=== PATIENT | female | born 1945 | race Caucasian/White ===

== ENCOUNTER 2017-08-21 12:57 | Inpatient (IN) | payer MEDICARE, MEDICAID, SELFPAY ==
[2017-08-21] VITALS (104 sets, daily range): BP systolic 73–134; BP diastolic 46–99; PULSE 51–207; RESP 11–38; TEMP 37–37.3; O2SAT 91–98
--- NOTE | 2017-08-21 13:10 | ED.GENADUL ---
Disposition Clinical Impression: New onset a-fib, Atrial fibrillation with RVR Disposition: [facility] INPATIENT Condition: Stable Medical Decision Making - Lab Data Results reviewed for labs ordered during visit: Yes - EKG Data -: EKG Interpreted by Me EKG shows normal: axis, intervals 08/21/17 13:13 svt vs rapid afib 08/21/17 14:18 2nd ekg shows no significant changes, afib with rvr, no interval changes - Radiology Data Radiology results: report reviewed, image reviewed - Medical Decision Making Pt here with ekg that is likely showing svt. Has absolutely no symptoms with this so unclear when this started. Vagal maneuvers attempted and failed, will try diltizem to decrease and come out of this rhythm. Has no chest pain/pressure or sob so doubt acs at this time labs unremarkble other than mild low magnesium which I will replete IV. She remains HD stable, did require 2nd IVP 15mg diltiazem as HR was still 160 in afib and is now on a drip. Will admit to the ICU, spoke with Dr. Sykes who accepted and requests lovenox. Her [id number] is 2 based on age and being female so should be anticoagulated - Differential Diagnosis electrolyte abnormality, svt, afib History of Present Illness - General Chief complaint: Palpitatns Stated complaint: UNKNOWN Time Seen by Provider: 08/21/17 13:04 Source: patient Mode of arrival: ambulatory Limitations: no limitations - History of Present Illness Initial comments: 72 yo female with hx of depression who was at her pcp's office today for screening prior to going to [facility], who comes in with from the office after she was found to have a HR of 180. She denies any palpitations, chest pain/pressure, shortness of breath, abdominal pain, n/v. She walked into the exam room unassisted with a normal gait. no prior hx of cardiac disease per pt and family MD Complaint: HR of 180 -: unknown Location: chest Radiation: non-radiation Severity scale (1-10): 1 (no pain) Consistency: other (no pain) Improves with: none Worsens with: none Associated Symptoms: denies other symptoms Treatments Prior to Arrival: none - Related Data Cyanocobalamin (Vitamin B-12) [Vitamin B-12] 500 mcg PO DAILY 07/11/12 True Aloe 1 cap PO QID PRN 07/11/12 Nystatin Powder 60 GM [Mycostatin Powder] 1 stacie TP BID prn #60 gram 07/01/13 Ocuvite Adult 50+ Softgel 1 each PO DAILY 10/03/13 Blood-Glucose Meter [Blood Glucose Meter] 1 each as directed #1 each 06/15/14 Flu Vaccine [id number](6Mos Up) [Flulaval Quad [id number]] 60 mcg IM ONCE #1 dose 01/18/16 Hydrochlorothiazide 12.5 mg PO DAILY #90 tab-cap 07/12/16 Levothyroxine [Levothroid] 150 mcg PO DAILY #90 tab 07/12/16 Insulin Glargine [Lantus Solostar] 60 unit SQ HS #3 box 11/11/16 Metformin HCl [Metformin HCl ER] 2,000 mg PO DAILY #60 tab-cap 11/11/16 Lancets 1 ea QID #200 each 11/26/16 Blood Sugar Diagnostic [Blood Glucose Test Strip] 1 strip QID #200 strip 03/18/17 Alprazolam [Xanax] 0.5 mg PO DAILY #30 tab 07/21/17 Risperidone 0.5 tab PO BID 07/31/17 Pen Needle, Diabetic [Pen [place]] 1 ndl SQ DAILY #100 ndl 08/05/17 Acetaminophen 2 tab PO TID PRN 08/07/17 Losartan [Cozaar] 100 mg PO DAILY #90 tab 08/20/17 Allergies Allergy/AdvReac Type Severity Reaction Status Date / Time Iodinated Contrast- Oral and Allergy Unknown Unverified 08/21/17 13:16 IV Dye Oral contrast Allergy rash, Uncoded 08/21/17 13:16 lower leg swelling Review of Systems Constitutional: denies: fever Respiratory: denies: cough, shortness of breath Cardiovascular: denies: chest pain, palpitations, dyspnea on exertion Gastrointestinal: denies: abdominal pain, nausea, vomiting Genitourinary: denies: urgency Musculoskeletal: denies: back pain Neurological: denies: headache Comment: All other systems reviewed and negative Past Medical History - Past Medical History Medical history: arthritis, diabetes, GERD, hyperlipidemia, hypertension Surgical history: non-contributory - Social History Alcohol use: none Drug use: none General Exam - General Limitations: no limitations General appearance: alert, in no apparent distress - Head Head exam: Present: atraumatic - Eye Eye exam: Present: normal apperance - ENT ENT exam: Present: mucous membranes moist - Neck Neck exam: Present: normal inspection - Respiratory Respiratory exam: Present: normal lung sounds bilaterally. Absent: respiratory distress - Cardiovascular Cardiovascular Exam: Present: regular rate, normal rhythm, normal heart sounds - GI/Abdominal GI/Abdominal exam: Present: soft. Absent: tenderness - Extremities Exam Extremities exam: Present: normal inspection. Absent: pedal edema, calf tenderness - Neurological Exam Neurological exam: Present: alert, oriented X3. Absent: motor sensory deficit - Psychiatric Psychiatric exam: Present: normal affect - Skin Skin exam: Present: warm Course Vital Signs - 24 hr 08/21/17 13:02 Temperature 99.1 F Pulse 180 H Respiratory 22 Rate Blood Pressure 115/99 Pulse Oximetry 95 Critical Care Time Critical Care Time: Yes Total Critical Care Time: 60 (minutes) Critical Care Time: time spent initiaing IV diltiazem in patient with afib with rapid ventricular response, monitoring hemodynamics, ekg interpretation and lab review
--- NOTE | 2017-08-21 13:13 | ED.GENADUL_ITS ---
Disposition Clinical Impression: New onset a-fib, Atrial fibrillation with RVR Disposition: [facility] INPATIENT Condition: Stable Medical Decision Making - Lab Data Results reviewed for labs ordered during visit: Yes - EKG Data -: EKG Interpreted by Me EKG shows normal: axis, intervals 08/21/17 13:13 svt vs rapid afib 08/21/17 14:18 2nd ekg shows no significant changes, afib with rvr, no interval changes - Radiology Data Radiology results: report reviewed, image reviewed - Medical Decision Making Pt here with ekg that is likely showing svt. Has absolutely no symptoms with this so unclear when this started. Vagal maneuvers attempted and failed, will try diltizem to decrease and come out of this rhythm. Has no chest pain/ pressure or sob so doubt acs at this time labs unremarkble other than mild low magnesium which I will replete IV. She remains HD stable, did require 2nd IVP 15mg diltiazem as HR was still 160 in afib and is now on a drip. Will admit to the ICU, spoke with Dr. Sykes who accepted and requests lovenox. Her [id number] is 2 based on age and being female so should be anticoagulated - Differential Diagnosis electrolyte abnormality, svt, afib History of Present Illness - General Chief complaint: Palpitatns Stated complaint: UNKNOWN Time Seen by Provider: 08/21/17 13:04 Source: patient Mode of arrival: ambulatory Limitations: no limitations - History of Present Illness Initial comments: 72 yo female with hx of depression who was at her pcp's office today for screening prior to going to [facility], who comes in with from the office after she was found to have a HR of 180. She denies any palpitations, chest pain/pressure, shortness of breath, abdominal pain, n/v. She walked into the exam room unassisted with a normal gait. no prior hx of cardiac disease per pt and family MD Complaint: HR of 180 -: unknown Location: chest Radiation: non-radiation Severity scale (1-10): 1 (no pain) Consistency: other (no pain) Improves with: none Worsens with: none Associated Symptoms: denies other symptoms Treatments Prior to Arrival: none - Related Data Cyanocobalamin (Vitamin B-12) [Vitamin B-12] 500 mcg PO DAILY 07/11/12 True [place]oe 1 cap PO QID PRN 07/11/12 Nystatin Powder 60 GM [Mycostatin Powder] 1 stacie TP BID prn #60 gram 07/01/13 Ocuvite Adult 50+ Softgel 1 each PO DAILY 10/03/13 Blood-Glucose Meter [Blood Glucose Meter] 1 each as directed #1 each Flu Vaccine [id number](6Mos Up) [Flulaval Quad [id number]] 60 mcg IM ONCE #1 dose 01/18/16 Hydrochlorothiazide 12.5 mg PO DAILY #90 tab-cap 07/12/16 Levothyroxine [Levothroid] 150 mcg PO DAILY #90 tab 07/12/16 Insulin Glargine [Lantus Solostar] 60 unit SQ HS #3 box 11/11/16 Metformin HCl [Metformin HCl ER] 2,000 mg PO DAILY #60 tab-cap 11/11/16 Lancets 1 ea QID #200 each 11/26/16 Blood Sugar Diagnostic [Blood Glucose Test Strip] 1 strip QID #200 strip Alprazolam [Xanax] 0.5 mg PO DAILY #30 tab 07/21/17 Risperidone 0.5 tab PO BID 07/31/17 Pen Needle, Diabetic [Pen [place]] 1 ndl SQ DAILY #100 ndl 08/05/17 Acetaminophen 2 tab PO TID PRN 08/07/17 Losartan [Cozaar] 100 mg PO DAILY #90 tab 08/20/17 Allergies Allergy/AdvReac Type Severity Reaction Status Date / Time Iodinated Contrast- Oral and Allergy Unknown Unverified 08/21/17 13:16 IV Dye Oral contrast Allergy rash, Uncoded 08/21/17 13:16 lower leg swelling Review of Systems Constitutional: denies: fever Respiratory: denies: cough, shortness of breath Cardiovascular: denies: chest pain, palpitations, dyspnea on exertion Gastrointestinal: denies: abdominal pain, nausea, vomiting Genitourinary: denies: urgency Musculoskeletal: denies: back pain Neurological: denies: headache Comment: All other systems reviewed and negative Past Medical History - Past Medical History Medical history: arthritis, diabetes, GERD, hyperlipidemia, hypertension Surgical history: non-contributory - Social History Alcohol use: none Drug use: none General Exam - General Limitations: no limitations General appearance: alert, in no apparent distress - Head Head exam: Present: atraumatic - Eye Eye exam: Present: normal apperance - ENT ENT exam: Present: mucous membranes moist - Neck Neck exam: Present: normal inspection - Respiratory Respiratory exam: Present: normal lung sounds bilaterally. Absent: respiratory distress - Cardiovascular Cardiovascular Exam: Present: regular rate, normal rhythm, normal heart sounds - GI/Abdominal GI/Abdominal exam: Present: soft. Absent: tenderness - Extremities Exam Extremities exam: Present: normal inspection. Absent: pedal edema, calf tenderness - Neurological Exam Neurological exam: Present: alert, oriented X3. Absent: motor sensory deficit - Psychiatric Psychiatric exam: Present: normal affect - Skin Skin exam: Present: warm Course Vital Signs - 24 hr 08/21/17 13:02 Temperature 99.1 F Pulse 180 H Respiratory 22 Rate Blood Pressure 115/99 Pulse Oximetry 95 Critical Care Time Critical Care Time: Yes Total Critical Care Time: 60 (minutes) Critical Care Time: time spent initiaing IV diltiazem in patient with afib with rapid ventricular response, monitoring hemodynamics, ekg interpretation and lab review
[2017-08-21 13:21] LABS: Abs Immature Grans 0.05 k/cumm (0.0-0.09); Absolute Eosinophil Count 0.07 k/cumm (0.0-0.7); Absolute Lymphocyte Count 2.56 k/cumm (1.2-3.4); Absolute Monocyte Count 0.94 k/cumm (0.11-0.7); Basophils % 0.2; Eosinophils % 0.6; HCT 44.2 % (36.0-46.0); Immature Grans % 0.4; Lymphocytes % 21.1; Mean Corp. HGB Concentration 33.9 g/dL (32.0-36.0); Mean Corpuscular Hemoglobin 29.9 pg (27.0-33.0); Mean Corpuscular Volume 88.2 fL (80-95); Mean Platelet Volume 10.3 fL (8.0-11.0); Monocytes % 7.7; Platelet Count 297 x1000/uL (130-400); RBC 5.01 m/cumm (4.00-5.20); RBC Distribution Width 14.8 % (11.7-14.6); White Blood Cell Count 12.15 k/cumm (4.4-10.8)
--- NOTE | 2017-08-21 13:22 | DI.REPORT_ITS ---
SYMPTOMS/DIAGNOSIS: SHORTNESS OF BREATH PORTABLE AP CHEST 13:40 HOURS: The heart is at the upper limits of normal in size. The lungs are clear and well expanded. CONCLUSION: No evidence of acute disease.
[2017-08-21 13:25] LABS: Absolute Basophil Count 0.02 k/cumm (0.0-0.2); Absolute Neutrophil Count 8.51 k/cumm (1.2-6.7)
[2017-08-21 13:35] LABS: PTT Activated 23.2 sec (21.0-31.4); Prothrombin Time 9.5 sec (9.3-10.8)
[2017-08-21 13:39] LABS: Anion Gap 14.2 mmol/L (3-11); BUN 30 mg/dL (7-18); CO2 20.8 mmol/L (21.0-32.0); Chloride 107 mmol/L (98-107); Glucose 130 mg/dL (70-100); Magnesium 1.6 mg/dL (1.8-2.4); Potassium 4.3 mmol/L (3.5-5.1); Sodium 142 mmol/L (136-145); Troponin I 0.02 ng/mL (0.00-0.06)
[2017-08-21 13:46] LABS: TSH (W/Ref FT4) 2.29 uIU/mL (0.358-3.74)
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
[2017-08-21 18:07] LABS: Troponin I < 0.02 ng/mL (0.00-0.06)
[2017-08-21] MEDS: Metoprolol 25 MG TAB PO (18:09)
[2017-08-21] MEDS: Insulin Aspart 300 UNITS/3 ML PEN SC (18:12)
[2017-08-21] MEDS: Metoprolol 5 MG/5 ML VIAL IVP (19:40)
[2017-08-21] MEDS: risperiDONE 0.5 MG TAB 0.25 MG PO (19:40)
[2017-08-21] MEDS: Normal Saline 250 ML IV (20:30)
[2017-08-21] MEDS: Insulin Glargine 300 UNITS/3 ML PEN 60 UNITS SC (21:53)
[2017-08-21 22:00] LABS: Troponin I < 0.02 ng/mL (0.00-0.06)
[2017-08-21] MEDS: Normal Saline 1,000 ML 100 ML IV (23:35)
[2017-08-22] VITALS (41 sets, daily range): BP systolic 79–122; BP diastolic 56–76; PULSE 52–86; RESP 15–34; TEMP 36.4–36.9; O2SAT 92–97
[2017-08-22] MEDS: Metoprolol 25 MG TAB PO ×2 (01:44→09:32)
[2017-08-22] MEDS: ALPRAZolam 0.5 MG TAB PO ×2 (02:25→19:42)
[2017-08-22 07:04] LABS: Abs Immature Grans 0.03 k/cumm (0.0-0.09); Absolute Basophil Count 0.02 k/cumm (0.0-0.2); Absolute Eosinophil Count 0.07 k/cumm (0.0-0.7); Absolute Monocyte Count 0.62 k/cumm (0.11-0.7); Basophils % 0.3; Eosinophils % 0.9; HCT 38.4 % (36.0-46.0); HGB 12.6 g/dL (12.0-15.5); Immature Grans % 0.4; Lymphocytes % 23.9; Mean Corp. HGB Concentration 32.8 g/dL (32.0-36.0); Mean Corpuscular Hemoglobin 29.7 pg (27.0-33.0); Mean Corpuscular Volume 90.6 fL (80-95); Mean Platelet Volume 10.4 fL (8.0-11.0); Monocytes % 7.8; Neutrophils % 66.7; Platelet Count 232 x1000/uL (130-400); RBC 4.24 m/cumm (4.00-5.20); RBC Distribution Width 14.9 % (11.7-14.6); White Blood Cell Count 7.94 k/cumm (4.4-10.8)
[2017-08-22 07:19] LABS: ALT 20 U/L (12-78); AST 12 U/L (15-37); Albumin 2.5 g/dL (3.4-5.0); Alkaline Phosphatase 62 U/L (46-116); Anion Gap 8.9 mmol/L (3-11); BUN 23 mg/dL (7-18); Bilirubin, Total 0.4 mg/dL (0.2-1.0); CO2 24.1 mmol/L (21.0-32.0); CREATININE 0.76 mg/dL (0.55-1.02); Calcium 7.5 mg/dL (8.5-10.1); Chloride 109 mmol/L (98-107); Glucose 103 mg/dL (70-100); Potassium 3.8 mmol/L (3.5-5.1); Sodium 142 mmol/L (136-145); Total Protein 5.5 g/dL (6.4-8.2)
[2017-08-22 07:22] LABS: FREE T4 1.38 ng/dL (0.76-1.46)
--- NOTE | 2017-08-22 07:33 | MERGE_ITS ---
*[facility] [employer]* *[facility]* [address] [place] [address] Date of study: 08/22/2017 Transthoracic Echocardiography M-mode, complete 2D, complete spectral Doppler, and color Doppler *STUDY CONCLUSIONS* Summary: 1. Left ventricle: The cavity size was normal. Wall thickness was normal. Systolic function was normal. The estimated ejection fraction was 55-60%. Wall motion was normal; there were no regional wall motion abnormalities. 2. Right ventricle: The cavity size was normal. Systolic function was normal. *PATIENT PRESENTATION* Height: 144.8cm ((57in) ) S/D Pressure: 79 / 62 Weight: 83.5kg ((183.6lb) ) BSA: 1.88m^2 Test start time: 07:33 AM. Test stop time: 08:35 AM. PERFORMING Unknown PERFORMING [facility] ORDERING Nam Sykes REFERRING Nam Sykes [employer] SUPERVISOR Kenna Ocampo *PROCEDURE DATA* Procedure information: This study was interpreted by [facility]. Pertinent images and digital data are archived for permanent storage and are available for subsequent review. No prior study was available for comparison. Study status: Routine. Transthoracic echocardiography. M-mode, complete 2D, complete spectral Doppler, and color Doppler. A Transthoracic Echocardiogram was performed. Scanning was performed from the parasternal, apical, subcostal, and suprasternal notch acoustic windows. Images were obtained using an HammerKit 2000 cardiac ultrasound machine. Image quality was adequate. Study completion: The patient tolerated the procedure well. There were no complications. History: PMH: A Fib, HTN, DM. *CARDIAC ANATOMY* Left ventricle: The cavity size was normal. Wall thickness was normal. Systolic function was normal. The estimated ejection fraction was 55-60%. Wall motion was normal; there were no regional wall motion abnormalities. Aortic valve: Trileaflet; normal thickness leaflets. Mobility was not restricted. Doppler: Transvalvular velocity was within the normal range. There was no stenosis. There was trivial regurgitation. VTI ratio of LVOT to aortic valve: 0.69. Valve area (VTI): 1.7cm^2. Indexed valve area (VTI): 0.9cm^2/m^2. Peak velocity ratio of LVOT to aortic valve: 0.62. Valve area (Vmax): 1.5cm^2. Indexed valve area (Vmax): 0.8cm^2/m^2. Mean velocity ratio of LVOT to aortic valve: 0.57. Valve area (Vmean): 1.4cm^2. Indexed valve area (Vmean): 0.7cm^2/m^2. Mean gradient (S): 3.6mm Hg. Peak gradient (S): 6.4mm Hg. Aorta: Aortic root: The aortic root was normal in size. Ascending aorta: The ascending aorta was normal in size. Mitral valve: Mildly calcified annulus. Mildly thickened leaflets. Mobility was not restricted. Doppler: Transvalvular velocity was within the normal range. There was no evidence for stenosis. There was mild regurgitation. Valve area by pressure half-time: 6.4cm^2. Indexed valve area by pressure half-time: 3.4cm^2/m^2. Peak gradient (D): 2.8mm Hg. Left atrium: The atrium was normal in size. Right ventricle: The cavity size was normal. Systolic function was normal. Pulmonic valve: Poorly visualized. Doppler: Transvalvular velocity was within the normal range. There was no evidence for stenosis. There was no significant regurgitation. Tricuspid valve: Structurally normal valve. Doppler: Transvalvular velocity was within the normal range. There was no evidence for stenosis. There was trivial regurgitation. Pulmonary artery: Poorly visualized. Pulmonary systolic pressure was within the normal range. Right atrium: The atrium was normal in size. Pericardium: There was no pericardial effusion. Systemic veins: Inferior vena cava: The vessel was normal in size. The respirophasic diameter changes were in the normal range (greater than or equal to 50%), consistent with normal central venous pressure. Measurements Left ventricle Value Reference LV ID, ED, PLAX 5.0 cm 3.5 - 6.0 LV ID, ES, PLAX 3.2 cm 2.1 - 4.0 LV PW thickness, ED, PLAX 0.9 cm LV end-diastolic volume, 1-p A2C 65 ml LV ejection fraction, 1-p A2C 60 % LV end-diastolic volume, 1-p A4C 83 ml LV ejection fraction, 1-p A4C 53 % LV e', lateral 0.093 m/sec LV E/e', lateral 9 LV e', medial 0.053 m/sec LV E/e', medial 16 LV e', average 0.073 m/sec LV E/e', average 11 Ventricular septum Value Reference IVS thickness, ED, PLAX 0.9 cm LVOT Value Reference LVOT ID, A-P 1.8 cm LVOT area 2.5 cm^2 LVOT peak velocity, S 0.78 m/sec LVOT mean velocity, S 0.52 m/sec LVOT VTI, S 18.8 cm LVOT peak gradient, S 2.4 mm Hg LVOT mean gradient, S 1.3 mm Hg Stroke volume (SV), LVOT DP 47 ml Stroke index (SV/bsa), LVOT DP 25 ml/m^2 Aortic valve Value Reference Aortic valve peak velocity, S 1.3 m/sec Aortic valve mean velocity, S 0.91 m/sec Aortic valve VTI, S 27.4 cm Aortic mean gradient, S 3.6 mm Hg Aortic peak gradient, S 6.4 mm Hg VTI ratio, LVOT/AV 0.69 Aortic valve area, VTI 1.7 cm^2 Velocity ratio, peak, LVOT/AV 0.62 Aortic valve area, peak velocity 1.5 cm^2 Velocity ratio, mean, LVOT/AV 0.57 Aortic valve area, mean velocity 1.4 cm^2 Aortic valve area/bsa, mean velocity 0.7 cm^2/m^2 Aorta Value Reference Aortic root ID, ED 3.1 cm Ascending aorta ID, A-P, S 3.7 cm Aortic root ID, ED, MM 3.1 cm 2.0 - 3.7 Left atrium Value Reference LA ID, A-P, ES 3.6 cm LA ID/bsa, A-P 1.9 cm/m^2 <=2.2 LA area, ES, A4C 19.4 cm^2 8.8 - 23.4 LA volume/bsa, S 31 ml/m^2 LA/aortic root ratio 1.18 Mitral valve Value Reference Mitral E-wave peak velocity 0.83 m/sec Mitral A-wave peak velocity 0.37 m/sec Mitral deceleration time (L) 118 ms 150 - 230 Mitral pressure half-time 34 ms Mitral peak gradient, D 2.8 mm Hg Mitral E/A ratio, peak 2.23 Mitral valve area, PHT, DP 6.4 cm^2 Tricuspid valve Value Reference Tricuspid regurg peak velocity 2.5 m/sec Tricuspid peak RV-RA gradient 25.9 mm Hg Right atrium Value Reference RA area, ES, A4C 16.1 cm^2 8.3 - 19.5 Legend: (L) and (H) yani values outside specified reference range. I have personally reviewed the images and have reviewed and edited the reported findings. Electronically signed by Tatum Bazzi 08/22/2017 09:47
[2017-08-22] MEDS: Losartan 50 MG TAB 100 MG PO (08:41)
[2017-08-22] MEDS: Beta-Carotene(A) w/C,E, & Minerals TAB 1 TAB PO (08:41)
[2017-08-22] MEDS: Levothyroxine 75 MCG TAB 150 MCG PO (08:41)
[2017-08-22] MEDS: Enoxaparin 80 MG/0.8 ML SYR SC (08:42)
[2017-08-22] MEDS: Cyanocobalamin 500 MCG TAB PO (08:42)
[2017-08-22] MEDS: risperiDONE 0.5 MG TAB 0.25 MG PO ×2 (08:42→19:42)
--- NOTE | 2017-08-22 08:48 | PDOC.CMPRO ---
Care Management Progress Note 08/22-Late note for 08/21 Jason from [facility] came to discuss Karuna. Jason has been working with her in the outpatient setting. Concern about her mental health. Karuna was seen for suicidal ideation in the past and currently the outpatient team is working on her going to [facility]. Discussed with Jason that Karuna was here for medical and that once medically cleared she will be ready for discharge. The outpatient team will continue to work on getting her into [facility]. This CM did meet with Karuna and her sister in the emergency department. Karuna is here for new onset afib, sent in by her primary care provider. Discussion with inpatient CM about above visit from Jason.
[2017-08-22] MEDS: Insulin Aspart 300 UNITS/3 ML PEN SC (09:15)
[2017-08-22] MEDS: Normal Saline 1,000 ML 100 ML IV (09:29)
--- NOTE | 2017-08-22 09:55 | PDOC.CMIN ---
Date of Service: 08/22/17 Time of Service: 09:55 Care Management Initial Assess REASON FOR HOSPITALIZATION:: Atrial Fibrillation with rapid ventricular response PAST MEDICAL HISTORY/PAST SURGICAL HISTORY:: HTN, Hyperlipidemia, b12 deficiency, anxiety, depression, DM, osteoarthritis, hypothyroidism. Surgical hx hysterectomy, hernia repair. PREVIOUS FUNCTIONAL STATUS/SOCIAL/FAMILY SUPPORTS:: Patient lives with her sister in law Yancy and her brother Yaniv. She was living with her mother however due to altercations between the 2 she is staying with her [id number]. She was recently in a care bed with [facility] [employer], and is required a lot of support around her mental health. Community resources have been trying to get her into [facility] for geriatric psych support, with progression toward assisted living in which they are reviewing the [facility]. CURRENT FUNCTIONAL STATUS:: Patient is alert and interactive in conversation with CM. [id number] Malorie's at the bedside she is willing to transport patient to [facility] at time of discharge. Patient is processing information related to new diagnosis of atrial fibrillation with support from [id number]-wh-nck. At the bedside is the atrial fibrillation teaching packet. ADVANCE DIRECTIVES:: On file at [facility] Has patient been provided with information about the portal?: Yes Did the patient sign up for the portal?: No CODE STATUS:: DNR/DNI INSURANCE COVERAGE / FINANCIAL ISSUES:: MEDICARE. MEDICAID CURRENT HOME/COMMUNITY SERVICES/EQUIPMENT:: Community resources include school adjustment counselor on aging, community connections, chronic primary care nurse practitioner at [facility]. Patient has been accepted at [facility] and anticipates admission they are on Friday. PRIMARY CARE PHYSICIAN:: Nuris Henley APRN POTENTIAL DISCHARGE NEEDS:: Patient will transition to geriatric psychiatric facility on Friday. If patient is to be discharged over the weekend she will need to follow-up with her primary care prior to transition to [facility]. PATIENT/FAMILY EDUCATION NEEDS:: Education related to acute illness, follow-up plan of care, medications, limitations, ask me 3, and self-management discussion. ANTICIPATED BARRIERS TO DISCHARGE:: No anticipated barriers at this time TRANSPORTATION:: Patient to be transported by her mjqolc-nq-vsw Yancy at time of discharge via private car. PLAN:: Patient will remain inpatient until medically ready for discharge per provider. Patient has been accepted at [facility] in [place], [place]. CM faxed updated clinicals to the facility, plan is for her to transfer there on Friday from [facility] if possiable. HEAD PAPER TESTER contact is Jossie at [phone] fax number is [phone]. Patient will transition to [facility] for anticoagulation, pt has medicaid and Eliquis does not need a PA. CM to continue to provide support ongoing discharge planning and disposition.
--- NOTE | 2017-08-22 11:20 | INITIAL_ITS ---
Date of Service: 08/22/17 Time of Service: 09:55 Care Management Initial Assess REASON FOR HOSPITALIZATION:: Atrial Fibrillation with rapid ventricular response PAST MEDICAL HISTORY/PAST SURGICAL HISTORY:: HTN, Hyperlipidemia, b12 deficiency , anxiety, depression, DM, osteoarthritis, hypothyroidism. Surgical hx hysterectomy, hernia repair. PREVIOUS FUNCTIONAL STATUS/SOCIAL/FAMILY SUPPORTS:: Patient lives with her sister in law Yancy and her brother Yaniv. She was living with her mother however due to altercations between the 2 she is staying with her sister-in- law. She was recently in a care bed with [facility] [employer], and is required a lot of support around her mental health. Community resources have been trying to get her into [facility] for geriatric psych support, with progression toward assisted living in which they are reviewing the [facility]. CURRENT FUNCTIONAL STATUS:: Patient is alert and interactive in conversation with CM. Ttirbm-[id number]-tlk Malorie's at the bedside she is willing to transport patient to [facility] at time of discharge. Patient is processing information related to new diagnosis of atrial fibrillation with support from sister-in- law. At the bedside is the atrial fibrillation teaching packet. ADVANCE DIRECTIVES:: On file at [facility] Has patient been provided with information about the portal?: Yes Did the patient sign up for the portal?: No CODE STATUS:: DNR/DNI INSURANCE COVERAGE / FINANCIAL ISSUES:: MEDICARE. MEDICAID CURRENT HOME/COMMUNITY SERVICES/EQUIPMENT:: Community resources include staff counsel on aging, community connections, chronic insurance healthcare consultant at [facility]. Patient has been accepted at [facility] and anticipates admission they are on Friday. PRIMARY CARE PHYSICIAN:: Nuris Henley APRN POTENTIAL DISCHARGE NEEDS:: Patient will transition to geriatric psychiatric facility on Friday. If patient is to be discharged over the weekend she will need to follow-up with her primary care prior to transition to [facility]. PATIENT/FAMILY EDUCATION NEEDS:: Education related to acute illness, follow-up plan of care, medications, limitations, ask me 3, and self-management discussion. ANTICIPATED BARRIERS TO DISCHARGE:: No anticipated barriers at this time TRANSPORTATION:: Patient to be transported by her sqriay-gk-cio Yancy at time of discharge via private car. PLAN:: Patient will remain inpatient until medically ready for discharge per provider. Patient has been accepted at [facility] in [place], [place]. CM faxed updated clinicals to the facility, plan is for her to transfer there on Friday from [facility] if possiable. CLOTH COVERED HELMET PULLER contact is Jossie at [phone] fax number is [phone]. Patient will transition to [facility] for anticoagulation, pt has medicaid and Eliquis does not need a PA. CM to continue to provide support ongoing discharge planning and disposition.
--- NOTE | 2017-08-22 11:43 | PHARADMIT ---
Admission Pharmacy Clinical Review New Afib, RVR Code Status DNR/DNI Current Weight 83 kg Renally Cleared and Narrow Therapeutic Index Meds CrCl~47ml/min QTc Value / Action Taken QTC 448 BP Control, Fever BP 108/76, HR good, converted overnight, Afebrile Electrolytes reviewed K+ 3.8 Mag 1.6 DVT Prophylaxis was on Lovenox, starting Eliquis tonight Opiate Usage / Scheduled Bowel Regimen Ordered Plt/SCr for Heparin / Enoxaparin Plt 232 SCr 0.76 INR for Warfarin INR 1.0 H/H stable, WBC/Bands H/H 12.6/38.4 WBC 7.94 Antibiotic appropriateness Cultures and Sensitivities Micro from 08/21/17..mixed shani, insignificant, not treating Surgical ABX d/c within 24 hr DM control / Insulin Dosing BG 103, Novolog scale plus carb counting, Lantus 60u HS- well controlled Heart Failure (Check EF%) (PORSHA's, B-Block, Diuretics) losartan, Metoprolol IV, converting from IR to XL Metoprolol today with BID dosing IV to PO Switch Home Meds Reviewed Home Meds Not Ordered HCTZ, MEtformin, Ocuvite, Comments will be entering a new facility for mental health placement when medically cleared
--- NOTE | 2017-08-22 11:53 | PDOC.PROG ---
Date of Service: 08/22/17 Time of Service: 11:53 Assessment/Plan - Assessment/Plan (1) Atrial fibrillation with rapid ventricular response Assessment: Patient converted to normal sinus rhythm last night after an episode of profound bradycardia associated with concomitant use of IV and oral Lopressor while being weaned down on her IV diltiazem. Plan: Continue oral beta-blockers. Will convert from Lopressor to long-acting Toprol-XL. Goal is for resting heart rate under 90 and heart rate with activity of less than 120. Begin apixaban for stroke prevention. (2) Type 2 diabetes mellitus Assessment: Blood sugars seem to be responding well to current treatment regimen. Her fasting glucose was 91. Her highest level last night was 169. Her recent outpatient A1c was 5.9% indicating that she has had good control of her diabetes as an outpatient. Plan: Continue current dose of basal bolus treatment. Currently on Lantus 60 units at bedtime along with mealtime coverage with NovoLog as well as a corrective scale with NovoLog. As she is ruled out for acute myocardial infarction and has no congestive heart failure or evidence of chronic kidney disease I think we can resume her metformin her previous dose of metformin controlled release 1000 mg twice daily (3) History of psychiatric disorder Plan: Continue current home medications of Risperdal and alprazolam. History of Present Illness - History of Present Illness Chief Complaint: Atrial fibrillation History of Present Illness: Patient had an eventful night last night in that she developed profound bradycardia associated with receiving both p.o. and IV Lopressor while she was still on a diltiazem drip. The diltiazem drip was discontinued and after she recovered from the bradycardia she had converted to normal sinus rhythm. This morning she feels fine and denies any chest pain or chest pressure or shortness of breath nor any dizziness. I discussed her case with Dr. Bazzi who agrees with continued oral metoprolol with titration to maintain a stable blood pressure heart rate and he recommends initiation of Eliquis 5 mg twice a day. Patient reportedly had a heme positive stool last night. There is been no grossly bloody diarrhea nor any melena. I spoke with her [id number]-[id number] who is not aware of any recent GI bleeding issues although the patient has a history of colon polyps and was supposed to have a follow-up colonoscopy this year but the patient talked her provider out of doing the colonoscopy this year. Her last colonoscopy was [address] Sheron Amador. Unfortunately cannot access the [facility] on base record retrieval system to find out the pathology. I asked her ldksod-kw-ykz whether or not the colon polyps were malignant however she did not know the results of the patient's colonoscopy. Her [id number] score is a 3 which indicates she is a higher risk for potential stroke from her atrial fibrillation. Therefore she would benefit from long-term anticoagulation. We will asked Dr. Amador to see the patient and set up with the patient and her [id number]-ovj an outpatient colonoscopy. In the meantime I will be titrating her metoprolol and converting it over to long-acting Toprol to maintain her rate control and prevent recurrent atrial fibrillation. Review of Systems - Review of Systems Cardiovascular: denies: Chest Pain, Palpitations, Edema, Light Headedness Gastrointestinal: denies: Nausea, Vomiting, Abdominal Pain, Melena, Hematochezia - Medications/Allergies Allergies/Adverse Reactions: Allergies Allergy/AdvReac Type Severity Reaction Status Date / Time Iodinated Contrast- Oral and Allergy Unknown Unverified 08/21/17 13:16 IV Dye Oral contrast Allergy rash, Uncoded 08/21/17 13:16 lower leg swelling Medications: Current Medications Acetaminophen (Tylenol) 0 mg PO Q4H PRN PRN Al Hydrox/Mg Hydrox/Simethicone (Mylanta Liquid) 30 ml PO Q2H PRN PRN Alprazolam (Xanax) 0.5 mg PO DAILY PRN Last Admin: 08/22/17 02:25 Dose: 0.5 mg Apixaban (Eliquis) 5 mg PO BID [facility] Cyanocobalamin (Vitamin B-12) 500 mcg PO DAILY [facility] Last Admin: 08/22/17 08:42 Dose: 500 mcg Dextrose (Insta-Glucose) 0 gm PO DIRECTED PRN Dextrose/Water () 0 gm IVP DIRECTED PRN Dimethicone/Zinc Oxide (Amarilis Protect Cream) 0 gm TP PRN PRN Docusate Sodium (Colace) 100 mg PO TID PRN PRN Sodium Chloride (Saline 1000ml Bag) 1,000 mls @ 100 mls/hr IV INFUSION [facility] Last Admin: 08/22/17 09:29 Dose: 100 mls/hr IV Miscellaneous Supplies () 1 each IV DIRECTED [facility] Insulin Aspart (Novolog Flexpen) 0 units SC 0800,1200,1700 [facility] PRN Reason: Protocol Last Admin: 08/22/17 08:43 Dose: Not Given Insulin Aspart (Novolog Flexpen) 0 units SC 0800,1200,1700 [facility] Last Admin: 08/22/17 09:15 Dose: 5 units Insulin Glargine (Lantus Solostar) 60 units SC HS [facility] Last Admin: 08/21/17 21:53 Dose: 60 units Levothyroxine Sodium (Levothroid) 150 mcg PO DAILY@0730 [facility] Last Admin: 08/22/17 08:41 Dose: 150 mcg Losartan Potassium (Cozaar) 100 mg PO DAILY [facility] Last Admin: 08/22/17 08:41 Dose: 100 mg Magnesium Hydroxide (Milk Of Magnesia) 30 ml PO DAILY PRN PRN Metoprolol Succinate (Toprol Xl) 37.5 mg PO Q12H [facility] Metoprolol Succinate (Toprol Xl) 12.5 mg PO NOW ONE Stop: 08/22/17 14:01 Metoprolol Tartrate (Lopressor Injection) 5 mg IVP Q2H PRN PRN Reason: Tachycardia Last Admin: 08/21/17 19:40 Dose: 5 mg Multivitamins/Minerals/Vitamin C (Ocuvite Tablet) 1 tab PO QAM [facility] Last Admin: 08/22/17 08:41 Dose: 1 tab Nystatin (Mycostatin Powder) 0 gm TP BID prn [facility] Last Admin: 08/21/17 18:08 Dose: Not Given Polyethylene Glycol (Miralax) 17 gm PO DAILY PRN PRN PRN Reason: Constipation Risperidone (Risperdal) 0.25 mg PO BID [facility] Last Admin: 08/22/17 08:42 Dose: 0.25 mg Sodium Chloride (Saline Flush 10 Ml Syringe) 0 ml IVP PRN PRN Objective - Exam Vitals and I&O: Vital Signs Temp 36.4 C L 08/22/17 08:08 Pulse 61 08/22/17 06:18 Resp 18 08/22/17 10:00 BP 108/76 08/22/17 06:18 Pulse Ox 97 08/22/17 10:00 Intake & Output 08/21/17 08/21/17 08/22/17 11:59 23:59 11:59 Intake Total 3090.160 0379 Output Total 725 1475 Balance 920.333 65 Weight 83.9 kg 83 kg Intake: IV 970.333 760 Oral 675 780 Output: Urine 725 1475 Other: Urine Color Yellow Yellow Urine Appearance Clear Clear Urine Odor None Normal Comment hyst Mixed with stool. Stool Occult Blood Positive Stool Size Large Stool Characteristics Soft Formed Brown Voiding Methods Bedside Commode Bedside Commode General: Alert, Oriented x3, Cooperative, No acute distress Lungs: Clear to auscultation, Normal air movement Cardiovascular: Regular rate, Normal S1, Normal S2. denies: Murmurs, Gallops Abdomen: Normal bowel sounds, Soft. denies: Tenderness Extremities: denies: Edema Psych/Mental Status: Mental status NL, Mood NL - Results Results: Laboratory Results WBC 7.94 k/cumm (4.4-10.8) D 08/22/17 06:55 RBC 4.24 m/cumm (4.00-5.20) 08/22/17 06:55 Hgb 12.6 g/dL (12.0-15.5) D 08/22/17 06:55 Hct 38.4 % (36.0-46.0) 08/22/17 06:55 MCV 90.6 fL (80-95) 08/22/17 06:55 MCH 29.7 pg (27.0-33.0) 08/22/17 06:55 MCHC 32.8 g/dL (32.0-36.0) 08/22/17 06:55 RDW 14.9 % (11.7-14.6) H 08/22/17 06:55 Plt Count 232 x1000/uL (130-400) 08/22/17 06:55 MPV 10.4 fL (8.0-11.0) 08/22/17 06:55 Immature Gran % 0.4 08/22/17 06:55 Neutrophils % 66.7 08/22/17 06:55 Lymphocytes % 23.9 08/22/17 06:55 Monocytes % 7.8 08/22/17 06:55 Eosinophils % 0.9 08/22/17 06:55 Basophils % 0.3 08/22/17 06:55 Absolute Neutrophils 5.30 k/cumm (1.2-6.7) 08/22/17 06:55 Absolute Lymphocytes 1.90 k/cumm (1.2-3.4) 08/22/17 06:55 Absolute Monocytes 0.62 k/cumm (0.11-0.7) 08/22/17 06:55 Absolute Eosinophils 0.07 k/cumm (0.0-0.7) 08/22/17 06:55 Absolute Basophils 0.02 k/cumm (0.0-0.2) 08/22/17 06:55 PT 9.5 sec (9.3-10.8) 08/21/17 13:10 INR 1.0 (1.0-3.5) 08/21/17 13:10 APTT 23.2 sec (21.0-31.4) 08/21/17 13:10 Sodium 142 mmol/L (136-145) 08/22/17 06:55 Potassium 3.8 mmol/L (3.5-5.1) 08/22/17 06:55 Chloride 109 mmol/L (98-107) H 08/22/17 06:55 Carbon Dioxide 24.1 mmol/L (21.0-32.0) 08/22/17 06:55 Anion Gap 8.9 mmol/L (3-11) 08/22/17 06:55 BUN 23 mg/dL (7-18) H 08/22/17 06:55 Creatinine 0.76 mg/dL (0.55-1.02) 08/22/17 06:55 Estimated GFR/1.73 m2 >= 60.00 (mL/min/1.73m2) 08/22/17 06:55 Glucose 103 mg/dL (70-100) H 08/22/17 06:55 Calcium 7.5 mg/dL (8.5-10.1) L 08/22/17 06:55 Magnesium 1.6 mg/dL (1.8-2.4) L 08/21/17 13:10 Total Bilirubin 0.4 mg/dL (0.2-1.0) 08/22/17 06:55 AST 12 U/L (15-37) L 08/22/17 06:55 ALT 20 U/L (12-78) 08/22/17 06:55 Alkaline Phosphatase 62 U/L (46-116) 08/22/17 06:55 Troponin I < 0.02 ng/mL (0.00-0.06) 08/21/17 21:40 Total Protein 5.5 g/dL (6.4-8.2) L 08/22/17 06:55 Albumin 2.5 g/dL (3.4-5.0) L 08/22/17 06:55 TSH 2.29 uIU/mL (0.358-3.74) 08/21/17 13:10 Free T4 1.38 ng/dL (0.76-1.46) 08/22/17 06:55
--- NOTE | 2017-08-22 11:55 | PROG.BLANK ---
Date of Service: 08/22/17 Time of Service: 11:55 Progress Note New onset atrial fibrillation. Converted spontaneously to sinus rhythm overnight. Telemetry - sinus rhythm at present. Cardiac echo normal. Continue Metoprolol. Elevated stroke risk and should be anticoagulated. Suggest Eliquis 5 mg bid. Can follow up with PCP or refer to Cardiology for further outpatient evaluation. If recurrent symptomatic episodes of atrial fibrillation can discuss anti-arrhythmic therapy in outpatient setting.
--- NOTE | 2017-08-22 11:56 | PDOC.PROG_ITS ---
Date of Service: 08/22/17 Time of Service: 11:53 Assessment/Plan - Assessment/Plan (1) Atrial fibrillation with rapid ventricular response Assessment: Patient converted to normal sinus rhythm last night after an episode of profound bradycardia associated with concomitant use of IV and oral Lopressor while being weaned down on her IV diltiazem. Plan: Continue oral beta-blockers. Will convert from Lopressor to long-acting Toprol- XL. Goal is for resting heart rate under 90 and heart rate with activity of less than 120. Begin apixaban for stroke prevention. (2) Type 2 diabetes mellitus Assessment: Blood sugars seem to be responding well to current treatment regimen. Her fasting glucose was 91. Her highest level last night was 169. Her recent outpatient A1c was 5.9% indicating that she has had good control of her diabetes as an outpatient. Plan: Continue current dose of basal bolus treatment. Currently on Lantus 60 units at bedtime along with mealtime coverage with NovoLog as well as a corrective scale with NovoLog. As she is ruled out for acute myocardial infarction and has no congestive heart failure or evidence of chronic kidney disease I think we can resume her metformin her previous dose of metformin controlled release 1000 mg twice daily (3) History of psychiatric disorder Plan: Continue current home medications of Risperdal and alprazolam. History of Present Illness - History of Present Illness Chief Complaint: Atrial fibrillation History of Present Illness: Patient had an eventful night last night in that she developed profound bradycardia associated with receiving both p.o. and IV Lopressor while she was still on a diltiazem drip. The diltiazem drip was discontinued and after she recovered from the bradycardia she had converted to normal sinus rhythm. This morning she feels fine and denies any chest pain or chest pressure or shortness of breath nor any dizziness. I discussed her case with Dr. Bazzi who agrees with continued oral metoprolol with titration to maintain a stable blood pressure heart rate and he recommends initiation of Eliquis 5 mg twice a day. Patient reportedly had a heme positive stool last night. There is been no grossly bloody diarrhea nor any melena. I spoke with her [id number] who is not aware of any recent GI bleeding issues although the patient has a history of colon polyps and was supposed to have a follow-up colonoscopy this year but the patient talked her provider out of doing the colonoscopy this year. Her last colonoscopy was [address] Sheron Amador. Unfortunately cannot access the [facility] on base record retrieval system to find out the pathology. I asked her [id number] whether or not the colon polyps were malignant however she did not know the results of the patient's colonoscopy. Her [id number] score is a 3 which indicates she is a higher risk for potential stroke from her atrial fibrillation. Therefore she would benefit from long- term anticoagulation. We will asked Dr. Amador to see the patient and set up with the patient and her [id number] an outpatient colonoscopy. In the meantime I will be titrating her metoprolol and converting it over to long- acting Toprol to maintain her rate control and prevent recurrent atrial fibrillation. Review of Systems - Review of Systems Cardiovascular: denies: Chest Pain, Palpitations, Edema, Light Headedness Gastrointestinal: denies: Nausea, Vomiting, Abdominal Pain, Melena, Hematochezia - Medications/Allergies Allergies/Adverse Reactions: Allergies Allergy/AdvReac Type Severity Reaction Status Date / Time Iodinated Contrast- Oral and Allergy Unknown Unverified 08/21/17 13:16 IV Dye Oral contrast Allergy rash, Uncoded 08/21/17 13:16 lower leg swelling Medications: Current Medications Acetaminophen (Tylenol) 0 mg PO Q4H PRN PRN Al Hydrox/Mg Hydrox/Simethicone (Mylanta Liquid) 30 ml PO Q2H PRN PRN Alprazolam (Xanax) 0.5 mg PO DAILY PRN Last Admin: 08/22/17 02:25 Dose: 0.5 mg Apixaban (Eliquis) 5 mg PO BID [facility] Cyanocobalamin (Vitamin B-12) 500 mcg PO DAILY [facility] Last Admin: 08/22/17 08:42 Dose: 500 mcg Dextrose (Insta-Glucose) 0 gm PO DIRECTED PRN Dextrose/Water () 0 gm IVP DIRECTED PRN Dimethicone/Zinc Oxide (Amarilis Protect Cream) 0 gm TP PRN PRN Docusate Sodium (Colace) 100 mg PO TID PRN PRN Sodium Chloride (Saline 1000ml Bag) 1,000 mls @ 100 mls/hr IV INFUSION [facility] Last Admin: 08/22/17 09:29 Dose: 100 mls/hr IV Miscellaneous Supplies () 1 each IV DIRECTED [facility] Insulin Aspart (Novolog Flexpen) 0 units SC 0800,1200,1700 [facility] PRN Reason: Protocol Last Admin: 08/22/17 08:43 Dose: Not Given Insulin Aspart (Novolog Flexpen) 0 units SC 0800,1200,1700 [facility] Last Admin: 08/22/17 09:15 Dose: 5 units Insulin Glargine (Lantus Solostar) 60 units SC HS [facility] Last Admin: 08/21/17 21:53 Dose: 60 units Levothyroxine Sodium (Levothroid) 150 mcg PO DAILY@0730 [facility] Last Admin: 08/22/17 08:41 Dose: 150 mcg Losartan Potassium (Cozaar) 100 mg PO DAILY [facility] Last Admin: 08/22/17 08:41 Dose: 100 mg Magnesium Hydroxide (Milk Of Magnesia) 30 ml PO DAILY PRN PRN Metoprolol Succinate (Toprol Xl) 37.5 mg PO Q12H [facility] Metoprolol Succinate (Toprol Xl) 12.5 mg PO NOW ONE Stop: 08/22/17 14:01 Metoprolol Tartrate (Lopressor Injection) 5 mg IVP Q2H PRN PRN Reason: Tachycardia Last Admin: 08/21/17 19:40 Dose: 5 mg Multivitamins/Minerals/Vitamin C (Ocuvite Tablet) 1 tab PO QAM [facility] Last Admin: 08/22/17 08:41 Dose: 1 tab Nystatin (Mycostatin Powder) 0 gm TP BID prn [facility] Last Admin: 08/21/17 18:08 Dose: Not Given Polyethylene Glycol (Miralax) 17 gm PO DAILY PRN PRN PRN Reason: Constipation Risperidone (Risperdal) 0.25 mg PO BID [facility] Last Admin: 08/22/17 08:42 Dose: 0.25 mg Sodium Chloride (Saline Flush 10 Ml Syringe) 0 ml IVP PRN PRN Objective - Exam Vitals and I&O: Vital Signs Temp 36.4 C L 08/22/17 08:08 Pulse 61 08/22/17 06:18 Resp 18 08/22/17 10:00 BP 108/76 08/22/17 06:18 Pulse Ox 97 08/22/17 10:00 Intake & Output 08/21/17 08/21/17 08/22/17 11:59 23:59 11:59 Intake Total 0634.842 2031 Output Total 725 1475 Balance 920.333 65 Weight 83.9 kg 83 kg Intake: IV 970.333 760 Oral 675 780 Output: Urine 725 1475 Other: Urine Color Yellow Yellow Urine Appearance Clear Clear Urine Odor None Normal Comment hyst Mixed with stool. Stool Occult Blood Positive Stool Size Large Stool Characteristics Soft Formed Brown Voiding Methods Bedside Commode Bedside Commode General: Alert, Oriented x3, Cooperative, No acute distress Lungs: Clear to auscultation, Normal air movement Cardiovascular: Regular rate, Normal S1, Normal S2. denies: Murmurs, Gallops Abdomen: Normal bowel sounds, Soft. denies: Tenderness Extremities: denies: Edema Psych/Mental Status: Mental status NL, Mood NL - Results Results: Laboratory Results WBC 7.94 k/cumm (4.4-10.8) D 08/22/17 06:55 RBC 4.24 m/cumm (4.00-5.20) 08/22/17 06:55 Hgb 12.6 g/dL (12.0-15.5) D 08/22/17 06:55 Hct 38.4 % (36.0-46.0) 08/22/17 06:55 MCV 90.6 fL (80-95) 08/22/17 06:55 MCH 29.7 pg (27.0-33.0) 08/22/17 06:55 MCHC 32.8 g/dL (32.0-36.0) 08/22/17 06:55 RDW 14.9 % (11.7-14.6) H 08/22/17 06:55 Plt Count 232 x1000/uL (130-400) 08/22/17 06:55 MPV 10.4 fL (8.0-11.0) 08/22/17 06:55 Immature Gran % 0.4 08/22/17 06:55 Neutrophils % 66.7 08/22/17 06:55 Lymphocytes % 23.9 08/22/17 06:55 Monocytes % 7.8 08/22/17 06:55 Eosinophils % 0.9 08/22/17 06:55 Basophils % 0.3 08/22/17 06:55 Absolute Neutrophils 5.30 k/cumm (1.2-6.7) 08/22/17 06:55 Absolute Lymphocytes 1.90 k/cumm (1.2-3.4) 08/22/17 06:55 Absolute Monocytes 0.62 k/cumm (0.11-0.7) 08/22/17 06:55 Absolute Eosinophils 0.07 k/cumm (0.0-0.7) 08/22/17 06:55 Absolute Basophils 0.02 k/cumm (0.0-0.2) 08/22/17 06:55 PT 9.5 sec (9.3-10.8) 08/21/17 13:10 INR 1.0 (1.0-3.5) 08/21/17 13:10 APTT 23.2 sec (21.0-31.4) 08/21/17 13:10 Sodium 142 mmol/L (136-145) 08/22/17 06:55 Potassium 3.8 mmol/L (3.5-5.1) 08/22/17 06:55 Chloride 109 mmol/L (98-107) H 08/22/17 06:55 Carbon Dioxide 24.1 mmol/L (21.0-32.0) 08/22/17 06:55 Anion Gap 8.9 mmol/L (3-11) 08/22/17 06:55 BUN 23 mg/dL (7-18) H 08/22/17 06:55 Creatinine 0.76 mg/dL (0.55-1.02) 08/22/17 06:55 Estimated GFR/1.73 m2 >= 60.00 (mL/min/1.73m2) 08/22/17 06:55 Glucose 103 mg/dL (70-100) H 08/22/17 06:55 Calcium 7.5 mg/dL (8.5-10.1) L 08/22/17 06:55 Magnesium 1.6 mg/dL (1.8-2.4) L 08/21/17 13:10 Total Bilirubin 0.4 mg/dL (0.2-1.0) 08/22/17 06:55 AST 12 U/L (15-37) L 08/22/17 06:55 ALT 20 U/L (12-78) 08/22/17 06:55 Alkaline Phosphatase 62 U/L (46-116) 08/22/17 06:55 Troponin I < 0.02 ng/mL (0.00-0.06) 08/21/17 21:40 Total Protein 5.5 g/dL (6.4-8.2) L 08/22/17 06:55 Albumin 2.5 g/dL (3.4-5.0) L 08/22/17 06:55 TSH 2.29 uIU/mL (0.358-3.74) 08/21/17 13:10 Free T4 1.38 ng/dL (0.76-1.46) 08/22/17 06:55
--- NOTE | 2017-08-22 11:58 | PROG.BLANK_ITS ---
Date of Service: 08/22/17 Time of Service: 11:55 Progress Note New onset atrial fibrillation. Converted spontaneously to sinus rhythm overnight. Telemetry - sinus rhythm at present. Cardiac echo normal. Continue Metoprolol. Elevated stroke risk and should be anticoagulated. Suggest Eliquis 5 mg bid. Can follow up with PCP or refer to Cardiology for further outpatient evaluation. If recurrent symptomatic episodes of atrial fibrillation can discuss anti- arrhythmic therapy in outpatient setting.
--- NOTE | 2017-08-22 12:08 | PDOC.PROG_ITS ---
Date of Service: 08/22/17 Time of Service: 12:08 Review of Systems - Medications/Allergies Allergies/Adverse Reactions: Allergies Allergy/AdvReac Type Severity Reaction Status Date / Time Iodinated Contrast- Oral and Allergy Unknown Unverified 08/21/17 13:16 IV Dye Oral contrast Allergy rash, Uncoded 08/21/17 13:16 lower leg swelling Medications: Current Medications Acetaminophen (Tylenol) 0 mg PO Q4H PRN PRN Al Hydrox/Mg Hydrox/Simethicone (Mylanta Liquid) 30 ml PO Q2H PRN PRN Alprazolam (Xanax) 0.5 mg PO DAILY PRN Last Admin: 08/22/17 02:25 Dose: 0.5 mg Apixaban (Eliquis) 5 mg PO BID [facility] Cyanocobalamin (Vitamin B-12) 500 mcg PO DAILY [facility] Last Admin: 08/22/17 08:42 Dose: 500 mcg Dextrose (Insta-Glucose) 0 gm PO DIRECTED PRN Dextrose/Water () 0 gm IVP DIRECTED PRN Dimethicone/Zinc Oxide (Amarilis Protect Cream) 0 gm TP PRN PRN Docusate Sodium (Colace) 100 mg PO TID PRN PRN Sodium Chloride (Saline 1000ml Bag) 1,000 mls @ 100 mls/hr IV INFUSION [facility] Last Admin: 08/22/17 09:29 Dose: 100 mls/hr IV Miscellaneous Supplies () 1 each IV DIRECTED [facility] Insulin Aspart (Novolog Flexpen) 0 units SC 0800,1200,1700 [facility] PRN Reason: Protocol Last Admin: 08/22/17 08:43 Dose: Not Given Insulin Aspart (Novolog Flexpen) 0 units SC 0800,1200,1700 [facility] Last Admin: 08/22/17 09:15 Dose: 5 units Insulin Glargine (Lantus Solostar) 60 units SC HS [facility] Last Admin: 08/21/17 21:53 Dose: 60 units Levothyroxine Sodium (Levothroid) 150 mcg PO DAILY@0730 [facility] Last Admin: 08/22/17 08:41 Dose: 150 mcg Losartan Potassium (Cozaar) 100 mg PO DAILY [facility] Last Admin: 08/22/17 08:41 Dose: 100 mg Magnesium Hydroxide (Milk Of Magnesia) 30 ml PO DAILY PRN PRN Metoprolol Succinate (Toprol Xl) 37.5 mg PO Q12H [facility] Metoprolol Succinate (Toprol Xl) 12.5 mg PO NOW ONE Stop: 08/22/17 14:01 Metoprolol Tartrate (Lopressor Injection) 5 mg IVP Q2H PRN PRN Reason: Tachycardia Last Admin: 08/21/17 19:40 Dose: 5 mg Multivitamins/Minerals/Vitamin C (Ocuvite Tablet) 1 tab PO QAM [facility] Last Admin: 08/22/17 08:41 Dose: 1 tab Nystatin (Mycostatin Powder) 0 gm TP BID prn [facility] Last Admin: 08/21/17 18:08 Dose: Not Given Polyethylene Glycol (Miralax) 17 gm PO DAILY PRN PRN PRN Reason: Constipation Risperidone (Risperdal) 0.25 mg PO BID [facility] Last Admin: 08/22/17 08:42 Dose: 0.25 mg Sodium Chloride (Saline Flush 10 Ml Syringe) 0 ml IVP PRN PRN Objective - Exam Vitals and I&O: Vital Signs Temp 36.4 C L 08/22/17 08:08 Pulse 61 08/22/17 06:18 Resp 18 08/22/17 10:00 BP 108/76 08/22/17 06:18 Pulse Ox 97 08/22/17 10:00 Intake & Output 08/21/17 08/22/17 08/22/17 23:59 11:59 23:59 Intake Total 5031.705 7465 Output Total 725 1475 Balance 920.333 65 Weight 83.9 kg 83 kg Intake: IV 970.333 760 Oral 675 780 Output: Urine 725 1475 Other: Urine Color Yellow Yellow Urine Appearance Clear Clear Urine Odor None Normal Comment hyst Mixed with stool. Stool Occult Blood Positive Stool Size Large Stool Characteristics Soft Formed Brown Voiding Methods Bedside Commode Bedside Commode - Results Results: Laboratory Results WBC 7.94 k/cumm (4.4-10.8) D 08/22/17 06:55 RBC 4.24 m/cumm (4.00-5.20) 08/22/17 06:55 Hgb 12.6 g/dL (12.0-15.5) D 08/22/17 06:55 Hct 38.4 % (36.0-46.0) 08/22/17 06:55 MCV 90.6 fL (80-95) 08/22/17 06:55 MCH 29.7 pg (27.0-33.0) 08/22/17 06:55 MCHC 32.8 g/dL (32.0-36.0) 08/22/17 06:55 RDW 14.9 % (11.7-14.6) H 08/22/17 06:55 Plt Count 232 x1000/uL (130-400) 08/22/17 06:55 MPV 10.4 fL (8.0-11.0) 08/22/17 06:55 Immature Gran % 0.4 08/22/17 06:55 Neutrophils % 66.7 08/22/17 06:55 Lymphocytes % 23.9 08/22/17 06:55 Monocytes % 7.8 08/22/17 06:55 Eosinophils % 0.9 08/22/17 06:55 Basophils % 0.3 08/22/17 06:55 Absolute Neutrophils 5.30 k/cumm (1.2-6.7) 08/22/17 06:55 Absolute Lymphocytes 1.90 k/cumm (1.2-3.4) 08/22/17 06:55 Absolute Monocytes 0.62 k/cumm (0.11-0.7) 08/22/17 06:55 Absolute Eosinophils 0.07 k/cumm (0.0-0.7) 08/22/17 06:55 Absolute Basophils 0.02 k/cumm (0.0-0.2) 08/22/17 06:55 PT 9.5 sec (9.3-10.8) 08/21/17 13:10 INR 1.0 (1.0-3.5) 08/21/17 13:10 APTT 23.2 sec (21.0-31.4) 08/21/17 13:10 Sodium 142 mmol/L (136-145) 08/22/17 06:55 Potassium 3.8 mmol/L (3.5-5.1) 08/22/17 06:55 Chloride 109 mmol/L (98-107) H 08/22/17 06:55 Carbon Dioxide 24.1 mmol/L (21.0-32.0) 08/22/17 06:55 Anion Gap 8.9 mmol/L (3-11) 08/22/17 06:55 BUN 23 mg/dL (7-18) H 08/22/17 06:55 Creatinine 0.76 mg/dL (0.55-1.02) 08/22/17 06:55 Estimated GFR/1.73 m2 >= 60.00 (mL/min/1.73m2) 08/22/17 06:55 Glucose 103 mg/dL (70-100) H 08/22/17 06:55 Calcium 7.5 mg/dL (8.5-10.1) L 08/22/17 06:55 Magnesium 1.6 mg/dL (1.8-2.4) L 08/21/17 13:10 Total Bilirubin 0.4 mg/dL (0.2-1.0) 08/22/17 06:55 AST 12 U/L (15-37) L 08/22/17 06:55 ALT 20 U/L (12-78) 08/22/17 06:55 Alkaline Phosphatase 62 U/L (46-116) 08/22/17 06:55 Troponin I < 0.02 ng/mL (0.00-0.06) 08/21/17 21:40 Total Protein 5.5 g/dL (6.4-8.2) L 08/22/17 06:55 Albumin 2.5 g/dL (3.4-5.0) L 08/22/17 06:55 TSH 2.29 uIU/mL (0.358-3.74) 08/21/17 13:10 Free T4 1.38 ng/dL (0.76-1.46) 08/22/17 06:55
[2017-08-22] MEDS: Metoprolol CR 25 MG TABCR 12.5 MG PO (13:12)
[2017-08-22] MEDS: metFORMIN C.R. 500 MG TABCR 1000 MG PO (16:52)
[2017-08-22] MEDS: Metoprolol CR 25 MG TABCR 37.5 MG PO (19:41)
[2017-08-22] MEDS: Acetaminophen 325 MG TAB PO (19:42)
[2017-08-22] MEDS: Apixaban 5 MG TAB PO (19:42)
[2017-08-22] MEDS: Insulin Glargine 300 UNITS/3 ML PEN 45 UNITS SC (19:43)
[2017-08-23] VITALS (14 sets, daily range): BP systolic 118–123; BP diastolic 63–89; PULSE 49–64; RESP 10–19; TEMP 36.5; O2SAT 95
[2017-08-23] MEDS: Acetaminophen 325 MG TAB PO (04:51)
[2017-08-23] MEDS: Levothyroxine 75 MCG TAB 150 MCG PO (07:35)
[2017-08-23] MEDS: Beta-Carotene(A) w/C,E, & Minerals TAB 1 TAB PO (08:42)
[2017-08-23] MEDS: Cyanocobalamin 500 MCG TAB PO (08:43)
[2017-08-23] MEDS: Apixaban 5 MG TAB PO (08:43)
[2017-08-23] MEDS: metFORMIN C.R. 500 MG TABCR 1000 MG PO (08:46)
[2017-08-23] MEDS: Metoprolol CR 25 MG TABCR 37.5 MG PO (08:46)
[2017-08-23] MEDS: Losartan 50 MG TAB 100 MG PO (08:46)
[2017-08-23] MEDS: risperiDONE 0.5 MG TAB 0.25 MG PO (08:47)
--- NOTE | 2017-08-23 09:42 | DISCHARGE ---
Discharge - Discharge Orders Referrals: Nuris Henley NP [Primary Care Provider] - - Discharge Plan Disposition: OTHER Condition: Stable Diet:: Carb Counting Equipment/Supplies:: Insulin and needles Activity:: Activity as Tolerated - Instructions Micromedex Instructions: Atrial Fibrillation (DC) Additional Instructions: Home with your family today, outpatient admission to [facility] on Friday as planned at 1100.
--- NOTE | 2017-08-23 13:17 | PDOC.CMDIS ---
LACE Index Scoring Tool - Questions: Length of Stay (in days): 3 Acuity (Admit via E.D.?): Yes Comorbidities: Diabetes w/o Complication E.D. Visits: 6 - Answers: Total Score: 11 Risk of Readmission: High Risk Care Management Discharge Reason for Hospitalization: Atrial Fibrillation with rapid ventricular response Discharge Plan: Karuna was quite pleasant while interacting with this mortgage loan underwriter this morning. She will return home with her sister in law, Malorie, when ready per MD. CM spoke to Malorie, reviewed discharge plan as well as provided contact information and program information on [facility]. Karuna will be admitted to [facility] on Friday at 1300. CM reviewed personal items permitted at [facility] (information received by direct conversation with admissions at [facility] this morning) with Karuna and provided folder with information to [employer] Rodrig[employer] to add to discharge packet. Karuna will transport via private vehicle with Malorie. Patient/Family Education Needs: Patient education around [facility], discharge instructions, discussed Ask Me Three. - MH Services (Omit if N/A) Current MH Services: Psychiatric Inp ([facility] coordinated in community; pending admission for 08/25/17.)
--- NOTE | 2017-08-23 13:24 | CMDISCH_ITS ---
LACE Index Scoring Tool - Questions: Length of Stay (in days): 3 Acuity (Admit via E.D.?): Yes Comorbidities: Diabetes w/o Complication E.D. Visits: 6 - Answers: Total Score: 11 Risk of Readmission: High Risk Care Management Discharge Reason for Hospitalization: Atrial Fibrillation with rapid ventricular response Discharge Plan: Karuna was quite pleasant while interacting with this copywriter this morning. She will return home with her sister in law, Malorie, when ready per MD. CM spoke to Malorie, reviewed discharge plan as well as provided contact information and program information on [facility]. Karuna will be admitted to [facility] on Friday at 1300. CM reviewed personal items permitted at [facility] (information received by direct conversation with admissions at [facility] this morning) with Karuna and provided folder with information to RECOVERY COLLECTOR Rodrigo to add to discharge packet. Karuna will transport via private vehicle with Malorie. Patient/Family Education Needs: Patient education around [facility], discharge instructions, discussed Ask Me Three. - MH Services (Omit if N/A) Current MH Services: Psychiatric Inp ([facility] coordinated in community; pending admission for 08/25/17.)
--- NOTE | 2017-08-24 09:13 | DSE_ITS ---
DISCHARGE SUMMARY DATE OF DICTATION August 23, 2017 DATE OF DISCHARGE August 23, 2017 REASON FOR ADMISSION Atrial fibrillation with rapid ventricular response. HOSPITAL COURSE Please see the history and physical of Dr. Sykes for details. In brief, Karuna Valdez is a 72-year-old female with Mental Health disorders and diabetes mellitu s, who was noted to have rapid heart rate at a regular outpatient office visit and was referred to [facility] Emergency Room, where atrial fibrillation with rapid ventricular response was found. The patient wa s treated with IV magnesium, IV diltiazem and then diltiazem drip, and her rate came under control. S he was then started on p.o. Lopressor and she converted to a sinus rhythm and remained in a [facility] for the rest of her hospitalization. She did not have symptoms during the course of her hospital ization. The patient was seen by cardiology, Dr. Bazzi, who recommended anticoagulation and continued treat ment with beta-blockers. DISCHARGE DIAGNOSES 1. Atrial fibrillation with rapid ventricular response. 2. Type-2 diabetes mellitus. 3. History of psychiatric disorder. CONDITION AT DISCHARGE VITAL SIGNS - Temperature 36.5 degrees. Pulse 55. Blood pressure 123/86. Respirations 10. Oxygen satu ration 95% on room air. GENERAL - She is a comfortable alert female in no apparent distress. HEENT - Pupils are equal. Sclerae are white. NECK - Her neck is supple. Full range of motion. No adenopathy or thyromegaly. LUNGS - Lungs are autumn r to auscultation. HEART - She has a regular cardiac rhythm without murmur. ABDOMEN - Her abdomen is soft and nontender. EXTREMITIES - Extremities are warm and pink. Calves are soft and nontender without edema. SIGNIFICANT TEST RESULTS Chest x-ray showed no evidence of acute disease. Echocardiogram showed normal left ventricular cavity size wall thickness and systolic function with E F 55 to 60%. There were no regional wall motion abnormalities. The right ventricle was normal in cav ity size, systolic function and wall thickness. White blood count 7.94, hemoglobin 12.6, hematocrit 38.4, MCV 90.6, platelets 232,000, 67% neutrophil s, 24% lymphocytes, 8% monocytes, 1% eosinophil. PT 9.5, INR 1. PTT 23.2. Sodium 142, potassium 3.8, chloride 109, BUN 23, creatinine 0.76, glucose 103, calcium 7.5, magnesium 1.6, total protein 0.4, AST 12, ALT 20, alkaline phosphatase 62. Total protein 5.5, albumin 2.5 and TSH 2.29, free T4 1.38. Troponin - Initial troponin 0.02, second troponin 0.02, third troponin less than 0.02. Telemetry shows initially atrial fibrillation and after conversion on the first evening of admission, the patient remained in a sinus rhythm with minimal ectopy thereafter. DISCHARGE MEDICATIONS Apixaban 5 mg p.o. b.i.d. Metoprolol XL 37.5 mg p.o. b.i.d. Insulin glargine 45 units subcu at bedtime. Losartan 50 mg daily. Vitamin B12 500 mcg daily. Ocuvite 1 daily. Levothyroxine 150 mcg daily. Hydrochlorothiazide 12.5 mg daily. Metformin 2000 mg b.i.d. Alprazolam 0.5 mg daily p.r.n. Risperidone 0.5 mg b.i.d. DISPOSITION She is discharged to home. FOLLOWUP Followup at the [facility] psychiatric care center at [facility] for outpatient adm ission 11:00 Friday August 25, 2017. Followup with Nuris Henley NP her primary care provider the next seven days. DIET She is to remain on a carbohydrate-counting diabetic diet. ACTIVITY Activity as tolerated.
== END 2017-08-23 10:55 | disposition home or self-care (01) | DRG 310 ==
LOC: ER 04-08 12:07 → ICU 04-08 12:07
PROVIDERS: Admitting Provider Internal Medicine; Emergency Provider Emergency Medicine; Visit Provider Family Medicine
DX: I47.2 Ventricular tachycardia; E83.42 Hypomagnesemia; E11.9 Type 2 diabetes mellitus without complications; F99 Mental disorder, not otherwise specified; I10 Essential (primary) hypertension; E78.5 Hyperlipidemia, unspecified; E03.9 Hypothyroidism, unspecified; K21.9 Gastro-esophageal reflux disease without esophagitis; Z79.4 Long term (current) use of insulin; I48.91 Unspecified atrial fibrillation
CPT/HCPCS: 36415; 80053; 84439; 84484 ×2; 85025; 93306 ×2; 93010 ×2; 99239; J1650 ×2; G0378 ×2; 80048; 80061; 83721; 93005; 96365; 96366; 96368; 96372; 96375; 99291; 71045; 81003; 81015; 82607; 82746; 83036; 83735; 84443; 85610; 85730; 87086; 99220; 99226; J3490

== ENCOUNTER → 2017-10-28 11:36 | Outpatient (CLI) | payer MEDICARE, MEDICAID, SELFPAY ==
--- NOTE | 2017-10-28 11:36 | DI.REPORT_ITS ---
SYMPTOM/DIAGNOSIS: CHRONIC LT SHOULDER PAIN, M25.512, S/P FALL MONTHS AGO LEFT SHOULDER: Multiple views. Mild hypertrophic changes are seen at the acromioclavicular joint. The glenohumeral joint shows very mild degenerative changes. The bones are intact and normally mineralized. Tiny calcification is seen adjacent to the greater tuberosity consistent with calcific tendinitis. IMPRESSION: Mild degenerative changes of the left shoulder.
== END ==
DX: M25.512 Pain in left shoulder (principal); M19.012 Primary osteoarthritis, left shoulder; G89.29 Other chronic pain
CPT/HCPCS: 73030

== ENCOUNTER 2017-12-03 10:50 | Outpatient (REF) | payer MEDICARE, MEDICAID, SELFPAY ==
[2017-12-03 12:58] LABS: Hemoglobin A1C 6.1 % (4.5-6.2)
== END 2017-12-03 11:10 ==
LOC: LBN 10:50
DX: E11.9 Type 2 diabetes mellitus without complications (principal)
CPT/HCPCS: 83036

== ENCOUNTER 2018-03-05 08:07 | Outpatient (REF) | payer MEDICARE, MEDICAID, SELFPAY ==
[2018-03-05 10:57] LABS: Hemoglobin A1C 6.2 % (4.5-6.2)
== END 2018-03-05 08:27 ==
LOC: LBN 08:07
DX: E11.9 Type 2 diabetes mellitus without complications (principal)
CPT/HCPCS: 83036

== ENCOUNTER 2018-03-30 13:27 | Outpatient (CLI) | payer MEDICARE, MEDICAID, SELFPAY ==
--- NOTE | 2018-03-30 10:30 | DIABASSESS_ITS ---
DESCRIPTION/ASSESSMENT: Visited with Karuna per request of [facility] staff. Karuna is maintaining her weight within a few pounds. Blood sugars continue to be varied 89-200 without explanation. Karuna says she must have eaten the wrong thing. She states she is no longer eating other people's food. She has been eating candy canes from the tree, about 1 a day, but she has stopped this. Today she is sick and in her room. She is engaged in the conversation, but unmotivated to problem solve today. She expresses distress about her situation and knows that her depression is evident at this time. INTERVENTION: Supportive listening and encouragement to find techniques for distractions from her cravings and ways to satisfy them without significant carbohydrate and calories. No intervention suggested at this time. ACTION PLAN: Will follow up as requested. face to face 20 minutes outside [facility]. No charge
== END 2018-03-30 13:47 ==
PROVIDERS: Visit Provider Dietitian, Registered
DX: E11.9 Type 2 diabetes mellitus without complications (principal); Z79.4 Long term (current) use of insulin; Z71.3 Dietary counseling and surveillance

== ENCOUNTER 2018-07-09 07:27 | Outpatient (REF) | payer MEDICARE, MEDICAID, SELFPAY ==
[2018-07-09 07:54] LABS: Hemoglobin A1C 6.2 % (4.5-6.2)
[2018-07-09 08:30] LABS: ALT 27 U/L (12-78); AST 15 U/L (15-37); Albumin 3.2 g/dL (3.4-5.0); Alkaline Phosphatase 87 U/L (46-116); Anion Gap 9.5 mmol/L (3-11); BUN 19 mg/dL (7-18); Bilirubin, Total 0.2 mg/dL (0.2-1.0); CO2 26.5 mmol/L (21.0-32.0); CREATININE 0.73 mg/dL (0.55-1.02); Chloride 104 mmol/L (98-107); Glucose 124 mg/dL (70-100); Potassium 3.9 mmol/L (3.5-5.1); Sodium 140 mmol/L (136-145); TSH (W/Ref FT4) 3.09 uIU/mL (0.358-3.74); Total Protein 6.2 g/dL (6.4-8.2)
== END 2018-07-09 07:47 ==
LOC: LBN 07:27
DX: E03.9 Hypothyroidism, unspecified (principal); E11.9 Type 2 diabetes mellitus without complications; I10 Essential (primary) hypertension; F41.9 Anxiety disorder, unspecified; F32.9 Major depressive disorder, single episode, unspecified; Z86.59 Personal history of other mental and behavioral disorders; G47.00 Insomnia, unspecified
CPT/HCPCS: 80053; 83036; 84443

== ENCOUNTER 2019-01-27 08:31 | Outpatient (REF) | payer MEDICARE, MEDICAID, SELFPAY ==
[2019-01-27 10:28] LABS: Hemoglobin A1C 6.5 % (4.5-6.2)
== END 2019-01-27 08:51 ==
LOC: LBN 08:31
DX: E11.9 Type 2 diabetes mellitus without complications (principal)
CPT/HCPCS: 83036

== ENCOUNTER 2019-05-07 07:51 | Outpatient (REF) | payer MEDICARE, MEDICAID, SELFPAY ==
[2019-05-07 09:14] LABS: Hemoglobin A1C 6.6 % (3.8-5.6)
== END 2019-05-07 08:11 ==
LOC: LBN 07:51
DX: E11.9 Type 2 diabetes mellitus without complications (principal)
CPT/HCPCS: 83036

== ENCOUNTER 2019-08-04 12:42 | Outpatient (REF) | payer MEDICARE, MEDICAID, SELFPAY ==
[2019-08-04 13:39] LABS: ALT 22 U/L (14-59); AST 16 U/L (15-37); Albumin 2.9 g/dL (3.4-5.0); Alkaline Phosphatase 85 U/L (46-116); Anion Gap 6.2 mmol/L (3-11); BUN 9 mg/dL (7-18); Bilirubin, Total 0.5 mg/dL (0.2-1.0); CO2 27.8 mmol/L (21.0-32.0); CREATININE 0.68 mg/dL (0.55-1.02); Calcium 8.7 mg/dL (8.5-10.1); Chloride 97 mmol/L (98-107); Glucose 103 mg/dL (74-106); Hemoglobin A1C 6.5 % (3.8-5.6); Potassium 3.1 mmol/L (3.5-5.1); Sodium 131 mmol/L (136-145); TSH (W/Ref FT4) 0.43 uIU/mL (0.36-3.74); Total Protein 5.8 g/dL (6.4-8.2)
== END 2019-08-04 13:02 ==
LOC: LBN 12:42
DX: E11.65 Type 2 diabetes mellitus with hyperglycemia (principal); Z79.4 Long term (current) use of insulin; E03.9 Hypothyroidism, unspecified; F32.9 Major depressive disorder, single episode, unspecified; F41.9 Anxiety disorder, unspecified; I10 Essential (primary) hypertension
CPT/HCPCS: 80053; 83036; 84443

== ENCOUNTER 2019-09-03 13:21 | Outpatient (REF) | payer MEDICARE, MEDICAID, SELFPAY ==
[2019-09-03 14:55] LABS: Potassium 3.4 mmol/L (3.5-5.1)
== END 2019-09-03 13:41 ==
LOC: LBN 13:21
DX: E87.6 Hypokalemia (principal)
CPT/HCPCS: 84132

== ENCOUNTER 2020-02-09 13:52 | Outpatient (REF) | payer MEDICARE, SELFPAY ==
[2020-02-09 16:16] LABS: ALT 24 U/L (14-59); AST 17 U/L (15-37); Albumin 3.3 g/dL (3.4-5.0); Alkaline Phosphatase 71 U/L (46-116); Anion Gap 9.4 mmol/L (3-11); BUN 11 mg/dL (7-18); Bilirubin, Total 0.4 mg/dL (0.2-1.0); CO2 27.6 mmol/L (21.0-32.0); CREATININE 0.73 mg/dL (0.55-1.02); Calcium 9.1 mg/dL (8.5-10.1); Chloride 102 mmol/L (98-107); Glucose 144 mg/dL (74-106); Potassium 3.9 mmol/L (3.5-5.1); Sodium 139 mmol/L (136-145); TSH (W/Ref FT4) 1.07 uIU/mL (0.36-3.74); Total Protein 6.2 g/dL (6.4-8.2)
[2020-02-09 20:01] LABS: Hemoglobin A1C 6.4 % (<5.7)
== END 2020-02-09 14:12 ==
LOC: LBN 13:52
DX: E03.9 Hypothyroidism, unspecified (principal); I10 Essential (primary) hypertension; E11.9 Type 2 diabetes mellitus without complications; Z79.4 Long term (current) use of insulin; E66.01 Morbid (severe) obesity due to excess calories; Z68.41 Body mass index [BMI] 40.0-44.9, adult; E87.6 Hypokalemia
CPT/HCPCS: 80053; 83036; 84443

== ENCOUNTER 2020-05-24 15:59 | Outpatient (REF) | payer MEDICARE, MEDICAID, SELFPAY ==
[2020-05-24 14:47] LABS: Hemoglobin A1C 6.4 % (<5.7)
[2020-05-24 15:12] LABS: Calculated LDL 99 mg/dL (<100); Cholesterol 184 mg/dL (<200); HDL Cholesterol 38 mg/dL (40-60); Triglyceride 237 mg/dL (<150); Vitamin B12 841 pg/mL (193-986)
== END 2020-05-24 16:00 | disposition home or self-care (01) ==
LOC: NCHCN 15:59
PROVIDERS: PCP Nurse Practitioner Family; Visit Provider Nurse Practitioner Family
DX: E11.9 Type 2 diabetes mellitus without complications (principal); E03.9 Hypothyroidism, unspecified; E78.5 Hyperlipidemia, unspecified; K59.00 Constipation, unspecified; E66.01 Morbid (severe) obesity due to excess calories
CPT/HCPCS: 80061; 82607; 83036

== ENCOUNTER 2020-08-25 13:45 | Outpatient (REF) | payer MEDICARE, MEDICAID, SELFPAY ==
[2020-08-25 13:14] LABS: Hemoglobin A1C 7.1 % (<5.7)
== END 2020-08-25 13:46 | disposition home or self-care (01) ==
LOC: NCHCN 13:45
PROVIDERS: PCP Nurse Practitioner Family; Visit Provider Nurse Practitioner Family
DX: E11.9 Type 2 diabetes mellitus without complications (principal); E03.9 Hypothyroidism, unspecified
CPT/HCPCS: 83036

== ENCOUNTER 2020-10-04 16:47 | Outpatient (REF) | payer MEDICARE, MEDICAID, SELFPAY ==
[2020-10-04 18:05] LABS: ALT 22 U/L (14-59); AST 12 U/L (15-37); Albumin 3.2 g/dL (3.4-5.0); Alkaline Phosphatase 82 U/L (46-116); BUN 14 mg/dL (7-18); Bilirubin, Total 0.4 mg/dL (0.2-1.0); CREATININE 0.8 mg/dL (0.55-1.02); Calcium 9.7 mg/dL (8.5-10.1); Chloride 104 mmol/L (98-107); Glucose 188 mg/dL (74-106); Potassium 3.9 mmol/L (3.5-5.1); Sodium 141 mmol/L (136-145); Total Protein 6.3 g/dL (6.4-8.2)
[2020-10-04 20:41] LABS: Calculated LDL 61 mg/dL (<100); Cholesterol 152 mg/dL (<200); HDL Cholesterol 37 mg/dL (40-60); Triglyceride 272 mg/dL (<150)
== END 2020-10-04 16:48 | disposition home or self-care (01) ==
LOC: NCHCN 16:47
PROVIDERS: PCP Nurse Practitioner Family; Visit Provider Nurse Practitioner Family
DX: E78.5 Hyperlipidemia, unspecified (principal)
CPT/HCPCS: 80053; 80061

== ENCOUNTER 2020-12-01 12:28 | Outpatient (REF) | payer MEDICARE, MEDICAID, SELFPAY ==
[2020-12-01 20:13] LABS: Hemoglobin A1C 6.8 % (<5.7)
== END 2020-12-01 12:29 | disposition home or self-care (01) ==
LOC: NCHCN 12:28
PROVIDERS: PCP Nurse Practitioner Family; Referring Provider Nurse Practitioner Family; Visit Provider Nurse Practitioner Family
DX: E11.9 Type 2 diabetes mellitus without complications (principal)
CPT/HCPCS: 83036

== ENCOUNTER 2021-02-05 14:48 | Outpatient (REF) | payer MEDICARE, MEDICAID, SELFPAY | END 2021-02-05 14:49 | disposition home or self-care (01) | LOC: NCHCN 14:48 | PROVIDERS: PCP Nurse Practitioner Family; Visit Provider Nurse Practitioner Family | DX: N89.8 Other specified noninflammatory disorders of vagina (principal); M54.59 Other low back pain | CPT/HCPCS: 87480; 87510; 87660 ==

== ENCOUNTER 2021-02-07 15:06 | Outpatient (REF) | payer MEDICARE, MEDICAID, SELFPAY ==
[2021-02-07 16:56] LABS: TSH (W/Ref FT4) 1.61 uIU/mL (0.36-3.74)
== END 2021-02-07 15:07 | disposition home or self-care (01) ==
LOC: NCHCN 15:06
PROVIDERS: PCP Nurse Practitioner Family; Visit Provider Nurse Practitioner Family
DX: E11.9 Type 2 diabetes mellitus without complications (principal); K21.9 Gastro-esophageal reflux disease without esophagitis; N39.46 Mixed incontinence; E66.01 Morbid (severe) obesity due to excess calories
CPT/HCPCS: 84443

== ENCOUNTER 2021-02-21 14:07 | Outpatient (REF) | payer MEDICARE, MEDICAID, SELFPAY ==
[2021-02-21 13:15] LABS: Bilirubin Negative (Negative); Blood Negative (Negative); Clarity Sl Cloudy (Clear); Glucose Negative (Negative); Ketones Negative (Negative); Leukocyte Esterase Trace (Negative); Nitrite Positive (Negative); Urobilinogen 0.2 EU/dL (Up TO 0.2)
[2021-02-21 13:26] LABS: Bacteria Many HPF (Negative); C & S Indicated? Yes; Casts Negative LPF (Negative); Crystals Negative HPF (Negative); Epithelial Cells Rare HPF (Negative); Mucus Negative (Negative); RBC 0-2 HPF (0-2)
== END 2021-02-21 14:08 | disposition home or self-care (01) ==
LOC: NCHCN 14:07
PROVIDERS: PCP Nurse Practitioner Family; Visit Provider Nurse Practitioner Family
DX: N39.46 Mixed incontinence (principal)
CPT/HCPCS: 87077; 81003; 81015; 87086; 87186

== ENCOUNTER 2021-02-27 17:31 | Outpatient (REF) | payer MEDICARE, MEDICAID, SELFPAY ==
[2021-02-27 18:27] LABS: Hemoglobin A1C 7.2 % (<5.7)
== END 2021-02-27 17:32 | disposition home or self-care (01) ==
LOC: NCHCN 17:31
PROVIDERS: PCP Nurse Practitioner Family; Visit Provider Nurse Practitioner Family
DX: I48.91 Unspecified atrial fibrillation (principal); K21.9 Gastro-esophageal reflux disease without esophagitis
CPT/HCPCS: 83036

== ENCOUNTER 2021-03-30 11:43 | Outpatient (CLI) | payer MEDICARE, MEDICAID, SELFPAY ==
[2021-04-01 15:31] LABS: COVID-19 RT-PCR UVMMC Result Negative (Negative)
== END 2021-03-30 11:44 | disposition home or self-care (01) ==
PROVIDERS: PCP Nurse Practitioner Family; Visit Provider Nurse Practitioner Family
DX: Z20.822 Contact with and (suspected) exposure to COVID-19 (principal)
CPT/HCPCS: U0003

== ENCOUNTER 2021-06-13 13:10 | Outpatient (REF) | payer MEDICARE, MEDICAID, SELFPAY ==
[2021-06-13 13:20] LABS: Bilirubin Negative (Negative); Blood Trace-intact (Negative); Clarity Sl Cloudy (Clear); Glucose Negative (Negative); Ketones Negative (Negative); Leukocyte Esterase Large (Negative); Nitrite Negative (Negative); Urobilinogen 0.2 EU/dL (Up TO 0.2); pH 5.5 (5-8)
[2021-06-13 13:32] LABS: Bacteria Many HPF (Negative); C & S Indicated? Yes; Casts Negative LPF (Negative); Crystals Negative HPF (Negative); Epithelial Cells Rare HPF (Negative); Mucus Trace (Negative); WBC >50 HPF (0-5)
== END 2021-06-13 13:11 | disposition home or self-care (01) ==
LOC: NCHCN 13:10
PROVIDERS: PCP Nurse Practitioner Family; Visit Provider Nurse Practitioner Family
DX: R30.0 Dysuria (principal); N39.46 Mixed incontinence; K59.00 Constipation, unspecified
CPT/HCPCS: 87077; 81003; 81015; 87086; 87186

== ENCOUNTER 2021-07-07 14:36 | Outpatient (REF) | payer MEDICARE, MEDICAID, SELFPAY ==
[2021-07-07 20:31] LABS: Hemoglobin A1C 7.7 % (<5.7)
== END 2021-07-07 14:37 | disposition home or self-care (01) ==
LOC: NCHCN 14:36
PROVIDERS: PCP Nurse Practitioner Family; Visit Provider Nurse Practitioner Family
DX: E11.9 Type 2 diabetes mellitus without complications (principal)
CPT/HCPCS: 83036

== ENCOUNTER 2021-07-27 20:01 | Outpatient (REF) | payer MEDICARE, MEDICAID, SELFPAY ==
[2021-07-28 13:15] LABS: COVID-19 RT-PCR UVMMC Result Negative (Negative)
== END 2021-07-27 20:02 | disposition home or self-care (01) ==
LOC: NCHCN 20:01
PROVIDERS: PCP Nurse Practitioner Family; Visit Provider Nurse Practitioner Family
DX: Z20.822 Contact with and (suspected) exposure to COVID-19 (principal)
CPT/HCPCS: U0003; U0005

== ENCOUNTER 2021-07-31 17:54 | Outpatient (REF) | payer MEDICARE, MEDICAID, SELFPAY ==
[2021-08-01 01:50] LABS: COVID-19 RT-PCR UVMMC Result Negative (Negative)
== END 2021-07-31 17:55 | disposition home or self-care (01) ==
LOC: NCHCN 17:54
PROVIDERS: PCP Nurse Practitioner Family; Visit Provider Nurse Practitioner Family
DX: Z20.822 Contact with and (suspected) exposure to COVID-19 (principal)
CPT/HCPCS: U0003; U0005

== ENCOUNTER 2021-08-01 18:25 | Outpatient (REF) | payer MEDICARE, MEDICAID, SELFPAY ==
[2021-08-02 15:04] LABS: COVID-19 RT-PCR UVMMC Result Positive (Negative)
== END 2021-08-01 18:26 | disposition home or self-care (01) ==
LOC: NCHCN 18:25
PROVIDERS: PCP Nurse Practitioner Family; Visit Provider Nurse Practitioner Family
DX: Z20.822 Contact with and (suspected) exposure to COVID-19 (principal)
CPT/HCPCS: U0003; U0005

== ENCOUNTER 2021-10-04 15:34 | Outpatient (REF) | payer MEDICARE, MEDICAID, SELFPAY ==
[2021-10-04 17:21] LABS: ALT 37 U/L (14-59); AST 18 U/L (15-37); Albumin 3.4 g/dL (3.4-5.0); Alkaline Phosphatase 85 U/L (46-116); Anion Gap 9.6 mmol/L (3-11); BUN 18 mg/dL (7-18); Bilirubin, Total 0.4 mg/dL (0.2-1.0); CO2 26.4 mmol/L (21.0-32.0); CREATININE 0.6 mg/dL (0.55-1.02); Calcium 9.5 mg/dL (8.5-10.1); Chloride 107 mmol/L (98-107); Glucose 131 mg/dL (74-106); Potassium 4.4 mmol/L (3.5-5.1); Sodium 143 mmol/L (136-145); Total Protein 6.4 g/dL (6.4-8.2)
== END 2021-10-04 15:35 | disposition home or self-care (01) ==
LOC: NCHCN 15:34
PROVIDERS: PCP Nurse Practitioner Family; Visit Provider Nurse Practitioner Family
DX: E87.6 Hypokalemia (principal); I10 Essential (primary) hypertension; E11.9 Type 2 diabetes mellitus without complications
CPT/HCPCS: 80053

== ENCOUNTER 2021-10-09 17:14 | Outpatient (REF) | payer MEDICARE, MEDICAID, SELFPAY ==
[2021-10-09 18:59] LABS: Hemoglobin A1C 7.1 % (<5.7)
== END 2021-10-09 17:15 | disposition home or self-care (01) ==
LOC: NCHCN 17:14
PROVIDERS: PCP Nurse Practitioner Family; Visit Provider Nurse Practitioner Family
DX: E11.9 Type 2 diabetes mellitus without complications (principal); I10 Essential (primary) hypertension; E87.6 Hypokalemia
CPT/HCPCS: 83036

== ENCOUNTER 2021-12-12 16:03 | Outpatient (REF) | payer MEDICARE, MEDICAID, SELFPAY ==
[2021-12-12 17:21] LABS: Hemoglobin A1C 7.3 % (<5.7)
[2021-12-12 17:48] LABS: Magnesium 1.5 mg/dL (1.8-2.4); TSH (W/Ref FT4) 1.43 uIU/mL (0.36-3.74); Vitamin B12 848 pg/mL (193-986)
== END 2021-12-12 16:04 | disposition home or self-care (01) ==
LOC: NCHCN 16:03
PROVIDERS: PCP Nurse Practitioner Family; Visit Provider Nurse Practitioner Family
DX: E11.9 Type 2 diabetes mellitus without complications (principal); E03.9 Hypothyroidism, unspecified; N39.46 Mixed incontinence; F41.9 Anxiety disorder, unspecified; F51.9 Sleep disorder not due to a substance or known physiological condition, unspecified; R07.89 Other chest pain; M54.59 Other low back pain; I48.91 Unspecified atrial fibrillation; K21.9 Gastro-esophageal reflux disease without esophagitis; I10 Essential (primary) hypertension; R41.9 Unspecified symptoms and signs involving cognitive functions and awareness
CPT/HCPCS: 82607; 83036; 83735; 84443

== ENCOUNTER 2021-12-26 16:28 | Outpatient (REF) | payer MEDICARE, MEDICAID, SELFPAY ==
[2021-12-26 17:03] LABS: Magnesium 1.6 mg/dL (1.8-2.4)
[2021-12-26 18:00] LABS: Hemoglobin A1C 7.3 % (<5.7)
== END 2021-12-26 16:29 | disposition home or self-care (01) ==
LOC: NCHCN 16:28
PROVIDERS: PCP Nurse Practitioner Family; Visit Provider Nurse Practitioner Family
DX: E11.9 Type 2 diabetes mellitus without complications (principal); I10 Essential (primary) hypertension
CPT/HCPCS: 83036; 83735

== ENCOUNTER 2022-01-09 19:09 | Outpatient (REF) | payer MEDICARE, MEDICAID, SELFPAY ==
[2022-01-09 18:27] LABS: Magnesium 1.7 mg/dL (1.8-2.4)
== END 2022-01-09 19:10 | disposition home or self-care (01) ==
LOC: NCHCN 19:09
PROVIDERS: PCP Nurse Practitioner Family; Visit Provider Nurse Practitioner Family
DX: E61.2 Magnesium deficiency (principal)
CPT/HCPCS: 83735

== ENCOUNTER 2022-02-11 17:43 | Outpatient (REF) | payer MEDICARE, MEDICAID, SELFPAY ==
[2022-02-11 18:13] LABS: Magnesium 1.8 mg/dL (1.8-2.4)
== END 2022-02-11 17:44 | disposition home or self-care (01) ==
LOC: NCHCN 17:43
PROVIDERS: PCP Nurse Practitioner Family; Visit Provider Nurse Practitioner Family
DX: E61.2 Magnesium deficiency (principal)
CPT/HCPCS: 83735

== ENCOUNTER 2022-03-01 17:44 | Inpatient (IN) | payer MEDICARE, MEDICAID, SELFPAY ==
[2022-03-01] VITALS (63 sets, daily range): BP systolic 86–130; BP diastolic 63–103; PULSE 69–194; RESP 8–28; TEMP 36.7–37; O2SAT 88–97
--- NOTE | 2022-03-01 17:30 | RT.EKG_ITS ---
APPROVED REPORT Exam: Resting ECG Reason for Exam: chest pain Patient Location: E HR:151 bpm ECG Measurements Heart Rate 151 AXIS NV 66 P 228 QRSd 72 QRS 26 QT 279 T -52 QTc 443 Conclusion Supraventricular tachycardia...V-rate>(220-age), QRSd<120 Consider anterolateral infarct...Q >30mS, I aVL V3-V6,I,aVL Repolarization abnormality, prob rate related...ST dep, T neg, tachycardia afib/flutter @ 151 normal axis normal intervals rate related ST changes
--- NOTE | 2022-03-01 18:15 | DI.RAD_ITS ---
Exam(s) XR CHEST 2V PA LATERAL EXAM: XR CHEST 2V PA LATERAL CLINICAL HISTORY: CP TECHNIQUE: 2D digital imaging was performed of the chest. Two images were obtained. PA and lateral views were obtained. COMPARISON: CR PORTABLE CHEST ONE VIEW from 08/21/2017 FINDINGS: MEDIASTINUM: Normal. HEART: There is cardiomegaly. PULMONARY VASCULATURE: Normal. LUNGS: Clear. PLEURAL SPACE: No pleural effusion or pneumothorax. BONE:Within normal limits for the patient's age. OTHER FINDINGS:Normal. IMPRESSION: No acute pulmonary findings. DATA REPOSITORY: RADIATION DOSE DELIVERED:
[2022-03-01] MEDS: LORazepam 2 MG/ML VIAL 1 MG IVP (18:40)
[2022-03-01] MEDS: Aspirin 81 MG CHEW 324 MG CH (18:40)
[2022-03-01] MEDS: Labetalol 100 MG/20 ML VIAL 20 MG IVP (18:40)
[2022-03-01 18:42] LABS: Abs Immature Grans 0.05 10^3/uL (0.0-0.06); Absolute Basophil Count 0.03 10^3/uL (0.0-0.2); Absolute Eosinophil Count 0.01 10^3/uL (0.0-0.7); Absolute Lymphocyte Count 1.88 10^3/uL (1.2-3.4); Basophils % 0.3; Eosinophils % 0.1; HCT 44.1 % (36.0-46.0); HGB 14.5 g/dL (11.2-15.7); Immature Grans % 0.4; Lymphocytes % 16.9; MCH 29.2 pg (27.0-33.0); MCHC 32.9 % (32.0-36.0); MCV 89 fL (80-95); MPV 9.9 fL (8.0-11.0); Monocytes % 7.5; Neutrophils % 74.8; Platelet Count 298 10^3/uL (130-400); RBC 4.97 10^6/uL (3.93-5.22); RDW 13.2 % (11.7-14.6); RDW-SD 42.6 fL; WBC 11.13 10^3/uL (4.4-10.8)
[2022-03-01 18:43] LABS: Absolute Monocyte Count 0.83 10^3/uL (0.1-0.8); Absolute Neutrophil Count 8.33 10^3/uL (1.2-6.7)
[2022-03-01 18:55] LABS: INR 1.1 (0.9-1.1); PTT Activated 27.4 sec (21.0-27.5); Prothrombin Time 11.1 sec (9.3-11.0)
--- NOTE | 2022-03-01 19:02 | ED.GENADUL_ITS ---
Discharge Plan Disposition Patient Disposition: Admit to [facility] Condition: Serious Discharge Details Chief Complaint: Chest Pain Clinical Impression: Atrial fibrillation with rapid ventricular response, Hypokalemia, Hypomagnesemia Primary Care Provider: Charlene Paige ED Provider: Gavin Pereira Ashley Meds and New Rx's Prescriptions: No Action sennosides-docusate sodium 8.6-50 mg tablet 1 tab PO HS PRN (Reason: constipation) Qty: 90 3RF polyethylene glycol 3350 [Miralax] 17 gram/dose powder 17 gm PO DAILY PRN (Reason: constipation) Qty: 510 2RF diclofenac sodium [Voltaren] 1 % gel 4 g topical TID Qty: 100 12RF Rx Instructions: apply to thoracic back area TID miconazole (bulk) 100 GM powder 1 stacie Miscellaneous PRN Label Comments: 09/02/17 Miconozole topical powder 2%, apply to right groin area daily PRN. DL (DME) blood-glucose meter [[facility] Verio IQ Meter] Kit See Rx Instructions .ROUTE .MEDSUPPLY Qty: 1 0RF Rx Instructions: As directed- BID testing- Insulin dependent Soothe and Cool Inzo Barrier 5 % cream 1 applic TP TID-QID PRN (Reason: skin irritation) Qty: 118.29 3RF (DME) pen needle, diabetic [Pen Needle] 31 gauge x 5/16 needle 1 ndl SQ DAILY Qty: 100 4RF Rx Instructions: USE WITH LANTUS PEN cyanocobalamin (vitamin B-12) [Vitamin B-12] 1,000 mcg tablet 500 mcg PO DAILY Qty: 90 4RF nystatin 100,000 unit/gram powder 1 applic Topical BID PRN (Reason: dermatitis) Vicks Vaporub 4.7-1.2-2.6 % ointment 1 applic TP BID PRN (Reason: congestion) Qty: 50 0RF Rx Instructions: Patient may keep in her room and self apply as directed risperidone 1 mg tablet 1 mg PO HS Qty: 30 11RF Eliquis 5 mg tablet 5 mg PO BID Qty: 180 2RF hydrochlorothiazide 12.5 mg tablet 12.5 mg PO DAILY Qty: 90 3RF levothyroxine 150 mcg tablet 150 mcg PO DAILY Qty: 90 3RF Rx Instructions: note dose change to 150 mcg daily (stop the 175 mcg) losartan 50 mg tablet 50 mg PO DAILY Qty: 90 4RF metoprolol succinate 50 mg tablet extended release 24 hr 50 mg PO DAILY Qty: 90 3RF insulin glargine [Lantus Solostar U-100 Insulin] 100 unit/mL (3 mL) insulin pen 45 unit subcut HS Qty: 3 11RF alprazolam 1 mg tablet 1 mg PO BID MDD 2mg Qty: 180 1RF (DME) Blood Glucose Test Strip 1 strip Miscellaneous QID Qty: 200 3RF Rx Instructions: FOR ONE TOUCH Verio IQ METER. Dx: E11.65 on insulin -BID calcium carbonate [Tums] 200 mg calcium (500 mg) tablet,chewable 400 mg PO BID Qty: 120 11RF Ocuvite Adult 50 Plus 250-5-1 mg capsule 1 cap PO DAILY Qty: 90 3RF acetaminophen 500 mg tablet 1,000 mg PO BID Qty: 120 11RF (DME) lancets [OneTouch Delica Lancets] 33 gauge misc See Dose Instructions .ROUTE .MEDSUPPLY Qty: 200 4RF Dose Instruction: As directed Rx Instructions: BID glucose finger testing - E11.65 (on insulin) famotidine [Pepcid] 40 mg Tablet 40 mg DAILY benzonatate 100 mg Capsule 100 mg PO PRN PRN omeprazole [Prilosec] 20 mg Capsule,Delayed Release(Dr/Ec) 20 mg DAILY pravastatin [Pravachol] 20 mg Tablet 20 mg DAILY Medical Decision Making This is a 76-year-old female, DNR, DNI, past medical history of diabetes, anxiety, depression, hypertension, A. fib with RVR, presenting to the ER for what she describes as chest pain left-sided intermittent for the past week, none now. She states that she is been out of her anxiety medication for the last few days. Lastly I am told that she has been going into RVR and has been uncontrolled in her typical beta-gamaliel, they added on oral diltiazem with no improvement. Clinically she appears to be in A. fib with RVR, otherwise she appears well, nontoxic, blood pressure 117/91. Denies any active chest pain or shortness of breath. Plan is to obtain IV access and initiate cardiac work-up, give IV labetalol, will obtain D-dimer although low suspicion for PE, patient is already on apixaban. O2 sat 96% on room air. No improvement of her A. fib with RVR with the initial dose of labetalol Will give 10 IV diltiazem Laboratory values reveal mild nonspecific leukocytosis of 11.13. D-dimer is normal at 281. Potassium 3.0. We will provide both IV and p.o. potassium. Glucose 182. Magnesium 1.4. We will provide IV magnesium as well. Troponin less than 50. BNP elevated at 1644 although clinically she does not appear to be in acute CHF. No pedal edema or shortness of breath. Chest x-ray reveals cardiomegaly but no evidence of fluid overload Flu, COVID, RSV negative. Heart rate now in the 140s, blood pressure normotensive. Will provide another dose of IV diltiazem. No significant improvement of her heart rate, will provide diltiazem drip starting at 5 an hour. Heart rate now in the 120s. Patient remains asymptomatic. Case discussed with Dr. Guthrie for admission to the ICU on diltiazem drip for A. fib with RVR, hypokalemia and hypomagnesia. He would like the patient to receive 4 g IV magnesium. I will provide bridging orders for admission. This documentation was generated using [employer] dictation system, please disregard any oddities of phrase or misspellings. Medical Records Medical records reviewed: Yes I reviewed the patient's medical records. Imaging Data Radiologic Study: Attestation: I personally reviewed and interpreted this imaging study as follows: Imaging: X-Ray Radiologist's impression: PROCEDURE INFORMATION: Exam: XR Chest Exam date and time: 03/01/2022 6:43 PM Age: 76 years old Clinical indication: Other: Chest pain TECHNIQUE: Imaging protocol: Radiologic exam of the chest. Views: 2 views. COMPARISON: CR PORTABLE CHEST ONE VIEW 08/21/2017 1:45 PM FINDINGS: Lungs: The lungs appear free of segmental or lobar consolidation. Pleural spaces: Unremarkable. No pleural effusion. No pneumothorax. Heart/Mediastinum: Cardiomegaly is present appears increased from the prior exam. Bones/joints: Chronic degenerative changes of the spine are present. IMPRESSION: Increased cardiomegaly. Lab Data Lab results reviewed: Yes I reviewed the patient's lab results. Labs: Laboratory Tests Range/Units 12/12/1303/01/22 03/01/22 18:29 18:29 18:29 WBC (4.4-10.8) 10^3/uL 11.13 H RBC (3.93-5.22) 10^6/uL 4.97 Hgb (11.2-15.7) g/dL 14.5 Hct (36.0-46.0) % 44.1 MCV (80-95) fL 89 MCH (27.0-33.0) pg 29.2 MCHC (32.0-36.0) % 32.9 RDW (11.7-14.6) % 13.2 Plt Count (130-400) 10^3/uL 298 MPV (8.0-11.0) fL 9.9 Immature Gran % 0.4 Neutrophils % 74.8 Lymphocytes % 16.9 Monocytes % 7.5 Eosinophils % 0.1 Basophils % 0.3 Nucleated RBC % (0.0-0.3) % 0.0 Absolute Neutrophils (1.2-6.7) 10^3/uL 8.33 H Absolute Lymphocytes (1.2-3.4) 10^3/uL 1.88 Absolute Monocytes (0.1-0.8) 10^3/uL 0.83 H Absolute Eosinophils (0.0-0.7) 10^3/uL 0.01 Absolute Basophils (0.0-0.2) 10^3/uL 0.03 PT (9.3-11.0) sec 11.1 H INR (0.9-1.1) 1.1 APTT (21.0-27.5) sec 27.4 D-Dimer (<500) ng/mlFEU 281 Sodium (136-145) mmol/L 140 Potassium (3.5-5.1) mmol/L 3.0 L Chloride (98-107) mmol/L 108 H Carbon Dioxide (21.0-32.0) mmol/L 23.0 Anion Gap (3-11) mmol/L 9.0 BUN (7-18) mg/dL 12 Creatinine (0.55-1.02) mg/dL 0.6 Est GFR (CKD-EPI 2020) (mL/min/1.73m2) 94.13 Glucose (74-106) mg/dL 182 H Calcium (8.5-10.1) mg/dL 7.4 L Magnesium (1.8-2.4) mg/dL 1.4 L Total Bilirubin (0.2-1.0) mg/dL 0.5 AST (15-37) U/L 13 L ALT (14-59) U/L 23 Alkaline Phosphatase (46-116) U/L 77 Troponin I (<or=60) ng/L < 50 NT-Pro-B Natriuret Pep (<300) pg/mL 1644 H Total Protein (6.4-8.2) g/dL 5.3 L Albumin (3.4-5.0) g/dL 2.6 L TSH (0.36-3.74) uIU/mL 1.70 COVID-19 Source SARS-CoV-2 (PCR) (Negative) Influenza Type A (PCR) (Negative) Influenza Type B (PCR) (Negative) RSV (PCR) (Negative) Range/Units 03/01/22 03/01/22 20:42 21:03 WBC (4.4-10.8) 10^3/uL RBC (3.93-5.22) 10^6/uL Hgb (11.2-15.7) g/dL Hct (36.0-46.0) % MCV (80-95) fL MCH (27.0-33.0) pg MCHC (32.0-36.0) % RDW (11.7-14.6) % Plt Count (130-400) 10^3/uL MPV (8.0-11.0) fL Immature Gran % Neutrophils % Lymphocytes % Monocytes % Eosinophils % Basophils % Nucleated RBC % (0.0-0.3) % Absolute Neutrophils (1.2-6.7) 10^3/uL Absolute Lymphocytes (1.2-3.4) 10^3/uL Absolute Monocytes (0.1-0.8) 10^3/uL Absolute Eosinophils (0.0-0.7) 10^3/uL Absolute Basophils (0.0-0.2) 10^3/uL PT (9.3-11.0) sec INR (0.9-1.1) APTT (21.0-27.5) sec D-Dimer (<500) ng/mlFEU Sodium (136-145) mmol/L Potassium (3.5-5.1) mmol/L Chloride (98-107) mmol/L Carbon Dioxide (21.0-32.0) mmol/L Anion Gap (3-11) mmol/L BUN (7-18) mg/dL Creatinine (0.55-1.02) mg/dL Est GFR (CKD-EPI 2020) (mL/min/1.73m2) Glucose (74-106) mg/dL Calcium (8.5-10.1) mg/dL Magnesium (1.8-2.4) mg/dL Total Bilirubin (0.2-1.0) mg/dL AST (15-37) U/L ALT (14-59) U/L Alkaline Phosphatase (46-116) U/L Troponin I (<or=60) ng/L < 50 NT-Pro-B Natriuret Pep (<300) pg/mL Total Protein (6.4-8.2) g/dL Albumin (3.4-5.0) g/dL TSH (0.36-3.74) uIU/mL COVID-19 Source Nasopharynx SARS-CoV-2 (PCR) (Negative) Negative Influenza Type A (PCR) (Negative) Negative Influenza Type B (PCR) (Negative) Negative RSV (PCR) (Negative) Negative ECG Data Attestation: I personally reviewed and interpreted this ECG (s) as follows: Interpretation: Reviewed with Dr. Dickson. Delfina fib, ventricular rate of 151, no STEMI. Sign Out No HPI General Mode of arrival: EMS . Date/Time Provider Initiated Documentation: 03/01/22 18:08 . Limitations to Documentation: no limitations . Information obtained by: patient, family and EMS . HPI Narrative: This is a 76-year-old female who is a DNR, DNI, past medical history that includes diabetes, depression, GERD, hypertension, hyperlipidemia, hypothyroidism, obesity, A. fib with RVR, on apixaban, presenting to the ER via EMS for evaluation of intermittent chest pain over the past week as well as uncontrolled A. fib with RVR. Unfortunately patient is a rather vague and poor historian. She states that she has had intermittent chest pains left-sided over the past week, none now. Also reports that she has been out of her anxiety medications for the last several days. She is typically on a beta-gamaliel but over the past couple of days they have added on oral diltiazem in hopes to cont rol her RVR without success. Patient denies recent illness or trauma. Patient reports that her left chest pain was mild, described as a pressure, and was left-sided, did not radiate anywhere. Related Data Home Medications Medication Instructions Recorded Confirmed miconazole (bulk) 1 stacie miscellaneous PRN 09/02/17 06/08/21 polyethylene glycol 3350 17 17 gm PO DAILY PRN constipation 01/11/19 03/01/22 gram/dose oral powder (Miralax) #510 grams blood-glucose meter (OneTouch #1 ea 03/02/19 06/08/21 Verio IQ Meter kit) sennosides 8.6 mg-docusate sodium 1 tab PO HS PRN constipation #90 03/30/19 03/01/22 50 mg tablet tab-caps dimethicone 5 % topical cream 1 applic topical TID-QID PRN skin 03/31/19 (Soothe and Cool Inzo Barrier) irritation #118.29 mL pen needle, diabetic 31 gauge x ##100 04/20/19 06/08/21 5/16 (Pen Needle) cyanocobalamin (vitamin B-12) 500 mcg PO DAILY #90 tabs 04/28/19 03/01/22 1,000 mcg tablet (Vitamin B-12) nystatin 100,000 unit/gram topical 1 applic topical BID PRN dermatitis 08/05/19 06/08/21 powder camphor 4.7 %-eucalyptus oil 1.2 1 applic topical BID PRN 08/06/19 03/01/22 %-menthol 2.6 % topical ointment congestion #50 grams (Vicks Vaporub) risperidone 1 mg tablet 1 mg PO HS #30 tab-caps 08/30/19 03/01/22 apixaban 5 mg tablet (Eliquis) 5 mg PO BID #180 tabs 09/11/19 03/01/22 hydrochlorothiazide 12.5 mg tablet 12.5 mg PO DAILY #90 tabs 09/18/19 06/08/21 levothyroxine 150 mcg tablet 150 mcg PO DAILY #90 tabs 10/14/19 03/01/22 losartan 50 mg tablet 50 mg PO DAILY #90 tabs 10/14/19 03/01/22 metoprolol succinate 50 mg 50 mg PO DAILY #90 tabs 10/14/19 03/01/22 tablet,extended release 24 hr insulin glargine 100 unit/mL (3 45 unit (0.45 mL) subcut HS ##3 11/12/19 03/01/22 mL) subcutaneous pen (Lantus Solostar U-100 Insulin) alprazolam 1 mg tablet 1 mg PO BID #180 tabs 11/17/19 03/01/22 blood sugar diagnostic (Blood #200 strips 01/05/20 06/08/21 Glucose Test strips) calcium carbonate 200 mg calcium 400 mg PO BID #120 tabs 01/06/20 03/01/22 (500 mg) chewable tablet (Tums) vit C,E,zinc,copper-sinqu7l 250 1 cap PO DAILY #90 caps 01/27/20 03/01/22 mg-lutein 5 mg-zeaxanthin 1 mg capsule (Ocuvite Adult 50 Plus) diclofenac sodium 1 % topical gel 4 g topical TID arthritis #100 02/29/20 06/08/21 (Voltaren) grams acetaminophen 500 mg tablet 1,000 mg PO BID #120 tabs 03/01/20 03/01/22 lancets 33 gauge (OneTouch Delica #200 ea 04/06/20 06/08/21 Lancets) benzonatate 100 mg capsule 100 mg PO PRN PRN 03/01/22 03/01/22 famotidine 40 mg tablet (Pepcid) 40 mg DAILY 03/01/22 03/01/22 omeprazole 20 mg capsule,delayed 20 mg DAILY 03/01/22 03/01/22 release pravastatin 20 mg tablet 20 mg DAILY 03/01/22 03/01/22 Previous Rx's Medication Instructions Recorded polyethylene glycol 3350 17 17 gm PO DAILY PRN constipation 01/11/19 gram/dose oral powder (Miralax) #510 grams blood-glucose meter ([employer] TranslateTouch #1 ea 03/02/19 Verio IQ Meter kit) sennosides 8.6 mg-docusate sodium 1 tab PO HS PRN constipation #90 03/30/19 50 mg tablet tab-caps dimethicone 5 % topical cream 1 applic topical TID-QID PRN skin 03/31/19 (Soothe and Cool Inzo Barrier) irritation #118.29 mL pen needle, diabetic 31 gauge x ##100 04/20/19/ (Pen Needle) cyanocobalamin (vitamin B-12) 500 mcg PO DAILY #90 tabs 04/28/19 1,000 mcg tablet (Vitamin B-12) camphor 4.7 %-eucalyptus oil 1.2 1 applic topical BID PRN 08/06/19 %-menthol 2.6 % topical ointment congestion #50 grams (Vicks Vaporub) risperidone 1 mg tablet 1 mg PO HS #30 tab-caps 08/30/19 apixaban 5 mg tablet (Eliquis) 5 mg PO BID #180 tabs 09/11/19 hydrochlorothiazide 12.5 mg tablet 12.5 mg PO DAILY #90 tabs 09/18/19 levothyroxine 150 mcg tablet 150 mcg PO DAILY #90 tabs 10/14/19 losartan 50 mg tablet 50 mg PO DAILY #90 tabs 10/14/19 metoprolol succinate 50 mg 50 mg PO DAILY #90 tabs 10/14/19 tablet,extended release 24 hr insulin glargine 100 unit/mL (3 45 unit (0.45 mL) subcut HS ##3 11/12/19 mL) subcutaneous pen (Lantus Solostar U-100 Insulin) alprazolam 1 mg tablet 1 mg PO BID #180 tabs 11/17/19 blood sugar diagnostic (Blood #200 strips 01/05/20 Glucose Test strips) calcium carbonate 200 mg calcium 400 mg PO BID #120 tabs 01/06/20 (500 mg) chewable tablet (Tums) vit C,E,zinc,copper-fncbl7w 250 1 cap PO DAILY #90 caps 01/27/20 mg-lutein 5 mg-zeaxanthin 1 mg capsule (Ocuvite Adult 50 Plus) diclofenac sodium 1 % topical gel 4 g topical TID arthritis #100 02/29/20 (Voltaren) grams acetaminophen 500 mg tablet 1,000 mg PO BID #120 tabs 03/01/20 lancets 33 gauge (OneTouch Delica #200 ea 04/06/20 Lancets) Allergies Allergy/AdvReac Type Severity Reaction Status Date / Time Iodinated Contrast Media Allergy Unknown Verified 03/30/19 09:04 [Iodinated Contrast- Oral and IV Dye] Oral contrast Allergy rash, Uncoded 01/11/19 12:44 lower leg swelling General Stated Complaint: Chest Pain ORAL: 3 Review of Systems Constitutional Constitutional: Denies fatigue, Denies fever(s) and Reports weakness (Generalized) ENT Ears, Nose, Mouth, and Throat: Denies neck pain Cardiovascular Cardiovascular: Reports chest pain and Denies dyspnea Respiratory Respiratory: Denies cough and Denies dyspnea Gastrointestinal Gastrointestinal: Denies abdominal pain, Reports nausea and Denies vomiting Musculoskeletal Musculoskeletal: Denies back pain and Denies neck pain Integumentary/Breasts Skin/Breast: Denies rash Neurologic Neurologic: Reports weakness (Generalized) Psychiatric Psychiatric: Reports anxiety Endocrine Endocrine: Denies fatigue Hematologic/Lymphatic Hematologic/Lymphatic: Reports easy bleeding and Reports easy bruising PFSH All Active Problems (Updated 03/01/22 @ 22:14 by SHAMIAK Pa) Hypokalemia (Acute) Hypomagnesemia (Acute) Back pain of thoracolumbar region (Acute) Hypokalemia (Acute) Kyphosis (acquired) (postural) (Acute) Perirectal inflammation (Acute) 03/30/2019-from fecal incontinence Loose stools (Acute) Cerumen debris on tympanic membrane of both ears (Acute) Constipation, unspecified (Acute) History of umbilical hernia repair (Acute) Status post dilation and curettage (Acute) Status post laparoscopic hysterectomy (Acute) Excessive cerumen in both ear canals (Chronic) Anxiety and depression (Acute) Diabetes mellitus (Chronic 07/21/12) Atrial fibrillation with RVR (Acute 09/09/17) Dx by EKG on 08/21/17, [id number] = 2, anti-coagulated on Eliquis Tubular adenoma (Acute 10/17/14) 10/03/14; DR. ALICIA;1 tubulovillous adenoma and 2 tubular adenoma Primary osteoarthritis of both knees (Acute) Morbid obesity with BMI of 40.0-44.9, adult (Acute) Hypothyroidism (acquired) (Acute 11/03/12) Hyperlipidemia associated with type 2 diabetes mellitus (Acute) REFUSES RX Hearing loss (Acute) A.D. Gastroesophageal reflux (Acute 10/01/13) Essential hypertension (Acute 02/01/13) Depressive disorder (Acute) anxiety Cognitive deficits (Acute 08/05/17) Anxiety associated with depression (Acute 07/21/17) Atrial fibrillation with rapid ventricular response (Acute) History of psychiatric disorder (Acute) Medical History Depression Diabetes DNI (do not intubate) DNR (do not resuscitate) GERD (gastroesophageal reflux disease) Hyperlipidemia Hypertension Hypothyroidism Morbid obesity with BMI of 40.0-44.9, adult Osteoarthritis POLST (Physician Orders for Life-Sustaining Treatment) Surgical History Dilation and curettage (~1995) Hysterectomy, Laproscopic Repair of umbilical hernia Family History Mother Essential hypertension Heart disease Father , 86 Essential hypertension Heart disease Stroke Asthma Brother No problems noted. Maternal Grandfather Heart disease Paternal Grandfather No problems noted. Maternal Grandmother Heart disease Cancer Paternal Grandmother Heart disease Stroke Brother No problems noted. Social History Smoking/Tobacco Use Status: Never Smoking risk assessment performed?: Yes Alcohol Intake: never Drug use: Never Substance use type: does not use Caregiver/Support person: No Housing: assisted living facility Communication Needs: None Do you need help understanding health information?: Always Pets and animals: No Sexually active: No Do you think of yourself as: straight/heterosexual What is your relationship status?: never How often do you talk on the phone with friends or family?: three or more times per week How often do you get together with friends or relatives?: three or more times per week How often do you attend yarsanism or jehovah's witness services?: decline to answer Do you belong to any clubs or organized social groups?: no Panel score (0-1 are the most socially isolated patients): 1 What type of physical activity do you participate in: walking Duration: < 15 minutes/day Frequency: daily Carito/Catholic: None Special carito needs: No Seatbelt use: always Drive intox or ride w/intox drive away driver: No Do you feel safe at home: Yes Do you feel safe in your relationship?: Yes Exam Const General: cooperative, comfortable and no acute distress Orientation: alert and awake HENMT Head: normal to inspection, normocephalic and atraumatic Face and sinus: normal facial exam Mouth: moist mucous membranes Eyes Conjunctivae: conjunctivae normal Neck Neck: normal visual inspection, full ROM, no meningeal signs, trachea midline and supple Resp Effort & Inspection: normal respiratory effort and able to speak in complete sentences Auscultation: clear to auscultation bilaterally Cardio Rate: tachycardic (160s) Rhythm: abnormal rhythm irregularly irregular GI Inspection: obesity Palpation: soft, not firm, no guarding, no pulsatile masses and nontender Auscultation: normal bowel sounds Back/Spine/Pelvis Back: No back tenderness Skin General skin exam: no rashes or lesions noted Neuro General: patient alert, patient awake, moves all extremities and no focal motor deficits Cognition: normal cognition Speech: speech normal Motor: muscle tone normal throughout Sensory Exam: no sensory deficits noted Extrem General: normal to inspection, full ROM, capillary refill normal, no pedal edema and no calf tenderness Psych Appearance: grossly normal Mental Status: mental status grossly normal Course Vital Signs Vital signs: Vital Signs Temperature 37 C 03/01/22 17:52 Pulse 153 H 03/01/22 17:52 Respiratory Rate 18 03/01/22 17:52 Blood Pressure 117/91 H 03/01/22 17:52 Pulse Oximetry 96 03/01/22 17:52 Temperature 37 C 03/01/22 17:52 Temperature Source Temporal Artery Scan 03/01/22 17:52 Pulse 153 H 03/01/22 17:52 Respiratory Rate 18 03/01/22 17:52 Respiratory Effort 03/01/22 17:58 Respiratory Depth Normal 03/01/22 17:58 Respiratory Pattern Normal 03/01/22 17:58 Blood Pressure 117/91 H 03/01/22 17:52 Blood Pressure Position Supine 03/01/22 17:52 Pulse Oximetry 96 03/01/22 17:52 Oxygen Delivery Method Room Air 03/01/22 17:52 Oxygen Flow Rate 0 03/01/22 17:52 Pain Level 9 03/01/22 17:52 Lab/Test Results Lab/Test Results: Laboratory Tests Range/Units 03/01/22 03/01/22 18:29 18:29 WBC (4.4-10.8) 10^3/uL 11.13 H RBC (3.93-5.22) 10^6/uL 4.97 Hgb (11.2-15.7) g/dL 14.5 Hct (36.0-46.0) % 44.1 MCV (80-95) fL 89 MCH (27.0-33.0) pg 29.2 MCHC (32.0-36.0) % 32.9 RDW (11.7-14.6) % 13.2 Plt Count (130-400) 10^3/uL 298 MPV (8.0-11.0) fL 9.9 Immature Gran % 0.4 Neutrophils % 74.8 Lymphocytes % 16.9 Monocytes % 7.5 Eosinophils % 0.1 Basophils % 0.3 Nucleated RBC % (0.0-0.3) % 0.0 Absolute Neutrophils (1.2-6.7) 10^3/uL 8.33 H Absolute Lymphocytes (1.2-3.4) 10^3/uL 1.88 Absolute Monocytes (0.1-0.8) 10^3/uL 0.83 H Absolute Eosinophils (0.0-0.7) 10^3/uL 0.01 Absolute Basophils (0.0-0.2) 10^3/uL 0.03 PT (9.3-11.0) sec 11.1 H INR (0.9-1.1) 1.1 APTT (21.0-27.5) sec 27.4 Critical Care Time Critical Care Time Critical Care Time: Yes Total Critical Care Time: 35 Attestation: Upon my evaluation, this patient had a high probability of clinically significant, life-threatening deterioration due to their current medical conditions, which required my direct attention, intervention, and personal management. I have personally provided greater than 30 minutes of critical care time exclusive of the time spend on separately billable procedures. Time includes obtaining a history, examining the patient, pulse oximetry, review of laboratory data, radiology results, discussion with consultants, arranging urgent treatment with development of a management plan, evaluation of patient's response to treatment, and monitoring for potential decompensation. Interventions were performed as documented above.
[2022-03-01 19:04] LABS: ALT 23 U/L (14-59); AST 13 U/L (15-37); Albumin 2.6 g/dL (3.4-5.0); Alkaline Phosphatase 77 U/L (46-116); BUN 12 mg/dL (7-18); Bilirubin, Total 0.5 mg/dL (0.2-1.0); CREATININE 0.6 mg/dL (0.55-1.02); Calcium 7.4 mg/dL (8.5-10.1); Chloride 108 mmol/L (98-107); Estimated GFR 94.13 (mL/min/1.73m2); Glucose 182 mg/dL (74-106); Magnesium 1.4 mg/dL (1.8-2.4); NT-proBNP 1644 pg/mL (<300); Sodium 140 mmol/L (136-145); Total Protein 5.3 g/dL (6.4-8.2); Troponin I < 50 ng/L (<or=60)
--- NOTE | 2022-03-01 19:05 | DI.VRAD_ITS ---
PROCEDURE INFORMATION: Exam: XR Chest Exam date and time: 03/01/2022 6:43 PM Age: 76 years old Clinical indication: Other: Chest pain TECHNIQUE: Imaging protocol: Radiologic exam of the chest. Views: 2 views. COMPARISON: CR PORTABLE CHEST ONE VIEW 08/21/2017 1:45 PM FINDINGS: Lungs: The lungs appear free of segmental or lobar consolidation. Pleural spaces: Unremarkable. No pleural effusion. No pneumothorax. Heart/Mediastinum: Cardiomegaly is present appears increased from the prior exam. Bones/joints: Chronic degenerative changes of the spine are present. IMPRESSION: Increased cardiomegaly. Dictated and Authenticated by: Rock Edgar MD. Ordering:RACHANA Alonso MD
[2022-03-01] MEDS: dilTIAZem 25 MG/5 ML VIAL 10 MG IVP ×3 (19:11→23:21)
[2022-03-01 19:20] LABS: D-Dimer 281 ng/mlFEU (<500)
[2022-03-01] MEDS: dilTIAZem 125 MG in Normal Saline 100 ML IV (19:43)
[2022-03-01] MEDS: POTASSIUM CHLORIDE 10 MEQ/100 ML BAG 100 MEQ IVPB (20:17)
[2022-03-01] MEDS: MAGNESIUM SULFATE 4 GM/100 ML BAG IVPB (20:38)
[2022-03-01 21:24] LABS: COVID-19 PCR Negative (Negative); Influenza A PCR Negative (Negative); Influenza B PCR Negative (Negative); RSV PCR Negative (Negative)
[2022-03-01 21:25] LABS: Source Nasopharynx
[2022-03-01 21:29] LABS: Troponin I < 50 ng/L (<or=60)
--- NOTE | 2022-03-01 22:16 | HPE_ITS ---
Date of service: 03/01/22 Time of Service: 22:16 Assessment and Plan Assessment and plan (1) Atrial fibrillation with RVR: Start date: 03/01/22 Status: Acute Assessment and plan: This is a 76-year-old lady with history of atrial fibrillation on Eliquis and on beta-gamaliel usually who recently had bradycardia reported by patient and adjustment of medications with oral diltiazem being given by history given to the ED physician. The patient reported to the ED because of increasing shortness of breath or chest discomfort and peripheral edema. She was not hypoxic. X-ray did show cardiomegaly though she had an echocardiogram in 2018 which revealed essentially normal left ventricular ejection fraction and normal RV function with no increase in PA pressures. Echocardiogram needs to be updated. She is responding to IV diltiazem but has soft pressures and may require fluid resuscitation which hopefully she can tolerate despite her elevated BNP. She will also be given IV metoprolol and converted to oral metoprolol, Cardizem combination if tolerated. Her troponins as far have been negative. Her soft blood pressures do improve when her heart rate is controlled. She was in the 140 range upon admission to the ICU and came down toward 100 with treatment. She is a DNR/DNI. (2) Hypokalemia: Start date: 03/01/22 Status: Acute Assessment and plan: Probably nutritional with patient to have oral repletion. Monitor lab and adjust repletion accordingly. (3) Hypomagnesemia: Status: Acute Assessment and plan: Probably nutritional with patient to have IV repletion. Monitor lab and adjust repletion accordingly. (4) UTI (urinary tract infection): Start date: 03/01/22 Status: Acute Assessment and plan: Patient's urine was cloudy and urine culture is pending with Rocephin IV to be given pending culture pathogen and adjustment to oral therapy. She is not having fever or urinary symptoms. (5) Anxiety and depression: Status: Chronic Assessment and plan: Continue outpatient medical therapy while hospitalized. Patient is slightly more anxious being in the hospital. She appears to have an underlying psychiatric disease and developmental disease with which she is coping well. (6) Diabetes mellitus: Status: Chronic Assessment and plan: Short acting insulin coverage of glucometer measurements while hospitalized. 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 She does have nausea with her acute cardiac decompensation. This may be exacerbated by oral potassium. 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 She has never had children. She appears dysmorphic and anxious during her speech with no specific diagnosis but appear to be on the spectrum. She is short stature. She does have a history of atrial fibrillation and is knowledgeable of her medications with recent slow heart rate and ad justment of her metoprolol resulting in a 1 to 2-week history of palpitations with racing heart and increasing peripheral edema. She also claims she had shortness of breath with chest discomfort over her left chest without radiation. She felt nauseated but did not have any vomiting. She denied any diaphoresis. In the ED which she was found to have atrial fibrillation with rapid ventricular response which did slightly respond to IV diltiazem but she had low blood pressures and was not being given IV fluids which were initiated once she reported to the ED. She was tolerating fluids well and had an echocardiogram 2017 which showed a preserved left ventricular ejection fraction with normal RV function and normal PA pressures. She had decreased urine output since her evaluation in the ED. Her troponins were negative and EKGs did not reveal any acute ischemic changes. She has no history of CAD. Patient does have chronic medical problems including hypothyroidism with obesity for short stature as well as hypertension and atrial fibrillation with occasional tachycardia. 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 She was admitted to the ICU in no respiratory distress but still complaining of chest discomfort and continued to have rapid ventricular response with diltiazem being titrated and metoprolol IV to be given. She also would receive IV hydration which she appeared to be tolerating but still had no urine output. She is a DNR/DNI. Review of Systems Narrative: 13 point review of systems otherwise unrevealing or stable with patient being a vague historian. PFSH All Active Problems (Updated 03/02/22 @ 06:55 by Yaniv Guthrie) UTI (urinary tract infection) (Acute) Hypokalemia (Acute) Hypomagnesemia (Acute) Back pain of thoracolumbar region (Acute) Hypokalemia (Acute) Kyphosis (acquired) (postural) (Acute) Perirectal inflammation (Acute) 03/30/2019-from fecal incontinence Loose stools (Acute) Cerumen debris on tympanic membrane of both ears (Acute) Constipation, unspecified (Acute) History of umbilical hernia repair (Acute) Status post dilation and curettage (Acute) Status post laparoscopic hysterectomy (Acute) Excessive cerumen in both ear canals (Chronic) Anxiety and depression (Chronic) Diabetes mellitus (Chronic 07/21/12) Atrial fibrillation with RVR (Acute 09/09/17) Dx by EKG on 08/21/17, [id number] = 2, anti-coagulated on Eliquis Tubular adenoma (Acute 10/17/14) 10/03/14; DR. ALICIA;1 tubulovillous adenoma and 2 tubular adenoma Primary osteoarthritis of both knees (Acute) Morbid obesity with BMI of 40.0-44.9, adult (Acute) Hypothyroidism (acquired) (Acute 11/03/12) Hyperlipidemia associated with type 2 diabetes mellitus (Acute) REFUSES RX Hearing loss (Acute) A.D. Gastroesophageal reflux (Chronic 10/01/13) Essential hypertension (Acute 02/01/13) Depressive disorder (Acute) anxiety Cognitive deficits (Acute 08/05/17) Anxiety associated with depression (Acute 07/21/17) Atrial fibrillation with rapid ventricular response (Acute) History of psychiatric disorder (Acute) Medical History Depression Diabetes DNI (do not intubate) DNR (do not resuscitate) GERD (gastroesophageal reflux disease) Hyperlipidemia Hypertension Hypothyroidism Morbid obesity with BMI of 40.0-44.9, adult Osteoarthritis POLST (Physician Orders for Life-Sustaining Treatment) Surgical History Dilation and curettage (~1995) Hysterectomy, Laproscopic Repair of umbilical hernia Family History Mother Essential hypertension Heart disease Father , 86 Essential hypertension Heart disease Stroke Asthma Brother No problems noted. Maternal Grandfather Heart disease Paternal Grandfather No problems noted. Maternal Grandmother Heart disease Cancer Paternal Grandmother Heart disease Stroke Brother No problems noted. Social History Smoking/Tobacco Use Status: Never Smoking risk assessment performed?: Yes Alcohol Intake: never Drug use: Never Substance use type: does not use Caregiver/Support person: No Housing: assisted living facility Communication Needs: None Do you need help understanding health information?: Always Pets and animals: No Sexually active: No Do you think of yourself as: straight/heterosexual What is your relationship status?: never How often do you talk on the phone with friends or family?: three or more times per week How often do you get together with friends or relatives?: three or more times per week How often do you attend baptist or temple services?: decline to answer Do you belong to any clubs or organized social groups?: no Panel score (0-1 are the most socially isolated patients): 1 What type of physical activity do you participate in: walking Duration: < 15 minutes/day Frequency: daily Carito/Church: None Special carito needs: No Seatbelt use: always Drive intox or ride w/intox line driver: No Do you feel safe at home: Yes Do you feel safe in your relationship?: Yes Meds Allergies and Home Medications Allergies Allergy/AdvReac Type Severity Reaction Status Date / Time Iodinated Contrast Media Allergy Unknown Verified 03/30/19 09:04 [Iodinated Contrast- Oral and IV Dye] Oral contrast Allergy rash, Uncoded 01/11/19 12:44 lower leg swelling Home Medications Medication Instructions Recorded Confirmed Type miconazole (bulk) 1 stacie miscellaneous PRN 09/02/17 06/08/21 History polyethylene glycol 3350 17 17 gm PO DAILY PRN constipation 01/11/19 03/01/22 Rx gram/dose oral powder (Miralax) #510 grams blood-glucose meter (OneTouch #1 ea 03/02/19 06/08/21 Rx Verio IQ Meter kit) sennosides 8.6 mg-docusate sodium 1 tab PO HS PRN constipation #90 03/30/19 03/01/22 Rx 50 mg tablet tab-caps dimethicone 5 % topical cream 1 applic topical TID-QID PRN skin 03/31/19 06/08/21 Rx (Soothe and Cool Inzo Barrier) irritation #118.29 mL pen needle, diabetic 31 gauge x ##100 04/20/19 06/08/21 Rx /16 (Pen Needle) cyanocobalamin (vitamin B-12) 500 mcg PO DAILY #90 tabs 04/28/19 03/01/22 Rx 1,000 mcg tablet (Vitamin B-12) nystatin 100,000 unit/gram topical 1 applic topical BID PRN dermatitis 08/05/19 06/08/21 History powder camphor 4.7 %-eucalyptus oil 1.2 1 applic topical BID PRN 08/06/19 03/01/22 Rx %-menthol 2.6 % topical ointment congestion #50 grams (Vicks Vaporub) risperidone 1 mg tablet 1 mg PO HS #30 tab-caps 08/30/19 03/01/22 Rx apixaban 5 mg tablet (Eliquis) 5 mg PO BID #180 tabs 09/11/19 03/01/22 Rx hydrochlorothiazide 12.5 mg tablet 12.5 mg PO DAILY #90 tabs 09/18/19 06/08/21 Rx levothyroxine 150 mcg tablet 150 mcg PO DAILY #90 tabs 10/14/19 03/01/22 Rx losartan 50 mg tablet 50 mg PO DAILY #90 tabs 10/14/19 03/01/22 Rx metoprolol succinate 50 mg 50 mg PO DAILY #90 tabs 10/14/19 03/01/22 Rx tablet,extended release 24 hr insulin glargine 100 unit/mL (3 45 unit (0.45 mL) subcut HS ##3 11/12/19 03/01/22 Rx mL) subcutaneous pen (Lantus Solostar U-100 Insulin) alprazolam 1 mg tablet 1 mg PO BID #180 tabs 11/17/19 03/01/22 Rx blood sugar diagnostic (Blood #200 strips 01/05/20 06/08/21 Rx Glucose Test strips) calcium carbonate 200 mg calcium 400 mg PO BID #120 tabs 01/06/20 03/01/22 Rx (500 mg) chewable tablet (Tums) vit C,E,zinc,copper-[id number] 250 1 cap PO DAILY #90 caps 01/27/20 03/01/22 Rx mg-lutein 5 mg-zeaxanthin 1 mg capsule (Ocuvite Adult 50 Plus) diclofenac sodium 1 % topical gel 4 g topical TID arthritis #100 02/29/20 06/08/21 Rx (Voltaren) grams acetaminophen 500 mg tablet 1,000 mg PO BID #120 tabs 03/01/20 03/01/22 Rx lancets 33 gauge (OneTouch Delica #200 ea 04/06/20 06/08/21 Rx Lancets) benzonatate 100 mg capsule 100 mg PO PRN PRN 03/01/22 03/01/22 History famotidine 40 mg tablet (Pepcid) 40 mg DAILY 03/01/22 03/01/22 History omeprazole 20 mg capsule,delayed 20 mg DAILY 03/01/22 03/01/22 History release pravastatin 20 mg tablet 20 mg DAILY 03/01/22 03/01/22 History Exam Narrative Exam Narrative: General: Patient appears in moderate distress and very talkative, short stature with moderate obesity. She is alert and oriented to person, place and possibly time. She has intense eye contact and engages continuously in conversation. HEENT: Normocephalic with dysmorphic facial features, eyes with pupils equal react to light symmetrically, extraocular movement tact and sclera anicteric. Oropharynx with dry mucosa and poor dentition with spaced, discolored teeth. Neck: Supple without JVD. Back: Slightly stooped posture without CVA tenderness. Lungs: Fair aeration and clear to auscultation percussion. Breast: Exam deferred. Heart: Irregularly irregular rhythm with tachycardic rate and no appreciable murmur or gallop. Abdomen: Obese contour, soft and nontender to palpation with no palpable hepatosplenomegaly. Genitalia/rectal: Exam deferred. Extremity: 1-2+ pitting edema over ankles, no cyanosis or clubbing with good capillary refill peripheral pulses grossly intact. Skin: Slightly pale, warm and dry. Neuro: Cranial nerves II through XII gross intact, no focalized motor deficits. No tremor. Psych: Euphoric affect and very talkative with wandering conversation. She ruminates over the details of her history sometimes inappropriately. No abnormal thought processes. Remote and recent memory appear to be grossly intact. She does have her timelines of with repeating of history. Results Imaging Imaging Studies: Exam: XR Chest Exam date and time: 03/01/2022 6:43 PM Age: 76 years old Clinical indication: Other: Chest pain TECHNIQUE: Imaging protocol: Radiologic exam of the chest. Views: 2 views. COMPARISON: CR PORTABLE CHEST ONE VIEW 08/21/2017 1:45 PM FINDINGS: Lungs: The lungs appear free of segmental or lobar consolidation. Pleural spaces: Unremarkable. No pleural effusion. No pneumothorax. Heart/Mediastinum: Cardiomegaly is present appears increased from the prior exam. Bones/joints: Chronic degenerative changes of the spine are present. IMPRESSION: Increased cardiomegaly. Labs Result diagrams: 03/02/22 05:15 03/02/22 05:15 Labs: Laboratory Results - last 24 hr 03/01/22 03/01/22 03/01/22 18:29 18:29 18:29 WBC 11.13 H RBC 4.97 Hgb 14.5 Hct 44.1 MCV 89 MCH 29.2 MCHC 32.9 RDW 13.2 Plt Count 298 MPV 9.9 Immature Gran % 0.4 Neutrophils % 74.8 Lymphocytes % 16.9 Monocytes % 7.5 Eosinophils % 0.1 Basophils % 0.3 Nucleated RBC % 0.0 Absolute Neutrophils 8.33 H Absolute Lymphocytes 1.88 Absolute Monocytes 0.83 H Absolute Eosinophils 0.01 Absolute Basophils 0.03 PT 11.1 H INR 1.1 APTT 27.4 D-Dimer 281 Sodium 140 Potassium 3.0 L Chloride 108 H Carbon Dioxide 23.0 Anion Gap 9.0 BUN 12 Creatinine 0.6 Est GFR (CKD-EPI 2020) 94.13 Glucose 182 H Calcium 7.4 L Magnesium 1.4 L Total Bilirubin 0.5 AST 13 L ALT 23 Alkaline Phosphatase 77 Troponin I < 50 NT-Pro-B Natriuret Pep 1644 H Total Protein 5.3 L Albumin 2.6 L TSH 1.70 COVID-19 Source SARS-CoV-2 (PCR) Influenza Type A (PCR) Influenza Type B (PCR) RSV (PCR) 03/01/22 03/01/22 20:42 21:03 WBC RBC Hgb Hct MCV MCH MCHC RDW Plt Count MPV Immature Gran % Neutrophils % Lymphocytes % Monocytes % Eosinophils % Basophils % Nucleated RBC % Absolute Neutrophils Absolute Lymphocytes Absolute Monocytes Absolute Eosinophils Absolute Basophils PT INR APTT D-Dimer Sodium Potassium Chloride Carbon Dioxide Anion Gap BUN Creatinine Est GFR (CKD-EPI 2020) Glucose Calcium Magnesium Total Bilirubin AST ALT Alkaline Phosphatase Troponin I < 50 NT-Pro-B Natriuret Pep Total Protein Albumin TSH COVID-19 Source Nasopharynx SARS-CoV-2 (PCR) Negative Influenza Type A (PCR) Negative Influenza Type B (PCR) Negative RSV (PCR) Negative Last Vital Signs Temp 37 C 03/01/22 17:52 Pulse 72 03/01/22 21:31 Resp 17 03/01/22 21:40 BP 101/79 03/01/22 21:31 Pulse Ox 94 03/01/22 21:40
[2022-03-01] MEDS: Potassium Chloride Liquid 20 MEQ PKT 40 MEQ PO (22:56)
[2022-03-01] MEDS: Normal Saline 1,000 ML 80 ML IV (23:19)
[2022-03-01] MEDS: Normal Saline 500 ML 999 ML IV (23:20)
[2022-03-01] MEDS: Ondansetron 4 MG/2 ML VIAL IVP (23:43)
[2022-03-01] MEDS: Pantoprazole 40 MG VIAL IVP (23:44)
[2022-03-02] VITALS (195 sets, daily range): BP systolic 71–144; BP diastolic 43–125; PULSE 42–231; RESP 12–33; TEMP 36.1–36.7; O2SAT 90–98
[2022-03-02] MEDS: Normal Saline Flush 10 ML SYR IVP ×3 (00:02→16:46)
[2022-03-02] MEDS: Metoprolol 5 MG/5 ML VIAL IVP ×3 (00:26→16:46)
--- NOTE | 2022-03-02 01:14 | NUR.NOTE ---
Nursing Note: Urine speciman collected per MD order. Sent to lab with 0100 Troponin. Patient OOB to commode with standby assist. Tolerated well, denied any sensation of light-headedness or dizziness.
[2022-03-02 01:17] LABS: Bilirubin Negative (Negative); Blood Negative (Negative); Clarity Sl Cloudy (Clear); Glucose Negative (Negative); Ketones 40 mg/dL (Negative); Leukocyte Esterase Small (Negative); Nitrite Negative (Negative); Specific Gravity >= 1.030 (1.005-1.025); Urobilinogen 0.2 EU/dL (Up TO 0.2)
[2022-03-02 01:31] LABS: Bacteria Moderate HPF (Negative); C & S Indicated? Yes; Casts Negative LPF (Negative); Crystals Negative HPF (Negative); Epithelial Cells Few HPF (Negative); Mucus Negative (Negative); RBC Negative HPF (0-2); WBC >50 HPF (0-5)
[2022-03-02 01:33] LABS: Troponin I < 50 ng/L (<or=60)
[2022-03-02] MEDS: Acetaminophen 325 MG TAB PO ×2 (01:59→13:11)
--- NOTE | 2022-03-02 02:16 | NUR.NOTE ---
Nursing Note: Decreased Diltiazem drip to 15mg/hour for HR in the 70's with intermittent pauses. Medicated with tylenol for sleep per patient request. Oxygen decreased to 1 liter nasal cannula for SPO2 of 96%.
[2022-03-02] MEDS: dilTIAZem 125 MG in Normal Saline 100 ML 15 MG IV (03:03)
[2022-03-02] MEDS: Normal Saline 1,000 ML 80 ML IV (05:29)
[2022-03-02] MEDS: Levothyroxine 150 MCG TAB PO (05:29)
[2022-03-02 06:05] LABS: HCT 41.7 % (36.0-46.0); HGB 13.4 g/dL (11.2-15.7); MCH 29.2 pg (27.0-33.0); MCHC 32.1 % (32.0-36.0); MCV 91 fL (80-95); MPV 10.5 fL (8.0-11.0); Platelet Count 281 10^3/uL (130-400); RBC 4.59 10^6/uL (3.93-5.22); RDW 13.4 % (11.7-14.6); RDW-SD 45.1 fL
--- NOTE | 2022-03-02 06:05 | NUR.NOTE ---
Nursing Note:Discussed with Dr Guthrie that patient did not receive coverage of insulin for HS finger stick of 217 last night. Reviewed single dose of Metoprolol followed by decreased HR. Discussed Diltiazem drip and titration overnight. Current rate is 15mg/hr.
[2022-03-02 06:23] LABS: ALT 19 U/L (14-59); AST 14 U/L (15-37); Albumin 2.8 g/dL (3.4-5.0); Alkaline Phosphatase 81 U/L (46-116); Anion Gap 9.9 mmol/L (3-11); BUN 17 mg/dL (7-18); Bilirubin, Total 0.6 mg/dL (0.2-1.0); CO2 24.1 mmol/L (21.0-32.0); CREATININE 0.8 mg/dL (0.55-1.02); Calcium 8.2 mg/dL (8.5-10.1); Chloride 103 mmol/L (98-107); Estimated GFR 77.27 (mL/min/1.73m2); Glucose 201 mg/dL (74-106); Magnesium 2.4 mg/dL (1.8-2.4); Sodium 137 mmol/L (136-145); Total Protein 5.9 g/dL (6.4-8.2)
[2022-03-02 06:26] LABS: Troponin I < 50 ng/L (<or=60)
[2022-03-02 06:33] LABS: Potassium 4.3 mmol/L (3.5-5.1)
--- NOTE | 2022-03-02 06:39 | NUR.NOTE ---
Nursing Note: Patient with c/o lightheadedness at rest. Was able to get up to commode with single standby assist. Heart rate up to 150's with activity, denied SOB/lightheadedness with activity. Urine/Stool output as documented.
[2022-03-02] MEDS: cefTRIAXone 1 GM/50 ML BAG IVPB (07:48)
[2022-03-02] MEDS: Pantoprazole 40 MG TABCR PO (07:48)
[2022-03-02] MEDS: ALPRAZolam 0.25 MG TAB 1 MG PO ×2 (08:00→19:55)
[2022-03-02] MEDS: Cyanocobalamin 100 MCG TABLET 500 MCG PO (08:00)
[2022-03-02] MEDS: Apixaban 5 MG TAB PO ×2 (08:01→19:56)
[2022-03-02] MEDS: Pravastatin 20 MG TAB PO (08:01)
[2022-03-02] MEDS: Calcium Carbonate *TUMS* 500 MG CHEW PO ×2 (08:01→19:56)
[2022-03-02] MEDS: Famotidine 20 MG TAB 40 MG PO (08:02)
[2022-03-02] MEDS: Metoprolol 25 MG TAB PO ×2 (08:18→13:36)
[2022-03-02] MEDS: Insulin Aspart 300 UNITS/3 ML PEN SC ×4 (08:24→20:01)
--- NOTE | 2022-03-02 08:42 | W.PM.PROGNOT ---
Date of Service Date of service: 03/02/22 Time of Service: 09:29 Assessment and Plan Assessment and plan (1) Atrial fibrillation with RVR: Start date: 03/01/22 Status: Acute Assessment and plan: patient presented w/ dyspnea, CP and rapid afib. She is now asymptomatic of CP or dyspnea. afib was still fast this moring at 140 to 150 bpm and BP has been on the low side in the high 90's systolic to low 100's. She has been started on lopressor 25 mg q6hr and remains on diltiazem drip at 20mg/hr. I have ordered oral diltiazem 30 mg tid and had her nurse give her additional bolus 5 mg ivp which has brought her HR down to 75 bpm. Her nurse will titrate her iv diltiazem off as long as resting HR is under 100 bpm. Critical care time spent interviewing and examining the patient, reviewing studies, discussing case with patient's nurse and consulting physicians was 30 minutes (2) Hypokalemia: Start date: 03/01/22 Status: Acute Assessment and plan: Probably nutritional with patient to have oral repletion. Her potassium level has now been corrected to 4.3 this morning. Will hold on further replacements and monitor. She was on HCTZ at home and this probably contributed to both her hypokalemia and hypomagnesemia. If she resumes diuretics then she will need daily supplementation of both (3) Hypomagnesemia: Status: Acute Assessment and plan: Probably nutritional with patient to have IV repletion. Monitor lab and adjust repletion accordingly. Mg++ level is now up to 2.4 this morning. (4) UTI (urinary tract infection): Start date: 03/01/22 Status: Acute Assessment and plan: Patient's urine was cloudy and urine culture is pending with Rocephin IV to be given pending culture pathogen and adjustment to oral therapy. She is not having fever or urinary symptoms. (5) Anxiety and depression: Status: Chronic Assessment and plan: Continue outpatient medical therapy while hospitalized. Patient is slightly more anxious being in the hospital. She appears to have an underlying psychiatric disease and developmental disease with which she is coping well. (6) Diabetes mellitus: Status: Chronic Assessment and plan: Short acting insulin coverage of glucometer measurements while hospitalized. Qualifiers: Diabetes mellitus type: type 2 Diabetes mellitus fci insulin use: with joint terminal attack controller use Diabetes mellitus complication status: with hyperglycemia Qualified Code(s): E11.65 - Type 2 diabetes mellitus with hyperglycemia; Z79.4 - residential (current) use of insulin (7) Gastroesophageal reflux: Status: Chronic Assessment and plan: Continue PPI IV with famotidine orally with patient on both as an outpatient. She does have nausea with her acute cardiac decompensation. This may be exacerbated by oral potassium. Subjective Subjective Interval history since last seen: Patient denies any CP or dyspnea. Her afib remains rapid in the 150's. She is on diltiazem drip at 20 mg/hr and is on lopressor 25 mg q6h. Exam Narrative Exam Narrative: Pleasant elderly white female sitting up in her chair eating breakfast and conversing w/ her [id number], Charity, who is her legal guardian. Patient lives at [facility]. It is unclear as to what set off the rapid afib, whether or not she missed any of her toprol or not. Patient states that she did not get her anxiety meds. Neck: no overt JVD Lungs: clear to auscultation Heart: irregularly irregular and tachycardic Abdomen: obese, nontender Legs: no pitting edema Objective Last Vital Signs Temp 36.2 C L 03/02/22 08:19 Pulse 151 H 03/02/22 08:19 Resp 20 03/02/22 08:19 BP 100/70 03/02/22 08:19 Pulse Ox 95 03/02/22 08:19 Laboratory Results - last 24 hr 03/01/22 03/01/22 03/01/22 18:29 18:29 18:29 WBC 11.13 H RBC 4.97 Hgb 14.5 Hct 44.1 MCV 89 MCH 29.2 MCHC 32.9 RDW 13.2 Plt Count 298 MPV 9.9 Immature Gran % 0.4 Neutrophils % 74.8 Lymphocytes % 16.9 Monocytes % 7.5 Eosinophils % 0.1 Basophils % 0.3 Nucleated RBC % 0.0 Absolute Neutrophils 8.33 H Absolute Lymphocytes 1.88 Absolute Monocytes 0.83 H Absolute Eosinophils 0.01 Absolute Basophils 0.03 PT 11.1 H INR 1.1 APTT 27.4 D-Dimer 281 Sodium 140 Potassium 3.0 L Chloride 108 H Carbon Dioxide 23.0 Anion Gap 9.0 BUN 12 Creatinine 0.6 Est GFR (CKD-EPI 2020) 94.13 Glucose 182 H Calcium 7.4 L Magnesium 1.4 L Total Bilirubin 0.5 AST 13 L ALT 23 Alkaline Phosphatase 77 Troponin I < 50 NT-Pro-B Natriuret Pep 1644 H Total Protein 5.3 L Albumin 2.6 L TSH 1.70 Urine Color Urine Clarity Urine pH Ur Specific [place] Urine Protein Urine Ketones Urine Blood Urine Nitrite Urine Bilirubin Urine Urobilinogen Ur Leukocyte Esterase Urine RBC Urine WBC Ur Epithelial Cells Urine Crystals Urine Bacteria Urine Casts Urine Mucus Ur Culture Indicated? Urine Glucose COVID-19 Source SARS-CoV-2 (PCR) Influenza Type A (PCR) Influenza Type B (PCR) RSV (PCR) 03/01/22 03/01/22 03/02/22 20:42 21:03 01:05 WBC RBC Hgb Hct MCV MCH MCHC RDW Plt Count MPV Immature Gran % Neutrophils % Lymphocytes % Monocytes % Eosinophils % Basophils % Nucleated RBC % Absolute Neutrophils Absolute Lymphocytes Absolute Monocytes Absolute Eosinophils Absolute Basophils PT INR APTT D-Dimer Sodium Potassium Chloride Carbon Dioxide Anion Gap BUN Creatinine Est GFR (CKD-EPI 2020) Glucose Calcium Magnesium Total Bilirubin AST ALT Alkaline Phosphatase Troponin I < 50 < 50 NT-Pro-B Natriuret Pep Total Protein Albumin TSH Urine Color Urine Clarity Urine pH Ur Specific [place] Urine Protein Urine Ketones Urine Blood Urine Nitrite Urine Bilirubin Urine Urobilinogen Ur Leukocyte Esterase Urine RBC Urine WBC Ur Epithelial Cells Urine Crystals Urine Bacteria Urine Casts Urine Mucus Ur Culture Indicated? Urine Glucose COVID-19 Source Nasopharynx SARS-CoV-2 (PCR) Negative Influenza Type A (PCR) Negative Influenza Type B (PCR) Negative RSV (PCR) Negative 03/02/22 03/02/22 03/02/22 01:05 05:15 05:15 WBC RBC Hgb Hct MCV MCH MCHC RDW Plt Count MPV Immature Gran % Neutrophils % Lymphocytes % Monocytes % Eosinophils % Basophils % Nucleated RBC % Absolute Neutrophils Absolute Lymphocytes Absolute Monocytes Absolute Eosinophils Absolute Basophils PT INR APTT D-Dimer Sodium 137 Potassium 4.3 D Chloride 103 Carbon Dioxide 24.1 Anion Gap 9.9 BUN 17 Creatinine 0.8 Est GFR (CKD-EPI 2020) 77.27 Glucose 201 H Calcium 8.2 L Magnesium 2.4 Total Bilirubin 0.6 AST 14 L ALT 19 Alkaline Phosphatase 81 Troponin I < 50 NT-Pro-B Natriuret Pep Total Protein 5.9 L Albumin 2.8 L TSH Urine Color Yellow Urine Clarity Sl Cloudy Urine pH 6.0 Ur Specific [place] >= 1.030 H Urine Protein Trace H Urine Ketones 40 H Urine Blood Negative Urine Nitrite Negative Urine Bilirubin Negative Urine Urobilinogen 0.2 Ur Leukocyte Esterase Small H Urine RBC Negative Urine WBC >50 H Ur Epithelial Cells Few Urine Crystals Negative Urine Bacteria Moderate Urine Casts Negative Urine Mucus Negative Ur Culture Indicated? Yes Urine Glucose Negative COVID-19 Source SARS-CoV-2 (PCR) Influenza Type A (PCR) Influenza Type B (PCR) RSV (PCR) 03/02/22 05:15 WBC 12.70 H RBC 4.59 Hgb 13.4 Hct 41.7 MCV 91 MCH 29.2 MCHC 32.1 RDW 13.4 Plt Count 281 MPV 10.5 Immature Gran % Neutrophils % Lymphocytes % Monocytes % Eosinophils % Basophils % Nucleated RBC % Absolute Neutrophils Absolute Lymphocytes Absolute Monocytes Absolute Eosinophils Absolute Basophils PT INR APTT D-Dimer Sodium Potassium Chloride Carbon Dioxide Anion Gap BUN Creatinine Est GFR (CKD-EPI 2020) Glucose Calcium Magnesium Total Bilirubin AST ALT Alkaline Phosphatase Troponin I NT-Pro-B Natriuret Pep Total Protein Albumin TSH Urine Color Urine Clarity Urine pH Ur Specific [place] Urine Protein Urine Ketones Urine Blood Urine Nitrite Urine Bilirubin Urine Urobilinogen Ur Leukocyte Esterase Urine RBC Urine WBC Ur Epithelial Cells Urine Crystals Urine Bacteria Urine Casts Urine Mucus Ur Culture Indicated? Urine Glucose COVID-19 Source SARS-CoV-2 (PCR) Influenza Type A (PCR) Influenza Type B (PCR) RSV (PCR) Reviewed Pertinent PMH: No
[2022-03-02] MEDS: dilTIAZem 25 MG/5 ML VIAL 5 MG IVP (09:00)
[2022-03-02] MEDS: dilTIAZem 30 MG TAB PO ×3 (09:09→19:55)
--- NOTE | 2022-03-02 09:59 | PDOC.CMIN ---
- If Service Date Differs Date of service: 03/02/22 Time of Service: 09:59 Care Management Initial Assess REASON FOR HOSPITALIZATION:: AFIB with RVR, hypokalemia, hypomagnesemia PAST MEDICAL HISTORY/PAST SURGICAL HISTORY:: All Active Problems. UTI (urinary tract infection) (Acute). Hypokalemia (Acute). Hypomagnesemia (Acute). Back pain of thoracolumbar region (Acute). Hypokalemia (Acute). Kyphosis (acquired) (postural) (Acute). Perirectal inflammation (Acute). 03/30/2019-from fecal incontinence. Loose stools (Acute). Cerumen debris on tympanic membrane of both ears (Acute). Constipation, unspecified (Acute). History of umbilical hernia repair (Acute). Status post dilation and curettage (Acute). Status post laparoscopic hysterectomy (Acute). Excessive cerumen in both ear canals (Chronic). Anxiety and depression (Chronic). Diabetes mellitus (Chronic 07/21/12). Atrial fibrillation with RVR (Acute 09/09/17). Dx by EKG on 08/21/17, [id number] = 2, anti-coagulated on Eliquis. Tubular adenoma (Acute 10/17/14). 10/03/14; DR. ALICIA;1 tubulovillous adenoma and 2 tubular adenoma. Primary osteoarthritis of both knees (Acute). Morbid obesity with BMI of 40.0-44.9, adult (Acute). Hypothyroidism (acquired) (Acute 11/03/12). Hyperlipidemia associated with type 2 diabetes mellitus (Acute). REFUSES RX. Hearing loss (Acute). A.D. Gastroesophageal reflux (Chronic 10/01/13). Essential hypertension (Acute 02/01/13). Depressive disorder (Acute). anxiety. Cognitive deficits (Acute 08/05/17). Anxiety associated with depression (Acute 07/21/17). Atrial fibrillation with rapid ventricular response (Acute). History of psychiatric disorder (Acute). Medical History . Depression. Diabetes. DNI (do not intubate). DNR (do not resuscitate). GERD (gastroesophageal reflux disease). Hyperlipidemia. Hypertension. Hypothyroidism. Morbid obesity with BMI of 40.0-44.9, adult. Osteoarthritis. POLST (Physician Orders for Life-Sustaining Treatment). Surgical History . Dilation and curettage (~1995). Hysterectomy, Laproscopic. Repair of umbilical hernia PREVIOUS FUNCTIONAL STATUS/SOCIAL/FAMILY SUPPORTS:: Karuna resides at the [facility]. Her brother, Yaniv, and sister in law, Malorie, are supportive. She receives supports with ADL's at [facility]. CURRENT FUNCTIONAL STATUS:: Karuna was sitting up in her chair when CM met with her. Her sister in law, Malorie, was visiting. They were looking at pictures of family together. Karuna stated that she is not feeling well, but she wants to return home soon. CM stated that she will be closely monitored, and will be able to return home as soon as the MD clears her. CM will support her coordinated return to [facility]. Karuna reported that she loves living there. CM will continue to follow. ADVANCE DIRECTIVES:: Not on file at [facility]. Has patient been provided with info about the portal/API?: Yes Did the patient sign up for the portal?: Yes (active) CODE STATUS:: DNR/DNI INSURANCE COVERAGE / FINANCIAL ISSUES:: [employer] CURRENT HOME/COMMUNITY SERVICES/EQUIPMENT:: Resides in assisted living. PRIMARY CARE PHYSICIAN:: Charlene Paige POTENTIAL DISCHARGE NEEDS:: Coordinated return to [facility]. PATIENT/FAMILY EDUCATION NEEDS:: Review discharge instructions and limitations, discussion of self care needs including ask me three. ANTICIPATED BARRIERS TO DISCHARGE:: None. TRANSPORTATION:: Via private vehicle by facility staff vs family. PLAN:: Anticipate Karuna will return to the [facility] once she becomes medically cleared. She will transport via private vehicle by facility staff vs family. She will follow up with her PCP and discharge plan of care. CM will continue to follow.
[2022-03-02] MEDS: dilTIAZem 25 MG/5 ML VIAL 10 MG IVP (18:40)
[2022-03-02] MEDS: dilTIAZem 25 MG/5 ML VIAL (18:58)
[2022-03-02] MEDS: dilTIAZem 125 MG in Normal Saline 100 ML IV (19:56)
[2022-03-02] MEDS: risperiDONE 1 MG TAB PO (19:56)
[2022-03-02] MEDS: Metoprolol 25 MG TAB 12.5 MG PO (19:58)
[2022-03-03] VITALS (129 sets, daily range): BP systolic 71–116; BP diastolic 40–84; PULSE 48–185; RESP 9–37; TEMP 36.2–36.6; O2SAT 91–99
[2022-03-03] MEDS: Metoprolol 25 MG TAB 12.5 MG PO (01:32)
[2022-03-03] MEDS: Levothyroxine 150 MCG TAB PO (05:24)
[2022-03-03] MEDS: cefTRIAXone 1 GM/50 ML BAG IVPB (08:42)
--- NOTE | 2022-03-03 08:47 | PGE_ITS ---
Date of Service Date of service: 03/03/22 Time of Service: 08:47 Assessment and Plan Assessment and plan (1) Atrial fibrillation with RVR: Status: Acute Assessment and plan: Continues with rapid atrial fibrillation. Blood pressures were tenuous yesterday and last night necessitating nursing to hold some of her doses of Lopressor. I discontinue Lopressor will focus on diltiazem and titrate Graham drug as tolerated. She previously been on metoprolol as an outpatient and apparently her rates were not well controlled. She remains on apixaban for anticoagulation. We will get an updated echocardiogram tomorrow morning. Consideration should be given for referral to EP cardiology for possible ablation. Critical care time spent interviewing and examining the patient, reviewing studies, discussing case with patient's nurse and consulting physicians was 30 minutes (2) UTI (urinary tract infection): Start date: 03/01/22 Status: Acute Assessment and plan: Gram-negative UTI final identification and speciation is pending. Patient is currently on Rocephin pending results of urine culture (3) Anxiety and depression: Status: Chronic Assessment and plan: Continue outpatient medical therapy while hospitalized. Patient is slightly more anxious being in the hospital. She appears to have an underlying psychia tric disease and developmental disease with which she is coping well. (4) Diabetes mellitus: Status: Chronic Assessment and plan: Blood glucose running 150-250. Patient is only being covered with moderate dose NovoLog sliding scale. At home she was on Lantus 45 units at night. I will re sume some basal coverage at night but start with half her usual dose.. Qualifiers: Diabetes mellitus type: type 2 Diabetes mellitus long term care phlebotomist insulin use: with long term care phlebotomist use Diabetes mellitus complication status: with hyperglycemia Qualified Code(s): E11.65 - Type 2 diabetes mellitus with hyperglycemia; Z79.4 - watermaster (current) use of insulin (5) Gastroesophageal reflux: Status: Chronic Assessment and plan: Patient takes an H2 gamaliel as well as a PPI at home. Usually takes Pepcid 40 mg daily along with omeprazole 20 mg daily. She is now currently on Protonix as well as Pepcid.. (6) DVT prophylaxis: Status: Acute Assessment and plan: On apixaban for A. fib (7) Discharge planning issues: Status: Acute Assessment and plan: Patient will return to [facility] once her atrial fibrillation is well controlled Subjective Subjective Interval history since last seen: Patient remains atrial fibrillation at a rapid rate with heart rates upwards of 140. She is asymptomatic from this. Automated blood pressure cuff is reading much lower than the manual cuff. I rechecked her manual blood pressure in her left arm and got 100/68 whereas the automated cuff was getting systolic pressures in the high 80s. I have increased her oral diltiazem to 60 mg TID and discontinued her metoprolol. Currently on diltiazem 10 mg/h which have asked the nurse to gently titrate upward until the oral diltiazem kicks in. Patient remains anticoagulated with apixaban. She is receiving antibiotics for UTI otherwise she is doing well. She does complain of some nasal stuffiness but otherwise no shortness of breath or chest discomfort. Exam Narrative Exam Narrative: Elderly obese female who is alert oriented person place time circumstance sitting up in her chair eating her breakfast in no acute distress able to talk in complete paragraphs. Neck without JVD Lungs are clear to auscultation Heart is irregularly irregular and tachycardic without murmur Abdomen is obese soft nontender Lower extremities without peripheral cyanosis or edema Objective Last Vital Signs Temp 36.2 C L 03/03/22 05:30 Pulse 65 03/03/22 07:15 Resp 18 03/03/22 07:15 BP 87/57 L 03/03/22 07:15 Pulse Ox 91 L 03/03/22 01:16
[2022-03-03] MEDS: dilTIAZem 60 MG TAB PO ×3 (08:49→19:17)
[2022-03-03] MEDS: Cyanocobalamin 100 MCG TABLET 500 MCG PO (08:49)
[2022-03-03] MEDS: Calcium Carbonate *TUMS* 500 MG CHEW PO ×2 (08:50→19:17)
[2022-03-03] MEDS: Famotidine 20 MG TAB 40 MG PO (08:50)
[2022-03-03] MEDS: Pantoprazole 40 MG TABCR PO (08:50)
[2022-03-03] MEDS: Pravastatin 20 MG TAB PO (08:50)
[2022-03-03] MEDS: ALPRAZolam 0.25 MG TAB 1 MG PO ×2 (08:50→19:16)
[2022-03-03] MEDS: Apixaban 5 MG TAB PO ×2 (08:50→19:16)
[2022-03-03] MEDS: Insulin Aspart 300 UNITS/3 ML PEN SC ×4 (08:51→23:19)
[2022-03-03] MEDS: dilTIAZem 125 MG in Normal Saline 100 ML 15 MG IV (12:04)
[2022-03-03] MEDS: dilTIAZem 25 MG/5 ML VIAL 15 MG IVP (16:45)
[2022-03-03] MEDS: Metoprolol 5 MG/5 ML VIAL IVP (16:50)
--- NOTE | 2022-03-03 17:00 | RT.EKG_ITS ---
APPROVED REPORT Exam: Resting ECG Reason for Exam: afib Patient Location: I HR:62 bpm ECG Measurements Heart Rate 62 AXIS MS 147 P 140 QRSd 112 QRS 14 QT 441 T 45 QTc 448 Conclusion Sinus bradycardia with atrial premature beats Poor R wave progression in lead(s) V2,V4 Partial missing lead(s): V6
--- NOTE | 2022-03-03 17:03 | W.EVENT ---
Date of service: 03/03/22 Time of Service: 17:03 Event Note: Patient went into rapid atrial fibrillation at a rate of 180 bpm associated with dizziness and chest tightness. Patient was given a bolus of diltiazem 15 mg and diltiazem drip was restarted at 5 mg/h and she was given subsequent dose of Lopressor 5 mg IV push. Heart rate came down initially in the 150-160 range after the diltiazem bolus after Lopressor her heart rate came down in the 110s to 120 range. Dizziness improved. Blood pressures which been in the 110s systolic dropped down into the 90s after above medications. Stat EKG as well as repeat electrolytes and troponin level are pending at this time. Patient will be resumed on oral metoprolol in addition to her oral diltiazem and diltiazem drip will be titrated. Of note after the rate came down from the 180s down to the 140s she was having frequent ventricular ectopy. Examination skin was mildly diaphoretic however her lungs remain clear and heart was tachycardic but is now coming under some control with the above measures. Time Spent with Patient Time spent in critical care(minutes): 30 Time Spent Included: Time at immediate bedside, Discussing critically ill care with other medical staff and Discussing Hx and/or treatment with family
[2022-03-03] MEDS: Metoprolol 25 MG TAB PO (17:43)
[2022-03-03] MEDS: Normal Saline Flush 10 ML SYR IVP ×2 (17:45→19:16)
[2022-03-03 17:53] LABS: Anion Gap 5.8 mmol/L (3-11); BUN 17 mg/dL (7-18); CO2 28.2 mmol/L (21.0-32.0); Calcium 8.5 mg/dL (8.5-10.1); Chloride 104 mmol/L (98-107); Estimated GFR 59.12 (mL/min/1.73m2); Glucose 188 mg/dL (74-106); Magnesium 1.7 mg/dL (1.8-2.4); Potassium 4.1 mmol/L (3.5-5.1); Sodium 138 mmol/L (136-145)
[2022-03-03 18:02] LABS: Troponin I < 50 ng/L (<or=60)
[2022-03-03] MEDS: Acetaminophen 325 MG TAB PO (19:16)
[2022-03-03] MEDS: Magnesium Oxide 400 MG TAB PO (19:17)
[2022-03-03] MEDS: risperiDONE 1 MG TAB PO (19:17)
[2022-03-03 22:32] LABS: Troponin I < 50 ng/L (<or=60)
[2022-03-03] MEDS: Insulin Glargine 300 UNITS/3 ML PEN 30 UNITS SC (23:20)
[2022-03-04] VITALS (43 sets, daily range): BP systolic 93–125; BP diastolic 43–77; PULSE 50–76; RESP 12–22; TEMP 36.5–36.8; O2SAT 90–98
[2022-03-04] MEDS: Metoprolol 25 MG TAB PO ×2 (01:00→06:30)
[2022-03-04] MEDS: Levothyroxine 150 MCG TAB PO (06:30)
[2022-03-04 06:42] LABS: BUN 17 mg/dL (7-18); CO2 28.5 mmol/L (21.0-32.0); CREATININE 0.7 mg/dL (0.55-1.02); Glucose 143 mg/dL (74-106); Magnesium 1.7 mg/dL (1.8-2.4); Troponin I < 50 ng/L (<or=60)
[2022-03-04 06:57] LABS: Anion Gap 6.5 mmol/L (3-11); Chloride 106 mmol/L (98-107); Potassium 3.9 mmol/L (3.5-5.1); Sodium 141 mmol/L (136-145)
[2022-03-04 06:58] LABS: Hemoglobin A1C 7.4 % (<5.7)
--- NOTE | 2022-03-04 08:00 | DI.US_ITS ---
APPROVED REPORT EXAM: Comprehensive 2D, Doppler, and color-flow Echocardiogram Patient Location: In-Patient Room/Bed: [id number] Electrical Engineer Mep: Kenna Ocampo RDCS (AE) Indications: A Fib, Bradycardia Other Information Study Quality: Fair. Technically limited study due to body habitus, inability to position patient eam done supine bedside. Conclusion Normal left ventricular wall thickness and chamber size. Estimated ejection fraction is 60%. Wall m otion is normal Normal right ventricular size and systolic function Left atrium is borderline dilated. Right atrium is normal in size Aortic valve is mildly sclerotic without stenosis or regurgitation Mild mitral annular calcification. Mild mitral regurgitation Normal tricuspid valve with trace regurgitation. Estimated right ventricular systolic pressure is 26 mmHg Wall motion Left Ventricle The left ventricle is grossly normal size. Technically limited images with exam done supine bedside. The left ventricular systolic function is normal. The left ventricular ejection fraction is within th e normal range. There is normal LV segmental wall motion. There is no ventricular septal defect visua lized. LVEF is 60%. Right Ventricle The right ventricle is normal size. The right ventricular systolic function is normal. The RVSP is 26 .2 mmHg. Atria Left atrium is borderline dilated. The right atrium size is normal. The interatrial septum is intact with no evidence for an atrial septal defect. Aortic Valve The aortic valve is mildly sclerotic Number of aortic valve leaflets could not be assessed. There is no aortic valvular stenosis. No aortic regurgitation is present. Mitral Valve Mild mitral annular calcification. No evidence of mitral valve stenosis. Mild mitral regurgitation. Tricuspid Valve The tricuspid valve is normal in structure. There is no tricuspid valve stenosis. Trace tricuspid reg urgitation. Pulmonic Valve Pulmonic valve is not well visualized. There is no pulmonic valvular stenosis. There is no pulmonic v alvular regurgitation. Great Vessels The aortic root is normal in size. Ascending aorta is not well visualized. Aortic arch is not well vi sualized. IVC is normal in size and collapses >50% with inspiration. Pericardium There is no pericardial effusion. 2D Dimensions Ao Root d 3.21 cm F: 2.7 - 3.3 LV Vol A2C d MOD 93.5 mL RA Area A4C 13.10 cm2 LV Vol A4C d MOD 86.3 mL RA Vol/ BSA A4C s A-L 17.5 mL/m2 LA vol/ BSA A2C s A-L 35.0 mL/m2 LVEF (Jurado's) 60.09 % F: 54 - 74 LA vol/ BSA A4C s A-L 18.9 mL/m2 LV Volume 72.35 mL F: 46 - 106 LA Vol/ BSA Biplane s A-L 26.3 mL/m2 LV Volume Index 41.10 mL/m2 F: 29 - 61 LA Area A4C s MOD 13.93 cm2 LV Vol Biplane MOD 92.2 mL LA Area A2C s MOD 19.39 cm2 LV EF A4C MOD 59.1 % LV EF A2C MOD 60.4 % LV EF Biplane MOD 60.1 % SV 55.40 mL SV Index 31.55 mL/m2 M-Mode TAPSE 2.26 cm (M/F) >1.7 LV Diastology MV E' medial 0.082 (>0.07 m/s) E/A Ratio 2.3 LV E/e MED 14.25 (<14) MV E Vmax 1.17 (0.4-1.3 m/s) MV E' lateral 0.064 (>0.1 m/s) MV A Vmax 0.50 (0.4-1.3 m/s) LV E/e LAT 18.35 (<14) MV E/A Ratio 2.30 MV E/E' medial 14.25 MV E/E' lateral 18.37 Aortic Valve LVOT Area 2.60 cm2 AoV Area Vmax 1.99 cm2 LVOT Vmax 0.91 m/s AoV Area/ BSA (Vmax) 1.13 cm2/m2 LVOT Mean Sung. 0.56 m/s LUIS FERNANDO Mean Sung. 1.74 cm2 LVOT Peak Grad 3.3 mmHg LUIS FERNANDO Mean Sung. Index 0.99 cm2/m2 LVOT Mean Grad 1.5 mmHg LVOT VTI 0.204 m LVOT Diam s 1.80 cm AoV Vmax 1.18 m/s Velocity Ratio 0.77 AoV Mean Sung. 0.84 m/s AoV Peak Grad 5.6 mmHg LVOT SV 53.09 mL AoV Mean Grad 3.2 mmHg AoV VTI 0.269 m AoV Area VTI 1.97 cm2 AoV Area/ BSA (VTI) 1.12 cm/m2 Mitral Valve MV DT 224 (160-240 msec) MV PHT 65 msec MV Area PHT 3.39 cm2 MV VTI 0.330 m MV Area VTI 1.61 (4.0-6.0 cm2) Pulmonary Valve PV Vmax 0.64 (0.5-1.5 m/s) RVOT Peak Gr. 1.22 mmHg PV Peak Grad 1.6 mmHg RVOT Mean Gr. 0.75 mmHg PV Mean Grad 1.1 mmHg RVOT VTI 0.121 m PV VTI 0.155 m RVOT Vmax 0.55 m/s Tricuspid Valve TR Peak Grad 23.1 mmHg TR Vmax 2.41 m/s RA Pressure 3.00 mmHg RVSP (TR) 26.2 mmHg
[2022-03-04] MEDS: Pantoprazole 40 MG TABCR PO (09:15)
[2022-03-04] MEDS: Apixaban 5 MG TAB PO ×2 (09:16→21:36)
[2022-03-04] MEDS: dilTIAZem 60 MG TAB PO ×2 (09:16→14:47)
[2022-03-04] MEDS: Magnesium Oxide 400 MG TAB PO ×2 (09:17→21:36)
[2022-03-04] MEDS: Calcium Carbonate *TUMS* 500 MG CHEW PO ×2 (09:17→21:36)
[2022-03-04] MEDS: ALPRAZolam 0.25 MG TAB 1 MG PO ×2 (09:17→21:36)
[2022-03-04] MEDS: Cyanocobalamin 100 MCG TABLET 500 MCG PO (09:18)
[2022-03-04] MEDS: Pravastatin 20 MG TAB PO (09:18)
[2022-03-04] MEDS: Famotidine 20 MG TAB 40 MG PO (09:18)
[2022-03-04] MEDS: cefTRIAXone 1 GM/50 ML BAG IVPB (09:19)
--- NOTE | 2022-03-04 10:18 | CMPROGNOTE_ITS ---
- If Service Date Differs Date of service: 03/04/22 Time of Service: 10:18 Care Management Progress Note S/O: Karuna was lying in bed, about to take a nap when CM met with her. She stated that she is feeling better today. Per MD, she is not yet medically cleared. She is looking forward to returning to [facility], as she is very happy there. CM will continue to follow. A: Karuna is a 76 year old female admitted to [facility] on 03/01/22 with Afib with RVR, hypokalemia, hypomagnesemia. P: Anticipate Karuna will return to the [facility] once she becomes medically cleared. She will transport via private vehicle by facility staff vs family. She will follow up with her PCP and discharge plan of care. CM will continue to follow.
--- NOTE | 2022-03-04 11:32 | W.PM.PROGNOT ---
Date of Service Date of service: 03/04/22 Time of Service: 11:32 Assessment and Plan Assessment and plan (1) Atrial fibrillation with RVR: Status: Acute Assessment and plan: Now in sinus rhythm to sinus bradycardia. We will switch her from Cardizem 60 mg TID and Lopressor 25 mg qid to the long-acting forms of Cardizem CD1 180 mg nightly and Toprol-XL 100 mg daily. Continue apixaban for anticoagulation. Monitor for 24 hours if no recurrent rapid atrial fibrillation then discharge back to [facility] tomorrow morning. Professional time spent interviewing and examining patient, discussion of goals of care with hospital team (care management, nursing and consulting professionals) was 20 minutes. (2) UTI (urinary tract infection): Start date: 03/01/22 Status: Acute Assessment and plan: Patient remains on Rocephin for gram-negative lei UTI. Final identification and sensitivities pending at this time. (3) Anxiety and depression: Status: Chronic Assessment and plan: Continue outpatient medical therapy while hospitalized. Patient is slightly more anxious being in the hospital. She appears to have an underlying psychiatric disease and developmental disease with which she is coping well. (4) Diabetes mellitus: Status: Chronic Qualifiers: Diabetes mellitus type: type 2 Diabetes mellitus cryptologic technician operator/analyst insulin use: with cryptologic technician operator/analyst use Diabetes mellitus complication status: with hyperglycemia Qualified Code(s): E11.65 - Type 2 diabetes mellitus with hyperglycemia; Z79.4 - portfolio director (current) use of insulin (5) Gastroesophageal reflux: Status: Chronic Assessment and plan: Patient takes an H2 gamaliel as well as a PPI at home. Usually takes Pepcid 40 mg daily along with omeprazole 20 mg daily. She is now currently on Protonix as well as Pepcid.. (6) DVT prophylaxis: Status: Acute Assessment and plan: On apixaban for A. fib (7) Discharge planning issues: Status: Acute Assessment and plan: Patient will return to [facility] once her atrial fibrillation is well controlled Subjective Subjective Interval history since last seen: Karuna has no acute complaints. Denies any dyspnea or CP. Rhythm remains sinus bradycardia w/ HR in the 60's. She is on short acting diltiazem and lopressor. I will change her to long acting forms and monitor her overnight. If she does not go back into a rapid afib then she can return home. she no longer needs ICU care now that she is off the diltiazem drip. I have updated her caregiver Exam Narrative Exam Narrative: Michelle Syed is in bed she is alert and oriented in no discomfort. Lungs are clear to auscultation Heart is regular but bradycardic no murmur Abdomen soft nontender Extremities without edema Objective Last Vital Signs Temp 36.8 C 03/04/22 10:19 Pulse 56 L 03/04/22 10:15 Resp 21 03/04/22 10:15 BP 125/65 03/04/22 10:15 Pulse Ox 96 03/04/22 08:03 Laboratory Results - last 24 hr 03/03/22 03/03/22 03/03/22 17:30 17:30 21:42 Sodium 138 Potassium 4.1 Chloride 104 Carbon Dioxide 28.2 Anion Gap 5.8 BUN 17 Creatinine 1.0 Est GFR (CKD-EPI 2020) 59.12 Glucose 188 H Hemoglobin A1c Calcium 8.5 Magnesium 1.7 L Troponin I < 50 < 50 03/04/22 03/04/22 05:55 05:55 Sodium 141 Potassium 3.9 Chloride 106 Carbon Dioxide 28.5 Anion Gap 6.5 BUN 17 Creatinine 0.7 Est GFR (CKD-EPI 2020) 90.70 Glucose 143 H Hemoglobin A1c 7.4 H Calcium 9.0 Magnesium 1.7 L Troponin I < 50
[2022-03-04] MEDS: Insulin Aspart 300 UNITS/3 ML PEN SC ×3 (11:52→21:37)
[2022-03-04] MEDS: Diclofenac 1% Gel 100 GM TUBE TP ×2 (15:45→21:37)
[2022-03-04] MEDS: Metoprolol CR 100 MG TABCR PO (16:19)
[2022-03-04] MEDS: risperiDONE 1 MG TAB PO (21:36)
[2022-03-04] MEDS: Normal Saline Flush 10 ML SYR IVP (21:38)
[2022-03-04] MEDS: Insulin Glargine 300 UNITS/3 ML PEN 30 UNITS SC (21:40)
[2022-03-05] VITALS (8 sets, daily range): BP systolic 105–112; BP diastolic 54–78; PULSE 47–71; RESP 14–26; TEMP 36.4–36.8; O2SAT 97
[2022-03-05] MEDS: Levothyroxine 150 MCG TAB PO (05:22)
--- NOTE | 2022-03-05 08:49 | CMPROGNOTE_ITS ---
- If Service Date Differs Date of service: 03/05/22 Time of Service: 08:49 Care Management Progress Note S/O: Karuna was A: Karuna is a 76 year old female admitted to [facility] on 03/01/22 with Afib with RVR, hypokalemia, hypomagnesemia. P: Anticipate Karuna will return to the [facility] once she becomes medically cleared. She will transport via private vehicle by facility staff vs family. She will follow up with her PCP and discharge plan of care. CM will continue to follow.
[2022-03-05] MEDS: Cyanocobalamin 100 MCG TABLET 500 MCG PO (09:12)
[2022-03-05] MEDS: Pantoprazole 40 MG TABCR PO (09:12)
[2022-03-05] MEDS: Pravastatin 20 MG TAB PO (09:14)
[2022-03-05] MEDS: Metoprolol CR 100 MG TABCR PO (09:14)
[2022-03-05] MEDS: ALPRAZolam 0.25 MG TAB 1 MG PO (09:14)
[2022-03-05] MEDS: Famotidine 20 MG TAB 40 MG PO (09:14)
[2022-03-05] MEDS: Apixaban 5 MG TAB PO (09:15)
[2022-03-05] MEDS: Insulin Aspart 300 UNITS/3 ML PEN SC ×2 (09:15→11:37)
[2022-03-05] MEDS: Calcium Carbonate *TUMS* 500 MG CHEW PO (09:15)
[2022-03-05] MEDS: Magnesium Oxide 400 MG TAB PO (09:15)
[2022-03-05 09:18] LABS: Abs Immature Grans 0.11 10^3/uL (0.0-0.06); Absolute Basophil Count 0.05 10^3/uL (0.0-0.2); Absolute Eosinophil Count 0.14 10^3/uL (0.0-0.7); Absolute Lymphocyte Count 2.11 10^3/uL (1.2-3.4); Absolute Monocyte Count 0.57 10^3/uL (0.1-0.8); Absolute Neutrophil Count 7.91 10^3/uL (1.2-6.7); Basophils % 0.5; Eosinophils % 1.3; HCT 43.3 % (36.0-46.0); HGB 13.8 g/dL (11.2-15.7); Lymphocytes % 19.4; MCH 29.4 pg (27.0-33.0); MCHC 31.9 % (32.0-36.0); MCV 92 fL (80-95); MPV 9.9 fL (8.0-11.0); Monocytes % 5.2; Neutrophils % 72.6; Platelet Count 252 10^3/uL (130-400); RDW 13.2 % (11.7-14.6); RDW-SD 45.1 fL
[2022-03-05 09:27] LABS: Anion Gap 9.1 mmol/L (3-11); BUN 23 mg/dL (7-18); CO2 26.9 mmol/L (21.0-32.0); CREATININE 0.8 mg/dL (0.55-1.02); Calcium 8.9 mg/dL (8.5-10.1); Chloride 102 mmol/L (98-107); Estimated GFR 77.27 (mL/min/1.73m2); Glucose 261 mg/dL (74-106); Magnesium 1.6 mg/dL (1.8-2.4); Potassium 4.1 mmol/L (3.5-5.1); Sodium 138 mmol/L (136-145)
[2022-03-05] MEDS: MAGNESIUM SULFATE 2 GM/50 ML BAG IVPB (11:38)
[2022-03-05] MEDS: Fosfomycin Tromethamine 3 GM PACKET PO (11:45)
--- NOTE | 2022-03-05 13:04 | W.PM.DS.N ---
Date of service: 03/05/22 Time of Service: 13:51 DS: Diagnosis Discharge Diagnosis (1) Atrial fibrillation with RVR: Status: Acute (2) UTI (urinary tract infection): Status: Acute Asessment and Plan: present on admission (3) Infection due to ESBL-producing Escherichia coli: Status: Acute (4) Anxiety and depression: Status: Chronic (5) Diabetes mellitus: Status: Chronic (6) Gastroesophageal reflux: Status: Chronic (7) Hypokalemia: Status: Acute (8) Hypomagnesemia: Status: Acute Discharge Plan Disposition Patient Disposition: Other Disposition Not Listed Other Facility: [facility] Condition: Good Discharge Details Reason For Visit: Atrial Fibrillation w/RVR,Hypokalemia,Hypomagnesem Admit Date/Time: 03/01/22 20:28 Admit Provider: Yaniv Guthrie Attending Provider: Yaniv Guthrie Primary Care Provider: [facility] Hospital Course: Ms Valdez is a 76 year old female with PMHx of Afib on anticoagulation as well as h/o IDDM2, HTN, anxiety/depression, who was admitted to [facility] ICU under the hospitalist service on 03/01/22 with rapid Afib. She was hypokalemic and hypomagnesemic at the time of presentation. Her electrolytes were repleted. She was treated with IV diltiazem and IV metoprolol. As her heart rates became controlled, she was switched to PO metoprolol and diltiazem, short acting doses. However, the patient converted to NSR and could only tolerate long acting metoprolol (100 mg dose) in sinus rhythm. She was transferred to medical surgical floor on 03/04/22. She is being discharged back to [facility] today with a prescription for metoprolol XL 100 mg PO daily and a cardiac event recorder. Her electrolytes were repleted. She did have evidence of a UTI on presentation and ended up growing ESBL E. Coli. While she was initially treated with ceftriaxone, this was changed to fosfomycin prior to discharge of which she received 1 dose. She is being discharged back to [facility] with home health PT and OT for her generalized weakness. She should have bloodwork followed up in 1 week. Care for patient as well as completion of her discharge summary on day of discharge took 45 minutes. Home Meds and New Rx's Prescriptions: New magnesium oxide 400 mg (241.3 mg magnesium) Tablet 400 mg PO BID Qty: 60 0RF metoprolol succinate 100 mg Tablet Extended Release 24 Hr 100 mg PO DAILY Qty: 30 0RF Continued sennosides-docusate sodium 8.6-50 mg tablet 1 tab PO HS PRN (Reason: constipation) Qty: 90 3RF polyethylene glycol 3350 [Miralax] 17 gram/dose powder 17 gm PO DAILY PRN (Reason: constipation) Qty: 510 2RF diclofenac sodium [Voltaren] 1 % gel 4 g topical TID Qty: 100 12RF Rx Instructions: apply to thoracic back area TID miconazole (bulk) 100 GM powder 1 stacie Miscellaneous PRN Label Comments: 09/02/17 Miconozole topical powder 2%, apply to right groin area daily PRN. DL (DME) blood-glucose meter [[place] [address] Verio IQ Meter] Kit See Rx Instructions .ROUTE .MEDSUPPLY Qty: 1 0RF Rx Instructions: As directed- BID testing- Insulin dependent Soothe and Cool Inzo Barrier 5 % cream 1 applic TP TID-QID PRN (Reason: skin irritation) Qty: 118.29 3RF (DME) pen needle, diabetic [Pen Needle] 31 gauge x 5/16 needle 1 ndl SQ DAILY Qty: 100 4RF Rx Instructions: USE WITH LANTUS PEN cyanocobalamin (vitamin B-12) [Vitamin B-12] 1,000 mcg tablet 500 mcg PO DAILY Qty: 90 4RF nystatin 100,000 unit/gram powder 1 applic Topical BID PRN (Reason: dermatitis) Vicks Vaporub 4.7-1.2-2.6 % ointment 1 applic TP BID PRN (Reason: congestion) Qty: 50 0RF Rx Instructions: Patient may keep in her room and self apply as directed risperidone 1 mg tablet 1 mg PO HS Qty: 30 11RF Eliquis 5 mg tablet 5 mg PO BID Qty: 180 2RF hydrochlorothiazide 12.5 mg tablet 12.5 mg PO DAILY Qty: 90 3RF levothyroxine 150 mcg tablet 150 mcg PO DAILY Qty: 90 3RF Rx Instructions: note dose change to 150 mcg daily (stop the 175 mcg) insulin glargine [Lantus Solostar U-100 Insulin] 100 unit/mL (3 mL) insulin pen 45 unit subcut HS Qty: 3 11RF alprazolam 1 mg tablet 1 mg PO BID MDD 2mg Qty: 180 1RF (DME) Blood Glucose Test Strip 1 strip Miscellaneous QID Qty: 200 3RF Rx Instructions: FOR ONE TOUCH Verio IQ METER. Dx: E11.65 on insulin -BID calcium carbonate [Tums] 200 mg calcium (500 mg) tablet,chewable 400 mg PO BID Qty: 120 11RF Ocuvite Adult 50 Plus 250-5-1 mg capsule 1 cap PO DAILY Qty: 90 3RF acetaminophen 500 mg tablet 1,000 mg PO BID Qty: 120 11RF (DME) lancets [OneTouch Delica Lancets] 33 gauge misc See Dose Instructions .ROUTE .MEDSUPPLY Qty: 200 4RF Dose Instruction: As directed Rx Instructions: BID glucose finger testing - E11.65 (on insulin) famotidine [Pepcid] 40 mg Tablet 40 mg DAILY benzonatate 100 mg Capsule 100 mg PO PRN PRN omeprazole 20 mg Capsule,Delayed Release(Dr/Ec) 20 mg DAILY pravastatin 20 mg Tablet 20 mg DAILY Discontinued losartan 50 mg tablet 50 mg PO DAILY Qty: 90 4RF metoprolol succinate 50 mg tablet extended release 24 hr 50 mg PO DAILY Qty: 90 3RF Discharge Instructions Instructions: A-fib (Atrial Fibrillation) (DC), Urinary Tract Infection in Women (DC), Hypomagnesemia (DC) Additional Instructions: Return to the hospital with any palpitations, dizziness, chest pain, shortness of breath. Bloodwork in 1 week. Follow up with your PCP in 1-2 weeks. Care Plan Goals: home with new home health PT and OT Referrals: Charlene Paige [Primary Care Provider] - Activity:: Activity as Tolerated Equipment/Supplies:: cardiac event recorder Diet:: As Tolerated Discharge Orders Discharge Orders: Discharge Order (Routine); Ordered 03/05/22 Ordered By: Rain Griggs Other Ambulatory Orders: Basic Metabolic Panel (Routine) Timeframe: 20220311 Facility: [facility] - Location: Laboratory Outpatient - [facility] Ordered By: Rain Griggs Complete Blood Count w/Diff (Routine) Timeframe: 20220311 Facility: [facility] - Location: Laboratory Outpatient - [facility] Ordered By: Rain Griggs Magnesium (Routine) Timeframe: 20220311 Facility: [facility] - Location: Laboratory Outpatient - [facility] Ordered By: Rain Griggs Discharge Data Discharge Date/Time-TO BE ENTERED AT DEPARTURE: 03/05/22 15:05 Discharge Comment: dc with guardian and Dax from [facility] DS: Summary Time Spent with Patient providing and/or coordinating discharge services: Greater than 30 minutes Status at Discharge Functional status at discharge: uses cane/walker Overall status at discharge: patient is progressing back to baseline Mental Status: mental status grossly normal Speech and Movement: speech and movement normal Mood: anxious mood Affect: anxious affect Exam Narrative Exam Narrative: General: Pleaseant elderly female who is A&Ox2, anxious which is visibly making it hard for her to answer questions HEENT: EOMI, MMM Heart: RRR, no m/r/g Lungs: CTAB (diminished breath sounds B) Abdomen: soft, nontender, nondistended Extremities: trace edema BLEs Psych Mental Status: mental status grossly normal Speech and Movement: speech and movement normal Mood: anxious mood Affect: anxious affect DS: Data Vitals/I&O Vitals and I&O: Vital Signs Temperature 36.4 C L 03/05/22 09:45 Temperature Source Tympanic 03/05/22 09:45 Pulse 63 03/05/22 09:45 Pulse Rhythm Regular 03/05/22 09:42 Pulse 55 L 03/05/22 04:01 Respiratory Rate 16 03/05/22 09:45 Respiratory Effort 03/05/22 09:42 Respiratory Depth Normal 03/05/22 09:42 Respiratory Pattern Normal 03/05/22 09:42 Blood Pressure 105/78 03/05/22 09:45 Blood Pressure Mean 69 03/05/22 04:01 Blood Pressure Position Supine 03/04/22 15:30 Pulse Oximetry 97 03/05/22 09:45 Oxygen Delivery Method Room Air 03/05/22 09:45 Oxygen Flow Rate 0 03/05/22 09:45 Pain Level 0 03/05/22 09:45 Intake & Output 03/04/22 03/05/22 03/05/22 23:59 11:59 23:59 Intake Total 70 / 190 740 / 1100 360 / 1100 Output Total 1175 / 2075 850 / 900 50 / 900 Balance -1105 / -1885 -110 / 200 310 / 200 Weight 86.5 kg Intake: IV 70 / 70 20 / 20 Oral 720 / 1080 360 / 1080 Output: Urine 1174 850 / 900 50 / 900 Other: Urine Color Pale Pale Yellow Yellow Yellow Urine Appearance Clear Clear Clear Urine Odor Normal Normal Comment voids without problems on the commode Stool Size Small Small Stool Characteristics Hard Soft Brown Formed Voiding Methods Bedside Commode Bedside Commode Bedside Commode Data Completed and Pending Completed studies during hospitalization [Text1]: CXR: No acute pulmonary findings. Echo: Normal left ventricular wall thickness and chamber size.? Estimated ejection fraction is 60%.? Wall motion is normal Normal right ventricular size and systolic function Left atrium is borderline dilated.? Right atrium is normal in size Aortic valve is mildly sclerotic without stenosis or regurgitation Mild mitral annular calcification.? Mild mitral regurgitation Normal tricuspid valve with trace regurgitation.? Estimated right ventricular systolic pressure is 26 mmHg Labs on day of discharge: Labs from last 24 hours 03/05/22 03/05/22 03/02/22 09:09 09:09 01:05 WBC 10.90 H RBC 4.70 Hgb 13.8 Hct 43.3 MCV 92 MCH 29.4 MCHC 31.9 L RDW 13.2 Plt Count 252 MPV 9.9 Immature Gran % 1.0 Neutrophils % 72.6 Lymphocytes % 19.4 Monocytes % 5.2 Eosinophils % 1.3 Basophils % 0.5 Nucleated RBC % 0.0 Absolute Neutrophils 7.91 H Absolute Lymphocytes 2.11 Absolute Monocytes 0.57 Absolute Eosinophils 0.14 Absolute Basophils 0.05 Sodium 138 Potassium 4.1 Chloride 102 Carbon Dioxide 26.9 Anion Gap 9.1 BUN 23 H Creatinine 0.8 Est GFR (CKD-EPI 2020) 77.27 Glucose 261 H Calcium 8.9 Magnesium 1.6 L Urine Color Yellow Urine Clarity Sl Cloudy Urine pH 6.0 Ur Specific [place] >= 1.030 H Urine Protein Trace H Urine Ketones 40 H Urine Blood Negative Urine Nitrite Negative Urine Bilirubin Negative Urine Urobilinogen 0.2 Ur Leukocyte Esterase Small H Urine RBC Negative Urine WBC >50 H Ur Epithelial Cells Few Urine Crystals Negative Urine Bacteria Moderate Urine Casts Negative Urine Mucus Negative Ur Culture Indicated? Yes Urine Glucose Negative PFSH All Active Problems (Updated 12/13/22 @ 16:28 by Rain Griggs MD) Infection due to ESBL-producing Escherichia coli (Acute) Hypomagnesemia (Acute) Paroxysmal atrial fibrillation with rapid ventricular response (Acute) DVT prophylaxis (Acute) Discharge planning issues (Acute) UTI (urinary tract infection) (Acute) Hypokalemia (Acute) Hypomagnesemia (Acute) Back pain of thoracolumbar region (Acute) Hypokalemia (Acute) Kyphosis (acquired) (postural) (Acute) Perirectal inflammation (Acute) 03/30/2019-from fecal incontinence Loose stools (Acute) Cerumen debris on tympanic membrane of both ears (Acute) Constipation, unspecified (Acute) History of umbilical hernia repair (Acute) Status post dilation and curettage (Acute) Status post laparoscopic hysterectomy (Acute) Excessive cerumen in both ear canals (Chronic) Anxiety and depression (Chronic) Diabetes mellitus (Chronic 07/21/12) Atrial fibrillation with RVR (Acute 09/09/17) Dx by EKG on 08/21/17, [id number] = 2, anti-coagulated on Eliquis Tubular adenoma (Acute 10/17/14) 10/03/14; DR. ALICIA;1 tubulovillous adenoma and 2 tubular adenoma Primary osteoarthritis of both knees (Acute) Morbid obesity with BMI of 40.0-44.9, adult (Acute) Hypothyroidism (acquired) (Acute 11/03/12) Hyperlipidemia associated with type 2 diabetes mellitus (Acute) REFUSES RX Hearing loss (Acute) A.D. Gastroesophageal reflux (Chronic 10/01/13) Essential hypertension (Acute 02/01/13) Depressive disorder (Acute) anxiety Cognitive deficits (Acute 08/05/17) Anxiety associated with depression (Acute 07/21/17) Atrial fibrillation with rapid ventricular response (Acute) History of psychiatric disorder (Acute) Medical History Depression Diabetes DNI (do not intubate) DNR (do not resuscitate) GERD (gastroesophageal reflux disease) Hyperlipidemia Hypertension Hypothyroidism Morbid obesity with BMI of 40.0-44.9, adult Osteoarthritis POLST (Physician Orders for Life-Sustaining Treatment) Surgical History Dilation and curettage (~1995) Hysterectomy, Laproscopic Repair of umbilical hernia Family History Mother Essential hypertension Heart disease Father , 86 Essential hypertension Heart disease Stroke Asthma Brother No problems noted. Maternal Grandfather Heart disease Paternal Grandfather No problems noted. Maternal Grandmother Heart disease Cancer Paternal Grandmother Heart disease Stroke Brother No problems noted. Social History Smoking/Tobacco Use Status: Never Smoking risk assessment performed?: Yes Alcohol Intake: never Drug use: Never Substance use type: does not use Caregiver/Support person: No Housing: assisted living facility Communication Needs: None Do you need help understanding health information?: Always Pets and animals: No Sexually active: No Do you think of yourself as: straight/heterosexual What is your relationship status?: never How often do you talk on the phone with friends or family?: three or more times per week How often do you get together with friends or relatives?: three or more times per week How often do you attend caodaism or spiritism services?: decline to answer Do you belong to any clubs or organized social groups?: no Panel score (0-1 are the most socially isolated patients): 1 What type of physical activity do you participate in: walking Duration: < 15 minutes/day Frequency: daily Carito/Latter Day: None Special carito needs: No Seatbelt use: always Drive intox or ride w/intox lift driver: No Do you feel safe at home: Yes Do you feel safe in your relationship?: Yes
--- NOTE | 2022-03-05 13:15 | IN_ITS ---
Date of service: 03/05/22 Time of Service: 13:15 PT Notes Visit Reasons: Atrial Fibrillation w/RVR,Hypokalemia,Hypomagnesem Physical Therapy Inpatient Initial Evaluation Date: 03/05/2022 Referring Doctor: Gavin Sykes MD PT Orders: PT CONSULT: D/C Non-PT dependent Precautions: Fall. Standard. Activity as tolerated. Patient Profile/Admitting Diagnosis: Karuna is a 76-year-old female patient who presented to the ED on 03/01/2022 due to reports of L-sided chest pain. Patient is diagnosed with AF with RVR, hypokalemia, hypomagnesemia, UTI, anxiety, PM, and GERD. PMHX: All Active Problems?(Updated 03/02/22 @ 06:55 by Yaniv Guthrie) UTI (urinary tract infection) (Acute) Hypokalemia (Acute) Hypomagnesemia (Acute) Back pain of thoracolumbar region (Acute) Hypokalemia (Acute) Kyphosis (acquired) (postural) (Acute) Perirectal inflammation (Acute) 03/30/2019-from fecal incontinence Loose stools (Acute) Cerumen debris on tympanic membrane of both ears (Acute) Constipation, unspecified (Acute) History of umbilical hernia repair (Acute) Status post dilation and curettage (Acute) Status post laparoscopic hysterectomy (Acute) Excessive cerumen in both ear canals (Chronic) Anxiety and depression (Chronic) Diabetes mellitus (Chronic 07/21/12) Atrial fibrillation with RVR (Acute 09/09/17) Dx by EKG on 08/21/17, CHads2 vasc = 2, anti-coagulated on Eliquis Tubular adenoma (Acute 10/17/14) 10/03/14; DR. ALICIA;1 tubulovillous adenoma and 2 tubular adenoma Primary osteoarthritis of both knees (Acute) Morbid obesity with BMI of 40.0-44.9, adult (Acute) Hypothyroidism (acquired) (Acute 11/03/12) Hyperlipidemia associated with type 2 diabetes mellitus (Acute) REFUSES RX Hearing loss (Acute) A.D. Gastroesophageal reflux (Chronic 10/01/13) Essential hypertension (Acute 02/01/13) Depressive disorder (Acute) anxiety Cognitive deficits (Acute 08/05/17) Anxiety associated with depression (Acute 04/30/18) Atrial fibrillation with rapid ventricular response (Acute) History of psychiatric disorder (Acute) Medical History? Depression Diabetes DNI (do not intubate) DNR (do not resuscitate) GERD (gastroesophageal reflux disease) Hyperlipidemia Hypertension Hypothyroidism Morbid obesity with BMI of 40.0-44.9, adult Osteoarthritis POLST (Physician Orders for Life-Sustaining Treatment) Surgical History? Dilation and curettage (~1995) Hysterectomy, Laproscopic Repair of umbilical hernia Social History/Home Situation: [facility] resident. Modified independent using SPC for all mobility ADL performance. Equipment Owned/DME: Offset-type SPC Subjective: Agreeable to consult. Expresses concern about falling despite using the FWW. Denies headache, chest pain, and lightheadedness throughout session. [id number] was present in room during assessment. Objective: General Observation: Seated on bedside. Telemetry monitoring in place. High BMI. Mental Status: Alert and oriented as to person, place, time, and purpose. Able to pay attention but requires repetition of instructions due to decreased ability to focus. Pain: Denies Vital Signs: WNL as closely monitored by nursing staff ROM: Right Upper Extremity: Shoulder Flexion WFL. Shoulder abduction WFL. Elbow flexion WFL. Wrist flexion WFL. Functional opening and closing of hand WFL. Left Upper Extremity: Shoulder Flexion WFL. Shoulder abduction WFL. Elbow flexion WFL. Wrist flexion WFL. Functional opening and closing of hand WFL. Right Lower Extremity: Hip flexion WFL. Hip abduction WFL. Knee flexion WFL. Ankle dorsiflexion WFL. Ankle plantarflexion WFL. Left Lower Extremity: Hip flexion WFL. Hip abduction WFL. Knee flexion WFL. Ankle dorsiflexion WFL. Ankle plantarflexion WFL. Strength: Right Upper Extremity: Shoulder flexors 4-/5. Shoulder abductors 4-/5. Elbow flexors 4-/5. Elbow extensors 4-/5. Manager Stylist strong. Left Upper Extremity: Shoulder flexors 4-/5. Shoulder abductors 4-/5. Elbow flexors 4-/5. Elbow extensors 4-/5. Manager Stylist strong. Right Lower Extremity: Hip flexors 4-/5. Hip abductors 4-/5. Knee flexors 4-/5. Knee extensors 4-/5. Ankle dorsiflexors 4-/5. Ankle plantarflexors 4-/5. Left Lower Extremity: Hip flexors 4-/5. Hip abductors 4-/5. Knee flexors 4-/5. Knee extensors 4-/5. Ankle dorsiflexors 4-/5. Ankle plantarflexors 4-/5. Bed Mobility/Transfers: Sit to stand with stand by assist Stand to sit with stand by assist Bed to reclining chair with stand by assist Gait: Instructed patient with level surface ambulation of 80 feet requiring stand by assist. Bertha decreased. Step height decreased. Step length decreased. Fearful of falling. Balance: Static Sitting: Normal Dynamic Sitting: Normal Static Standing: Fair Dynamic Standing: Fair Special Tests: Mobility Limitations Standardized Measure [facility] AM-PAC 6 clicks Basic Mobility Inpatient Short Form: Raw Score: 22 CMS Score: 21% deficit Informed Consent/Education: Patient was instructed in purpose of PT consult and plan of care. Agreeable to proceed with established PT POC to achieve personal goals. Assessment: Patient demonstrates functional mobility decline requiring the use of FWW for all mobility ADLs to maximize monbility independence and reduce fall risk. Patient presents with clinical signs and symptoms consistent with current/admitting diagnoses that have resulted to mobility limitations, gait instability, generalized weakness, and overall ADL decline as demonstrated by the following impairment level findings: 1. Decreased strength to B UE/LE major muscle groups 2. Impaired sitting/standing balance 3. Impaired activity tolerance 4. Fearful of falling Impairments are contributing to the following functional limitations: 1. Difficulty with ambulation without assistive device and physical assistance 2. Increased completion time for mobility ADL performance 3. Increased risk for falls 4. Difficulty with managing steps alone safely Patient is assessed as a 91863 moderate complexity based on the following: History: 76-year-old female with past medical history as indicated above Examination: Demonstrable impairment in strength, balance, and mobility level with underlying impairments and functional limitations as exhibited above as well as deficit score of 21% utilizing the [facility] Mobility Inpatient Short Form Presentation: Evolving Decision Makin moderate complexity Goals: N/A. PT evaluation and one treatment session only. Plan of Care/Treatment Plan: N/A. PT evaluation and one treatment session only. DISCHARGE RECOMMENDATIONS: [] Home with no services [] [X] Home with services. HOme when medically cleared by hopsitlaist. Recommend home health PT services in order to progress mobility level using least restrictive assistive ambulatory device, assess home safety, identify additional equipment needs, and establish a functional maintenance program that will increase ability of patient to remain at home. [] Home with outpatient PT [] [] SNF for continued rehabilitation [] [] Digital Imaging Technician Care [] [] SNF versus LTC based on ability to participate and progress [] TREATMENT CODE/TIME: 51789 x 20 minutes, 89407 x 12 minutes beginning 13:15 PM. Thank you for the opportunity to participate in the care of this patient. Lu Rowe PT, DPT, CLT [facility] [place], [place]
--- NOTE | 2022-03-05 13:54 | PDOC.HHF2F_ITS ---
Home Health Referral Home Health Orders Clinical synopsis of why skilled professionals are needed: patient with deconditioning, ambulates with a cane, recovering from a UTI, still some degree was weakness Medical diagnosis necessitation home health referral: UTI, weakness, ambulatory dysfunction Physical Therapist: Check all that apply Increase strength & endurance for safe mobility at home: Ordered To design/establish home maintenance program: Ordered Home safety evaluation and teaching/gait training including stair management (if applicable): Ordered Occupational Therapist: Evaluate and treat for patient unable to perform ADL/IADL/self-care: Ordered Upper extremity strengthening, range and motion: Ordered Home Bound Status Requires the aid of supportive device (check all that apply): Cane Assistance of another person (Describe assistance and medical necessity): H/o chronic cognitive deficit Describe why leaving home would require a considerable and taxing effort: Requi res frequent rest periods and Confusion Encounter Date and Reason: I certify that a FTF encounter for this patient was performed on March 05, 2022 and that such encounter was related to the primary reason the patient requires home health services. The encounter was conducted in the following manner: * By me as the certifying physician, SALES AND MERCHANDISING REPRESENTATIVE, PA or * By an inpatient physician, SALES AND MERCHANDISING REPRESENTATIVE or PA during an inpatient stay who communicated findings to me, Certification And Authentication I certify that I composed the above information based on my clinical judgment relating to this patient's medical condition and, if applicable, clinical findings communicated to me by the NPP or inpatient physician who performed the FTF encounter. Name of Provider that will be monitoring home health services: Charlene Paige
--- NOTE | 2022-03-05 14:01 | NUR.NOTE ---
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 RN notified. Nursing Note:
--- NOTE | 2022-03-05 15:44 | PDOC.CMDIS ---
- If Service Date Differs Date of service: 03/05/22 Time of Service: 15:44 LACE Index Scoring Tool - Questions: Length of Stay (in days): 4 - 6 Acuity (Admit via E.D.?): Yes Comorbidities: Diabetes w/o Complication E.D. Visits: 1 - Answers: Total Score: 9 Risk of Readmission: Low Risk Care Management Discharge Reason for Hospitalization: AFIB with RVR, hypokalemia, hypomagnesemia Discharge Plan: Karuna will return to the [facility] where she resides. She will have new home health services for PT and OT. She will transport via private vehicle by facility staff and will follow up with her PCP and discharge plan of care. Patient/Family Education Needs: Review discharge instructions and limitations, discussion of self care needs including ask me three.
== END 2022-03-05 15:05 | disposition other institution (70) | DRG 309 ==
LOC: ER 22:14 → ICU 22:43
PROVIDERS: Internal Medicine; Admitting Provider Family Medicine; Emergency Provider Physician Assistant; PCP Nurse Practitioner Family; Visit Provider Family Medicine
DX: I48.91 Unspecified atrial fibrillation (principal); F84.0 Autistic disorder; N39.0 Urinary tract infection, site not specified; Z68.41 Body mass index [BMI] 40.0-44.9, adult; Z16.12 Extended spectrum beta lactamase (ESBL) resistance; E87.6 Hypokalemia; E83.42 Hypomagnesemia; Z79.899 Other long term (current) drug therapy; Z79.01 Long term (current) use of anticoagulants; F41.8 Other specified anxiety disorders; E11.65 Type 2 diabetes mellitus with hyperglycemia; K21.9 Gastro-esophageal reflux disease without esophagitis; E03.9 Hypothyroidism, unspecified; I10 Essential (primary) hypertension; Z66 Do not resuscitate; M54.89 Other dorsalgia; M40.00 Postural kyphosis, site unspecified; K59.00 Constipation, unspecified; E66.01 Morbid (severe) obesity due to excess calories; E78.5 Hyperlipidemia, unspecified; F99 Mental disorder, not otherwise specified; R41.89 Other symptoms and signs involving cognitive functions and awareness; Z79.4 Long term (current) use of insulin; R00.1 Bradycardia, unspecified; B96.29 Other Escherichia coli [E. coli] as the cause of diseases classified elsewhere
CPT/HCPCS: 36410; 36415; 80048; 80053; 85027; 87077; 87637; 93005; 93306; 96365; 96375; 97162; 97530; 99291; 71046; 81003; 81015; 83036; 83735; 83880; 84443; 84484; 85025; 85379; 85610; 85730; 87086; 87186; 93010; 99223; 99232; 99239; J0696; J2060; J2405; J3475; J3480; J3490

== ENCOUNTER 2022-03-05 13:16 | Outpatient (CLI) | payer MEDICARE, MEDICAID, SELFPAY | END 2022-03-05 13:17 | disposition home or self-care (01) | LOC: CARDOPNVT 13:16 | PROVIDERS: PCP Nurse Practitioner Family; Visit Provider Nurse Practitioner Family | DX: I48.0 Paroxysmal atrial fibrillation (principal) | CPT/HCPCS: 93270 ==

== ENCOUNTER 2022-03-11 16:39 | Outpatient (REF) | payer MEDICARE, MEDICAID, SELFPAY ==
[2022-03-11 17:12] LABS: Abs Immature Grans 0.05 10^3/uL (0.0-0.06); Absolute Basophil Count 0.03 10^3/uL (0.0-0.2); Absolute Eosinophil Count 0.12 10^3/uL (0.0-0.7); Absolute Lymphocyte Count 2.18 10^3/uL (1.2-3.4); Absolute Monocyte Count 0.72 10^3/uL (0.1-0.8); Absolute Neutrophil Count 6.27 10^3/uL (1.2-6.7); Basophils % 0.3; Eosinophils % 1.3; HCT 42.3 % (36.0-46.0); HGB 13.8 g/dL (11.2-15.7); Immature Grans % 0.5; Lymphocytes % 23.3; MCH 30.1 pg (27.0-33.0); MCHC 32.6 % (32.0-36.0); MCV 92 fL (80-95); MPV 10.6 fL (8.0-11.0); Monocytes % 7.7; Neutrophils % 66.9; Platelet Count 267 10^3/uL (130-400); RBC 4.59 10^6/uL (3.93-5.22); RDW 13.4 % (11.7-14.6); RDW-SD 45.3 fL; WBC 9.37 10^3/uL (4.4-10.8)
[2022-03-11 17:18] LABS: Anion Gap 6.3 mmol/L (3-11); BUN 16 mg/dL (7-18); CO2 28.7 mmol/L (21.0-32.0); CREATININE 0.8 mg/dL (0.55-1.02); Calcium 9.1 mg/dL (8.5-10.1); Chloride 105 mmol/L (98-107); Estimated GFR 77.27 (mL/min/1.73m2); Glucose 200 mg/dL (74-106); Magnesium 1.8 mg/dL (1.8-2.4); Potassium 4.1 mmol/L (3.5-5.1); Sodium 140 mmol/L (136-145)
== END 2022-03-11 16:40 | disposition home or self-care (01) ==
LOC: LBN 16:39
PROVIDERS: PCP Nurse Practitioner Family; Visit Provider Internal Medicine
DX: E83.42 Hypomagnesemia (principal); E87.6 Hypokalemia; I10 Essential (primary) hypertension
CPT/HCPCS: 80048; 83735; 85025

== ENCOUNTER 2022-03-25 14:21 | Outpatient (REF) | payer MEDICARE, MEDICAID, SELFPAY ==
[2022-03-25 16:28] LABS: Hemoglobin A1C 7.6 % (<5.7)
== END 2022-03-25 14:22 | disposition home or self-care (01) ==
LOC: NCHCN 14:21
PROVIDERS: PCP Nurse Practitioner Family; Visit Provider Nurse Practitioner Family
DX: E11.9 Type 2 diabetes mellitus without complications (principal)
CPT/HCPCS: 83036

== ENCOUNTER 2022-04-08 07:48 | Outpatient (CLI) | payer MEDICARE, MEDICAID, SELFPAY ==
--- NOTE | 2022-04-08 08:44 | W.CARDEVENT ---
Date of service: 04/08/22 Time of Service: 08:45 Cardiac Event Recorder Referring Provider:: Charlene Paige Indications:: Palpitations Cardiac Event Note: This is a 30-day cardiac event monitor, reportedly ordered for palpitations Rhythm throughout was sinus with an average heart rate of 53. Minimum was 50, maximum 102 There were rare premature ventricular contractions There were rare atrial premature beats There was no atrial fibrillation, no supraventricular tachycardia, no high-grade AV block, no pauses greater than 3 seconds
== END 2022-04-08 07:49 | disposition home or self-care (01) ==
LOC: CARDOPNVT 07:48
PROVIDERS: PCP Nurse Practitioner Family; Visit Provider Internal Medicine Cardiovascular Disease
DX: R00.2 Palpitations (principal)
CPT/HCPCS: 93005; 93272; 99214

== ENCOUNTER → 2022-04-08 11:03 | Outpatient (BNVA) | payer MEDICARE, MEDICAID, SELFPAY | PROVIDERS: PCP Nurse Practitioner Family; Referring Provider Nurse Practitioner Family; Visit Provider Internal Medicine Cardiovascular Disease | DX: I48.0 Paroxysmal atrial fibrillation (principal) | CPT/HCPCS: 93005; 99202; 99214 ==

== ENCOUNTER 2022-04-08 11:09 | Outpatient (CLI) | payer MEDICARE, MEDICAID, SELFPAY ==
--- NOTE | 2022-04-08 11:00 | RT.EKG_ITS ---
APPROVED REPORT Exam: Resting ECG Reason for Exam: AFIB w/ RVR Patient Location: O HR:46 bpm ECG Measurements Heart Rate 46 AXIS IA 200 P 123 QRSd 87 QRS 24 QT 431 T 32 QTc 377 Conclusion Sinus bradycardia...rate< 50 Otherwise normal
== END 2022-04-08 11:10 | disposition home or self-care (01) ==
LOC: DI.CARD 11:10
PROVIDERS: PCP Nurse Practitioner Family; Visit Provider Internal Medicine Cardiovascular Disease
DX: I48.0 Paroxysmal atrial fibrillation (principal); R94.31 Abnormal electrocardiogram [ECG] [EKG]; R00.1 Bradycardia, unspecified
CPT/HCPCS: 93005; 93010; 99214

== ENCOUNTER 2022-04-15 08:53 | Outpatient (REF) | payer MEDICARE, MEDICAID, SELFPAY ==
[2022-04-15 09:43] LABS: Bilirubin Negative (Negative); Blood Negative (Negative); Clarity Clear (Clear); Glucose 100 mg/dL (Negative); Ketones Negative (Negative); Leukocyte Esterase Small (Negative); Nitrite Negative (Negative); Specific Gravity <= 1.005 (1.005-1.025); Urobilinogen 0.2 EU/dL (Up TO 0.2); pH 6.5 (5-8)
[2022-04-15 09:56] LABS: Bacteria Moderate HPF (Negative); C & S Indicated? Yes; Casts Negative LPF (Negative); Crystals Negative HPF (Negative); Epithelial Cells Few HPF (Negative); Mucus Trace (Negative); RBC 0-2 HPF (0-2)
[2022-04-15 10:18] LABS: COMMENT (LAB VIEW ONLY) < 13.00 mg/dL
== END 2022-04-15 08:54 | disposition home or self-care (01) ==
LOC: NCHCN 08:53
PROVIDERS: PCP Nurse Practitioner Family; Visit Provider Nurse Practitioner Family
DX: N39.0 Urinary tract infection, site not specified (principal); R82.998 Other abnormal findings in urine
CPT/HCPCS: 81003; 81015; 82043; 82570; 87086

== ENCOUNTER 2022-06-09 10:07 | Outpatient (REF) | payer MEDICARE, MEDICAID, SELFPAY ==
[2022-06-09 11:09] LABS: Magnesium 1.8 mg/dL (1.8-2.4); Vitamin B12 981 pg/mL (193-986)
== END 2022-06-09 10:08 | disposition home or self-care (01) ==
LOC: NCHCN 10:07
PROVIDERS: PCP Nurse Practitioner Family; Visit Provider Nurse Practitioner Family
DX: K21.9 Gastro-esophageal reflux disease without esophagitis (principal); Z86.39 Personal history of other endocrine, nutritional and metabolic disease
CPT/HCPCS: 82607; 83735

== ENCOUNTER 2022-07-01 14:52 | Outpatient (REF) | payer MEDICARE, MEDICAID, SELFPAY ==
[2022-07-01 11:43] LABS: Hemoglobin A1C 7.1 % (<5.7)
== END 2022-07-01 14:53 | disposition home or self-care (01) ==
LOC: NCHCN 14:52
PROVIDERS: PCP Nurse Practitioner Family; Visit Provider Nurse Practitioner Family
DX: E11.9 Type 2 diabetes mellitus without complications (principal)
CPT/HCPCS: 83036

== ENCOUNTER 2022-10-18 11:08 | Outpatient (REF) | payer MEDICARE, MEDICAID, SELFPAY ==
[2022-10-18 10:55] LABS: Hemoglobin A1C 7.1 % (<5.7)
== END 2022-10-18 11:09 | disposition home or self-care (01) ==
LOC: NCHCN 11:08
PROVIDERS: PCP Nurse Practitioner Family; Visit Provider Nurse Practitioner Family
DX: E11.9 Type 2 diabetes mellitus without complications (principal)
CPT/HCPCS: 83036

== ENCOUNTER 2022-10-21 09:25 | Outpatient (REF) | payer MEDICARE, MEDICAID, SELFPAY ==
[2022-10-21 14:03] LABS: Bilirubin Negative (Negative); Blood Trace-intact (Negative); Clarity Clear (Clear); Glucose 250 mg/dL (Negative); Ketones Negative (Negative); Leukocyte Esterase Small (Negative); Nitrite Negative (Negative); Specific Gravity <= 1.005 (1.005-1.025); Urobilinogen 0.2 mg/dL (Up to 0.2)
[2022-10-21 14:40] LABS: Epithelial Cells Rare HPF (Negative)
[2022-10-21 14:41] LABS: Bacteria Few HPF (Negative); C & S Indicated? Yes; Casts Negative LPF (Negative); Crystals Negative HPF (Negative); Mucus Negative (Negative); Other Cells Negative (Negative)
== END 2022-10-21 09:26 | disposition home or self-care (01) ==
LOC: NCHCN 09:25
PROVIDERS: PCP Nurse Practitioner Family; Visit Provider Nurse Practitioner Family
DX: R39.15 Urgency of urination (principal); R82.998 Other abnormal findings in urine
CPT/HCPCS: 81003; 81015; 87086

== ENCOUNTER 2022-12-04 18:35 | Outpatient (REF) | payer MEDICARE, MEDICAID, SELFPAY ==
[2022-12-04 17:23] LABS: Anion Gap 7.3 mmol/L (3-11); BUN 16 mg/dL (7-18); CO2 27.7 mmol/L (21.0-32.0); CREATININE 0.8 mg/dL (0.55-1.02); Calcium 9.1 mg/dL (8.5-10.1); Chloride 103 mmol/L (98-107); Estimated GFR 76.79 (mL/min/1.73m2); Glucose 164 mg/dL (74-106); Potassium 4.5 mmol/L (3.5-5.1); Sodium 138 mmol/L (136-145)
== END 2022-12-04 18:36 | disposition home or self-care (01) ==
LOC: NCHCN 18:35
PROVIDERS: PCP Nurse Practitioner Family; Visit Provider Nurse Practitioner Family
DX: I10 Essential (primary) hypertension (principal)
CPT/HCPCS: 80048

== ENCOUNTER 2022-12-21 17:43 | Inpatient (IN) | payer MEDICARE, MEDICAID, SELFPAY ==
[2022-12-21] VITALS (37 sets, daily range): BP systolic 71–153; BP diastolic 46–129; PULSE 48–200; RESP 16–35; TEMP 36.3–36.8; O2SAT 88–100
--- NOTE | 2022-12-21 17:45 | RT.EKG_ITS ---
APPROVED REPORT Exam: Resting ECG Reason for Exam: dizzy Patient Location: E HR:202 bpm ECG Measurements Heart Rate 202 AXIS AK 136 P 52 QRSd 72 QRS 116 QT 266 T [id number] QTc 489 Conclusion Supraventricular tachycardia...V-rate>(220-age), QRSd<120 Anterior infarct, old...Q >40mS, abnormal ST-T, V2-V5 Repolarization abnormality, prob rate related...ST dep, T neg, tachycardia SVT, normal axis, rate related repol abdnormalities
--- NOTE | 2022-12-21 18:00 | DI.RAD_ITS ---
Exam(s) XR PORTABLE CHEST AP EXAM: XR PORTABLE CHEST AP CLINICAL HISTORY: tachycardia. TECHNIQUE: 2D digital imaging was performed. COMPARISON: CR,XR XR CHEST 2V PA LATERAL from 03/01/2022 FINDINGS: Single AP portable view. Chest leads and chest pads in place. Cardiomegaly again noted. Mediastinum not widened. Right lung is clear. Left lung is partially obscured by overlying pads. Possible small left pleural effusion. No pneumothorax. No fractures evident. IMPRESSION: Probable small left pleural effusion.Cardiomegaly. No obvious pulmonary edema. DATA REPOSITORY: RADIATION DOSE DELIVERED:
[2022-12-21] MEDS: Normal Saline 1,000 ML 1000 ML IV (18:16)
[2022-12-21 18:43] LABS: Absolute Basophil Count 0.06 10^3/uL (0.0-0.2); Absolute Eosinophil Count 0.09 10^3/uL (0.0-0.7); Absolute Lymphocyte Count 3.52 10^3/uL (1.2-3.4); Absolute Monocyte Count 0.77 10^3/uL (0.1-0.8); Basophils % 0.5; Eosinophils % 0.7; HCT 46.6 % (36.0-46.0); HGB 15.3 g/dL (11.2-15.7); Immature Grans % 0.8; Lymphocytes % 27.7; MCH 29.8 pg (27.0-33.0); MCHC 32.8 % (32.0-36.0); MCV 91 fL (80-95); MPV 10.4 fL (8.0-11.0); Monocytes % 6.1; Neutrophils % 64.2; Platelet Count 356 10^3/uL (130-400); RBC 5.13 10^6/uL (3.93-5.22); RDW 13.2 % (11.7-14.6)
[2022-12-21 18:47] LABS: Absolute Neutrophil Count 8.15 10^3/uL (1.2-6.7)
[2022-12-21 18:54] LABS: PTT Activated 25.3 sec (21.5-31.9); Prothrombin Time 10.4 sec (9.3-11.0)
[2022-12-21] MEDS: fentaNYL 100 MCG/2 ML VIAL (18:57)
--- NOTE | 2022-12-21 19:00 | RT.EKG_ITS ---
APPROVED REPORT Exam: Resting ECG Reason for Exam: casrdioverted Patient Location: E HR:204 bpm ECG Measurements Heart Rate 204 AXIS LA 61 P -5 QRSd 98 QRS 164 QT 277 T -68 QTc 513 Conclusion Supraventricular tachycardia...V-rate>(220-age), QRSd<120 Ventricular premature complex...V complex w/ short R-R interval Sinus pause...long R-R interval, normal QRSd Low voltage, extremity and precordial leads...extremity<0.5mV, precordial<1.0mV Right ventricular hypertrophy...prominent R or R' w/ RAD or LETICIA Repolarization abnormality, prob rate related...ST dep, T neg, tachycardia SVT, PVCs
[2022-12-21 19:05] LABS: ALT 29 U/L (14-59); AST 24 U/L (15-37); Albumin 2.8 g/dL (3.4-5.0); Alkaline Phosphatase 111 U/L (46-116); Anion Gap 14.3 mmol/L (3-11); BUN 19 mg/dL (7-18); Bilirubin, Total 0.2 mg/dL (0.2-1.0); CO2 20.7 mmol/L (21.0-32.0); CREATININE 1.2 mg/dL (0.55-1.02); Calcium 9.4 mg/dL (8.5-10.1); Chloride 100 mmol/L (98-107); Estimated GFR 47.21 (mL/min/1.73m2); Glucose 339 mg/dL (74-106); Magnesium 1.8 mg/dL (1.8-2.4); Potassium 3.9 mmol/L (3.5-5.1); Sodium 135 mmol/L (136-145); TSH (W/Ref FT4) 10.19 uIU/mL (0.36-3.74); Total Protein 6.5 g/dL (6.4-8.2)
--- NOTE | 2022-12-21 19:08 | W.ED.GENAD ---
Discharge Plan Disposition Patient Disposition: Admit to [facility] Discharge Details Chief Complaint: Arrhythmia Clinical Impression: Atrial fibrillation with RVR Primary Care Provider: Charlene Paige ED Provider: Judson Barnes [place] Meds and New Rx's Prescriptions: No Action sennosides-docusate sodium 8.6-50 mg tablet 1 tab PO HS PRN (Reason: constipation) Qty: 90 3RF polyethylene glycol 3350 [Miralax] 17 gram/dose powder 17 gm PO DAILY PRN (Reason: constipation) Qty: 510 2RF diclofenac sodium [Voltaren] 1 % gel 4 g topical TID Qty: 100 12RF Rx Instructions: apply to thoracic back area TID insulin glargine [Lantus Solostar U-100 Insulin] 100 unit/mL (3 mL) insulin pen 35 unit subcut HS miconazole (bulk) 100 GM powder 1 stacie Miscellaneous PRN Patient Comments: 09/02/17 Miconozole topical powder 2%, apply to right groin area daily PRN. DL (DME) blood-glucose meter [NeoReach Verio IQ Meter] Kit See Rx Instructions .ROUTE .MEDSUPPLY Qty: 1 0RF Rx Instructions: As directed- BID testing- Insulin dependent Soothe and Cool Inzo Barrier 5 % cream 1 applic TP TID-QID PRN (Reason: skin irritation) Qty: 118.29 3RF (DME) pen needle, diabetic [Pen Needle] 31 gauge x 5/16 needle 1 ndl SQ DAILY Qty: 100 4RF Rx Instructions: USE WITH LANTUS PEN cyanocobalamin (vitamin B-12) [Vitamin B-12] 1,000 mcg tablet 500 mcg PO DAILY Qty: 90 4RF nystatin 100,000 unit/gram powder 1 applic Topical BID PRN (Reason: dermatitis) Vicks Vaporub 4.7-1.2-2.6 % ointment 1 applic TP BID PRN (Reason: congestion) Qty: 50 0RF Rx Instructions: Patient may keep in her room and self apply as directed risperidone 1 mg tablet 1 mg PO HS Qty: 30 11RF Eliquis 5 mg tablet 5 mg PO BID Qty: 180 2RF hydrochlorothiazide 12.5 mg tablet 12.5 mg PO DAILY Qty: 90 3RF levothyroxine 150 mcg tablet 150 mcg PO DAILY Qty: 90 3RF Rx Instructions: note dose change to 150 mcg daily (stop the 175 mcg) alprazolam 1 mg tablet 1 mg PO BID MDD 2mg Qty: 180 1RF (DME) Blood Glucose Test Strip 1 strip Miscellaneous QID Qty: 200 3RF Rx Instructions: FOR ONE TOUCH Verio IQ METER. Dx: E11.65 on insulin -BID calcium carbonate [Tums] 200 mg calcium (500 mg) tablet,chewable 400 mg PO BID Qty: 120 11RF Ocuvite Adult 50 Plus 250-5-1 mg capsule 1 cap PO DAILY Qty: 90 3RF acetaminophen 500 mg tablet 1,000 mg PO BID Qty: 120 11RF (DME) lancets [OneTouch Delica Lancets] 33 gauge misc See Dose Instructions .ROUTE .MEDSUPPLY Qty: 200 4RF Dose Instruction: As directed Rx Instructions: BID glucose finger testing - E11.65 (on insulin) famotidine [Pepcid] 40 mg Tablet 40 mg DAILY benzonatate 100 mg Capsule 100 mg PO PRN PRN omeprazole 20 mg Capsule,Delayed Release(Dr/Ec) 20 mg DAILY pravastatin 20 mg Tablet 20 mg DAILY magnesium oxide 400 mg (241.3 mg magnesium) Tablet 400 mg PO BID Qty: 60 0RF metoprolol succinate 100 mg Tablet Extended Release 24 Hr 100 mg PO DAILY Qty: 30 0RF Medical Decision Making 77-year-old female history of A-fib, on apixaban, presents feeling fatigued lightheaded with rapid heart rate over the past several minutes. EKG showing narrow complex regular tachycardia at the rate of 200 consistent with SVT. Patient taken to room 1 placed on monitor, pads placed AP, noted to be pale and diaphoretic, otherwise with poor skin turgor and dry oral mucosa, 1 L NS hung at bedside with some improvement of heart rate to the 180s however returns immediately to 200s consistently, soft blood pressures as low as the 50s systolic, decision was made to electrically cardiovert given hemodynamically unstable SVT versus A-fib RVR, 200 J synchronized cardioversion with successful cardioversion to A-fib in the low 100s, immediately patient entered a wide-complex regular rhythm concerning for possible V. tach versus A-fib with aberrancy patient was defibrillated at 200 J, with return to atrial fibrillation ranging from a rate of 99-1 16, patient loaded with amiodarone 150, with amnio drip 1 mg/min thereafter, blood pressure greatly improved, mentation and perfusion greatly improved. Patient alert moving all extremities following command. Consider component of dehydration leading to A-fib RVR/SVT. Patient to be admitted to ICU for close monitoring HPI General Date/Time Provider Initiated Documentation: 12/21/22 17:56. HPI Narrative: 77-year-old female history of A-fib, on apixaban, presents with rapid heart rate fatigue clamminess lightheadedness. Related Data Home Medications Medication Instructions Recorded Confirmed miconazole (bulk) 1 stacie miscellaneous PRN 09/02/17 04/08/22 polyethylene glycol 3350 17 17 gm PO DAILY PRN constipation 01/11/19 04/08/22 gram/dose oral powder (Miralax) #510 grams blood-glucose meter (OneTouch #1 ea 03/02/19 04/08/22 Verio IQ Meter kit) sennosides 8.6 mg-docusate sodium 1 tab PO HS PRN constipation #90 03/30/19 04/08/22 50 mg tablet tab-caps dimethicone 5 % topical cream 1 applic topical TID-QID PRN skin 03/31/19 04/08/22 (Soothe and Cool Inzo Barrier) irritation #118.29 mL pen needle, diabetic 31 gauge x ##100 04/20/19 04/08/2208/06 (Pen Needle) cyanocobalamin (vitamin B-12) 500 mcg PO DAILY #90 tabs 04/28/19 04/08/22 1,000 mcg tablet (Vitamin B-12) nystatin 100,000 unit/gram topical 1 applic topical BID PRN dermatitis 08/05/19 04/08/22 powder camphor 4.7 %-eucalyptus oil 1.2 1 applic topical BID PRN 08/06/19 04/08/22 %-menthol 2.6 % topical ointment congestion #50 grams (Vicks Vaporub) risperidone 1 mg tablet 1 mg PO HS #30 tab-caps 08/30/19 04/08/22 apixaban 5 mg tablet (Eliquis) 5 mg PO BID #180 tabs 09/11/19 04/08/22 hydrochlorothiazide 12.5 mg tablet 12.5 mg PO DAILY #90 tabs 09/18/19 04/08/22 levothyroxine 150 mcg tablet 150 mcg PO DAILY #90 tabs 10/14/19 04/08/22 alprazolam 1 mg tablet 1 mg PO BID #180 tabs 11/17/19 04/08/22 blood sugar diagnostic (Blood #200 strips 01/05/20 04/08/22 Glucose Test strips) calcium carbonate 200 mg calcium 400 mg PO BID #120 tabs 01/06/20 04/08/22 (500 mg) chewable tablet (Tums) vit C,E,zinc,copper-pxpla2i 250 1 cap PO DAILY #90 caps 01/27/20 04/08/22 mg-lutein 5 mg-zeaxanthin 1 mg capsule (Ocuvite Adult 50 Plus) diclofenac sodium 1 % topical gel 4 g topical TID arthritis #100 02/29/20 04/08/22 (Voltaren) grams acetaminophen 500 mg tablet 1,000 mg PO BID #120 tabs 03/01/20 04/08/22 lancets 33 gauge (iPierianTouch Delica #200 ea 04/06/20 04/08/22 Lancets) benzonatate 100 mg capsule 100 mg PO PRN PRN 03/01/22 04/08/22 famotidine 40 mg tablet (Pepcid) 40 mg DAILY 03/01/22 04/08/22 omeprazole 20 mg capsule,delayed 20 mg DAILY 03/01/22 04/08/22 release pravastatin 20 mg tablet 20 mg DAILY 03/01/22 04/08/22 magnesium oxide 400 mg (241.3 mg 400 mg PO BID #60 tabs 03/05/22 04/08/22 magnesium) tablet metoprolol succinate 100 mg 100 mg PO DAILY #30 tabs 03/05/22 04/08/22 tablet,extended release 24 hr insulin glargine 100 unit/mL (3 35 unit subcut HS 04/08/22 04/08/22 mL) subcutaneous pen (Lantus Solostar U-100 Insulin) Previous Rx's Medication Instructions Recorded polyethylene glycol 3350 17 17 gm PO DAILY PRN constipation 01/11/19 gram/dose oral powder (Miralax) #510 grams blood-glucose meter (iPierianTouch #1 ea 12/10/19 Verio IQ Meter kit) sennosides 8.6 mg-docusate sodium 1 tab PO HS PRN constipation #90 03/30/19 50 mg tablet tab-caps dimethicone 5 % topical cream 1 applic topical TID-QID PRN skin 03/31/19 (Soothe and Cool Inzo Barrier) irritation #118.29 mL pen needle, diabetic 31 gauge x ##100 04/20/19 5/16 (Pen Needle) cyanocobalamin (vitamin B-12) 500 mcg PO DAILY #90 tabs 04/28/19 1,000 mcg tablet (Vitamin B-12) camphor 4.7 %-eucalyptus oil 1.2 1 applic topical BID PRN 08/06/19 %-menthol 2.6 % topical ointment congestion #50 grams (Vicks Vaporub) risperidone 1 mg tablet 1 mg PO HS #30 tab-caps 08/30/19 apixaban 5 mg tablet (Eliquis) 5 mg PO BID #180 tabs 09/11/19 hydrochlorothiazide 12.5 mg tablet 12.5 mg PO DAILY #90 tabs 09/18/19 levothyroxine 150 mcg tablet 150 mcg PO DAILY #90 tabs 10/14/19 alprazolam 1 mg tablet 1 mg PO BID #180 tabs 11/17/19 blood sugar diagnostic (Blood #200 strips 01/05/20 Glucose Test strips) calcium carbonate 200 mg calcium 400 mg PO BID #120 tabs 01/06/20 (500 mg) chewable tablet (Tums) vit C,E,zinc,copper-nogjq6x 250 1 cap PO DAILY #90 caps 01/27/20 mg-lutein 5 mg-zeaxanthin 1 mg capsule (Ocuvite Adult 50 Plus) diclofenac sodium 1 % topical gel 4 g topical TID arthritis #100 02/29/20 (Voltaren) grams acetaminophen 500 mg tablet 1,000 mg PO BID #120 tabs 03/01/20 lancets 33 gauge (OneTouch Delica #200 ea 04/06/20 Lancets) magnesium oxide 400 mg (241.3 mg 400 mg PO BID #60 tabs 03/05/22 magnesium) tablet metoprolol succinate 100 mg 100 mg PO DAILY #30 tabs 03/05/22 tablet,extended release 24 hr Allergies Allergy/AdvReac Type Severity Reaction Status Date / Time Iodinated Contrast Media Allergy Unknown Verified 04/08/22 11:15 [Iodinated Contrast- Oral and IV Dye] Oral contrast Allergy rash, Uncoded 04/08/22 11:15 lower leg swelling General Stated Complaint: Arrhythmia ORAL: 2 Review of Systems Narrative: Review of Systems Constitutional: negative Eyes: negative ENT: negative Cardiovascular: Tachycardia Respiratory: negative Gastrointestinal: negative : negative Musculoskeletal: negative Skin: negative Neurologic: negative Psych: negative PFSH All Active Problems (Updated 12/21/22 @ 20:42 by Judson Barnes MD) Atrial fibrillation with RVR (Acute) Infection due to ESBL-producing Escherichia coli (Acute) Hypomagnesemia (Acute) Paroxysmal atrial fibrillation with rapid ventricular response (Acute) UTI (urinary tract infection) (Acute) Hypokalemia (Acute) Hypomagnesemia (Acute) Back pain of thoracolumbar region (Acute) Hypokalemia (Acute) Kyphosis (acquired) (postural) (Acute) Perirectal inflammation (Acute) 03/30/2019-from fecal incontinence Loose stools (Acute) Cerumen debris on tympanic membrane of both ears (Acute) Constipation, unspecified (Acute) History of umbilical hernia repair (Acute) Status post dilation and curettage (Acute) Status post laparoscopic hysterectomy (Acute) Excessive cerumen in both ear canals (Chronic) Anxiety and depression (Chronic) Diabetes mellitus (Chronic 07/21/12) Atrial fibrillation with RVR (Acute 09/09/17) Dx by EKG on 08/21/17, [id number] = 2, anti-coagulated on Eliquis Tubular adenoma (Acute 10/17/14) 10/03/14; DR. ALICIA;1 tubulovillous adenoma and 2 tubular adenoma Primary osteoarthritis of both knees (Acute) Morbid obesity with BMI of 40.0-44.9, adult (Acute) Hypothyroidism (acquired) (Acute 11/03/12) Hyperlipidemia associated with type 2 diabetes mellitus (Acute) REFUSES RX Hearing loss (Acute) A.D. Gastroesophageal reflux (Chronic 10/01/13) Essential hypertension (Acute 02/01/13) Depressive disorder (Acute) anxiety Cognitive deficits (Acute 08/05/17) Anxiety associated with depression (Acute 07/21/17) Atrial fibrillation with rapid ventricular response (Acute) History of psychiatric disorder (Acute) Medical History Depression Diabetes DNI (do not intubate) DNR (do not resuscitate) GERD (gastroesophageal reflux disease) Hyperlipidemia Hypertension Hypothyroidism Morbid obesity with BMI of 40.0-44.9, adult Osteoarthritis POLST (Physician Orders for Life-Sustaining Treatment) Surgical History Dilation and curettage (~1995) Hysterectomy, Laproscopic Repair of umbilical hernia Family History Mother Essential hypertension Heart disease Father , 86 Essential hypertension Heart disease Stroke Asthma Brother No problems noted. Maternal Grandfather Heart disease Paternal Grandfather No problems noted. Maternal Grandmother Heart disease Cancer Paternal Grandmother Heart disease Stroke Brother No problems noted. Social History Smoking/Tobacco Use Status: Never Smoking risk assessment performed?: Yes Alcohol Intake: never Drug use: Never Substance use type: does not use Caregiver/Support person: No Housing: assisted living facility Communication Needs: None Do you need help understanding health information?: Always Pets and animals: No Sexually active: No Do you think of yourself as: straight/heterosexual What is your relationship status?: never How often do you talk on the phone with friends or family?: three or more times per week How often do you get together with friends or relatives?: three or more times per week How often do you attend scientologist or hinduism services?: decline to answer Do you belong to any clubs or organized social groups?: no Panel score (0-1 are the most socially isolated patients): 1 What type of physical activity do you participate in: walking Duration: < 15 minutes/day Frequency: daily Carito/Baptism: None Special carito needs: No Seatbelt use: always 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: No Do you feel safe at home: Yes Do you feel safe in your relationship?: Yes Exam Narrative Exam Narrative: Physical Examination General: alert, awake, cooperative, appears some HEENT: normocephalic, atraumatic; PERRL, EOM intact, conjunctiva normal; no nasal discharge; dry oral mucosa Neck: supple, trachea midline; full ROM Chest: normal to inspection Respiratory: normal respiratory effort, speaking in full sentences, clear to auscultation, no wheezing, rales or rhonchi Cardiac: Tachycardia, regular rhythm, S1S2 intact, no murmurs rubs or gallops GI: abdomen soft, non-tender, non-distended; no palpable mass or hepatosplenomegaly Skin: Pale, diaphoretic Neuro: AAOx3, normal speech, moving all extremities Extremities: No peripheral edema Course Vital Signs Vital signs: Vital Signs Temperature 36.8 C 12/21/22 17:51 Pulse 200 H 12/21/22 17:51 Respiratory Rate 27 H 12/21/22 17:51 Blood Pressure 138/116 H 12/21/22 17:51 Pulse Oximetry 98 12/21/22 17:51 Temperature 36.8 C 12/21/22 17:51 Temperature Source Temporal Artery Scan 12/21/22 17:51 Pulse 200 H 12/21/22 17:51 Respiratory Rate 27 H 12/21/22 17:51 Respiratory Effort Non-Labored 12/21/22 18:25 Blood Pressure 138/116 H 12/21/22 17:51 Blood Pressure Position Supine 12/21/22 17:51 Pulse Oximetry 98 12/21/22 17:51 Oxygen Delivery Method Room Air 12/21/22 17:51 Oxygen Flow Rate 0 12/21/22 17:51 Pain Level 0 12/21/22 17:51 Lab/Test Results Lab/Test Results: Laboratory Tests Range/Units 12/21/22 12/21/22 12/21/22 18:07 18:07 18:07 WBC (4.4-10.8) 10^3/uL 12.70 H RBC (3.93-5.22) 10^6/uL 5.13 Hgb (11.2-15.7) g/dL 15.3 Hct (36.0-46.0) % 46.6 H MCV (80-95) fL 91 MCH (27.0-33.0) pg 29.8 MCHC (32.0-36.0) % 32.8 RDW (11.7-14.6) % 13.2 Plt Count (130-400) 10^3/uL 356 MPV (8.0-11.0) fL 10.4 Immature Gran % 0.8 Neutrophils % 64.2 Lymphocytes % 27.7 Monocytes % 6.1 Eosinophils % 0.7 Basophils % 0.5 Nucleated RBC % (0.0-0.3) % 0.0 Absolute Neutrophils (1.2-6.7) 10^3/uL 8.15 H Absolute Lymphocytes (1.2-3.4) 10^3/uL 3.52 H Absolute Monocytes (0.1-0.8) 10^3/uL 0.77 Absolute Eosinophils (0.0-0.7) 10^3/uL 0.09 Absolute Basophils (0.0-0.2) 10^3/uL 0.06 PT (9.3-11.0) sec 10.4 INR (0.9-1.1) 1.0 APTT (21.5-31.9) sec 25.3 Sodium (136-145) mmol/L 135 L Potassium (3.5-5.1) mmol/L 3.9 Chloride (98-107) mmol/L 100 Carbon Dioxide (21.0-32.0) mmol/L 20.7 L Anion Gap (3-11) mmol/L 14.3 H BUN (7-18) mg/dL 19 H Creatinine (0.55-1.02) mg/dL 1.2 H Est GFR (CKD-EPI 2020) (mL/min/1.73m2) 47.21 Glucose (74-106) mg/dL 339 H Calcium (8.5-10.1) mg/dL 9.4 Magnesium (1.8-2.4) mg/dL 1.8 Total Bilirubin (0.2-1.0) mg/dL 0.2 AST (15-37) U/L 24 ALT (14-59) U/L 29 Alkaline Phosphatase (46-116) U/L 111 Total Protein (6.4-8.2) g/dL 6.5 Albumin (3.4-5.0) g/dL 2.8 L TSH (0.36-3.74) uIU/mL 10.19 H Procedures Other Description: Cardioversion for A-fib RVR/SVT, fentanyl 25 mcg administered before procedure, 200 J synchronized cardioversion x2; 1 defibrillation at 200 J Critical Care Time Critical Care Time Critical Care Time: Yes Total Critical Care Time: 30 Attestation: Critical care time spent at the bedside assessing patient interpreting labs interpreting imaging, interpreting EKG and monitor, and patient with A-fib RVR/SVT requiring cardioversion defibrillation and ICU admission
[2022-12-21] MEDS: Amiodarone 150 MG/3 ML VIAL IVP (19:14)
[2022-12-21] MEDS: Amiodarone in Dextrose 360 MG/200 ML BAG 33.333 MG IV (19:27)
[2022-12-21 19:49] LABS: Troponin I < 50 ng/L (<or=60)
--- NOTE | 2022-12-21 20:59 | DI.VRAD_ITS ---
PROCEDURE INFORMATION: Exam: XR Chest Exam date and time: 12/21/2022 8:24 PM Age: 77 years old Clinical indication: Other: Tachycardia TECHNIQUE: Imaging protocol: Radiologic exam of the chest. Views: 1 view. COMPARISON: CR XR CHEST 2V PA LATERAL 03/01/2022 6:43 PM FINDINGS: Tubes, catheters and devices: Defibrillator pads project over the left thorax. Lungs: Minimal bibasilar ground-glass opacities, likely areas of atelectasis and or pneumonitis. Pleural spaces: Possible small left pleural effusion. Heart/Mediastinum: Normal. Vasculature: Atherosclerotic vascular disease. Bones/joints: Multilevel thoracic spine degenerative changes. IMPRESSION: 1. Minimal bibasilar ground-glass opacities, likely areas of atelectasis and or pneumonitis. 2. Possible small left pleural effusion. Dictated and Authenticated by: Daniel Cabrera MD. Ordering:BHASKAR Roper MD
[2022-12-21 21:05] LABS: Lab Add On Test DONE
--- NOTE | 2022-12-21 21:31 | W.PM.HP.N ---
Date of service: 12/21/22 Time of Service: 22:50 Assessment and Plan Assessment and plan (1) Paroxysmal atrial fibrillation with rapid ventricular response: Status: Acute Assessment and plan: Initially appeared to have SVT with rate of 200. Adenosine x 2 did not maintain a lower HR but only a short period of time. She was subsequently cardioverted then defibrillated and loaded with amiodarone push then IV drip She subsequently did require another bolus 150mg amiodarone. ICU status Telemetry. Correcting electrolytes and fluid status; both could be driving her arrythmia. (2) Hypothyroidism: Assessment and plan: Her TSH is elevated and her T4 is mildly elevated. This could indicate a pituitary that is releasing too much TSH. She is on thryoid replacement at 150 mcg daily. This can be followed as outpt. (3) Hypertension: Assessment and plan: Currently hypotensive when HR elevates, then improves with improved rate control. Has had elevated BPs when in the ED. Holding metoprolol Monitoring. (4) Hyperlipidemia: Assessment and plan: Cont pravastatin. (5) Diabetes mellitus: Status: Chronic Assessment and plan: Insulin glargine nightly. SS correction insulin dosing. ACHS glucose monitoring. 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 She presented to the ED c/o lightheadedness, fatigue. This occurred just before arrival. No CP, SOA. No N/V/abd pain. States she is hungry. EKG showed a narrow complex regular tachycardic rate of 200. She appearred pale and diaphoretic. She was administered 1L NS with some improvement in HR but only transiently. Her SBP decreased to 50's when her HR increased to 200 again. Attempt made to cardiovert her with 200 J synchronized shock. She then went into afib with a rate in the low 100's. She then went into a wide complex regular rhythm that was concerning for Vtach afib with aberrancy. She was then defibrillated with 200J with a return to afib with a rate in the 90's to low 100's. She was subsequently loaded with 150 IV amiodarone followed by an amiodarone 1mg/min drip. Her BP improved as did her mentation. She was admitted to the ICU where she then developed a rapid narrow complex tachycardia of 200. Her SBP decreased to the 70's. An IV dose of 150mg amiodarone administered and her HR improved to the low 100's again. Review of Systems All systems reviewed & are unremarkable except as noted in HPI and below PFSH All Active Problems (Updated 12/21/22 @ 23:39 by Judson Perkins MD) Discharge planning issues (Acute) Atrial fibrillation with RVR (Acute) Infection due to ESBL-producing Escherichia coli (Acute) Hypomagnesemia (Acute) Paroxysmal atrial fibrillation with rapid ventricular response (Acute) UTI (urinary tract infection) (Acute) Hypokalemia (Acute) Hypomagnesemia (Acute) Back pain of thoracolumbar region (Acute) Hypokalemia (Acute) Kyphosis (acquired) (postural) (Acute) Perirectal inflammation (Acute) 03/30/2019-from fecal incontinence Loose stools (Acute) Cerumen debris on tympanic membrane of both ears (Acute) Constipation, unspecified (Acute) History of umbilical hernia repair (Acute) Status post dilation and curettage (Acute) Status post laparoscopic hysterectomy (Acute) Excessive cerumen in both ear canals (Chronic) Anxiety and depression (Chronic) Diabetes mellitus (Chronic 07/21/12) Atrial fibrillation with RVR (Acute 09/09/17) Dx by EKG on 08/21/17, [id number] = 2, anti-coagulated on Eliquis Tubular adenoma (Acute 10/17/14) 10/03/14; DR. ALICIA;1 tubulovillous adenoma and 2 tubular adenoma Primary osteoarthritis of both knees (Acute) Morbid obesity with BMI of 40.0-44.9, adult (Acute) Hypothyroidism (acquired) (Acute 11/03/12) Hyperlipidemia associated with type 2 diabetes mellitus (Acute) REFUSES RX Hearing loss (Acute) A.D. Gastroesophageal reflux (Chronic 10/01/13) Essential hypertension (Acute 02/01/13) Depressive disorder (Acute) anxiety Cognitive deficits (Acute 08/05/17) Anxiety associated with depression (Acute 07/21/17) Atrial fibrillation with rapid ventricular response (Acute) History of psychiatric disorder (Acute) Medical History Depression Diabetes DNI (do not intubate) DNR (do not resuscitate) GERD (gastroesophageal reflux disease) Hyperlipidemia Hypertension Hypothyroidism Morbid obesity with BMI of 40.0-44.9, adult Osteoarthritis POLST (Physician Orders for Life-Sustaining Treatment) Surgical History Dilation and curettage (~1995) Hysterectomy, Laproscopic Repair of umbilical hernia Family History Mother Essential hypertension Heart disease Father , 86 Essential hypertension Heart disease Stroke Asthma Brother No problems noted. Maternal Grandfather Heart disease Paternal Grandfather No problems noted. Maternal Grandmother Heart disease Cancer Paternal Grandmother Heart disease Stroke Brother No problems noted. Social History Smoking/Tobacco Use Status: Never Smoking risk assessment performed?: Yes Alcohol Intake: never Drug use: Never Substance use type: does not use Caregiver/Support person: No Housing: assisted living facility Communication Needs: None Do you need help understanding health information?: Always Pets and animals: No Sexually active: No Do you think of yourself as: straight/heterosexual What is your relationship status?: never How often do you talk on the phone with friends or family?: three or more times per week How often do you get together with friends or relatives?: three or more times per week How often do you attend mu-ism or cheondoism services?: decline to answer Do you belong to any clubs or organized social groups?: no Panel score (0-1 are the most socially isolated patients): 1 What type of physical activity do you participate in: walking Duration: < 15 minutes/day Frequency: daily Carito/Protestant: None Special carito needs: No Seatbelt use: always Drive intox or ride w/intox motorcycle delivery driver: No Do you feel safe at home: Yes Do you feel safe in your relationship?: Yes Meds Allergies and Home Medications Allergies Allergy/AdvReac Type Severity Reaction Status Date / Time Iodinated Contrast Media Allergy Unknown Verified 12/21/22 22:03 [Iodinated Contrast- Oral and IV Dye] Oral contrast Allergy rash, Uncoded 12/21/22 22:03 lower leg swelling Home Medications Medication Instructions Recorded Confirmed Type miconazole (bulk) 1 stacie miscellaneous PRN 09/02/17 04/08/22 History polyethylene glycol 3350 17 17 gm PO DAILY PRN constipation 01/11/19 12/21/22 Rx gram/dose oral powder (Miralax) #510 grams blood-glucose meter (OneTouch #1 ea 03/02/19 04/08/22 Rx Verio IQ Meter kit) sennosides 8.6 mg-docusate sodium 1 tab PO HS PRN constipation #90 03/30/19 12/21/22 Rx 50 mg tablet tab-caps dimethicone 5 % topical cream 1 applic topical TID-QID PRN skin 03/31/19 04/08/22 Rx (Soothe and Cool Inzo Barrier) irritation #118.29 mL pen needle, diabetic 31 gauge x ##100 04/20/19 04/08/22 Rx 5/16 (Pen Needle) cyanocobalamin (vitamin B-12) 500 mcg PO DAILY #90 tabs 04/28/19 12/21/22 Rx 1,000 mcg tablet (Vitamin B-12) nystatin 100,000 unit/gram topical 1 applic topical BID PRN dermatitis 08/05/19 04/08/22 History powder camphor 4.7 %-eucalyptus oil 1.2 1 applic topical BID PRN 08/06/19 04/08/22 Rx %-menthol 2.6 % topical ointment congestion #50 grams (Vicks Vaporub) risperidone 1 mg tablet 1 mg PO HS #30 tab-caps 08/30/19 12/21/22 Rx apixaban 5 mg tablet (Eliquis) 5 mg PO BID #180 tabs 09/11/19 12/21/22 Rx hydrochlorothiazide 12.5 mg tablet 12.5 mg PO DAILY #90 tabs 09/18/19 04/08/22 Rx levothyroxine 150 mcg tablet 150 mcg PO DAILY #90 tabs 10/14/19 12/21/22 Rx alprazolam 1 mg tablet 1 mg PO BID #180 tabs 11/17/19 12/21/22 Rx blood sugar diagnostic (Blood #200 strips 01/05/20 04/08/22 Rx Glucose Test strips) calcium carbonate 200 mg calcium 400 mg PO BID #120 tabs 01/06/20 12/21/22 Rx (500 mg) chewable tablet (Tums) vit C,E,zinc,copper-pzfyc8h 250 1 cap PO DAILY #90 caps 01/27/20 12/21/22 Rx mg-lutein 5 mg-zeaxanthin 1 mg capsule (Ocuvite Adult 50 Plus) diclofenac sodium 1 % topical gel 4 g topical TID arthritis #100 02/29/20 04/08/22 Rx (Voltaren) grams acetaminophen 500 mg tablet 1,000 mg PO BID #120 tabs 03/01/20 12/21/22 Rx lancets 33 gauge (OneTouch Delica #200 ea 04/06/20 04/08/22 Rx Lancets) benzonatate 100 mg capsule 100 mg PO PRN PRN 03/01/22 12/21/22 History famotidine 40 mg tablet (Pepcid) 40 mg DAILY 03/01/22 12/21/22 History omeprazole 20 mg capsule,delayed 20 mg DAILY 03/01/22 12/21/22 History release pravastatin 20 mg tablet 20 mg DAILY 03/01/22 12/21/22 History magnesium oxide 400 mg (241.3 mg 400 mg PO BID #60 tabs 03/05/22 12/21/22 Rx magnesium) tablet metoprolol succinate 100 mg 100 mg PO DAILY #30 tabs 03/05/22 12/21/22 Rx tablet,extended release 24 hr insulin glargine 100 unit/mL (3 35 unit subcut HS 04/08/22 04/08/22 History mL) subcutaneous pen (Lantus Solostar U-100 Insulin) lisinopril 10 mg tablet 10 mg PO DAILY 12/21/22 12/21/22 History Exam Narrative Exam Narrative: General: Lying supine. Stating she had eaten very little during the day and was hungry. HEENT: Sclera clear. Pupils equal. Mucous membranes dry. Respiratory: Clear lungs. Nonlabored breathing. Cardiac: Tachycardia, regular rhythm, S1S2 intact, no murmurs GI: abdomen soft, non-tender, non-distended Skin: Pale, moist. Neuro: Alert, normal speech, moving all extremities Extremities: No peripheral edema or calf tenderness Results Labs 12/21/22 18:07 12/21/22 18:07 Labs: Laboratory Results - last 24 hr 12/21/22 12/21/22 12/21/22 18:07 18:07 18:07 WBC 12.70 H RBC 5.13 Hgb 15.3 Hct 46.6 H MCV 91 MCH 29.8 MCHC 32.8 RDW 13.2 Plt Count 356 MPV 10.4 Immature Gran % 0.8 Neutrophils % 64.2 Lymphocytes % 27.7 Monocytes % 6.1 Eosinophils % 0.7 Basophils % 0.5 Nucleated RBC % 0.0 Absolute Neutrophils 8.15 H Absolute Lymphocytes 3.52 H Absolute Monocytes 0.77 Absolute Eosinophils 0.09 Absolute Basophils 0.06 PT 10.4 INR 1.0 APTT 25.3 Sodium 135 L Potassium 3.9 Chloride 100 Carbon Dioxide 20.7 L Anion Gap 14.3 H BUN 19 H Creatinine 1.2 H Est GFR (CKD-EPI 2020) 47.21 Glucose 339 H Calcium 9.4 Magnesium 1.8 Total Bilirubin 0.2 AST 24 ALT 29 Alkaline Phosphatase 111 Troponin I Total Protein 6.5 Albumin 2.8 L TSH 10.19 H Free T4 1.50 H Add-On Test Request 12/21/22 12/21/22 18:07 21:04 WBC RBC Hgb Hct MCV MCH MCHC RDW Plt Count MPV Immature Gran % Neutrophils % Lymphocytes % Monocytes % Eosinophils % Basophils % Nucleated RBC % Absolute Neutrophils Absolute Lymphocytes Absolute Monocytes Absolute Eosinophils Absolute Basophils PT INR APTT Sodium Potassium Chloride Carbon Dioxide Anion Gap BUN Creatinine Est GFR (CKD-EPI 2020) Glucose Calcium Magnesium Total Bilirubin AST ALT Alkaline Phosphatase Troponin I < 50 Total Protein Albumin TSH Free T4 Add-On Test Request DONE Last Vital Signs Temp 36.3 C L 12/21/22 19:29 Pulse 77 12/21/22 20:56 Resp 18 12/21/22 21:00 BP 115/79 12/21/22 20:56 Pulse Ox 98 12/21/22 21:00 Time Spent Time spent with Patient: 55-74 minutes Time was spent: preparing to see the patient(eg.review tests), obtaining and/or reviewing separately otained hiistory, ordering medications,tests, procedures, referring, communicating with other health manager care management, indepentently interpreting results, counseling the patient and care coordination
[2022-12-21 22:08] LABS: Procalcitonin < 0.1 ng/mL
[2022-12-21 22:36] LABS: COVID-19 PCR Negative (Negative); Influenza A PCR Negative (Negative); Influenza B PCR Negative (Negative); RSV PCR Negative (Negative)
[2022-12-21 22:40] LABS: Source Nasopharynx
[2022-12-22] VITALS (186 sets, daily range): BP systolic 71–125; BP diastolic 46–111; PULSE 40–188; RESP 10–37; TEMP 36.3–36.7; O2SAT 88–97
[2022-12-22] MEDS: cefTRIAXone 1 GM/50 ML BAG IVPB ×2 (00:18→23:39)
[2022-12-22 01:03] LABS: Troponin I < 50 ng/L (<or=60)
[2022-12-22] MEDS: dilTIAZem 25 MG/5 ML VIAL 10 MG IVP (01:23)
--- NOTE | 2022-12-22 01:30 | RT.EKG_ITS ---
APPROVED REPORT Exam: Resting ECG Reason for Exam: chest pain Patient Location: I HR:123 bpm ECG Measurements Heart Rate 123 AXIS NC 193 P 0 QRSd 79 QRS 33 QT 354 T 36 QTc 507 Conclusion Atrial flutter/fibrillation Low voltage, extremity leads...all extremity leads <0.5mV Minimal ST depression, inferior leads...ST <-0.04mV, II III aVF Prolonged QT interval...QTc >500mS
[2022-12-22] MEDS: dilTIAZem 125 MG in Normal Saline 100 ML IV (01:35)
--- NOTE | 2022-12-22 01:45 | DI.RAD_ITS ---
Exam(s) XR PORTABLE CHEST AP EXAM: XR PORTABLE CHEST AP CLINICAL HISTORY: Chest Pain. TECHNIQUE: 2D digital imaging was performed. COMPARISON: CR,XR XR PORTABLE CHEST AP from 12/21/2022 FINDINGS: Single AP portable view. Chest leads and pads removed. Cardiomegaly again noted. Mediastinum not widened. There are increased vascular markings throughout both lung barboza, without evidence of Judith B lines and no confluent infiltrates. No pneumothorax. Mild blunting of left costophrenic angle noted. IMPRESSION: Cardiomegaly. Increased vascular markings may indicate an element of developing pulmonary edema alth ough there are no Judith B lines evident. Slight blunting of left costophrenic angle is again noted which may indicate a small amount of left pleural fluid. No fractures evident. DATA REPOSITORY: RADIATION DOSE DELIVERED:
--- NOTE | 2022-12-22 02:23 | DI.VRAD_ITS ---
PROCEDURE INFORMATION: Exam: XR Chest Exam date and time: 12/22/2022 2:04 AM Age: 77 years old Clinical indication: Chest wall pain; Patient HX: Chest pain TECHNIQUE: Imaging protocol: Radiologic exam of the chest. Views: 1 view. COMPARISON: CR XR PORTABLE CHEST AP 12/21/2022 8:24 PM FINDINGS: Lungs: Mild bibasilar ground-glass linear opacities, left greater than right, likely areas of atelectasis and/or pneumonitis. Pleural spaces: Unremarkable. No pleural effusion. No pneumothorax. Heart/Mediastinum: Normal. Bones/joints: Multilevel thoracic spine degenerative disc space narrowing. IMPRESSION: Mild bibasilar ground-glass linear opacities, left greater than right, likely areas of atelectasis and/or pneumonitis. Dictated and Authenticated by: Daniel Cabrera MD. Ordering:LILLIE Roper MD
[2022-12-22 02:32] LABS: Troponin I < 50 ng/L (<or=60)
[2022-12-22 07:00] LABS: Abs Immature Grans 0.12 10^3/uL (0.0-0.06); Absolute Basophil Count 0.06 10^3/uL (0.0-0.2); Absolute Lymphocyte Count 1.65 10^3/uL (1.2-3.4); Absolute Monocyte Count 0.83 10^3/uL (0.1-0.8); Basophils % 0.4; HGB 13.8 g/dL (11.2-15.7); Immature Grans % 0.8; Lymphocytes % 11.3; MCH 30.2 pg (27.0-33.0); MCHC 32.1 % (32.0-36.0); MCV 94 fL (80-95); MPV 10.6 fL (8.0-11.0); Monocytes % 5.7; Neutrophils % 81.8; Platelet Count 267 10^3/uL (130-400); RBC 4.57 10^6/uL (3.93-5.22); RDW 13.6 % (11.7-14.6); RDW-SD 46.7 fL; WBC 14.58 10^3/uL (4.4-10.8)
[2022-12-22 07:07] LABS: Absolute Neutrophil Count 11.93 10^3/uL (1.2-6.7)
[2022-12-22 07:15] LABS: BUN 20 mg/dL (7-18); CREATININE 0.9 mg/dL (0.55-1.02); Calcium 8.3 mg/dL (8.5-10.1); Chloride 104 mmol/L (98-107); Estimated GFR 66.67 (mL/min/1.73m2); Glucose 278 mg/dL (74-106); Potassium 4.4 mmol/L (3.5-5.1); Sodium 136 mmol/L (136-145)
--- NOTE | 2022-12-22 08:21 | INITIAL_ITS ---
Date of service: 12/22/22 Time of Service: 08:21 Care Management Initial Assmt Initial Assessment REASON FOR HOSPITALIZATION:: Paroxysmal atrial fibrillation with rapid ventricular response PREVIOUS FUNCTIONAL STATUS/SOCIAL/FAMILY SUPPORTS:: Mary Jo resides at the [facility]. Her brother, Yaniv, and sister in law, Malorie, are supportive. Mary Jo has cognitive deficits and requires support with her ADL's. CURRENT FUNCTIONAL STATUS:: Mary Jo was lying in bed when CM met with her. She is awake and engages in conversation. She is accompanied by her [id number] Malorie. Mary Jo shares that she really likes it at the [facility] and can't wait to return. She enjoys Bingo and playing cards with the other residents. ADVANCE DIRECTIVES:: POA in file, HCA is Charity Valdez, Alt is Yaniv José Miguel Has patient been provided with info about the portal/API?: Yes Did the patient sign up for the portal?: Yes (Prior to admission) CODE STATUS:: DNR/DNI INSURANCE COVERAGE / FINANCIAL ISSUES:: MCR/[employer] CURRENT HOME/COMMUNITY SERVICES/EQUIPMENT:: Resides at [facility] (Assisted Living Facility) PRIMARY CARE PHYSICIAN:: Charlene Paige POTENTIAL DISCHARGE NEEDS:: Coordinate return to [facility]. Follow up appointments, discharge plan of care PATIENT/FAMILY EDUCATION NEEDS:: Review discharge instructions and limitations, discussion of self care needs including ask me three. ANTICIPATED BARRIERS TO DISCHARGE:: None identified TRANSPORTATION:: Via private vehicle by facility staff vs family. PLAN:: Anticipate Mary Jo will return to the [facility] once she becomes medically cleared. She will transport via private vehicle by facility staff vs family. She will follow up with her PCP and discharge plan of care. CM will continue to follow. [facility] All Active Problems (Updated 12/22/22 @ 12:28 by Rain Griggs MD) Pneumonitis (Acute) Atelectasis (Acute) Acute respiratory failure with hypoxia (Acute) DVT prophylaxis (Acute) Discharge planning issues (Acute) Atrial fibrillation with RVR (Acute) Infection due to ESBL-producing Escherichia coli (Acute) Hypomagnesemia (Acute) Paroxysmal atrial fibrillation with rapid ventricular response (Acute) UTI (urinary tract infection) (Acute) Hypokalemia (Acute) Hypomagnesemia (Acute) Back pain of thoracolumbar region (Acute) Hypokalemia (Acute) Kyphosis (acquired) (postural) (Acute) Perirectal inflammation (Acute) 03/30/2019-from fecal incontinence Loose stools (Acute) Cerumen debris on tympanic membrane of both ears (Acute) Constipation, unspecified (Acute) History of umbilical hernia repair (Acute) Status post dilation and curettage (Acute) Status post laparoscopic hysterectomy (Acute) Excessive cerumen in both ear canals (Chronic) Anxiety and depression (Chronic) Diabetes mellitus (Chronic 07/21/12) Atrial fibrillation with RVR (Acute 09/09/17) Dx by EKG on 08/21/17, [id number] = 2, anti-coagulated on Eliquis Tubular adenoma (Acute 10/17/14) 10/03/14; DR. ALICIA;1 tubulovillous adenoma and 2 tubular adenoma Primary osteoarthritis of both knees (Acute) Morbid obesity with BMI of 40.0-44.9, adult (Acute) Hypothyroidism (acquired) (Acute 11/03/12) Hyperlipidemia associated with type 2 diabetes mellitus (Acute) REFUSES RX Hearing loss (Acute) A.D. Gastroesophageal reflux (Chronic 10/01/13) Essential hypertension (Acute 02/01/13) Depressive disorder (Acute) anxiety Cognitive deficits (Acute 08/05/17) Anxiety associated with depression (Acute 07/21/17) Atrial fibrillation with rapid ventricular response (Acute) History of psychiatric disorder (Acute) Medical History Depression Diabetes DNI (do not intubate) DNR (do not resuscitate) GERD (gastroesophageal reflux disease) Hyperlipidemia Hypertension Hypothyroidism Morbid obesity with BMI of 40.0-44.9, adult Osteoarthritis POLST (Physician Orders for Life-Sustaining Treatment) Surgical History Dilation and curettage (~1995) Hysterectomy, Laproscopic Repair of umbilical hernia Family History Mother Essential hypertension Heart disease Father , 86 Essential hypertension Heart disease Stroke Asthma Brother No problems noted. Maternal Grandfather Heart disease Paternal Grandfather No problems noted. Maternal Grandmother Heart disease Cancer Paternal Grandmother Heart disease Stroke Brother No problems noted. Social History Smoking/Tobacco Use Status: Never Smoking risk assessment performed?: Yes Alcohol Intake: never Drug use: Never Substance use type: does not use Caregiver/Support person: No Housing: assisted living facility Communication Needs: None Do you need help understanding health information?: Always Pets and animals: No Sexually active: No Do you think of yourself as: straight/heterosexual What is your relationship status?: never How often do you talk on the phone with friends or family?: three or more times per week How often do you get together with friends or relatives?: three or more times per week How often do you attend restorationist or bahai services?: decline to answer Do you belong to any clubs or organized social groups?: no Panel score (0-1 are the most socially isolated patients): 1 What type of physical activity do you participate in: walking Duration: < 15 minutes/day Frequency: daily Carito/Gnosticist: None Special carito needs: No Seatbelt use: always Drive intox or ride w/intox test car driver: No Do you feel safe at home: Yes Do you feel safe in your relationship?: Yes
[2022-12-22 08:47] LABS: Lactate 2.3 mmol/L (0.6-1.4)
[2022-12-22] MEDS: hydroCHLOROthiazide 12.5 MG TAB PO (08:54)
[2022-12-22] MEDS: Diclofenac 1% Gel 100 GM TUBE TP ×2 (08:54→14:48)
[2022-12-22] MEDS: Metoprolol CR 100 MG TABCR PO (08:55)
[2022-12-22] MEDS: Omeprazole 20 MG CAPCR PO (08:55)
[2022-12-22] MEDS: ALPRAZolam 0.5 MG TAB 1 MG PO ×2 (08:55→18:48)
[2022-12-22] MEDS: Pravastatin 20 MG TAB PO (08:55)
[2022-12-22] MEDS: Magnesium Oxide 400 MG TAB PO ×2 (08:55→18:48)
[2022-12-22] MEDS: Apixaban 5 MG TAB PO ×2 (08:58→18:48)
[2022-12-22 09:53] LABS: Bilirubin Negative (Negative); Blood Trace-intact (Negative); Clarity Clear (Clear); Glucose Negative (Negative); Ketones Negative (Negative); Leukocyte Esterase Trace (Negative); Nitrite Negative (Negative); Urobilinogen 0.2 mg/dL (Up to 0.2); pH 5.5 (5-8)
[2022-12-22 10:00] LABS: Bacteria Few HPF (Negative); C & S Indicated? C&S Done As Ordered; Casts 0-2 Hyaline LPF (Negative); Crystals Negative HPF (Negative); Epithelial Cells Few HPF (Negative); Mucus Trace (Negative); RBC 0-2 HPF (0-2)
[2022-12-22 10:27] LABS: Lab Add On Test DONE
[2022-12-22 10:57] LABS: C-Reactive Protein 0.98 mg/dL (0.0-0.3); NT-proBNP 2280 pg/mL (<300)
[2022-12-22] MEDS: dilTIAZem 125 MG in Normal Saline 100 ML 15 MG IV (11:02)
[2022-12-22] MEDS: Insulin Aspart 300 UNITS/3 ML PEN SC ×3 (11:46→22:05)
[2022-12-22 11:53] LABS: Lactate 2.6 mmol/L (0.6-1.4)
--- NOTE | 2022-12-22 11:54 | W.PM.PROGNOT ---
Date of Service Date of service: 12/22/22 Time of Service: 11:54 Assessment and Plan Assessment and plan (1) Paroxysmal atrial fibrillation with rapid ventricular response: Status: Acute Assessment and plan: The patient had just converted to NSR. ?Episode of Vtach vs afib with aberrancy during this. We are going to switch her to oral cardizem and d/c cardizem gtt. I will also attempt to up-titrate her lopressor. Written for prn IV lopressor. Continue to monitor in the ICU. Obtain an echocardiogram. Obtain a cardiology consult. (2) Acute respiratory failure with hypoxia: Status: Acute Assessment and plan: With evidence of atelectasis, PNA/pneumonitis on CXR. Pro-BNP is mildly elevated as well, but she is not in florid CHF right now. Continue abx. Obtain pneumonia studies (sputum for mycoplasma, sputum culture, urine antigens for legionella and strep). Encourage pulmonary toilet. Diurese as BP permits. (3) UTI (urinary tract infection): Status: Acute Assessment and plan: Present on admission. On empiric ceftriaxone. Continue, awaiting urine C&S. (4) Pneumonitis: Status: Acute Assessment and plan: As above Tested negative for COVID-19 on presentation. (5) Atelectasis: Status: Acute Assessment and plan: As above (6) Hypothyroidism: Assessment and plan: Continue levothyroxine 150 mcg daily. Repeat TSH in am. (7) Hypertension: Assessment and plan: As above Hold HCTZ Up-titrate metoprolol (with holding parameters) as well as switch cardizem to PO. MOnitor in the ICU. (8) Hyperlipidemia: Assessment and plan: Continue pravastatin. (9) Diabetes mellitus: Status: Chronic Assessment and plan: Continue sliding scale insulin Qualifiers: Diabetes mellitus type: type 2 Diabetes mellitus long-term insulin use: with long-term use Diabetes mellitus complication status: with hyperglycemia Qualified Code(s): E11.65 - Type 2 diabetes mellitus with hyperglycemia; Z79.4 - residential (current) use of insulin (10) DVT prophylaxis: Status: Acute Assessment and plan: On therapeutic apixaban (11) Discharge planning issues: Status: Acute Assessment and plan: DNR/DNI Keep in the ICU Total Critical Care Time 45 minutes. Subjective Subjective Interval history since last seen: Ms Valdez endorses having chest pain at 4 am. Denies dizziness, CP, SOB, palpitations, n/v. The patient remained in Rapid Afib with HR 130s-160s despite being on cardizem gtt at 15 mg/hr. She also received metoprolol XL 100 mg this am. Last BP 115/82, MAP 94, prior to receiving IV lopressor just now. UA positive. On rocephin. The patient converted to NSR shortly after receiving 5 mg of IV metoprolol just now. Per patient and [id number] who is in the room visiting, the patient did not faint prior to coming to the hospital. Exam Narrative Exam Narrative: General: Pleasant forgetful elderly female who is A&Ox2, appears comfortable, on 1.5 L of O2 by NC. HEENT: EOMI, MMM Heart: initially irregularly irregular rhythm, no m/r/g Lungs: Diminished breath sounds at B bases Abdomen: soft, nontender, nondistended Extremities: +1 edema BLEs, no c/c. Objective Last Vital Signs Temp 36.7 C 12/22/22 08:00 Pulse 93 H 12/22/22 10:16 Resp 20 12/22/22 10:16 BP 89/60 L 12/22/22 10:16 Pulse Ox 96 12/22/22 10:16 Laboratory Results - last 24 hr 12/21/22 12/21/22 12/21/22 18:07 18:07 18:07 WBC 12.70 H RBC 5.13 Hgb 15.3 Hct 46.6 H MCV 91 MCH 29.8 MCHC 32.8 RDW 13.2 Plt Count 356 MPV 10.4 Immature Gran % 0.8 Neutrophils % 64.2 Lymphocytes % 27.7 Monocytes % 6.1 Eosinophils % 0.7 Basophils % 0.5 Nucleated RBC % 0.0 Absolute Neutrophils 8.15 H Absolute Lymphocytes 3.52 H Absolute Monocytes 0.77 Absolute Eosinophils 0.09 Absolute Basophils 0.06 PT 10.4 INR 1.0 APTT 25.3 VBG Lactate Sodium 135 L Potassium 3.9 Chloride 100 Carbon Dioxide 20.7 L Anion Gap 14.3 H BUN 19 H Creatinine 1.2 H Est GFR (CKD-EPI 2020) 47.21 Glucose 339 H Calcium 9.4 Magnesium 1.8 Total Bilirubin 0.2 AST 24 ALT 29 Alkaline Phosphatase 111 Troponin I C-Reactive Protein NT-Pro-B Natriuret Pep Total Protein 6.5 Albumin 2.8 L Procalcitonin TSH 10.19 H Free T4 1.50 H Urine Color Urine Clarity Urine pH Ur Specific [place] Urine Protein Urine Ketones Urine Blood Urine Nitrite Urine Bilirubin Urine Urobilinogen Ur Leukocyte Esterase Urine RBC Urine WBC Ur Epithelial Cells Urine Crystals Urine Bacteria Urine Casts Urine Mucus Ur Culture Indicated? Urine Glucose COVID-19 Source SARS-CoV-2 (PCR) Influenza Type A (PCR) Influenza Type B (PCR) RSV (PCR) Add-On Test Request 12/21/22 12/21/22 12/21/22 18:07 18:07 21:04 WBC RBC Hgb Hct MCV MCH MCHC RDW Plt Count MPV Immature Gran % Neutrophils % Lymphocytes % Monocytes % Eosinophils % Basophils % Nucleated RBC % Absolute Neutrophils Absolute Lymphocytes Absolute Monocytes Absolute Eosinophils Absolute Basophils PT INR APTT VBG Lactate Sodium Potassium Chloride Carbon Dioxide Anion Gap BUN Creatinine Est GFR (CKD-EPI 2020) Glucose Calcium Magnesium Total Bilirubin AST ALT Alkaline Phosphatase Troponin I < 50 C-Reactive Protein NT-Pro-B Natriuret Pep Total Protein Albumin Procalcitonin < 0.1 TSH Free T4 Urine Color Urine Clarity Urine pH Ur Specific [place] Urine Protein Urine Ketones Urine Blood Urine Nitrite Urine Bilirubin Urine Urobilinogen Ur Leukocyte Esterase Urine RBC Urine WBC Ur Epithelial Cells Urine Crystals Urine Bacteria Urine Casts Urine Mucus Ur Culture Indicated? Urine Glucose COVID-19 Source SARS-CoV-2 (PCR) Influenza Type A (PCR) Influenza Type B (PCR) RSV (PCR) Add-On Test Request DONE 12/21/22 12/22/22 12/22/22 21:50 00:37 02:05 WBC RBC Hgb Hct MCV MCH MCHC RDW Plt Count MPV Immature Gran % Neutrophils % Lymphocytes % Monocytes % Eosinophils % Basophils % Nucleated RBC % Absolute Neutrophils Absolute Lymphocytes Absolute Monocytes Absolute Eosinophils Absolute Basophils PT INR APTT VBG Lactate Sodium Potassium Chloride Carbon Dioxide Anion Gap BUN Creatinine Est GFR (CKD-EPI 2020) Glucose Calcium Magnesium Total Bilirubin AST ALT Alkaline Phosphatase Troponin I < 50 < 50 C-Reactive Protein NT-Pro-B Natriuret Pep Total Protein Albumin Procalcitonin TSH Free T4 Urine Color Urine Clarity Urine pH Ur Specific [place] Urine Protein Urine Ketones Urine Blood Urine Nitrite Urine Bilirubin Urine Urobilinogen Ur Leukocyte Esterase Urine RBC Urine WBC Ur Epithelial Cells Urine Crystals Urine Bacteria Urine Casts Urine Mucus Ur Culture Indicated? Urine Glucose COVID-19 Source Nasopharynx SARS-CoV-2 (PCR) Negative Influenza Type A (PCR) Negative Influenza Type B (PCR) Negative RSV (PCR) Negative Add-On Test Request 12/22/22 12/22/22 12/22/22 06:09 06:09 06:09 WBC 14.58 H RBC 4.57 Hgb 13.8 Hct 43.0 MCV 94 MCH 30.2 MCHC 32.1 RDW 13.6 Plt Count 267 MPV 10.6 Immature Gran % 0.8 Neutrophils % 81.8 Lymphocytes % 11.3 Monocytes % 5.7 Eosinophils % 0.0 Basophils % 0.4 Nucleated RBC % 0.0 Absolute Neutrophils 11.93 H Absolute Lymphocytes 1.65 Absolute Monocytes 0.83 H Absolute Eosinophils 0.00 Absolute Basophils 0.06 PT INR APTT VBG Lactate Sodium 136 Potassium 4.4 Chloride 104 Carbon Dioxide 19.0 L Anion Gap 13.0 H BUN 20 H Creatinine 0.9 Est GFR (CKD-EPI 2020) 66.67 Glucose 278 H Calcium 8.3 L Magnesium Total Bilirubin AST ALT Alkaline Phosphatase Troponin I C-Reactive Protein NT-Pro-B Natriuret Pep Total Protein Albumin Procalcitonin TSH Free T4 Urine Color Urine Clarity Urine pH Ur Specific [place] Urine Protein Urine Ketones Urine Blood Urine Nitrite Urine Bilirubin Urine Urobilinogen Ur Leukocyte Esterase Urine RBC Urine WBC Ur Epithelial Cells Urine Crystals Urine Bacteria Urine Casts Urine Mucus Ur Culture Indicated? Urine Glucose COVID-19 Source SARS-CoV-2 (PCR) Influenza Type A (PCR) Influenza Type B (PCR) RSV (PCR) Add-On Test Request DONE 12/22/22 12/22/22 12/22/22 06:09 08:37 09:41 WBC RBC Hgb Hct MCV MCH MCHC RDW Plt Count MPV Immature Gran % Neutrophils % Lymphocytes % Monocytes % Eosinophils % Basophils % Nucleated RBC % Absolute Neutrophils Absolute Lymphocytes Absolute Monocytes Absolute Eosinophils Absolute Basophils PT INR APTT VBG Lactate 2.3 H* Sodium Potassium Chloride Carbon Dioxide Anion Gap BUN Creatinine Est GFR (CKD-EPI 2020) Glucose Calcium Magnesium Total Bilirubin AST ALT Alkaline Phosphatase Troponin I C-Reactive Protein 0.98 H NT-Pro-B Natriuret Pep 2280 H Total Protein Albumin Procalcitonin TSH Free T4 Urine Color Yellow Urine Clarity Clear Urine pH 5.5 Ur Specific [place] 1.020 Urine Protein 30 H Urine Ketones Negative Urine Blood Trace-intact H Urine Nitrite Negative Urine Bilirubin Negative Urine Urobilinogen 0.2 Ur Leukocyte Esterase Trace H Urine RBC 0-2 Urine WBC 10-20 H Ur Epithelial Cells Few Urine Crystals Negative Urine Bacteria Few Urine Casts 0-2 Hyaline Urine Mucus Trace Ur Culture Indicated? C&S Done As Ordered Urine Glucose Negative COVID-19 Source SARS-CoV-2 (PCR) Influenza Type A (PCR) Influenza Type B (PCR) RSV (PCR) Add-On Test Request 12/22/22 11:43 WBC RBC Hgb Hct MCV MCH MCHC RDW Plt Count MPV Immature Gran % Neutrophils % Lymphocytes % Monocytes % Eosinophils % Basophils % Nucleated RBC % Absolute Neutrophils Absolute Lymphocytes Absolute Monocytes Absolute Eosinophils Absolute Basophils PT INR APTT VBG Lactate 2.6 H* Sodium Potassium Chloride Carbon Dioxide Anion Gap BUN Creatinine Est GFR (CKD-EPI 2020) Glucose Calcium Magnesium Total Bilirubin AST ALT Alkaline Phosphatase Troponin I C-Reactive Protein NT-Pro-B Natriuret Pep Total Protein Albumin Procalcitonin TSH Free T4 Urine Color Urine Clarity Urine pH Ur Specific [place] Urine Protein Urine Ketones Urine Blood Urine Nitrite Urine Bilirubin Urine Urobilinogen Ur Leukocyte Esterase Urine RBC Urine WBC Ur Epithelial Cells Urine Crystals Urine Bacteria Urine Casts Urine Mucus Ur Culture Indicated? Urine Glucose COVID-19 Source SARS-CoV-2 (PCR) Influenza Type A (PCR) Influenza Type B (PCR) RSV (PCR) Add-On Test Request Multi-Disciplinary Checklist Lines/Tubes CENTRAL LINE: no ARTERIAL LINE: no GODINEZ: yes, Godinez Day#: 2 ENDOTRACHEAL TUBE: no ICU Maintenance GLUCOSE 140-180mg/dL: no, Reason/Intervention: adjusting insulins NUTRITION AT GOAL: yes PRESSURE ULCER: no RESTRAINTS: no ANTIBIOTICS(if yes, consider Stewardship): Yes Social Issues FAMILY UPDATED: yes PT/OT: yes GOALS/DISPOSITION/BUSINESS SERVICES MANAGER: yes CODE STATUS: DNR/DNI Prophylaxis DVT PROPHYLAXIS: no Reason/Intervention: on full anticoagulation GI PROPHYLAXIS: yes, Indication: on chronic medications for GERD Time Spent with Patient Time Spent with Patient: 35-49 minutes Time was spent: preparing to see the patient(eg.review tests), obtaining and/or reviewing separately otained hiistory, ordering medications,tests, procedures, referring, communicating with other health care team coordinator scheduler, indepentently interpreting results, counseling the patient and care coordination
[2022-12-22] MEDS: Metoprolol 5 MG/5 ML VIAL IVP ×2 (11:58→20:16)
--- NOTE | 2022-12-22 12:00 | RT.EKG_ITS ---
APPROVED REPORT Exam: Resting ECG Reason for Exam: change of rhythm to NSR Patient Location: I HR:58 bpm ECG Measurements Heart Rate 58 AXIS IA 182 P 61 QRSd 92 QRS 44 QT 461 T 26 QTc 453 Conclusion Sinus rhythm...normal P axis, V-rate 50- 99 Low voltage, extremity and precordial leads...extremity<0.5mV, precordial<1.0mV
--- NOTE | 2022-12-22 12:10 | NUR.NOTE ---
D/W Dr. Griggs the pt's rate and rhythm. Asked for 5 mg lopressor, was ordered and given. rhythm converted to SR/SB with apcs and pvc.
[2022-12-22] MEDS: Metoprolol 25 MG TAB 37.5 MG PO ×3 (13:22→23:39)
[2022-12-22] MEDS: dilTIAZem 60 MG TAB PO (13:22)
[2022-12-22 14:55] LABS: Lactate 2.5 mmol/L (0.6-1.4)
[2022-12-22] MEDS: Metoprolol 5 MG/5 ML VIAL (16:50)
[2022-12-22] MEDS: Digoxin 0.5 MG/2 ML AMP 0.25 MG IVP (17:05)
[2022-12-22] MEDS: Normal Saline Flush 10 ML SYR (17:20)
[2022-12-22] MEDS: dilTIAZem 25 MG/5 ML VIAL 5 MG IVP (17:20)
[2022-12-22] MEDS: Lactated Ringers 250 ML IV (17:22)
[2022-12-22] MEDS: Lactated Ringers 250 ML 500 ML IV (17:38)
[2022-12-22] MEDS: Amiodarone in Dextrose 360 MG/200 ML BAG 33.333 MG IV ×2 (17:48→20:57)
[2022-12-22] MEDS: Sennosides/Docusate Sodium TAB 1 TAB PO (18:48)
--- NOTE | 2022-12-22 20:15 | RT.EKG_ITS ---
APPROVED REPORT Exam: Resting ECG Reason for Exam: conversion to SR Patient Location: I HR:54 bpm ECG Measurements Heart Rate 54 AXIS MN 186 P 40 QRSd 99 QRS 37 QT 475 T 25 QTc 451 Conclusion Sinus rhythm...normal P axis, V-rate 50- 99 Low voltage, extremity and precordial leads...extremity<0.5mV, precordial<1.0mV
[2022-12-22] MEDS: risperiDONE 1 MG TAB PO (21:23)
[2022-12-22] MEDS: Insulin Glargine 300 UNITS/3 ML PEN 35 UNITS SC (22:05)
[2022-12-23] VITALS (40 sets, daily range): BP systolic 81–130; BP diastolic 49–92; PULSE 51–91; RESP 11–22; TEMP 36.4–37.3; O2SAT 91–97
[2022-12-23] MEDS: Amiodarone in Dextrose 360 MG/200 ML BAG 33.333 MG IV (03:10)
[2022-12-23] MEDS: Levothyroxine 150 MCG TAB PO (05:52)
[2022-12-23 07:07] LABS: Abs Immature Grans 0.06 10^3/uL (0.0-0.06); Absolute Lymphocyte Count 2.15 10^3/uL (1.2-3.4); Absolute Monocyte Count 0.89 10^3/uL (0.1-0.8); Absolute Neutrophil Count 8.14 10^3/uL (1.2-6.7); Basophils % 0.4; Eosinophils % 0.9; HCT 38.1 % (36.0-46.0); HGB 12.5 g/dL (11.2-15.7); Immature Grans % 0.5; Lymphocytes % 18.9; MCHC 32.8 % (32.0-36.0); MCV 91 fL (80-95); MPV 10.3 fL (8.0-11.0); Monocytes % 7.8; Neutrophils % 71.5; Platelet Count 256 10^3/uL (130-400); RBC 4.17 10^6/uL (3.93-5.22); RDW 13.6 % (11.7-14.6); RDW-SD 46.2 fL; WBC 11.38 10^3/uL (4.4-10.8)
[2022-12-23 07:20] LABS: Absolute Basophil Count 0.05 10^3/uL (0.0-0.2)
[2022-12-23 07:41] LABS: Lab Add On Test DONE
[2022-12-23 07:56] LABS: Anion Gap 8.8 mmol/L (3-11); BUN 11 mg/dL (7-18); C-Reactive Protein 1.49 mg/dL (0.0-0.3); CO2 24.2 mmol/L (21.0-32.0); CREATININE 0.7 mg/dL (0.55-1.02); Calcium 8.6 mg/dL (8.5-10.1); Chloride 105 mmol/L (98-107); Estimated GFR 90.14 (mL/min/1.73m2); Glucose 149 mg/dL (74-106); Magnesium 1.7 mg/dL (1.8-2.4); Potassium 3.8 mmol/L (3.5-5.1); Sodium 138 mmol/L (136-145); TSH 3.98 uIU/mL (0.36-3.74)
--- NOTE | 2022-12-23 08:00 | DI.US_ITS ---
APPROVED REPORT EXAM: Comprehensive 2D, Doppler, and color-flow Echocardiogram Patient Location: In-Patient Room/Bed: [address] Off: Rickey Allen RDCS (AE) Indications: svt/afib Other Information Study Quality: Fair. Technically limited study due to body habitus, inability to position patient. Conclusion Technically difficult and suboptimal study Left ventricle appears normal in size and wall thickness. Ejection fraction is 50 to 55%. No segmen david wall motion abnormalities are identified Normal right ventricular size Left atrium is moderately dilated. Right atrial size is normal Aortic valve is sclerotic without stenosis or regurgitation Mild mitral annular calcification. Mild mitral regurgitation Normal tricuspid valve with mild regurgitation. Estimated right ventricular systolic pressure is 30 mmHg Mildly dilated aortic root and ascending aorta Wall motion Left Ventricle The left ventricle is grossly normal size. Left ventricular systolic function is borderline. Unable t o assess LV wall thickness due to vertical orientation of anatomy. There are no segmental wall motion abnormalities There is no ventricular septal defect visualized. LVEF is 50-55%. Right Ventricle The right ventricle is normal size. Right ventricular systolic function could not be assessed. The RV SP is 29.6 mmHg. Atria Left atrium is moderately dilated. The right atrium size is normal. The interatrial septum is intact with no evidence for an atrial septal defect. Aortic Valve The Aortic valve is sclerotic. Number of aortic valve leaflets could not be assessed. There is no aor tic valvular stenosis. No aortic regurgitation is present. Mitral Valve Mild mitral annular calcification. No evidence of mitral valve stenosis. Mild mitral regurgitation. Tricuspid Valve The tricuspid valve is normal in structure. There is no tricuspid valve stenosis. Mild tricuspid regu rgitation. Pulmonic Valve Pulmonic valve is not well visualized. There is no pulmonic valvular stenosis. There is no pulmonic v alvular regurgitation. Great Vessels Aortic root is mildly dilated. The ascending aorta is mildly dilated. IVC is normal in size and liliane apses >50% with inspiration. Pericardium Mild anterior pericardial effusion. 2D Dimensions Ao Root d 3.67 cm F: 2.7 - 3.3 Ao Asc Diam d 3.47 cm F: 2.3 - 3.1 M-Mode TAPSE 2.43 cm (M/F) >1.7 Auto EF LV EDV A4C LV EDV A2C 92.0 mL LV EDV BP LV ESV A4C LV ESV A2C 45.9 mL LV ESV BP LVEF(%) A4C LVEF(%) A2C 50.1 % LVEF(%) BP LV SV A4C LV SV A2C 46.1 ml LV SV BP LV CO A4C LV CO A2C 2.7 L/min LV CO BP HR A4C HR A2C 58.73 BPM LV EDV Index (BP) LA Volume LA Length A4C 5.3 cm LA Length A2C LA Area A4C s 21.42 cm2 LA Area A2C s LA Vol A4C A-L 73.44 mL LA Vol A2C A-L LA Vol Biplane A-L LA Vol A4C MOD 67.5 mL LA Vol A2C MOD LA Vol BP MOD RA Volume RA Area A4C 10.7 cm2 RA ESV A4C (A-L) 20.6mL RA Vol/BSA A4C A-L RA Length A4C 4.8 cm RA ESV A4C (MOD) 20.3mL LV Diastology MV E' medial 0.072 (>0.07 m/s) MV E Vmax 1.11 (0.4-1.3 m/s) MV E/E' MED 15.52 (<14) MV A Vmax 0.40 (0.4-1.3 m/s) MV E' lateral 0.118 (>0.1 m/s) E/A Ratio 2.8 MV E/E' LAT 9.46 (<14) MV E' Average 0.095 m/s MV E/E'(average) 11.76 Aortic Valve AoV Vmax 0.99 m/s LVOT Vmax 0.85 m/s AoV Peak Grad 3.9 mmHg LVOT Peak Grad 2.9 mmHg AoV Area (Vmax) 2.17 cm2 LVOT VTI 0.200 m AoV VTI 0.242 m LVOT Mean Grad 1.4 mmHg AoV Mean Sung. 0.73 m/s LVOT SV 50.68 mL AoV Mean Grad 2.3 mmHg LVOT Diam s 1.75 cm AoV Area (VTI) 2.10 cm2 Velocity Ratio 0.86 Mitral Valve MV DT 221 (160-240 msec) Pulmonary Valve PV Vmax 0.77 (0.5-1.5 m/s) RVOT Vmax 0.54 m/s PV Peak Grad 2.4 mmHg RVOT Peak Gr. 1.2 mmHg PV Mean Sung 0.54 m/s RVOT VTI 0.156 m PV Mean Grad 1.3 mmHg RVOT Mean Gr. 0.7 mmHg Tricuspid Valve RA Pressure 3.00 mmHg TR Vmax 2.58 m/s TR Peak Grad 26.5 mmHg RVSP (TR) 29.6 mmHg
[2022-12-23 08:18] LABS: NT-proBNP 818 pg/mL (<300); Troponin I < 50 ng/L (<or=60)
--- NOTE | 2022-12-23 08:57 | PDOC.CMPRO ---
Date of service: 12/23/22 Time of Service: 08:57 Care Management Progress Note Progress Note Text Progress Note Text: S/O: Karuna continues to require close monitoring and treatment with Amiodarone. Her sister in law remains supportive and has been visiting frequently. Per provider Karuna's rates are controlled and cardiology is consulted. PT consult is ordered. Anticipate she will discharge back to when medically ready and she is looking forward to going back. A: Karuna is a 76 year old female admitted to [facility] on 03/01/22 withSyncope, SVT, dehydration, PNA P: Anticipate Karuna will return to the [facility] once she becomes medically cleared. She will transport via private vehicle by facility staff vs family. She will follow up with her PCP and discharge plan of care. CM will continue to follow.
[2022-12-23] MEDS: ALPRAZolam 0.5 MG TAB 1 MG PO ×2 (08:59→19:55)
[2022-12-23] MEDS: Apixaban 5 MG TAB PO ×2 (09:00→19:55)
[2022-12-23] MEDS: Magnesium Oxide 400 MG TAB PO ×2 (09:00→19:56)
[2022-12-23] MEDS: Omeprazole 20 MG CAPCR PO (09:03)
[2022-12-23] MEDS: MAGNESIUM SULFATE 2 GM/50 ML BAG IVPB (09:03)
[2022-12-23] MEDS: Normal Saline Flush 10 ML SYR IVP ×4 (09:04→23:28)
[2022-12-23] MEDS: Amiodarone in Dextrose 360 MG/200 ML BAG 16.667 MG IV (09:12)
[2022-12-23] MEDS: Pravastatin 20 MG TAB PO (09:18)
[2022-12-23 09:21] LABS: Lactate 1.5 mmol/L (0.6-1.4)
--- NOTE | 2022-12-23 09:48 | PGE_ITS ---
Date of Service Date of service: 12/23/22 Time of Service: 09:48 Assessment and Plan Assessment and plan (1) Paroxysmal atrial fibrillation with rapid ventricular response: Status: Acute Assessment and plan: Converted back to SVT yesterday evening and back to NSR post initiation of amiodarone. ?Episode of Vtach vs afib with aberrancy during the original episode. Continue Amiodarone gtt and PO metoprolol with holding parameters. Await echo. Written for prn IV lopressor. Continue to monitor in the ICU. Await a cardiology consult. (2) Acute respiratory failure with hypoxia: Status: Resolved Assessment and plan: With evidence of atelectasis, PNA/pneumonitis on CXR. Today she also has crackles - will give a dose of 20 mg of PO lasix x 1. Continue abx. Await pneumonia studies (sputum for mycoplasma, sputum culture, urine antigens for legionella and strep). Encourage pulmonary toilet. Diurese as BP permits. (3) UTI (urinary tract infection): Status: Acute Assessment and plan: Present on admission. Urine C&S obtained while already on antibiotics. Growing<10,000 CFU GNR. On empiric ceftriaxone. (4) Pneumonitis: Status: Acute Assessment and plan: As above Tested negative for COVID-19 on presentation. (5) Atelectasis: Status: Acute Assessment and plan: As above (6) Hypothyroidism: Assessment and plan: Continue levothyroxine 150 mcg daily. TSH is down to 3.98 from 10.19 on presentation, likely representing acute phase reactant. (7) Hypertension: Assessment and plan: As above Hold HCTZ BPs on the low side at this time. Metoprolol has holding parameters. Continue amiodarone. MOnitor in the ICU. (8) Hyperlipidemia: Assessment and plan: Continue pravastatin. (9) Diabetes mellitus: Status: Chronic Assessment and plan: Continue sliding scale insulin Qualifiers: Diabetes mellitus type: type 2 Diabetes mellitus ad terminal makeup operator insulin use: with ad terminal makeup operator use Diabetes mellitus complication status: with hyperglycemia Qualified Code(s): E11.65 - Type 2 diabetes mellitus with hyperglycemia; Z79.4 - detention (current) use of insulin (10) DVT prophylaxis: Status: Acute Assessment and plan: On therapeutic apixaban (11) Discharge planning issues: Status: Acute Assessment and plan: DNR/DNI Keep in the ICU Total Critical Care Time 45 minutes. Subjective Subjective Interval history since last seen: Remains on amiodarone gtt. She converted to NSR at 20:30 last night and has remained in SR-SB in the 50s since. She feels a lot better - no dizziness, CP, SOB, palpitations, nausea. She was symptomatic during the episode yesterday. Abdominal pain had resolved. No BM yet. Godinez catheter removed this morning. Feels tired. Exam Narrative Exam Narrative: General: Pleasant forgetful elderly female who is A&Ox2, appears comfortable, Sitting up in a chair on RA. HEENT: EOMI, MMM Heart: RRR, no m/r/g Lungs: crackles at B bases Abdomen: soft, nontender, nondistended Extremities: trace edema BLEs, no c/c. Objective Last Vital Signs Temp 37.3 C 12/23/22 08:10 Pulse 55 L 12/23/22 08:32 Resp 18 12/23/22 08:32 BP 98/57 L 12/23/22 08:32 Pulse Ox 92 12/23/22 08:36 Laboratory Results - last 24 hr 12/22/22 12/22/22 12/22/22 06:09 06:09 09:41 WBC RBC Hgb Hct MCV MCH MCHC RDW Plt Count MPV Immature Gran % Neutrophils % Lymphocytes % Monocytes % Eosinophils % Basophils % Nucleated RBC % Absolute Neutrophils Absolute Lymphocytes Absolute Monocytes Absolute Eosinophils Absolute Basophils VBG Lactate Sodium Potassium Chloride Carbon Dioxide Anion Gap BUN Creatinine Est GFR (CKD-EPI 2020) Glucose Calcium Magnesium Troponin I C-Reactive Protein 0.98 H NT-Pro-B Natriuret Pep 2280 H TSH Urine Color Yellow Urine Clarity Clear Urine pH 5.5 Ur Specific [place] 1.020 Urine Protein 30 H Urine Ketones Negative Urine Blood Trace-intact H Urine Nitrite Negative Urine Bilirubin Negative Urine Urobilinogen 0.2 Ur Leukocyte Esterase Trace H Urine RBC 0-2 Urine WBC 10-20 H Ur Epithelial Cells Few Urine Crystals Negative Urine Bacteria Few Urine Casts 0-2 Hyaline Urine Mucus Trace Ur Culture Indicated? C&S Done As Ordered Urine Glucose Negative Add-On Test Request DONE 12/22/22 12/22/22 12/23/22 11:43 14:46 05:42 WBC RBC Hgb Hct MCV MCH MCHC RDW Plt Count MPV Immature Gran % Neutrophils % Lymphocytes % Monocytes % Eosinophils % Basophils % Nucleated RBC % Absolute Neutrophils Absolute Lymphocytes Absolute Monocytes Absolute Eosinophils Absolute Basophils VBG Lactate 2.6 H* 2.5 H* Sodium 138 Potassium 3.8 Chloride 105 Carbon Dioxide 24.2 Anion Gap 8.8 BUN 11 Creatinine 0.7 Est GFR (CKD-EPI 2020) 90.14 Glucose 149 H Calcium 8.6 Magnesium 1.7 L Troponin I < 50 C-Reactive Protein 1.49 H NT-Pro-B Natriuret Pep 818 H TSH 3.98 H Urine Color Urine Clarity Urine pH Ur Specific [place] Urine Protein Urine Ketones Urine Blood Urine Nitrite Urine Bilirubin Urine Urobilinogen Ur Leukocyte Esterase Urine RBC Urine WBC Ur Epithelial Cells Urine Crystals Urine Bacteria Urine Casts Urine Mucus Ur Culture Indicated? Urine Glucose Add-On Test Request 12/23/22 12/23/22 12/23/22 05:42 07:19 09:15 WBC 11.38 H RBC 4.17 Hgb 12.5 Hct 38.1 MCV 91 MCH 30.0 MCHC 32.8 RDW 13.6 Plt Count 256 MPV 10.3 Immature Gran % 0.5 Neutrophils % 71.5 Lymphocytes % 18.9 Monocytes % 7.8 Eosinophils % 0.9 Basophils % 0.4 Nucleated RBC % 0.0 Absolute Neutrophils 8.14 H Absolute Lymphocytes 2.15 Absolute Monocytes 0.89 H Absolute Eosinophils 0.10 Absolute Basophils 0.05 VBG Lactate 1.5 H Sodium Potassium Chloride Carbon Dioxide Anion Gap BUN Creatinine Est GFR (CKD-EPI 2020) Glucose Calcium Magnesium Troponin I C-Reactive Protein NT-Pro-B Natriuret Pep TSH Urine Color Urine Clarity Urine pH Ur Specific [place] Urine Protein Urine Ketones Urine Blood Urine Nitrite Urine Bilirubin Urine Urobilinogen Ur Leukocyte Esterase Urine RBC Urine WBC Ur Epithelial Cells Urine Crystals Urine Bacteria Urine Casts Urine Mucus Ur Culture Indicated? Urine Glucose Add-On Test Request DONE Multi-Disciplinary Checklist Lines/Tubes CENTRAL LINE: no ARTERIAL LINE: no GODINEZ: no ENDOTRACHEAL TUBE: no ICU Maintenance GLUCOSE 140-180mg/dL: yes NUTRITION AT GOAL: yes PRESSURE ULCER: no RESTRAINTS: no ANTIBIOTICS(if yes, consider Stewardship): Yes Social Issues FAMILY UPDATED: yes PT/OT: yes GOALS/DISPOSITION/LEAD SYSTEMS ENGINEER: yes CODE STATUS: DNR/DNI Prophylaxis DVT PROPHYLAXIS: yes GI PROPHYLAXIS: no Time Spent with Patient Time Spent with Patient: 35-49 minutes Time was spent: preparing to see the patient(eg.review tests), obtaining and/or reviewing separately otained hiistory, ordering medications,tests, procedures, referring, communicating with other health critical care registered nurse, indepentently interpreting results, counseling the patient and care coordination
--- NOTE | 2022-12-23 09:51 | CE_ITS ---
Date of service: 01/22/23 Time of Service: 17:00 Event Note: Had a rapid response called yesterday afternoon to which I had responded, when the patient's HR went up to 180s (SVT). She slowed down to 160 with IV metoprolol 5 mg x1. Cardizem did not have an effect (5 mg IV). Digoxin did not have an obvious effect either (250 mcg). Neither did the 2nd dose of IV metoprolol 5 mg, but the BP did decrease to the 90s. The patient was restarted on cardizem drip, but with no improvement in HR - remained in 160s. Finally, the patient was switched over to the amiodarone drip yesterday evening around 6 pm. When I checked on her around 7 pm, her HR was down to 110. She was symptomatic during this episode: dizzy, mild L-sided chest discomfort, shortness of breath, palpitations. She also reported L sided abdominal pain, feeling like she needed to have a BM. She had been passing flatus today. Time Spent with Patient Time spent in critical care(minutes): 45 Time Spent Included: Performing procedures not included in c.c time, Aircraft Body Repairer rdination of care, Chart review, Documenting critically ill care, Time at immediate bedside, Discussing critically ill care with other medical staff and Discussing Hx and/or treatment with family
--- NOTE | 2022-12-23 09:53 | IN_ITS ---
PT Notes Visit Reasons: Syncope, SVT, dehydration, PNA Physical Therapy Inpatient Initial Evaluation Date: 12/23/22 Referring Doctor: Rain Griggs MD PT Orders: PT CONSULT: Limited Ability Precautions: Fall. Standard. Activity as tolerated. Vitals monitoring. Patient Profile/Admitting Diagnosis: Karuna is a 77 yo female that presented to the ER on 12/21/22 for fatigue, lightheadedness, and rapid heart rate. Was in SVT and cardiac conversion was performed. Patient admitted and vitals closely monitored in ICU. PMHX: See EMR Social History/Home Situation: Lives at [facility], ambulates with cane. Equipment Owned/DME: Cane Subjective: Cleared by nursing to see patient and patient is agreeable to PT. Patient is propped up in bed at time of consult and connected to telemetry, BP cuff, pulse ox, and has indwelling catheter. She reports feeling off. Objective: General Observation: Slow speech Mental Status: A&O x3 Pain: Uncomfortable with catheter ROM: Right Upper Extremity: Shoulder Flexion WFL. Shoulder abduction WFL. Elbow flexion WFL. Wrist flexion WFL. Opening and closing of hand WFL. Left Upper Extremity: Shoulder Flexion WFL. Shoulder abduction WFL. Elbow flexion WFL. Wrist flexion WFL. Opening and closing of hand WFL. Right Lower Extremity: Hip flexion WFL. Hip abduction WFL. Knee flexion WFL. Ankle dorsiflexion WFL. Ankle plantarflexion WFL. Left Lower Extremity: Hip flexion WFL. Hip abduction WFL. Knee flexion WFL. Ankle dorsiflexion WFL. Ankle plantarflexion WFL. Strength: Right Upper Extremity: Grossly 4/5. Weak scrap bunch maker. Left Upper Extremity: Grossly 4/5. Weak scrap bunch maker. Right Lower Extremity: Grossly 4/5. Left Lower Extremity: Grossly 4/5. Sensation: Intact as to pain and pressure on bilateral lower extremities. Bed Mobility/Transfers: Supine to sit: With HOB elevated and use of rail, 1 person min A Sit to supine: Not assessed Sit to stand: CGA Stand to sit: CGA Gait: Ambulated 5 feet in room with FWW Balance: Static Sitting: Fair Dynamic Sitting: Poor Static Standing: Fair Dynamic Standing: Poor Special Tests: Mobility Limitations Standardized Measure [facility] 6 clicks Basic Mobility Inpatient Short Form: Raw Score: 13 CMS Score: 65% Informed Consent/Education: Patient instructed in purpose of PT consult and plan of care. Assessment: Karuna was able to do most of bed mobility from elevated head of bed position. She reported feeling off and weak. Bed is taller than her ability to touch floor from seated so she had to slide to standing. Was able to walk across to chair and have a seat. Generally weak with 4/5 strength throughout. Endurances are poor overall. Would benefit from placement to regain strength and conditioning prior to returning to [facility].Left sitting up in chair in care of nursing for washing. Patient presents with clinical signs and symptoms consistent with current/admitting diagnoses that have resulted to mobility limitations, gait instability, generalized weakness, and impairment of motor control as demonstrated by the following impairment level findings: 1. Decreased strength to all major muscle groups 2. Impaired sitting/standing balance 3. Impaired activity tolerance Impairments are contributing to the following functional limitations: 1. Increased need for assist with bed mobility skills 2. Increased need for assist with transfers 3. Inability to safely ambulate without assistive device and physical assistance 4. Increase completion time for mobility ADL performance 5. Increased fall risk Patient is assessed as a Moderate complexity based on the following: History: 77 year old female with impairment level findings, functional limitations, and past medical history as indicated above Examination: Demonstrable impairment in strength, balance, and mobility level with underlying impairments and functional limitations as documented above Presentation: Evolving Decision Making: Moderate complexity Goals: Goals x1 week 1. Supine-Sit: independent 2. Sit-Supine: independent 3. Sit-Stand: independent 4. Stand-Sit: independent 5. Independent gait on level surface with use of least restrictive device for at least 100 feet without report of pain nor dyspnea Plan of Care/Treatment Plan: 1-2x/day, 7 days/week x1 week. Plan of care has been reviewed with the RIGGING HELPER providing the service under Physical Therapy direction. Initiate Physical Therapy intervention for strengthening, bed mobility, transfers, gait, stairs, balance training, and use of assistive device. Discharge Plan DISCHARGE RECOMMENDATIONS: SNF for continued rehabilitation to regain strength and endurance vs home with HHPT if shows adequate improvement to independence TREATMENT CODE/TIME: 9:20-9:42 (22 minutes), [id number] Thank you for the opportunity to participate in the care of this patient. Sofia Rodriguez, PT, DPT, OCS [facility], [place]
[2022-12-23] MEDS: Polyethylene Glycol 3350 17 GM PACKET PO (11:23)
[2022-12-23] MEDS: Sennosides/Docusate Sodium TAB 1 TAB PO (11:23)
[2022-12-23] MEDS: Furosemide 20 MG TAB PO (11:24)
[2022-12-23] MEDS: Insulin Aspart 300 UNITS/3 ML PEN SC ×2 (12:14→22:01)
--- NOTE | 2022-12-23 12:42 | CCONE_ITS ---
Date of service: 12/23/22 Time of Service: 12:42 Assessment and Plan Assessment and plan (1) Paroxysmal atrial fibrillation with rapid ventricular response: Status: Acute Assessment and plan: Patient has had paroxysmal atrial fibrillation intermittently for at least 5 years. Presumably this was exacerbated by what is felt to be respiratory insufficiency. She is currently in sinus rhythm, on intravenous amiodarone. I would recommend at this time she be started on oral amiodarone, such as 400 mg twice daily for 2 weeks, 200 mg twice daily for 4 weeks and then 200 mg daily. Continue anticoagulation History of Present Illness History of Present Illness Chief Complaint: Rapid heart rate Narrative: This is a 77-year-old woman who has a history of paroxysmal atrial fibrillation. She presented to the hospital several days ago with recurrent atrial fibrillation and uncontrolled rates. Various interventions have been tried including cardioversion and adenosine and most recently intravenous amiodarone. She has been in sinus rhythm since late yesterday She takes Eliquis for stroke prevention Her echocardiogram was recently updated. Left ventricular systolic function is normal. There is mild mitral and tricuspid regurgitation. Right ventricular systolic pressure is estimated to be 30 mmHg Review of Systems Narrative: Patient was not interviewed or examined [facility] All Active Problems (Updated 12/23/22 @ 09:57 by Rain Griggs MD) Pneumonitis (Acute) Atelectasis (Acute) DVT prophylaxis (Acute) Discharge planning issues (Acute) Atrial fibrillation with RVR (Acute) Infection due to ESBL-producing Escherichia coli (Acute) Hypomagnesemia (Acute) Paroxysmal atrial fibrillation with rapid ventricular response (Acute) UTI (urinary tract infection) (Acute) Hypokalemia (Acute) Hypomagnesemia (Acute) Back pain of thoracolumbar region (Acute) Hypokalemia (Acute) Kyphosis (acquired) (postural) (Acute) Perirectal inflammation (Acute) 03/30/2019-from fecal incontinence Loose stools (Acute) Cerumen debris on tympanic membrane of both ears (Acute) Constipation, unspecified (Acute) History of umbilical hernia repair (Acute) Status post dilation and curettage (Acute) Status post laparoscopic hysterectomy (Acute) Excessive cerumen in both ear canals (Chronic) Anxiety and depression (Chronic) Diabetes mellitus (Chronic 07/21/12) Atrial fibrillation with RVR (Acute 09/09/17) Dx by EKG on 08/21/17, [id number] = 2, anti-coagulated on Eliquis Tubular adenoma (Acute 10/17/14) 10/03/14; DR. ALICIA;1 tubulovillous adenoma and 2 tubular adenoma Primary osteoarthritis of both knees (Acute) Morbid obesity with BMI of 40.0-44.9, adult (Acute) Hypothyroidism (acquired) (Acute 11/03/12) Hyperlipidemia associated with type 2 diabetes mellitus (Acute) REFUSES RX Hearing loss (Acute) A.D. Gastroesophageal reflux (Chronic 10/01/13) Essential hypertension (Acute 02/01/13) Depressive disorder (Acute) anxiety Cognitive deficits (Acute 08/05/17) Anxiety associated with depression (Acute 07/21/17) Atrial fibrillation with rapid ventricular response (Acute) History of psychiatric disorder (Acute) Medical History Depression Diabetes DNI (do not intubate) DNR (do not resuscitate) GERD (gastroesophageal reflux disease) Hyperlipidemia Hypertension Hypothyroidism Morbid obesity with BMI of 40.0-44.9, adult Osteoarthritis POLST (Physician Orders for Life-Sustaining Treatment) Surgical History Dilation and curettage (~1995) Hysterectomy, Laproscopic Repair of umbilical hernia Family History Mother Essential hypertension Heart disease Father , 86 Essential hypertension Heart disease Stroke Asthma Brother No problems noted. Maternal Grandfather Heart disease Paternal Grandfather No problems noted. Maternal Grandmother Heart disease Cancer Paternal Grandmother Heart disease Stroke Brother No problems noted. Social History Smoking/Tobacco Use Status: Never Smoking risk assessment performed?: Yes Alcohol Intake: never Drug use: Never Substance use type: does not use Caregiver/Support person: No Housing: assisted living facility Communication Needs: None Do you need help understanding health information?: Always Pets and animals: No Sexually active: No Do you think of yourself as: straight/heterosexual What is your relationship status?: never How often do you talk on the phone with friends or family?: three or more times per week How often do you get together with friends or relatives?: three or more times per week How often do you attend mormonism or baptist services?: decline to answer Do you belong to any clubs or organized social groups?: no Panel score (0-1 are the most socially isolated patients): 1 What type of physical activity do you participate in: walking Duration: < 15 minutes/day Frequency: daily Carito/Adventism: None Special carito needs: No Seatbelt use: always Drive intox or ride w/intox tower truck driver: No Do you feel safe at home: Yes Do you feel safe in your relationship?: Yes Exam Narrative Exam Narrative: Patient was not interviewed or examined Results Last Vital Signs Temp 37.3 C 12/23/22 08:10 Pulse 91 H 12/23/22 12:10 Resp 19 12/23/22 12:10 BP 110/71 12/23/22 12:10 Pulse Ox 94 12/23/22 12:10 Labs 12/23/22 05:42 12/23/22 05:42 Labs: Laboratory Results - last 24 hr 12/22/22 12/23/22 12/23/22 14:46 05:42 05:42 WBC 11.38 H RBC 4.17 Hgb 12.5 Hct 38.1 MCV 91 MCH 30.0 MCHC 32.8 RDW 13.6 Plt Count 256 MPV 10.3 Immature Gran % 0.5 Neutrophils % 71.5 Lymphocytes % 18.9 Monocytes % 7.8 Eosinophils % 0.9 Basophils % 0.4 Nucleated RBC % 0.0 Absolute Neutrophils 8.14 H Absolute Lymphocytes 2.15 Absolute Monocytes 0.89 H Absolute Eosinophils 0.10 Absolute Basophils 0.05 VBG Lactate 2.5 H* Sodium 138 Potassium 3.8 Chloride 105 Carbon Dioxide 24.2 Anion Gap 8.8 BUN 11 Creatinine 0.7 Est GFR (CKD-EPI 2020) 90.14 Glucose 149 H Calcium 8.6 Magnesium 1.7 L Troponin I < 50 C-Reactive Protein 1.49 H NT-Pro-B Natriuret Pep 818 H TSH 3.98 H Add-On Test Request 12/23/22 12/23/22 07:19 09:15 WBC RBC Hgb Hct MCV MCH MCHC RDW Plt Count MPV Immature Gran % Neutrophils % Lymphocytes % Monocytes % Eosinophils % Basophils % Nucleated RBC % Absolute Neutrophils Absolute Lymphocytes Absolute Monocytes Absolute Eosinophils Absolute Basophils VBG Lactate 1.5 H Sodium Potassium Chloride Carbon Dioxide Anion Gap BUN Creatinine Est GFR (CKD-EPI 2020) Glucose Calcium Magnesium Troponin I C-Reactive Protein NT-Pro-B Natriuret Pep TSH Add-On Test Request DONE
[2022-12-23] MEDS: Metoprolol 25 MG TAB 37.5 MG PO ×3 (13:14→23:27)
[2022-12-23] MEDS: Acetaminophen 325 MG TAB PO (14:48)
[2022-12-23] MEDS: Amiodarone 200 MG TAB 400 MG PO (19:56)
[2022-12-23] MEDS: Diclofenac 1% Gel 100 GM TUBE TP (20:14)
[2022-12-23] MEDS: risperiDONE 1 MG TAB PO (22:02)
[2022-12-23] MEDS: Insulin Glargine 300 UNITS/3 ML PEN 35 UNITS SC (22:03)
[2022-12-23] MEDS: cefTRIAXone 1 GM/50 ML BAG IVPB (23:27)
[2022-12-24] VITALS (8 sets, daily range): BP systolic 101–115; BP diastolic 62–78; PULSE 54–61; RESP 12–20; TEMP 35.6–36.7; O2SAT 93–98
[2022-12-24] MEDS: Levothyroxine 150 MCG TAB PO (05:54)
[2022-12-24 06:41] LABS: Abs Immature Grans 0.06 10^3/uL (0.0-0.06); Absolute Basophil Count 0.04 10^3/uL (0.0-0.2); Absolute Lymphocyte Count 1.77 10^3/uL (1.2-3.4); Absolute Monocyte Count 0.76 10^3/uL (0.1-0.8); Absolute Neutrophil Count 6.76 10^3/uL (1.2-6.7); Basophils % 0.4; Eosinophils % 1.1; HCT 37.3 % (36.0-46.0); HGB 12.4 g/dL (11.2-15.7); Immature Grans % 0.6; Lymphocytes % 18.7; MCH 30.2 pg (27.0-33.0); MCHC 33.2 % (32.0-36.0); MCV 91 fL (80-95); MPV 10.2 fL (8.0-11.0); Neutrophils % 71.2; Platelet Count 240 10^3/uL (130-400); RBC 4.11 10^6/uL (3.93-5.22); RDW 13.5 % (11.7-14.6); RDW-SD 44.3 fL; WBC 9.49 10^3/uL (4.4-10.8)
[2022-12-24 06:58] LABS: Anion Gap 7.6 mmol/L (3-11); BUN 7 mg/dL (7-18); C-Reactive Protein 3.95 mg/dL (0.0-0.3); CO2 25.4 mmol/L (21.0-32.0); CREATININE 0.7 mg/dL (0.55-1.02); Calcium 8.6 mg/dL (8.5-10.1); Chloride 105 mmol/L (98-107); Estimated GFR 90.14 (mL/min/1.73m2); Glucose 176 mg/dL (74-106); Magnesium 1.8 mg/dL (1.8-2.4); Potassium 3.7 mmol/L (3.5-5.1); Sodium 138 mmol/L (136-145)
[2022-12-24 07:29] LABS: Procalcitonin < 0.1 ng/mL
[2022-12-24] MEDS: Insulin Aspart 300 UNITS/3 ML PEN SC ×3 (08:45→21:42)
--- NOTE | 2022-12-24 09:38 | PT.INTREAT ---
Date of service: 12/24/22 Time of Service: 09:11 PT Notes Visit Reasons: Syncope, SVT, dehydration, PNA Inpatient Physical Therapy Treatment Note [facility] Date: 12/24/22 PRECAUTIONS: Fall, standard, activity as tolerated. Vitals monitoring. SUBJECTIVE: Patient reports fatigue, eager to participate in therapy. Reports she is hooked up to so many things. IV access noted in right forearm, no IV attatched. No Duran. No O2. OBJECTIVE: Patient supine in bed with bilateral head side rails and right middle side rail elevated. Telemetry in place. ? PAIN: none reported VITALS: monitored closely by nursing staff via telemetry. ? Therapeutic Activities ([id number]): Direct one-on-one instruction in dynamic activities to improve functional performance. ? BED MOBILITY/TRANSFERS? Rolling L/R: modified independent with bilateral side rails Supine-sit: modified independent with set up, middle side rail needs to be moved. Raised HOB. ? Sit-supine: modified independent with upper side rails. ? Sit-stand: Independent, but takes increased time. Pauses long term.? Stand-sit: independent with verbal cues to reach back for sitting surface. ? Bed-Chair: modified independent with FWW ? Chair-bed: modified independent with FWW Provided skilled cues and instruction on performance and technique throughout. Gait Training ([id number][]): Direct one-on-one instruction and skilled instruction in: [] employing an assistive device [] modified weight-bearing status [] movement sequencing [] turning and movement with proper form [] Provided verbal cues for equipment management and technique [] Provided instruction in gait pattern [] Patient education regarding pacing and breathing techniques to maximize activity tolerance? GAIT? Assistive Device: FWW ? Weight bearing: full Assist: CGA with wheelchair follow. CGA unnecessary, wheelchair follow absolutely necessary as patient tried 2x to sit without warning. With verbal cue patient paused, did not sit, did not fall or lose balance. ? Distance:? 55 feet with seated rest every 5-10 feet. ? Deviation: extreme short stride length, reduced step height, shuffling gait pattern, stiff straight back posture, no LOB, no SOB, reports needed to rest because legs and whole body are so tired. Denies pain. ? ASSESSMENT:? Patient tolerates therapy well, returns to rest in bed at end of treatment session, call carrillo in easy reach. PLAN: Continue global strengthening per plan of care until patient is medically cleared for discharge. TREATMENT CODE/TIME: 24 minutes beginning at 9:11
[2022-12-24] MEDS: Polyethylene Glycol 3350 17 GM PACKET PO (10:14)
[2022-12-24] MEDS: ALPRAZolam 0.5 MG TAB 1 MG PO ×2 (10:14→20:58)
[2022-12-24] MEDS: Apixaban 5 MG TAB PO ×2 (10:14→20:58)
[2022-12-24] MEDS: Pravastatin 20 MG TAB PO (10:14)
[2022-12-24] MEDS: Omeprazole 20 MG CAPCR PO (10:14)
[2022-12-24] MEDS: Magnesium Oxide 400 MG TAB PO ×2 (10:14→20:58)
[2022-12-24] MEDS: Normal Saline Flush 10 ML SYR IVP ×2 (10:15→23:37)
[2022-12-24] MEDS: Amiodarone 200 MG TAB 400 MG PO ×2 (10:22→20:58)
--- NOTE | 2022-12-24 14:07 | PT.INTREAT ---
PT Notes Visit Reasons: Syncope, SVT, dehydration, PNA Date: 12/24/22 ?PRECAUTIONS: Fall, standard, activity as tolerated. Vitals monitoring. ?SUBJECTIVE: Pt in bed when approached for therapy this afternoon, pt initially refused, reports feeling very tired, but agreed to sitting on the EOB after awhile. ?OBJECTIVE: Patient supine in bed with bilateral head side rails and right middle side rail elevated. Telemetry in place. ?PAIN: none reported ?VITALS: monitored closely by nursing staff via telemetry. ? Therapeutic Activities ([id number]): Direct one-on-one instruction in dynamic activities to improve functional performance. ?BED MOBILITY/TRANSFERS?Rolling L/R: modified independent with bilateral side rails ?Supine-sit: modified independent with set up, middle side rail needs to be moved. Raised HOB. ?Sit-supine: modified independent with upper side rails. ?Sit-stand: Independent?Stand-sit: independent with verbal cues to reach back for sitting surface. ?Bed-Chair: modified independent with FWW ?Chair-bed: modified independent with FWW Provided skilled?cues and instruction on performance and technique throughout. Gait Training ([id number]): Direct one-on-one instruction and skilled instruction in: [] employing an assistive device [] modified weight-bearing status [] movement sequencing [] turning and movement with proper form [] Provided verbal cues for equipment management and technique [] Provided instruction in gait pattern [] Patient education regarding pacing and breathing techniques to maximize activity tolerance? GAIT?Assistive Device: FWW ?Weight bearing: full ?Assist: CGA/SBA WC follow?Distance:?10', 20', 10' with pt taking seated rest break in between distances ?Deviation: Slow shuffling gait, stoop forward posture ? ASSESSMENT:? pt able to tolerate gait training with enough rest break in between, pt SOB initially instructed to perform DBE to help with SOB. ?PLAN: Continue global strengthening per plan of care until patient is medically cleared for discharge. ?TREATMENT CODE/TIME: 69332 x1, 49031 x1, 25 minutes beginning at 1:40-2:05pm
--- NOTE | 2022-12-24 14:25 | CHAPLAIN ---
Karuna was resting in bed when I visited. She didn't speak at first but then responded to some questions. She told me that she lives at [facility] and was moved from the ICU to her current room late last night so she was confused when she woke up this morning. Dax Harrington, who runs the [facility], send her morris here at the hospital. Karuna was pleasant and seems to be comfortable being here. She has a family members (?) with her. I will continue to visit.
--- NOTE | 2022-12-24 16:09 | PDOC.CMPRO ---
Date of service: 12/24/22 Time of Service: 16:09 Care Management Progress Note Progress Note Text Progress Note Text: S/O: Karuna continues to be closely monitored. Heart is in sinus rhythm . She continues to be treated with Amiodarone 400 mg PO BID. Karuna has been working with PT, who reports she is improving but has to rest every 5 to 10 feet. Per PT, she will likely be able to discharge back to [facility] in a few days. Patient is looking forward to returning to the assisted living facility. A: Karuna is a 76 year old female admitted to [facility] on 03/01/22 with Syncope, SVT, dehydration, PNA. P: Karuna will likely return to the [facility] once medically cleared. She will transport via private vehicle with family vs facility staff. She will follow up with her PCP and plan of care as instructed. CM will continue to follow.
--- NOTE | 2022-12-24 19:36 | W.PM.PROGNOT ---
Date of Service Date of service: 12/24/22 Time of Service: 10:30 Assessment and Plan Assessment and plan (1) Paroxysmal atrial fibrillation with rapid ventricular response: Status: Resolved Assessment and plan: Resolved - now SB - held metoprolol for HR 50's, SBP 100, asymptomatic; added parameters to order Continue oral amiodarone per cards recommendation patient now on medsurg, continue telemetry Echo completed, cardiology consult completed. Echo: Technically difficult and suboptimal study Left ventricle appears normal in size and wall thickness.? Ejection fraction is 50 to 55%.? No segmental wall motion abnormalities are identified Normal right ventricular size Left atrium is moderately dilated.? Right atrial size is normal Aortic valve is sclerotic without stenosis or regurgitation Mild mitral annular calcification.? Mild mitral regurgitation Normal tricuspid valve with mild regurgitation.? Estimated right ventricular systolic pressure is 30 mmHg Mildly dilated aortic root and ascending aorta (2) Acute respiratory failure with hypoxia: Status: Resolved Assessment and plan: With evidence of atelectasis, PNA/pneumonitis on CXR. Lungs clear today Continue abx. Await pneumonia studies (sputum for mycoplasma, sputum culture, urine antigens for legionella and strep). Encourage pulmonary toilet. (3) UTI (urinary tract infection): Status: Acute Assessment and plan: Present on admission. Urine C&S obtained while already on antibiotics. Growing<10,000 CFU GNR. Continue empiric ceftriaxone. (4) Pneumonitis: Status: Acute Assessment and plan: As above Tested negative for COVID-19 on presentation. (5) Atelectasis: Status: Acute Assessment and plan: As above (6) Hypothyroidism: Assessment and plan: Continue levothyroxine 150 mcg daily. TSH is down to 3.98 from 10.19 on presentation, likely representing acute phase reactant. (7) Hypertension: Assessment and plan: Normotensive to low currently Hold HCTZ BPs [id number] Metoprolol held Continue oral amiodarone (8) Hyperlipidemia: Assessment and plan: Continue pravastatin. (9) Diabetes mellitus: Status: Chronic Assessment and plan: Continue sliding scale insulin Qualifiers: Diabetes mellitus type: type 2 Diabetes mellitus fci insulin use: with adjunct faculty for medical terminology use Diabetes mellitus complication status: with hyperglycemia Qualified Code(s): E11.65 - Type 2 diabetes mellitus with hyperglycemia; Z79.4 - intermediate frame tender (current) use of insulin (10) DVT prophylaxis: Status: Acute Assessment and plan: On therapeutic apixaban (11) Discharge planning issues: Status: Acute Assessment and plan: DNR/DNI Continue telemetry Return to [facility] when medically stable discussed with Dr Griggs Subjective Subjective Patient reports: no new complaints, tolerating a regular diet, voiding w/o difficulty, bowel movement and afebrile; denies still having pain, diarrhea, nausea, vomiting or shortness of breath Interval history since last seen: SR-SB in the 50s. Patient reports feeling better and would like to go home, we discussed we would like to monitor her to assure the medication she is taking is the correct dose, and she will stay in a controlled rhythm. Patient denies dizziness, CP, SOB, palpitations, nausea. She is pleasant, conversant, guardian is in the room at time of visit. Exam Narrative Exam Narrative: General: Lying semi fowlers in bed HEENT: Sclera clear. Pupils equal. Mucous membranes moist Respiratory: Clear lungs. no increased WOB. speaking in full sentences Cardiac: Bradycardia, regular rhythm, S1S2 intact, no murmurs, strong distal pulses GI: abdomen soft, non-tender, non-distended Skin: Pale, moist. Neuro: Alert, normal speech, moving all extremities Extremities: No peripheral edema or calf tenderness Objective Last Vital Signs Temp 36.5 C 12/24/22 11:20 Pulse 58 L 12/24/22 11:20 Resp 20 12/24/22 11:20 BP 102/66 12/24/22 11:20 Pulse Ox 96 12/24/22 11:20 Laboratory Results - last 24 hr 12/24/22 12/24/22 12/24/22 05:55 05:55 05:55 WBC 9.49 RBC 4.11 Hgb 12.4 Hct 37.3 MCV 91 MCH 30.2 MCHC 33.2 RDW 13.5 Plt Count 240 MPV 10.2 Immature Gran % 0.6 Neutrophils % 71.2 Lymphocytes % 18.7 Monocytes % 8.0 Eosinophils % 1.1 Basophils % 0.4 Nucleated RBC % 0.0 Absolute Neutrophils 6.76 H Absolute Lymphocytes 1.77 Absolute Monocytes 0.76 Absolute Eosinophils 0.10 Absolute Basophils 0.04 Sodium 138 Potassium 3.7 Chloride 105 Carbon Dioxide 25.4 Anion Gap 7.6 BUN 7 Creatinine 0.7 Est GFR (CKD-EPI 2020) 90.14 Glucose 176 H Calcium 8.6 Magnesium 1.8 C-Reactive Protein 3.95 H Procalcitonin < 0.1 Time Spent with Patient Time Spent with Patient: 35-49 minutes Time was spent: preparing to see the patient(eg.review tests), ordering medications,tests, procedures, referring, communicating with other health complex care nurse, indepentently interpreting results, counseling the patient and care coordination
[2022-12-24] MEDS: Insulin Glargine 300 UNITS/3 ML PEN 35 UNITS SC (21:41)
[2022-12-24] MEDS: risperiDONE 1 MG TAB PO (21:41)
[2022-12-24] MEDS: Metoprolol 25 MG TAB 37.5 MG PO (23:36)
[2022-12-24] MEDS: cefTRIAXone 1 GM/50 ML BAG IVPB (23:37)
[2022-12-25] VITALS (10 sets, daily range): BP systolic 99–126; BP diastolic 60–77; PULSE 54–71; RESP 16–21; TEMP 36.1–36.7; O2SAT 93–96
[2022-12-25] MEDS: Levothyroxine 150 MCG TAB PO (06:16)
[2022-12-25] MEDS: Metoprolol 25 MG TAB 37.5 MG PO ×2 (06:19→12:01)
[2022-12-25] MEDS: Acetaminophen 325 MG TAB PO ×2 (06:19→20:43)
[2022-12-25 07:12] LABS: Abs Immature Grans 0.06 10^3/uL (0.0-0.06); Absolute Basophil Count 0.04 10^3/uL (0.0-0.2); Absolute Eosinophil Count 0.09 10^3/uL (0.0-0.7); Absolute Lymphocyte Count 1.66 10^3/uL (1.2-3.4); Absolute Monocyte Count 0.74 10^3/uL (0.1-0.8); Absolute Neutrophil Count 6.45 10^3/uL (1.2-6.7); Basophils % 0.4; HCT 37.6 % (36.0-46.0); HGB 12.3 g/dL (11.2-15.7); Immature Grans % 0.7; Lymphocytes % 18.4; MCH 29.7 pg (27.0-33.0); MCHC 32.7 % (32.0-36.0); MCV 91 fL (80-95); MPV 10.5 fL (8.0-11.0); Monocytes % 8.2; Neutrophils % 71.3; Platelet Count 258 10^3/uL (130-400); RBC 4.14 10^6/uL (3.93-5.22); RDW 13.6 % (11.7-14.6); RDW-SD 45.3 fL; WBC 9.04 10^3/uL (4.4-10.8)
[2022-12-25 07:41] LABS: Anion Gap 5.6 mmol/L (3-11); BUN 9 mg/dL (7-18); C-Reactive Protein 3.94 mg/dL (0.0-0.3); CO2 28.4 mmol/L (21.0-32.0); CREATININE 0.9 mg/dL (0.55-1.02); Calcium 8.6 mg/dL (8.5-10.1); Chloride 107 mmol/L (98-107); Estimated GFR 66.67 (mL/min/1.73m2); Glucose 151 mg/dL (74-106); Magnesium 1.8 mg/dL (1.8-2.4); Potassium 3.7 mmol/L (3.5-5.1); Sodium 141 mmol/L (136-145)
[2022-12-25] MEDS: Insulin Aspart 300 UNITS/3 ML PEN SC ×3 (09:08→21:07)
[2022-12-25] MEDS: Normal Saline Flush 10 ML SYR IVP (09:08)
[2022-12-25] MEDS: Amiodarone 200 MG TAB 400 MG PO ×2 (09:09→20:43)
[2022-12-25] MEDS: ALPRAZolam 0.5 MG TAB 1 MG PO ×2 (09:09→20:42)
[2022-12-25] MEDS: Apixaban 5 MG TAB PO ×2 (09:09→20:42)
[2022-12-25] MEDS: Pravastatin 20 MG TAB PO (09:10)
[2022-12-25] MEDS: Magnesium Oxide 400 MG TAB PO ×2 (09:10→20:42)
[2022-12-25] MEDS: Omeprazole 20 MG CAPCR PO (09:10)
[2022-12-25] MEDS: Diclofenac 1% Gel 100 GM TUBE TP (09:21)
--- NOTE | 2022-12-25 10:19 | PDOC.CMPRO ---
Date of service: 12/25/22 Time of Service: 10:19 Care Management Progress Note Progress Note Text Progress Note Text: S/O:? Karuna was working with PT when CM met with her. She is motivated to get back to the [facility] as soon as possible and is working with PT. She can't wait to get back to the and play [place]ON[place] and cards with the other residents. Anticipate pt will discharge back to [facility] tomorrow if she continues to progress with PT and is medically cleared. CM reviewed discharge planning with her [id number] who was visiting. Karuna will discharge with a 14 day cardiac event recorder. Prior auth is needed, Farzana @ [facility]. expects to have PA by tomorrow. CM will follow. A: ? Karuna is a 76 year old female admitted to [facility] on 03/01/22 with Syncope, SVT, dehydration, PNA. P:? Karuna will likely return to the [facility] once medically cleared.? 14 day Cardiac Event Recorder is needed. She will transport via private vehicle with family vs facility staff.? She will follow up with her PCP and plan of care as instructed.? CM will continue to follow. ?
--- NOTE | 2022-12-25 10:49 | PTTR_ITS ---
PT Notes Visit Reasons: Syncope, SVT, dehydration, PNA Date: 12/25/22 ?PRECAUTIONS: Fall, standard, activity as tolerated. Vitals monitoring. ?SUBJECTIVE: Pt in bed when approached for therapy this morning, pt requested to use the commode. Pt reports feeling very anxious about falling, refused to further engage with this therapist but changed her mind after [id number] came and started encouraging her to participate. ?OBJECTIVE: Telemetry in place. ? PAIN: none reported ?VITALS: monitored closely by nursing staff via telemetry. ? Therapeutic Activities (94789c1): Direct one-on-one instruction in dynamic activities to improve functional performance. ?BED MOBILITY/TRANSFERS?Rolling L/R: modified independence, able to complete given enough time ?Supine-sit: modified independent with set up, middle side rail needs to be moved. Raised HOB. ?Sit-supine: modified independent with upper side rails. ?Sit-stand: SBA?Stand-sit: independent with verbal cues to reach back for sitting surface. Stand pivot transfer going to commode: SBA Stand pivot transfer going from commode to EOB: SBA? Provided skilled?cues and instruction on performance and technique throughout. Gait Training (39690x3): Direct one-on-one instruction and skilled instruction in: [] employing an assistive device [] modified weight-bearing status [] movement sequencing [] turning and movement with proper form [] Provided verbal cues for equipment management and technique [] Provided instruction in gait pattern [] Patient education regarding pacing and breathing techniques to maximize activity tolerance? GAIT?Assistive Device: FWW ?Weight bearing: full ?Assist: CGA/SBA WC follow?Distance:?35', 25', 35' with pt taking seated rest break in between distances ?Deviation: Slow shuffling gait, stoop forward posture ? ASSESSMENT:? Pt able to increase walking distance with [id number] motivating her, pt required WC follow for feeling of security, no LOB, no SOB, Pt requested to stay in bed after session, bed repositioning moving side to side modified independence, upward movement mod A +2, pt refused further engagement. ?PLAN: Continue global strengthening per plan of care until patient is medically cleared for discharge. ?TREATMENT CODE/TIME:? 75711 x1, 83459 x2, 42 minutes beginning at 10:08- 10::50am
--- NOTE | 2022-12-25 11:22 | PGE_ITS ---
Date of Service Date of service: 12/25/22 Time of Service: 11:22 Assessment and Plan Assessment and plan (1) Paroxysmal atrial fibrillation with rapid ventricular response: Status: Resolved Assessment and plan: Resolved - now SB - held metoprolol for HR 50's, SBP 100, asymptomatic; added parameters to order Continue oral amiodarone per cards recommendation patient now on medsurg, continue telemetry Echo completed, cardiology consult completed. Echo: Technically difficult and suboptimal study Left ventricle appears normal in size and wall thickness.? Ejection fraction is 50 to 55%.? No segmental wall motion abnormalities are identified Normal right ventricular size Left atrium is moderately dilated.? Right atrial size is normal Aortic valve is sclerotic without stenosis or regurgitation Mild mitral annular calcification.? Mild mitral regurgitation Normal tricuspid valve with mild regurgitation.? Estimated right ventricular systolic pressure is 30 mmHg Mildly dilated aortic root and ascending aorta (2) Acute respiratory failure with hypoxia: Status: Resolved Assessment and plan: With evidence of atelectasis, PNA/pneumonitis on CXR. Lungs clear today Continue abx. Await pneumonia studies (sputum for mycoplasma, sputum culture, urine antigens for legionella and strep). Encourage pulmonary toilet. (3) UTI (urinary tract infection): Status: Acute Assessment and plan: Present on admission. Urine C&S obtained while already on antibiotics. Growing<10,000 CFU GNR. Continue empiric ceftriaxone. (4) Pneumonitis: Status: Acute Assessment and plan: As above Tested negative for COVID-19 on presentation. (5) Atelectasis: Status: Acute Assessment and plan: As above (6) Hypothyroidism: Assessment and plan: Continue levothyroxine 150 mcg daily. TSH is down to 3.98 from 10.19 on presentation, likely representing acute phase reactant. (7) Hypertension: Assessment and plan: Normotensive to low currently Hold HCTZ BPs [id number] Metoprolol held Continue oral amiodarone (8) Hyperlipidemia: Assessment and plan: Continue pravastatin. 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 helper (current) use of insulin (10) DVT prophylaxis: Status: Acute Assessment and plan: On therapeutic apixaban (11) Discharge planning issues: Status: Acute Assessment and plan: DNR/DNI Continue telemetry Return to [facility] when medically stable discussed with Dr Griggs Subjective Subjective Patient reports: no new complaints, feels better and afebrile; denies shortness of breath Interval history since last seen: re-ambulating with PT, remains weak but improving Exam Const General: disheveled, frail appearing and ill appearing chronically Nutritional Appearance: overweight Orientation: alert, awake and oriented x3 Resp Effort & Inspection: normal respiratory effort Cardio Rate: regular rate Rhythm: regular rhythm Neuro General: patient alert, patient awake and patient oriented x3 Extrem General: normal to inspection and full ROM Objective Last Vital Signs Temp 36.6 C 12/25/22 08:10 Pulse 61 12/25/22 08:10 Resp 20 12/25/22 08:10 BP 120/74 12/25/22 08:10 Pulse Ox 94 12/25/22 08:10 Laboratory Results - last 24 hr 12/25/22 12/25/22 06:10 06:10 WBC 9.04 RBC 4.14 Hgb 12.3 Hct 37.6 MCV 91 MCH 29.7 MCHC 32.7 RDW 13.6 Plt Count 258 MPV 10.5 Immature Gran % 0.7 Neutrophils % 71.3 Lymphocytes % 18.4 Monocytes % 8.2 Eosinophils % 1.0 Basophils % 0.4 Nucleated RBC % 0.0 Absolute Neutrophils 6.45 Absolute Lymphocytes 1.66 Absolute Monocytes 0.74 Absolute Eosinophils 0.09 Absolute Basophils 0.04 Sodium 141 Potassium 3.7 Chloride 107 Carbon Dioxide 28.4 Anion Gap 5.6 BUN 9 Creatinine 0.9 Est GFR (CKD-EPI 2020) 66.67 Glucose 151 H Calcium 8.6 Magnesium 1.8 C-Reactive Protein 3.94 H Time Spent with Patient Time Spent with Patient: 25-34 minutes Time was spent: preparing to see the patient(eg.review tests), obtaining and/or reviewing separately otained hiistory, ordering medications,tests, procedures, indepentently interpreting results, counseling the patient and care coordination
[2022-12-25] MEDS: Docusate Sodium 100 MG CAP PO ×2 (12:02→20:42)
--- NOTE | 2022-12-25 15:12 | PT.INTREAT ---
PT Notes Visit Reasons: Syncope, SVT, dehydration, PNA Date: 12/25/22 ?PRECAUTIONS: Fall, standard, activity as tolerated. Vitals monitoring. ?SUBJECTIVE: pt in bed sleeping, pt sister in law reported that she has been sleeping after she ate her lunch, agreed to getting pt woken up for therapy, pt agreed to participating with therapy after she woke up. ?OBJECTIVE:? Telemetry in place. ? PAIN: none reported ?VITALS: monitored closely by nursing staff via telemetry. ? Therapeutic Activities (40876y8): Direct one-on-one instruction in dynamic activities to improve functional performance. ?BED MOBILITY/TRANSFERS?Rolling L/R: modified independence, able to complete given enough time ?Supine-sit: modified independent with set up, middle side rail needs to be moved. Raised HOB. ?Sit-supine: modified independent with upper side rails. ?Sit-stand: SBA?Stand-sit: independent with verbal cues to reach back for sitting surface. ? Provided skilled?cues and instruction on performance and technique throughout. Gait Training (03322r1): Direct one-on-one instruction and skilled instruction in: [] employing an assistive device [] modified weight-bearing status [] movement sequencing [] turning and movement with proper form [] Provided verbal cues for equipment management and technique [] Provided instruction in gait pattern [] Patient education regarding pacing and breathing techniques to maximize activity tolerance? GAIT?Assistive Device: FWW ?Weight bearing: full ?Assist: CGA/SBA WC follow?Distance:?50', 50' with pt taking seated rest break in between distances ?Deviation: Slow shuffling gait, stoop forward posture ? ASSESSMENT:? pt very motivated by the fact that she needs to cover at least 50' of distance to be able to reach elevator from pt room in [facility], pt will still have difficulty with bed mobility if the HOB is not elevated, pt reports she will try to work as hard as possible to achieve this goal of transferring with bed flat to mirror room situation in [facility]. ?PLAN: Continue global strengthening per plan of care until patient is medically cleared for discharge. ?TREATMENT CODE/TIME:? 95688 x1, 78336 x2, 45 minutes beginning at 2:25-3:10pm
[2022-12-25] MEDS: Sennosides/Docusate Sodium TAB 1 TAB PO (20:42)
[2022-12-25] MEDS: risperiDONE 1 MG TAB PO (21:06)
[2022-12-25] MEDS: Insulin Glargine 300 UNITS/3 ML PEN 35 UNITS SC (21:06)
[2022-12-26] MEDS: Metoprolol 25 MG TAB 37.5 MG PO ×2 (00:11→05:14)
[2022-12-26] MEDS: cefTRIAXone 1 GM/50 ML BAG IVPB ×2 (00:11→23:36)
[2022-12-26] MEDS: Normal Saline Flush 10 ML SYR IVP ×3 (00:12→23:36)
[2022-12-26 04:46] VITALS: BP 114/67; PULSE 65; RESP 18; O2SAT 93
[2022-12-26] MEDS: Levothyroxine 150 MCG TAB PO (05:02)
[2022-12-26] MEDS: Bisacodyl 5 MG TABEC PO (05:02)
[2022-12-26] MEDS: Omeprazole 20 MG CAPCR PO (07:50)
[2022-12-26] MEDS: Polyethylene Glycol 3350 17 GM PACKET PO (07:51)
[2022-12-26] MEDS: ALPRAZolam 0.5 MG TAB 1 MG PO ×2 (07:51→20:03)
[2022-12-26] MEDS: Pravastatin 20 MG TAB PO (07:52)
[2022-12-26] MEDS: Magnesium Oxide 400 MG TAB PO ×2 (07:52→20:03)
[2022-12-26] MEDS: Apixaban 5 MG TAB PO ×2 (07:53→20:03)
[2022-12-26] MEDS: Docusate Sodium 100 MG CAP PO ×2 (07:53→20:03)
[2022-12-26] MEDS: Amiodarone 200 MG TAB 400 MG PO ×2 (07:53→20:04)
[2022-12-26] MEDS: Diclofenac 1% Gel 100 GM TUBE TP ×3 (07:56→20:09)
[2022-12-26 08:03] LABS: Abs Immature Grans 0.05 10^3/uL (0.0-0.06); Absolute Basophil Count 0.02 10^3/uL (0.0-0.2); Absolute Lymphocyte Count 1.73 10^3/uL (1.2-3.4); Absolute Monocyte Count 0.66 10^3/uL (0.1-0.8); Absolute Neutrophil Count 4.96 10^3/uL (1.2-6.7); Basophils % 0.3; Eosinophils % 1.3; HCT 39.1 % (36.0-46.0); HGB 12.8 g/dL (11.2-15.7); Immature Grans % 0.7; MCHC 32.7 % (32.0-36.0); MCV 92 fL (80-95); MPV 9.5 fL (8.0-11.0); Monocytes % 8.8; Neutrophils % 65.9; Platelet Count 248 10^3/uL (130-400); RBC 4.26 10^6/uL (3.93-5.22); RDW 13.8 % (11.7-14.6); RDW-SD 46.2 fL; WBC 7.52 10^3/uL (4.4-10.8)
[2022-12-26] MEDS: Insulin Aspart 300 UNITS/3 ML PEN SC ×3 (08:04→21:32)
[2022-12-26 08:13] LABS: Anion Gap 8.2 mmol/L (3-11); BUN 9 mg/dL (7-18); CO2 28.8 mmol/L (21.0-32.0); CREATININE 0.8 mg/dL (0.55-1.02); Calcium 9.3 mg/dL (8.5-10.1); Chloride 104 mmol/L (98-107); Estimated GFR 76.79 (mL/min/1.73m2); Glucose 168 mg/dL (74-106); Magnesium 1.9 mg/dL (1.8-2.4); Potassium 4.1 mmol/L (3.5-5.1); Sodium 141 mmol/L (136-145)
[2022-12-26 08:49] VITALS: BP 123/75; PULSE 56; RESP 18; TEMP 36.2; O2SAT 93
[2022-12-26] MEDS: Bisacodyl 10 MG SUPP PR (10:08)
--- NOTE | 2022-12-26 10:30 | PT.INTREAT ---
Date of service: 12/26/22 Time of Service: 10:10 PT Notes Visit Reasons: Syncope, SVT, dehydration, PNA Inpatient Physical Therapy Treatment Note [facility] Date: 12/26/22 PRECAUTIONS: Fall, standard, activity as tolerated SUBJECTIVE: Patient reports she can't participate in therapy right now because her nurse just gave her an enema. Per FIDELIA Chowdary, patient was given a suppository and walking will help it work. Subsequently, patient is agreeable to therapy. OBJECTIVE: Patient sidelying in bed, agreeable to therapy.? PAIN: none reported VITALS: monitored by nursing staff. ?? ? BED MOBILITY/TRANSFERS? Rolling L/R: independent Supine-sit: mod assist of one via handhold for patient to pull up? Sit-supine: independent ? Sit-stand: independent? Stand-sit: independent? Bed-Chair: independent ? Chair-bed: independent Provided skilled cues and instruction on performance and technique throughout. ? Therapeutic Exercises (67749t2): Direct one-on-one instruction in therapeutic exercises to develop strength, endurance, range of motion and flexibility. ?Ambulation ? Assistive Device: fww ? Weight bearing: full Assist: SBA with wheelchair follow? Distance:? 3x 25 feet, seated rests between.? Deviation: reduced geovani, reduced step length, bent forward at hips. Reports pain in foot at first rest, requests sneakers from in her room. Reports pain much reduced once sneakers are in place. ? ASSESSMENT:? Patient tolerates therapy well, returns to supine in bed at end of therapy, call carrillo in easy reach. PLAN: Continue global strengthening per plan of care. TREATMENT CODE/TIME: 19 minutes beginning at 10:10
[2022-12-26 11:42] VITALS: BP 126/68; PULSE 57; RESP 18; TEMP 36.6; O2SAT 95
--- NOTE | 2022-12-26 12:40 | W.PM.PROGNOT ---
Date of Service Date of service: 12/26/22 Time of Service: 12:40 Assessment and Plan Assessment and plan (1) Paroxysmal atrial fibrillation with rapid ventricular response: Status: Resolved Assessment and plan: -Resolved - now SB -have been holding metoprolol for HR 50's, SBP 100, asymptomatic; added parameters to order -will assess last 24-36hr need for metop and adjust HS dose of possible transtion to long-acting or possible hold beta gamaliel all together now that amio is on board -Continue oral amiodarone per cards recommendation (2) Acute respiratory failure with hypoxia: Status: Resolved Assessment and plan: -continue to encourage pulmonary toilet (3) UTI (urinary tract infection): Status: Acute Assessment and plan: -Present on admission. -Urine C&S obtained while already on antibiotics. Growing<10,000 CFU GNR. -Continue empiric ceftriaxone. (4) Pneumonitis: Status: Acute Assessment and plan: -As above -Tested negative for COVID-19 on presentation. (5) Atelectasis: Status: Acute Assessment and plan: -As above (6) Hypothyroidism: Assessment and plan: -Continue levothyroxine 150 mcg daily. -TSH is down to 3.98 from 10.19 on presentation, likely representing acute phase reactant. (7) Hypertension: Assessment and plan: -Normotensive to low currently -Hold HCTZ -BPs [id number] -Continue oral amiodarone (8) Hyperlipidemia: Assessment and plan: Continue pravastatin. (9) Diabetes mellitus: Status: Chronic Assessment and plan: Continue sliding scale insulin Qualifiers: Diabetes mellitus type: type 2 Diabetes mellitus nursing home insulin use: with director long term care use Diabetes mellitus complication status: with hyperglycemia Qualified Code(s): E11.65 - Type 2 diabetes mellitus with hyperglycemia; Z79.4 - long term care social worker (current) use of insulin (10) DVT prophylaxis: Status: Acute Assessment and plan: On therapeutic apixaban (11) Discharge planning issues: Status: Acute Assessment and plan: DNR/DNI Continue telemetry Return to [facility] when medically stable Will need [employer] at discharge Subjective Subjective Patient reports: no new complaints Interval history since last seen: Patient states that she is feeling better today. She understands the plan to continue to monitor her HR and titrate her rate control medications. Exam Narrative Exam Narrative: Well appearing older female laying in bed in no acute distress, AOx4, heart RRR, lungs CTAB Objective Last Vital Signs Temp 97.9 F 12/26/22 11:42 Pulse 57 L 12/26/22 11:42 Resp 18 12/26/22 11:42 BP 126/68 12/26/22 11:42 Pulse Ox 95 12/26/22 11:42 Laboratory Results - last 24 hr 12/26/22 12/26/22 12/26/22 08:00 08:00 08:00 WBC 7.52 RBC 4.26 Hgb 12.8 Hct 39.1 MCV 92 MCH 30.0 MCHC 32.7 RDW 13.8 Plt Count 248 MPV 9.5 Immature Gran % 0.7 Neutrophils % 65.9 Lymphocytes % 23.0 Monocytes % 8.8 Eosinophils % 1.3 Basophils % 0.3 Nucleated RBC % 0.0 Absolute Neutrophils 4.96 Absolute Lymphocytes 1.73 Absolute Monocytes 0.66 Absolute Eosinophils 0.10 Absolute Basophils 0.02 Sodium 141 Potassium 4.1 Chloride 104 Carbon Dioxide 28.8 Anion Gap 8.2 BUN 9 Creatinine 0.8 Est GFR (CKD-EPI 2020) 76.79 Glucose 168 H Calcium 9.3 Magnesium 1.9 Cancelled Time Spent with Patient Time Spent with Patient: >50 minutes (55min) Time was spent: preparing to see the patient(eg.review tests), obtaining and/or reviewing separately otained hiistory, referring, communicating with other health care transition coordinator, indepentently interpreting results, counseling the patient and care coordination
--- NOTE | 2022-12-26 13:48 | CMPROGNOTE_ITS ---
Date of service: 12/26/22 Time of Service: 13:48 Care Management Progress Note Progress Note Text Progress Note Text: S/O:? Karuna remains motivated to get back to the [facility] as soon as possible and is making progress with PT.? Karuna continues to require close monitoring and may be medically ready for discharge tomorrow. At this time, Karuna is expected to discharge back to the with a 14 day cardiac event recorder in which the PA if needed will be provided by her PCP Office ([facility]). ALINE has discussed need for PA with [facility] several times since yesterday and Maria De Jesus insists a PA is not needed since she has Medicare. CM communicated information to RT and will follow. A: ? Karuna is a 76 year old female admitted to [facility] on 03/01/22 with Syncope, SVT, dehydration, PNA. P:? Karuna will likely return to the [facility] once medically cleared.? 14 day Cardiac Event Recorder is needed. PA not needed per PCP office, RT is notified. Karuna will transport via private vehicle with family vs facility staff.? She will follow up with her PCP and plan of care as instructed.? CM will continue to follow.
--- NOTE | 2022-12-26 15:30 | PT.INTREAT ---
PT Notes Visit Reasons: Syncope, SVT, dehydration, PNA Date: 12/26/22 ?PRECAUTIONS: Fall, standard, activity as tolerated. Vitals monitoring. ?SUBJECTIVE: pt in recliner when approached for therapy this afternoon, pt requested to go to bed to lay down but was able to redirect to participate with gait training before going to bed. ?OBJECTIVE:? Telemetry in place. ? PAIN: none reported ?VITALS: monitored closely by nursing staff via telemetry. ? Therapeutic Activities (68346m1): Direct one-on-one instruction in dynamic activities to improve functional performance. ?BED MOBILITY/TRANSFERS?Rolling L/R: modified independence, able to complete given enough time ?Supine-sit: modified independent with set up ?Sit-supine: modified independent with upper side rails. ?Sit-stand: CGA?with cue to push on bed vs. pull on FWW?Stand-sit: independent with verbal cues to reach back for sitting surface. ? Provided skilled?cues and instruction on performance and technique throughout. Gait Training (07228g6): Direct one-on-one instruction and skilled instruction in: [x] employing an assistive device [] modified weight-bearing status [x] movement sequencing [x] turning and movement with proper form [x] Provided verbal cues for equipment management and technique [x] Provided instruction in gait pattern [x] Patient education regarding pacing and breathing techniques to maximize activity tolerance? GAIT?Assistive Device: FWW ?Weight bearing: full ?Assist: SBA WC follow?Distance:?120' with pt able to go the entire distance without seated rest.?Deviation: Slow shuffling gait, stoop forward posture ? ASSESSMENT:? pt very engaged and motivated to complete set goals for distance to show that she could function independently whenshe goes home, pt still anxious about walking by herself and stil request for WC follow to improve confidence with activity. ?PLAN: Continue global strengthening per plan of care until patient is medically cleared for discharge. ?TREATMENT CODE/TIME:? 66273 x1, 45074 x2, 27minutes beginning at 3:01-3:28pm
[2022-12-26 15:39] VITALS: BP 135/81; PULSE 61; RESP 18; TEMP 36.7; O2SAT 94
[2022-12-26 19:09] VITALS: BP 124/80; PULSE 68; RESP 16; TEMP 37.7; O2SAT 94
[2022-12-26] MEDS: Acetaminophen 325 MG TAB PO (20:03)
[2022-12-26] MEDS: Sennosides/Docusate Sodium TAB 1 TAB PO (20:04)
[2022-12-26] MEDS: Insulin Glargine 300 UNITS/3 ML PEN 35 UNITS SC (21:31)
[2022-12-26] MEDS: risperiDONE 1 MG TAB PO (21:32)
[2022-12-26 22:42] VITALS: BP 112/62; PULSE 64; RESP 16; TEMP 36.6; O2SAT 94
[2022-12-27 03:09] VITALS: BP 113/72; PULSE 62; RESP 18; TEMP 36.9; O2SAT 94
[2022-12-27] MEDS: Levothyroxine 150 MCG TAB PO (06:09)
[2022-12-27] MEDS: Omeprazole 20 MG CAPCR PO (07:18)
[2022-12-27 07:26] VITALS: BP 127/74; PULSE 70; RESP 18; TEMP 36.6; O2SAT 92
[2022-12-27] MEDS: Insulin Aspart 300 UNITS/3 ML PEN SC (08:13)
[2022-12-27] MEDS: Polyethylene Glycol 3350 17 GM PACKET PO (08:15)
[2022-12-27] MEDS: Diclofenac 1% Gel 100 GM TUBE TP (08:15)
[2022-12-27] MEDS: Docusate Sodium 100 MG CAP PO (08:15)
[2022-12-27] MEDS: Amiodarone 200 MG TAB 400 MG PO (08:15)
[2022-12-27] MEDS: Magnesium Oxide 400 MG TAB PO (08:16)
[2022-12-27] MEDS: Apixaban 5 MG TAB PO (08:16)
[2022-12-27] MEDS: ALPRAZolam 0.5 MG TAB 1 MG PO (08:16)
[2022-12-27] MEDS: Pravastatin 20 MG TAB PO (08:16)
[2022-12-27 08:33] VITALS: O2SAT 96
--- NOTE | 2022-12-27 09:26 | W.PM.DS.N ---
Date of service: 12/27/22 Time of Service: 09:26 DS: Diagnosis Discharge Diagnosis (1) Paroxysmal atrial fibrillation with rapid ventricular response: Status: Resolved Asessment and Plan: -Resolved - now SB -have been holding metoprolol for HR 50's, SBP 100, asymptomatic; metoprolol discontinued -discharged on amio taper dose as recommended by Cardiology (2) Acute respiratory failure with hypoxia: Status: Resolved Asessment and Plan: -likely secondary to a-fib RVR, resolved at discharge (3) UTI (urinary tract infection): Status: Acute Asessment and Plan: -patient completed antibiotic course during hospitalization (4) Pneumonitis: Status: Acute (5) Atelectasis: Status: Acute (6) Hypothyroidism: (7) Hypertension: (8) Hyperlipidemia: (9) Diabetes mellitus: Status: Chronic Discharge Plan Disposition Patient Disposition: Home W/Home Health Services Condition: Stable Discharge Details Reason For Visit: Syncope, SVT, dehydration, PNA Admit Date/Time: 12/21/22 20:46 Admit Provider: Judson Perkins Attending Provider: Judson Perkins Primary Care Provider: Charlene Paige Hospital Course Hospital Course: Patient initially presented with lightheadedness and dizziness secondary to a-fib with RVR and UTI. She required multiple rate control medications but ultimately converted to sinus rhythm after IV amio bolus and transition to 400mg PO BID. She was intially also on Q6hr PO lopressor but was borderline bradycardic thus lopressor was discontinued. Home Meds and New Rx's Prescriptions: New amiodarone 200 mg tablet See Rx Instructions .ROUTE .COMPLEX Qty: 90 0RF Rx Instructions: 400 mg orally BID through 01/06, then 200mg BID through 01/20, then 200mg daily Continued sennosides-docusate sodium 8.6-50 mg tablet 1 tab PO HS PRN (Reason: constipation) Qty: 90 3RF polyethylene glycol 3350 [Miralax] 17 gram/dose powder 17 gm PO DAILY PRN (Reason: constipation) Qty: 510 2RF diclofenac sodium [Voltaren] 1 % gel 4 g topical TID Qty: 100 12RF Rx Instructions: apply to thoracic back area TID insulin glargine [Lantus Solostar U-100 Insulin] 100 unit/mL (3 mL) insulin pen 35 unit subcut HS miconazole (bulk) 100 GM powder 1 stacie Miscellaneous PRN Patient Comments: 09/02/17 Miconozole topical powder 2%, apply to right groin area daily PRN. DL (DME) blood-glucose meter [OneTouch Verio IQ Meter] Kit See Rx Instructions .ROUTE .MEDSUPPLY Qty: 1 0RF Rx Instructions: As directed- BID testing- Insulin dependent Soothe and Cool Inzo Barrier 5 % cream 1 applic TP TID-QID PRN (Reason: skin irritation) Qty: 118.29 3RF (DME) pen needle, diabetic [Pen Needle] 31 gauge x 5/16 needle 1 ndl SQ DAILY Qty: 100 4RF Rx Instructions: USE WITH LANTUS PEN cyanocobalamin (vitamin B-12) [Vitamin B-12] 1,000 mcg tablet 500 mcg PO DAILY Qty: 90 4RF nystatin 100,000 unit/gram powder 1 applic Topical BID PRN (Reason: dermatitis) Vicks Vaporub 4.7-1.2-2.6 % ointment 1 applic TP BID PRN (Reason: congestion) Qty: 50 0RF Rx Instructions: Patient may keep in her room and self apply as directed risperidone 1 mg tablet 1 mg PO HS Qty: 30 11RF Eliquis 5 mg tablet 5 mg PO BID Qty: 180 2RF levothyroxine 150 mcg tablet 150 mcg PO DAILY Qty: 90 3RF Rx Instructions: note dose change to 150 mcg daily (stop the 175 mcg) alprazolam 1 mg tablet 1 mg PO BID MDD 2mg Qty: 180 1RF (DME) Blood Glucose Test Strip 1 strip Miscellaneous QID Qty: 200 3RF Rx Instructions: FOR ONE TOUCH Verio IQ METER. Dx: E11.65 on insulin -BID calcium carbonate [Tums] 200 mg calcium (500 mg) tablet,chewable 400 mg PO BID Qty: 120 11RF Ocuvite Adult 50 Plus 250-5-1 mg capsule 1 cap PO DAILY Qty: 90 3RF acetaminophen 500 mg tablet 1,000 mg PO BID Qty: 120 11RF (DME) lancets [OneTouch Delica Lancets] 33 gauge misc See Dose Instructions .ROUTE .MEDSUPPLY Qty: 200 4RF Dose Instruction: As directed Rx Instructions: BID glucose finger testing - E11.65 (on insulin) famotidine [Pepcid] 40 mg Tablet 40 mg DAILY benzonatate 100 mg Capsule 100 mg PO PRN PRN omeprazole 20 mg Capsule,Delayed Release(Dr/Ec) 20 mg DAILY pravastatin 20 mg Tablet 20 mg DAILY magnesium oxide 400 mg (241.3 mg magnesium) Tablet 400 mg PO BID Qty: 60 0RF Discontinued hydrochlorothiazide 12.5 mg tablet 12.5 mg PO DAILY Qty: 90 3RF metoprolol succinate 100 mg Tablet Extended Release 24 Hr 100 mg PO DAILY Qty: 30 0RF lisinopril 10 mg Tablet 10 mg PO DAILY Discharge Instructions Instructions: Amiodarone (By mouth), A-fib (Atrial Fibrillation) (DC) Stand Alone Forms: Nursing Discharge Form Referrals: Charlene Paige [Primary Care Provider] - 12/31/22 2:30 pm (Your appointment will be with Dr. Abbott) Activity:: Activity as Tolerated Equipment/Supplies:: No Equipment Needed Diet:: As Tolerated Discharge Orders Discharge Orders: Discharge Order (Routine); Ordered 12/27/22 Ordered By: Jay Glaser Discharge Data Discharge Date/Time-TO BE ENTERED AT DEPARTURE: 12/27/22 10:55 DS: Summary Time Spent with Patient providing and/or coordinating discharge services: Greater than 30 minutes (35min) Status at Discharge Functional status at discharge: uses cane/walker Overall status at discharge: patient is back to baseline Mental Status: mental status grossly normal Speech and Movement: speech and movement normal Mood: congruent mood Affect: normal affect Exam Narrative Exam Narrative: Well appearing older female sitting up in the chair in no acute distress, AOx4, heart RRR, lungs CTAB Psych Mental Status: mental status grossly normal Speech and Movement: speech and movement normal Mood: congruent mood Affect: normal affect DS: Data Vitals/I&O Vitals and I&O: Vital Signs Temperature 97.9 F 12/27/22 07:26 Temperature Source Tympanic 12/27/22 07:26 Pulse 70 12/27/22 07:26 Pulse Rhythm Regular 12/27/22 08:42 Pulse 54 L 12/24/22 02:00 Respiratory Rate 18 12/27/22 07:26 Respiratory Effort Normal, Non-Labored 12/27/22 08:42 Respiratory Depth Normal 12/27/22 08:42 Respiratory Pattern Normal 12/27/22 08:42 Blood Pressure 127/74 12/27/22 07:26 Blood Pressure Mean 75 12/24/22 00:01 Blood Pressure Position Supine 12/23/22 20:30 Pulse Oximetry 96 12/27/22 08:33 Oxygen Delivery Method Room Air 12/27/22 08:33 Oxygen Flow Rate 0 12/27/22 08:33 Pain Level 0 12/27/22 07:26 Comment pain in left middle finger 12/24/22 19:38 Intake & Output 12/26/22 12/27/22 12/27/22 17:59 05:59 17:59 Intake Total 50 / 50 50 / 100 910 / 910 Output Total 1000 / 1000 400 / 400 Balance -950 / -950 50 / -900 510 / 510 Intake: IV 50 / 50 50 / 100 50 / 50 Oral 860 / 860 Output: Urine 1000 / 1000 400 / 400 Other: Urine Color Yellow Yellow Yellow Urine Appearance Clear Clear Clear Urine Odor None Comment unmeasured Stool Size Large Small Stool Characteristics Hard Formed Voiding Methods Bedside Commode Bedside Commode Bedside Commode Incontinent Data Completed and Pending Labs on day of discharge: Preliminary micro results at discharge 12/22/22 08:25 Blood Culture - Preliminary Blood NO GROWTH 96 HOURS 12/22/22 08:37 Blood Culture - Preliminary Blood NO GROWTH 96 HOURS PFSH All Active Problems Pneumonitis (Acute) Atelectasis (Acute) DVT prophylaxis (Acute) Discharge planning issues (Acute) Atrial fibrillation with RVR (Acute) Infection due to ESBL-producing Escherichia coli (Acute) Hypomagnesemia (Acute) UTI (urinary tract infection) (Acute) Hypokalemia (Acute) Hypomagnesemia (Acute) Back pain of thoracolumbar region (Acute) Hypokalemia (Acute) Kyphosis (acquired) (postural) (Acute) Perirectal inflammation (Acute) 03/30/2019-from fecal incontinence Loose stools (Acute) Cerumen debris on tympanic membrane of both ears (Acute) Constipation, unspecified (Acute) History of umbilical hernia repair (Acute) Status post dilation and curettage (Acute) Status post laparoscopic hysterectomy (Acute) Excessive cerumen in both ear canals (Chronic) Anxiety and depression (Chronic) Diabetes mellitus (Chronic 07/21/12) Atrial fibrillation with RVR (Acute 09/09/17) Dx by EKG on 08/21/17, [id number] = 2, anti-coagulated on Eliquis Tubular adenoma (Acute 10/17/14) 10/03/14; DR. ALICIA;1 tubulovillous adenoma and 2 tubular adenoma Primary osteoarthritis of both knees (Acute) Morbid obesity with BMI of 40.0-44.9, adult (Acute) Hypothyroidism (acquired) (Acute 11/03/12) Hyperlipidemia associated with type 2 diabetes mellitus (Acute) REFUSES RX Hearing loss (Acute) A.D. Gastroesophageal reflux (Chronic 10/01/13) Essential hypertension (Acute 02/01/13) Depressive disorder (Acute) anxiety Cognitive deficits (Acute 08/05/17) Anxiety associated with depression (Acute 07/21/17) Atrial fibrillation with rapid ventricular response (Acute) History of psychiatric disorder (Acute) Medical History Depression Diabetes DNI (do not intubate) DNR (do not resuscitate) GERD (gastroesophageal reflux disease) Hyperlipidemia Hypertension Hypothyroidism Morbid obesity with BMI of 40.0-44.9, adult Osteoarthritis POLST (Physician Orders for Life-Sustaining Treatment) Surgical History Dilation and curettage (~1995) Hysterectomy, Laproscopic Repair of umbilical hernia Family History Mother Essential hypertension Heart disease Father , 86 Essential hypertension Heart disease Stroke Asthma Brother No problems noted. Maternal Grandfather Heart disease Paternal Grandfather No problems noted. Maternal Grandmother Heart disease Cancer Paternal Grandmother Heart disease Stroke Brother No problems noted. Social History Smoking/Tobacco Use Status: Never Smoking risk assessment performed?: Yes Alcohol Intake: never Drug use: Never Substance use type: does not use Caregiver/Support person: No Housing: assisted living facility Communication Needs: None Do you need help understanding health information?: Always Pets and animals: No Sexually active: No Do you think of yourself as: straight/heterosexual What is your relationship status?: never How often do you talk on the phone with friends or family?: three or more times per week How often do you get together with friends or relatives?: three or more times per week How often do you attend zoroastrian or quaker services?: decline to answer Do you belong to any clubs or organized social groups?: no Panel score (0-1 are the most socially isolated patients): 1 What type of physical activity do you participate in: walking Duration: < 15 minutes/day Frequency: daily Carito/Presybeterian: None Special carito needs: No Seatbelt use: always Drive intox or ride w/intox company tanker truck driver: No Do you feel safe at home: Yes Do you feel safe in your relationship?: Yes Time Spent with Patient Time Spent with Patient: <45 minutes (35min) Time was spent: preparing to see the patient(eg.review tests), obtaining and/or reviewing separately otained hiistory, referring, communicating with other health career development coordinator/teacher, indepentently interpreting results, counseling the patient and care coordination
--- NOTE | 2022-12-27 09:37 | PT.INTREAT ---
Date of service: 12/27/22 Time of Service: 09:22 PT Notes Visit Reasons: Syncope, SVT, dehydration, PNA Inpatient Physical Therapy Treatment Note [facility] Date: 12/27/22 PRECAUTIONS: Fall, standard, activity as tolerated. SUBJECTIVE: Patient asks, Can I go home? Reports that once home, eventually she will just use a cane to get around, but right now feels that she needs the walker, which she also has at home. OBJECTIVE: Sitting up in recliner with legs elevated.? PAIN: none reported VITALS: closely monitored by nursing staff via telemetry. ? ? ? BED MOBILITY/TRANSFERS? Rolling L/R: not assessed Supine-sit: not assessed ? Sit-supine: not assessed ? Sit-stand: independent ? Stand-sit: independent ? Bed-Chair: independent ? Chair-bed: independent Neuromuscular Re-education ([id number]): Activities that facilitate re-education of movement balance, posture, coordination, and proprioception or kinesthetic sense, requiring skilled tactile and verbal cues ? Exercises/techniques: 230' ambulation with FWW and SBA, verbal cues for posture, breathing. Dynamic challenges including head turns while ambulating, carrying a conversation. Other dynamic standing balance challenges including bending to pick objects up from floor, which patient is able to demonstrate good safety awareness as well as awareness of her individual challenges. ASSESSMENT:? Patient appears to tolerate therapy well, becomes mildly short of breath with exertion. Returns to rest in recliner. NICO Donnelly present. PLAN: Continue global strengthening per plan of care until patient is able to discharge back to the [facility]. TREATMENT CODE/TIME: 14 minutes beginning at 9:22
--- NOTE | 2022-12-27 09:46 | PDOC.CMDIS ---
Date of service: 12/27/22 Time of Service: 09:46 LACE Index Scoring Tool Questions: Length of Stay (in days): 4 - 6 Was the patient admitted via the E.D.?: Yes Comorbidities: Diabetes w/o Complication E.D. Visits: 1 Answers: Total Score: 9 Risk of Readmission: Low Risk Care Management Discharge Plan Reason for Hospitalization: Paroxysmal atrial fibrillation with rapid ventricular response Discharge Plan: Karuna is discharged back to the [facility]/Assisted living facility where she resides. A Cardiac event recorder and [facility] PT service is ordered. Karuna will follow up with community providers and her discharge plan of care as instructed. She will be driven via private vehicle with her [id number]. CM notified nurse Familia that return back to the [facility] is planned within the hour. Patient/Family Education Needs: Review discharge instructions, limitations, medications and plan to follow up with community providers. Discuss ask me three and goals of self care. Services Needed at Discharge: Home Health Care Services ([facility] PT)
--- NOTE | 2022-12-27 10:31 | PDOC.HHF2F ---
Home Health Referral Home Health Orders Clinical synopsis of why skilled professionals are needed: Patient is deconditioned due to UTI and periods of rapid a-fib requiring physical therapy services Medical diagnosis necessitation home health referral: Deconditioning A-fib with RVR UTI Registered Nurse: Check all that apply Assess for exacerbation of medical condition, instruct patient/caregivers on signs and symptoms to report for early detection: Ordered Physical Therapist: Check all that apply Increase strength & endurance for safe mobility at home: Ordered To design/establish home maintenance program: Ordered Home safety evaluation and teaching/gait training including stair management (if applicable): Ordered Occupational Therapist: Evaluate and treat for patient unable to perform ADL/IADL/self-care: Ordered Home Bound Status Requires the aid of supportive device (check all that apply): Cane and Walker Describe why leaving home would require a considerable and taxing effort: Confusion Encounter Date and Reason: I certify that a FTF encounter for this patient was performed on December 27, 2022 and that such encounter was related to the primary reason the patient requires home health services. The encounter was conducted in the following manner: By me as the certifying physician, KILN OPERATOR HELPER, PA or By an inpatient physician, KILN OPERATOR HELPER or PA during an inpatient stay who communicated findings to me, Certification And Authentication I certify that I composed the above information based on my clinical judgment relating to this patient's medical condition and, if applicable, clinical findings communicated to me by the NPP or inpatient physician who performed the FTF encounter. Name of Provider that will be monitoring home health services: Jay Glaser
[2022-12-27 15:37] LABS: Hemoglobin A1C 8.4 % (<5.7)
--- NOTE | 2022-12-30 09:01 | IN_ITS ---
PT Notes Visit Reasons: Syncope, SVT, dehydration, PNA Physical Therapy Discharge Summary Date: 12/30/2022 Dates of Service: 12/23/2022 through 12/27/2022 Referring Doctor: Rain Griggs MD PT Orders: PT CONSULT: Limited Ability Precautions: Fall. Standard. Activity as tolerated. Patient Profile/Admitting Diagnosis:? Karuna is a 77 yo female that presented to the ER on 12/21/22 for fatigue, lightheadedness, and rapid heart rate. Was in SVT and cardiac conversion was performed. Patient admitted and vitals closely monitored in ICU. Social History/Home Situation: Lives at [facility], ambulates with cane. Equipment Owned/DME: Cane Subjective:? NT. See most recent HALFWAY HOUSE COUNSELOR notes. Objective:? General Observation: NT. See most recent HALFWAY HOUSE COUNSELOR notes. Mental Status: NT. See most recent HALFWAY HOUSE COUNSELOR notes. Pain: NT. See most recent HALFWAY HOUSE COUNSELOR notes. ROM: Right Upper Extremity: Shoulder Flexion WFL. Shoulder abduction WFL. Elbow flexion WFL. Wrist flexion WFL. Opening and closing of hand WFL. Left Upper Extremity: Shoulder Flexion WFL. Shoulder abduction WFL. Elbow flexion WFL. Wrist flexion WFL. Opening and closing of hand WFL. Right Lower Extremity: Hip flexion WFL. Hip abduction WFL. Knee flexion WFL. Ankle dorsiflexion WFL. Ankle plantarflexion WFL. Left Lower Extremity: Hip flexion WFL. Hip abduction WFL. Knee flexion WFL. Ankle dorsiflexion WFL. Ankle plantarflexion WFL. Strength: Right Upper Extremity: Grossly 4/5. Weak paint line production supervisor. Left Upper Extremity: Grossly 4/5. Weak paint line production supervisor. Right Lower Extremity: Grossly 4/5. Left Lower Extremity: Grossly 4/5. Sensation:? Intact as to pain and pressure on bilateral lower extremities. Bed Mobility/Transfers: ?Sit-stand: independent ?Stand-sit: independent ?Bed-Chair: independent ?Chair-bed: independent Gait:?Ambulated 5 feet in room with FWW Balance:? Static Sitting: Fair Dynamic Sitting: Poor Static Standing: Fair Dynamic Standing: Poor Special Tests: Mobility Limitations Standardized Measure [facility]-PAC 6 clicks Basic Mobility Inpatient Short Form: Raw Score: 13 ? CMS Score: 65% Informed Consent/Education:?Patient instructed in purpose of PT consult and plan of care. Assessment: Karuna was able to do most of bed mobility from elevated head of bed position. She reported feeling off and weak. Bed is taller than her ability to touch floor from seated so she had to slide to standing. Was able to walk across to chair and have a seat. Generally weak with 4/5 strength throughout. Endurances are poor overall. Would benefit from placement to regain strength and conditioning prior to returning to [facility].Left sitting up in chair in care of nursing for washing. Patient presents with clinical signs and symptoms consistent with current/admitting diagnoses that have resulted to mobility limitations, gait instability, generalized weakness, and impairment of motor control as demonstrated by the following impairment level findings: 1. Decreased strength to all major muscle groups 2. Impaired sitting/standing balance 3. Impaired activity tolerance Impairments are contributing to the following functional limitations: 1. Increased need for assist with bed mobility skills 2. Increased need for assist with transfers 3. Inability to safely ambulate without assistive device and physical assistance 4. Increase completion time for mobility ADL performance 5. Increased fall risk Patient is assessed as a Moderate complexity based on the following: History: 77 year old female with impairment level findings, functional limitations, and past medical history as indicated above Examination: Demonstrable impairment in strength, balance, and mobility level with underlying impairments and functional limitations as documented above Presentation: Evolving Decision Making: Moderate complexity Goals: Goals x1 week 1. Supine-Sit: independent 2. Sit-Supine: independent 3. Sit-Stand: independent 4. Stand-Sit: independent 5. Independent gait on level surface with use of least restrictive device for at least 100 feet without report of pain nor dyspnea Plan of Care/Treatment Plan: 1-2x/day, 7 days/week x1 week. Plan of care has been reviewed with the HALFWAY HOUSE COUNSELOR providing the service under Physical Therapy direction. Initiate Physical Therapy intervention for strengthening, bed mobility, transfers, gait, stairs, balance training, and use of assistive device. Discharge Plan DISCHARGE RECOMMENDATIONS: SNF for continued rehabilitation to regain strength and endurance vs home with HHPT if shows adequate improvement to independence TREATMENT CODE/TIME: 9:20-9:42 (22 minutes), [id number] Thank you for the opportunity to participate in the care of this patient.
--- NOTE | 2022-12-30 09:07 | PT.INDS ---
PT Notes Visit Reasons: Syncope, SVT, dehydration, PNA Physical Therapy Discharge Summary Date: 12/30/2022 Dates of Service: 12/23/2022 through 12/27/2022 Referring Doctor: aRin Griggs MD PT Orders: PT CONSULT: Limited Ability Precautions: Fall. Standard. Activity as tolerated. Patient Profile/Admitting Diagnosis:? Karuna is a 77 yo female that presented to the ER on 12/21/22 for fatigue, lightheadedness, and rapid heart rate. Was in SVT and cardiac conversion was performed. Skilled PT services were provided on the dates above to address functional impairments and deficits listed below. Social History/Home Situation: Lives at [facility], ambulates with cane. Equipment Owned/DME: Cane Subjective:? NT. See most recent AMERICAN INDIAN STUDIES PROFESSOR notes. Objective:? General Observation: NT. See most recent AMERICAN INDIAN STUDIES PROFESSOR notes. Mental Status: NT. See most recent AMERICAN INDIAN STUDIES PROFESSOR notes. Pain: NT. See most recent AMERICAN INDIAN STUDIES PROFESSOR notes. ROM: Right Upper Extremity: Shoulder Flexion WFL. Shoulder abduction WFL. Elbow flexion WFL. Wrist flexion WFL. Opening and closing of hand WFL. Left Upper Extremity: Shoulder Flexion WFL. Shoulder abduction WFL. Elbow flexion WFL. Wrist flexion WFL. Opening and closing of hand WFL. Right Lower Extremity: Hip flexion WFL. Hip abduction WFL. Knee flexion WFL. Ankle dorsiflexion WFL. Ankle plantarflexion WFL. Left Lower Extremity: Hip flexion WFL. Hip abduction WFL. Knee flexion WFL. Ankle dorsiflexion WFL. Ankle plantarflexion WFL. Strength: Right Upper Extremity: Grossly 4/5. Weak media marketing coordinator. Left Upper Extremity: Grossly 4/5. Weak media marketing coordinator. Right Lower Extremity: Grossly 4/5. Left Lower Extremity: Grossly 4/5. Sensation:? Intact as to pain and pressure on bilateral lower extremities. Bed Mobility/Transfers: ?Sit-stand: independent ?Stand-sit: independent ?Bed-Chair: independent ?Chair-bed: independent GAIT?Assistive Device: FWW ?Weight bearing: full ?Assist: SBA WC follow?Distance:?120' with pt able to go the entire distance without seated rest.?Deviation: Slow shuffling gait, stoop forward posture ? Balance:? Static Sitting: Fair Dynamic Sitting: Poor Static Standing: Fair Dynamic Standing: Poor Assessment: Significant functional mobility outcomes achieved during this episode of care. She will benefit from PT to optimize mobility outcomes. Patient presents with clinical signs and symptoms consistent with current/admitting diagnoses that have resulted to mobility limitations, gait instability, generalized weakness, and impairment of motor control as demonstrated by the following impairment level findings: 1. Decreased strength to all major muscle groups 2. Impaired sitting/standing balance 3. Impaired activity tolerance Impairments are contributing to the following functional limitations: 1. Increased need for assist with bed mobility skills 2. Increased need for assist with transfers 3. Inability to safely ambulate without assistive device and physical assistance 4. Increase completion time for mobility ADL performance 5. Increased fall risk Goals: Goals x1 week 1. Supine-Sit: independent MET 2. Sit-Supine: independent MET 3. Sit-Stand: independent MET 4. Stand-Sit: independent MET 5. Independent gait on level surface with use of least restrictive device for at least 100 feet without report of pain nor dyspnea MET Discharge Plan DISCHARGE RECOMMENDATIONS: SNF for continued rehabilitation to regain strength and endurance vs home with HHPT if shows adequate improvement to independence TREATMENT CODE/TIME: NC Thank you for the opportunity to participate in the care of this patient. Lu Rowe PT, DPT, CLT [facility] [place], [place]
== END 2022-12-27 10:55 | disposition home health service (06) | DRG 308 ==
LOC: ER 21:47 → ICU 22:20 → MS 12-24 02:26
PROVIDERS: Internal Medicine; Admitting Provider Family Medicine; Emergency Provider Emergency Medicine; PCP Nurse Practitioner Family; Visit Provider Family Medicine
DX: I48.0 Paroxysmal atrial fibrillation (principal); J18.9 Pneumonia, unspecified organism; J96.01 Acute respiratory failure with hypoxia; N39.0 Urinary tract infection, site not specified; J98.11 Atelectasis; I47.10 Supraventricular tachycardia, unspecified; E03.9 Hypothyroidism, unspecified; I10 Essential (primary) hypertension; E11.65 Type 2 diabetes mellitus with hyperglycemia; E78.5 Hyperlipidemia, unspecified; Z79.4 Long term (current) use of insulin; Z79.01 Long term (current) use of anticoagulants; Z66 Do not resuscitate; F41.8 Other specified anxiety disorders; R41.89 Other symptoms and signs involving cognitive functions and awareness; E83.42 Hypomagnesemia; M17.0 Bilateral primary osteoarthritis of knee; K21.9 Gastro-esophageal reflux disease without esophagitis
CPT/HCPCS: 36415; 80048; 80053; 84145; 87040; 87637; 93005; 93306; 96361; 96365; 96366; 96375; 96376; 97110; 97112; 97116; 97162; 97530; 99222; 99291; 71045; 81003; 81015; 83036; 83605; 83735; 83880; 84439; 84443; 84484; 85025; 85610; 85730; 86140; 87086; 93010; 94667; 94668; 94760; 99223; 99232; 99233; 99239; 99292; J0696; J1160; J3010; J3490

== ENCOUNTER → 2022-12-23 07:38 | Outpatient (BNVA) | payer MEDICARE, MEDICAID, SELFPAY | PROVIDERS: PCP Nurse Practitioner Family; Referring Provider Nurse Practitioner Family; Visit Provider Internal Medicine Cardiovascular Disease ==

== ENCOUNTER 2022-12-27 10:01 | Outpatient (RCR) | payer MEDICARE, MEDICAID, SELFPAY | END 2023-01-21 23:59 | disposition home or self-care (01) | LOC: RT 10:01 | PROVIDERS: PCP Nurse Practitioner Family; Visit Provider Nurse Practitioner Family | DX: I48.91 Unspecified atrial fibrillation (principal) | CPT/HCPCS: 93246 ==

== ENCOUNTER 2023-01-13 09:17 | Outpatient (CLI) | payer MEDICARE, MEDICAID, SELFPAY ==
--- NOTE | 2023-01-13 09:15 | RT.EKG_ITS ---
APPROVED REPORT Exam: Resting ECG Reason for Exam: afib Patient Location: O HR:82 bpm ECG Measurements Heart Rate 82 AXIS NJ 185 P 15 QRSd 87 QRS -12 QT 375 T 48 QTc 438 Conclusion Sinus rhythm...normal P axis, V-rate 50- 99 Low voltage, extremity leads...all extremity leads <0.5mV
== END 2023-01-13 09:18 | disposition home or self-care (01) ==
LOC: DI.CARD 09:19
PROVIDERS: PCP Nurse Practitioner Family; Visit Provider Internal Medicine Cardiovascular Disease
DX: I48.0 Paroxysmal atrial fibrillation (principal)
CPT/HCPCS: 93010

== ENCOUNTER → 2023-01-13 10:54 | Outpatient (BNVA) | payer MEDICARE, MEDICAID, SELFPAY | PROVIDERS: PCP Nurse Practitioner Family; Referring Provider Nurse Practitioner Family; Visit Provider Internal Medicine Cardiovascular Disease ==

== ENCOUNTER 2023-01-13 11:40 | Emergency (ER) | payer MEDICARE, MEDICAID, SELFPAY ==
--- NOTE | 2023-01-13 11:30 | RT.EKG_ITS ---
APPROVED REPORT Exam: Resting ECG Reason for Exam: chest pain Patient Location: E HR:77 bpm ECG Measurements Heart Rate 77 AXIS VA 191 P 17 QRSd 74 QRS 11 QT 328 T [id number] QTc 370 Conclusion Sinus rhythm...normal P axis, V-rate 60- 99 Low voltage, extremity leads...all extremity leads <0.5mV Appropriate intervals. No ST segment or T wave abnormalities to suggest occlusive [place]
[2023-01-13 11:45] VITALS: BP 146/77; PULSE 79; RESP 18; TEMP 36.6; O2SAT 95
[2023-01-13 11:59] VITALS: RESP 18
[2023-01-13 12:20] LABS: Abs Immature Grans 0.08 10^3/uL (0.0-0.06); Absolute Basophil Count 0.06 10^3/uL (0.0-0.2); Absolute Eosinophil Count 0.02 10^3/uL (0.0-0.7); Absolute Lymphocyte Count 1.31 10^3/uL (1.2-3.4); Absolute Monocyte Count 0.67 10^3/uL (0.1-0.8); Absolute Neutrophil Count 7.19 10^3/uL (1.2-6.7); Basophils % 0.6; Eosinophils % 0.2; HGB 15.4 g/dL (11.2-15.7); Immature Grans % 0.9; MCH 29.9 pg (27.0-33.0); MCHC 32.8 % (32.0-36.0); MCV 91 fL (80-95); Monocytes % 7.2; Neutrophils % 77.1; Platelet Count 257 10^3/uL (130-400); RBC 5.15 10^6/uL (3.93-5.22); RDW 13.5 % (11.7-14.6); RDW-SD 46.2 fL; WBC 9.33 10^3/uL (4.4-10.8)
[2023-01-13 12:43] LABS: ALT 29 U/L (14-59); AST 13 U/L (15-37); Albumin 3.4 g/dL (3.4-5.0); Alkaline Phosphatase 106 U/L (46-116); Anion Gap 5.9 mmol/L (3-11); BUN 19 mg/dL (7-18); Bilirubin, Total 0.3 mg/dL (0.2-1.0); CO2 30.1 mmol/L (21.0-32.0); CREATININE 0.9 mg/dL (0.55-1.02); Calcium 9.9 mg/dL (8.5-10.1); Chloride 101 mmol/L (98-107); Estimated GFR 66.67 (mL/min/1.73m2); Glucose 202 mg/dL (74-106); Magnesium 1.9 mg/dL (1.8-2.4); NT-proBNP 67 pg/mL (<300); Sodium 137 mmol/L (136-145); Total Protein 7.3 g/dL (6.4-8.2); Troponin I < 50 ng/L (<or=60)
--- NOTE | 2023-01-13 12:46 | DI.RAD_ITS ---
Exam(s) XR CHEST 2V PA LATERAL EXAM: XR CHEST 2V PA LATERAL CLINICAL HISTORY: chest pain. TECHNIQUE: 2D digital imaging was performed. COMPARISON: CR,XR XR PORTABLE CHEST AP from 12/22/2022 FINDINGS: 2 views: Cardiomegaly again noted. Is time unchanged. No infiltrates nor obvious pleural effusions. No pulmonary edema. No Judith B lines evident. No fractures evident. IMPRESSION: No acute pulmonary findings.Cardiomegaly again noted. DATA REPOSITORY: RADIATION DOSE DELIVERED:
--- NOTE | 2023-01-13 13:55 | W.ED.GENAD ---
Discharge Plan Disposition Patient Disposition: Home Condition: Good Discharge Details Clinical Impression: Chest pain Primary Care Provider: Charlene Paige ED Provider: Otilia Akbar Home Meds and New Rx's Prescriptions: New sucralfate [Carafate] 1 gram tablet 1 g PO BID Qty: 14 0RF No Action sennosides-docusate sodium 8.6-50 mg tablet 1 tab PO HS PRN (Reason: constipation) Qty: 90 3RF polyethylene glycol 3350 [Miralax] 17 gram/dose powder 17 gm PO DAILY PRN (Reason: constipation) Qty: 510 2RF diclofenac sodium [Voltaren] 1 % gel 4 g topical TID Qty: 100 12RF Rx Instructions: apply to thoracic back area TID insulin glargine [Lantus Solostar U-100 Insulin] 100 unit/mL (3 mL) insulin pen 35 unit subcut HS Ozempic 2 mg/dose (8 mg/3 mL) pen injector 2 mg subcut QWEEK alprazolam 1 mg tablet 1 mg PO BID Patient Comments: 01/13/23 per [facility]it med list 0.5 mg AM and 1 mg QHS. RH metformin 500 mg tablet 500 mg PO .COMPLEX Patient Comments: 01/13/23 per [facility] Med list. ptis taking 500 mg once a week and 1000 mg once a week. RH Rx Instructions: 500 mg orally; miconazole (bulk) 100 GM powder 1 stacie Miscellaneous PRN Patient Comments: 09/02/17 Miconozole topical powder 2%, apply to right groin area daily PRN. DL (DME) blood-glucose meter [OneTouch Verio IQ Meter] Kit See Rx Instructions .ROUTE .MEDSUPPLY Qty: 1 0RF Rx Instructions: As directed- BID testing- Insulin dependent Soothe and Cool Inzo Barrier 5 % cream 1 applic TP TID-QID PRN (Reason: skin irritation) Qty: 118.29 3RF (DME) pen needle, diabetic [Pen Needle] 31 gauge x 5/16 needle 1 ndl SQ DAILY Qty: 100 4RF Rx Instructions: USE WITH LANTUS PEN cyanocobalamin (vitamin B-12) [Vitamin B-12] 1,000 mcg tablet 500 mcg PO DAILY Qty: 90 4RF nystatin 100,000 unit/gram powder 1 applic Topical BID PRN (Reason: dermatitis) Vicks Vaporub 4.7-1.2-2.6 % ointment 1 applic TP BID PRN (Reason: congestion) Qty: 50 0RF Rx Instructions: Patient may keep in her room and self apply as directed risperidone 1 mg tablet 1 mg PO HS Qty: 30 11RF Eliquis 5 mg tablet 5 mg PO BID Qty: 180 2RF levothyroxine 150 mcg tablet 150 mcg PO DAILY Qty: 90 3RF Rx Instructions: note dose change to 150 mcg daily (stop the 175 mcg) alprazolam 1 mg tablet 1 mg PO BID MDD 2mg Qty: 180 1RF (DME) Blood Glucose Test Strip 1 strip Miscellaneous QID Qty: 200 3RF Rx Instructions: FOR ONE TOUCH Verio IQ METER. Dx: E11.65 on insulin -BID calcium carbonate [Tums] 200 mg calcium (500 mg) tablet,chewable 400 mg PO BID Qty: 120 11RF Ocuvite Adult 50 Plus 250-5-1 mg capsule 1 cap PO DAILY Qty: 90 3RF acetaminophen 500 mg tablet 1,000 mg PO BID Qty: 120 11RF (DME) lancets [OneTouch Delica Lancets] 33 gauge misc See Dose Instructions .ROUTE .MEDSUPPLY Qty: 200 4RF Dose Instruction: As directed Rx Instructions: BID glucose finger testing - E11.65 (on insulin) famotidine [Pepcid] 40 mg Tablet 40 mg PO DAILY benzonatate 100 mg Capsule 100 mg PO PRN PRN omeprazole 20 mg Capsule,Delayed Release(Dr/Ec) 20 mg PO DAILY pravastatin 20 mg Tablet 20 mg PO DAILY magnesium oxide 400 mg (241.3 mg magnesium) Tablet 400 mg PO BID Qty: 60 0RF amiodarone 200 mg tablet See Rx Instructions .ROUTE .COMPLEX Qty: 90 0RF Rx Instructions: 400 mg orally BID through 01/06, then 200mg BID through 01/20, then 200mg daily Discharge Instructions Instructions: Chest Pain (ED) Additional Instructions: 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 Call your primary care doctor today to schedule an appointment within one week. Take tylenol and carafate as needed for your symptoms. Return to the emergency department for new or worsening symptoms, including new/different/worse chest pain, difficultly breathing, lightheadedness, or if you have any other concerns. Referrals: Charlene Paige [Primary Care Provider] - Medical Decision Making 77yo F with hx of afib RVR, hypothyroid, DM, presenting from cardiology office for chest pain. History from patient and YELITZA at bedside, Dr. Mcmanus cardiology, and [facility] record review. Recent hospital admission 12/21/22; presented at that time to the ED where she was found to be in regular narrow complex tachycardia with rate in 200's; attempted cardioversion with 200J unsuccessfully, subsequently wide complex rhythm (Vtach vs afib with aberrancy), defibrillated with 200J, then afib with rate in 100's, started on amiodarone and admitted. Today at outpatient followup visit with cardiology, mentioned to Dr. Mcmanus that she was having chest pain since this morning. EKG there non-concerning per Dr. Mcmanus, and she was advised to present to the ED. Vital signs reassuring on arrival, well appearing on exam with mild reproducible sternal tenderness. EKG NSR, appropriate intervals, no ST segment or T wave abnormalities to suggest occlusive [place], no concerning changes from prior earlier this morning in cardiology clinic. CXR independently reviewed, no focal pneumonia or pneumothorax on my view, agree with radiology read below. Labs reviewed as below, CBC and CMP reassuring with no actionable abnormalities, troponin negative x 2. Given tylenol and carafate for symptoms. On reassessment patient reports pain has improved. Unclear etiology (? msk ?reflux); will send prescription for carafate. Advised followup with PCP and cardiology. Discharged; discharge instructions including return precautions were reviewed with patient who verbalized understanding. All questions were answered and they are in full agreement with the plan. Medical Records Medical records reviewed: Yes I reviewed the patient's medical records. Medical records narrative: Cardiology office visit 01/13/23 [facility] admission 12/21/22 Imaging Data Radiologic Study: Imaging: X-Ray Radiologist's impression: IMPRESSION: No acute pulmonary findings.Cardiomegaly again noted. Lab Data Lab results reviewed: Yes I reviewed the patient's lab results. Labs: Laboratory Tests Range/Units 01/13/23 01/13/23 11:57 14:46 WBC (4.4-10.8) 10^3/uL 9.33 RBC (3.93-5.22) 10^6/uL 5.15 Hgb (11.2-15.7) g/dL 15.4 Hct (36.0-46.0) % 47.0 H MCV (80-95) fL 91 MCH (27.0-33.0) pg 29.9 MCHC (32.0-36.0) % 32.8 RDW (11.7-14.6) % 13.5 Plt Count (130-400) 10^3/uL 257 MPV (8.0-11.0) fL 10.0 Immature Gran % 0.9 Neutrophils % 77.1 Lymphocytes % 14.0 Monocytes % 7.2 Eosinophils % 0.2 Basophils % 0.6 Nucleated RBC % (0.0-0.3) % 0.0 Absolute Neutrophils (1.2-6.7) 10^3/uL 7.19 H Absolute Lymphocytes (1.2-3.4) 10^3/uL 1.31 Absolute Monocytes (0.1-0.8) 10^3/uL 0.67 Absolute Eosinophils (0.0-0.7) 10^3/uL 0.02 Absolute Basophils (0.0-0.2) 10^3/uL 0.06 Sodium (136-145) mmol/L 137 Potassium (3.5-5.1) mmol/L 4.0 Chloride (98-107) mmol/L 101 Carbon Dioxide (21.0-32.0) mmol/L 30.1 Anion Gap (3-11) mmol/L 5.9 BUN (7-18) mg/dL 19 H Creatinine (0.55-1.02) mg/dL 0.9 Est GFR (CKD-EPI 2020) (mL/min/1.73m2) 66.67 Glucose (74-106) mg/dL 202 H Calcium (8.5-10.1) mg/dL 9.9 Magnesium (1.8-2.4) mg/dL 1.9 Total Bilirubin (0.2-1.0) mg/dL 0.3 AST (15-37) U/L 13 L ALT (14-59) U/L 29 Alkaline Phosphatase (46-116) U/L 106 Troponin I (<or=60) ng/L < 50 < 50 NT-Pro-B Natriuret Pep (<300) pg/mL 67 Total Protein (6.4-8.2) g/dL 7.3 Albumin (3.4-5.0) g/dL 3.4 HPI General Mode of arrival: ambulatory. Date/Time Provider Initiated Documentation: 01/13/23 12:04. Limitations to Documentation: no limitations. Information obtained by: patient, family and old records reviewed. HPI Narrative: 77yo F with hx of afib RVR, hypothyroid, DM, presenting from cardiology office for chest pain. History from patient and YELITZA at bedside. Reports that she woke this morning with dull substernal chest pain, non radiating, no alleviating or aggravating factors. Pain has been constant and mild. No shortness of breath, palpitations, lightheadedness, syncope, or LE edema. Went to her cardiology appointment this morning and mentioned the chest pain; advised by Dr. Mcmanus to come to the ED for further workup. She is otherwise in her usual state of health with no fevers, chills, rash, nasuea, vomiting, abdominal pain, pleuritic pain, numbness, tingling, weakness, or other concerns. Related Data Home Medications Medication Instructions Recorded Confirmed miconazole (bulk) 1 stacie miscellaneous PRN 09/02/17 01/13/23 polyethylene glycol 3350 17 17 gm PO DAILY PRN constipation 01/11/19 01/13/23 gram/dose oral powder (Miralax) #510 grams blood-glucose meter (OneTouch #1 ea 03/02/19 01/13/23 Verio IQ Meter kit) sennosides 8.6 mg-docusate sodium 1 tab PO HS PRN constipation #90 03/30/19 01/13/23 50 mg tablet tab-caps dimethicone 5 % topical cream 1 applic topical TID-QID PRN skin 03/31/19 01/13/23 (Soothe and Cool Inzo Barrier) irritation #118.29 mL pen needle, diabetic 31 gauge x ##100 04/20/19 01/13/23/16 (Pen Needle) cyanocobalamin (vitamin B-12) 500 mcg (1/2 x 1,000 mcg) PO DAILY 04/28/19 01/13/23 1,000 mcg tablet (Vitamin B-12) #90 tabs nystatin 100,000 unit/gram topical 1 applic topical BID PRN dermatitis 08/05/19 01/13/23 powder camphor 4.7 %-eucalyptus oil 1.2 1 applic topical BID PRN 08/06/19 01/13/23 %-menthol 2.6 % topical ointment congestion #50 grams (Vicks Vaporub) risperidone 1 mg tablet 1 mg PO HS #30 tab-caps 08/30/19 01/13/23 apixaban 5 mg tablet (Eliquis) 5 mg PO BID #180 tabs 09/11/19 01/13/23 levothyroxine 150 mcg tablet 150 mcg PO DAILY #90 tabs 10/14/19 01/13/23 alprazolam 1 mg tablet 1 mg PO BID #180 tabs 11/17/19 01/13/23 blood sugar diagnostic (Blood #200 strips 01/05/20 01/13/23 Glucose Test strips) calcium carbonate 200 mg calcium 400 mg (2 x 200 mg calcium (500 01/06/20 01/13/23 (500 mg) chewable tablet (Tums) mg)) PO BID #120 tabs vit C,E,zinc,copper-zqbky5h 250 1 cap PO DAILY #90 caps 01/27/20 01/13/23 mg-lutein 5 mg-zeaxanthin 1 mg capsule (Ocuvite Adult 50 Plus) diclofenac sodium 1 % topical gel 4 g topical TID arthritis #100 02/29/20 01/13/23 (Voltaren) grams acetaminophen 500 mg tablet 1,000 mg (2 x 500 mg) PO BID #120 03/01/20 01/13/23 tabs lancets 33 gauge (OneTouch Delica #200 ea 04/06/20 01/13/23 Lancets) benzonatate 100 mg capsule 100 mg PO PRN PRN 03/01/22 01/13/23 famotidine 40 mg tablet (Pepcid) 40 mg PO DAILY 03/01/22 01/13/23 omeprazole 20 mg capsule,delayed 20 mg PO DAILY 03/01/22 01/13/23 release pravastatin 20 mg tablet 20 mg PO DAILY 03/01/22 01/13/23 magnesium oxide 400 mg (241.3 mg 400 mg PO BID #60 tabs 03/05/22 01/13/23 magnesium) tablet insulin glargine 100 unit/mL (3 35 unit subcut HS 04/08/22 01/13/23 mL) subcutaneous pen (Lantus Solostar U-100 Insulin) amiodarone 200 mg tablet See Rx Instructions .Route 12/27/22 01/13/23 .COMPLEX #90 tabs alprazolam 1 mg tablet 1 mg PO BID 01/13/23 01/13/23 metformin 500 mg tablet 500 mg PO .COMPLEX 01/13/23 01/13/23 semaglutide 2 mg/dose (8 mg/3 mL) 2 mg subcut QWEEK 01/13/23 01/13/23 subcutaneous pen injector (Ozempic) sucralfate 1 gram tablet (Carafate) 1 g PO BID #14 tabs 01/13/23 Previous Rx's Medication Instructions Recorded polyethylene glycol 3350 17 17 gm PO DAILY PRN constipation 01/11/19 gram/dose oral powder (Miralax) #510 grams blood-glucose meter (OneTouch #1 ea 03/02/19 Verio IQ Meter kit) sennosides 8.6 mg-docusate sodium 1 tab PO HS PRN constipation #90 03/30/19 50 mg tablet tab-caps dimethicone 5 % topical cream 1 applic topical TID-QID PRN skin 03/31/19 (Soothe and Cool Inzo Barrier) irritation #118.29 mL pen needle, diabetic 31 gauge x ##100 04/20/1908/06 (Pen Needle) cyanocobalamin (vitamin B-12) 500 mcg (1/2 x 1,000 mcg) PO DAILY 04/28/19 1,000 mcg tablet (Vitamin B-12) #90 tabs camphor 4.7 %-eucalyptus oil 1.2 1 applic topical BID PRN 08/06/19 %-menthol 2.6 % topical ointment congestion #50 grams (Vicks Vaporub) risperidone 1 mg tablet 1 mg PO HS #30 tab-caps 08/30/19 apixaban 5 mg tablet (Eliquis) 5 mg PO BID #180 tabs 09/11/19 levothyroxine 150 mcg tablet 150 mcg PO DAILY #90 tabs 10/14/19 alprazolam 1 mg tablet 1 mg PO BID #180 tabs 11/17/19 blood sugar diagnostic (Blood #200 strips 01/05/20 Glucose Test strips) calcium carbonate 200 mg calcium 400 mg (2 x 200 mg calcium (500 01/06/20 (500 mg) chewable tablet (Tums) mg)) PO BID #120 tabs vit C,E,zinc,copper-jcweb2b 250 1 cap PO DAILY #90 caps 01/27/20 mg-lutein 5 mg-zeaxanthin 1 mg capsule (Ocuvite Adult 50 Plus) diclofenac sodium 1 % topical gel 4 g topical TID arthritis #100 02/29/20 (Voltaren) grams acetaminophen 500 mg tablet 1,000 mg (2 x 500 mg) PO BID #120 03/01/20 tabs lancets 33 gauge (OneTouch Delica #200 ea 04/06/20 Lancets) magnesium oxide 400 mg (241.3 mg 400 mg PO BID #60 tabs 03/05/22 magnesium) tablet amiodarone 200 mg tablet See Rx Instructions .Route 12/27/22 .COMPLEX #90 tabs sucralfate 1 gram tablet (Carafate) 1 g PO BID #14 tabs 01/13/23 Allergies Allergy/AdvReac Type Severity Reaction Status Date / Time Iodinated Contrast Media Allergy Unknown Verified 12/21/22 22:03 [Iodinated Contrast- Oral and IV Dye] Oral contrast Allergy rash, Uncoded 12/21/22 22:03 lower leg swelling General Stated Complaint: Chest Pain ORAL: 3 Review of Systems Narrative: see HPI PFSH All Active Problems (Updated 01/13/23 @ 15:29 by Otilia Akbar MD) Chest pain (Acute) Chest pain (Acute) Infection due to ESBL-producing Escherichia coli (Acute) Hypomagnesemia (Acute) Hypokalemia (Acute) Hypomagnesemia (Acute) Back pain of thoracolumbar region (Acute) Hypokalemia (Acute) Kyphosis (acquired) (postural) (Acute) Perirectal inflammation (Acute) 03/30/2019-from fecal incontinence Loose stools (Acute) Cerumen debris on tympanic membrane of both ears (Acute) Constipation, unspecified (Acute) History of umbilical hernia repair (Acute) Status post dilation and curettage (Acute) Status post laparoscopic hysterectomy (Acute) Excessive cerumen in both ear canals (Chronic) Anxiety and depression (Chronic) Diabetes mellitus (Chronic 07/21/12) Atrial fibrillation with RVR (Acute 09/09/17) Dx by EKG on 08/21/17, [id number] = 2, anti-coagulated on Eliquis Tubular adenoma (Acute 10/17/14) 10/03/14; DR. ALICIA;1 tubulovillous adenoma and 2 tubular adenoma Primary osteoarthritis of both knees (Acute) Morbid obesity with BMI of 40.0-44.9, adult (Acute) Hypothyroidism (acquired) (Acute 11/03/12) Hyperlipidemia associated with type 2 diabetes mellitus (Acute) REFUSES RX Hearing loss (Acute) A.D. Gastroesophageal reflux (Chronic 10/01/13) Essential hypertension (Acute 02/01/13) Depressive disorder (Acute) anxiety Cognitive deficits (Acute 08/05/17) Anxiety associated with depression (Acute 07/21/17) Atrial fibrillation with rapid ventricular response (Acute) History of psychiatric disorder (Acute) Medical History POLST (Physician Orders for Life-Sustaining Treatment) DNI (do not intubate) DNR (do not resuscitate) Hypertension GERD (gastroesophageal reflux disease) Osteoarthritis Hypothyroidism Hyperlipidemia Depression Diabetes Morbid obesity with BMI of 40.0-44.9, adult Surgical History Hysterectomy, Laproscopic Repair of umbilical hernia Dilation and curettage (~1995) Family History Mother Essential hypertension Heart disease Father , 86 Essential hypertension Heart disease Stroke Asthma Brother No problems noted. Maternal Grandfather Heart disease Paternal Grandfather No problems noted. Maternal Grandmother Heart disease Cancer Paternal Grandmother Heart disease Stroke Brother No problems noted. Social History Smoking/Tobacco Use Status: Never Smoking risk assessment performed?: Yes Alcohol Intake: never Drug use: Never Substance use type: does not use Caregiver/Support person: No Housing: assisted living facility Communication Needs: None Do you need help understanding health information?: Always Pets and animals: No Sexually active: No Do you think of yourself as: straight/heterosexual What is your relationship status?: never How often do you talk on the phone with friends or family?: three or more times per week How often do you get together with friends or relatives?: three or more times per week How often do you attend episcopal or buddhist services?: decline to answer Do you belong to any clubs or organized social groups?: no Panel score (0-1 are the most socially isolated patients): 1 What type of physical activity do you participate in: walking Duration: < 15 minutes/day Frequency: daily Carito/Scientology: None Special carito needs: No Seatbelt use: always Drive intox or ride w/intox driver merchandiser: No Do you feel safe at home: Yes Do you feel safe in your relationship?: Yes Exam Narrative Exam Narrative: General: Alert, well appearing, well nourished, in no acute distress. Head: Normocephalic, atraumatic Neck: Trachea midline, Neck supple. ENT: MMM. Cardiac: RRR, no murmurs appreciated Chest: Sternum mildly TTP. Resp: No respiratory distress. CTAB. Abd: Soft, non-distended, nontender No epigastric tenderness. : No suprapubic tenderness. Extremities: No deformities. No peripheral edema. Neurologic: GCS 15. Moves all extremities freely against gravity Course Vital Signs Vital signs: Vital Signs Temperature 36.6 C 01/13/23 11:45 Pulse 79 01/13/23 11:45 Respiratory Rate 18 01/13/23 11:45 Blood Pressure 146/77 H 01/13/23 11:45 Pulse Oximetry 95 01/13/23 11:45 Temperature 36.6 C 01/13/23 11:45 Temperature Source Temporal Artery Scan 01/13/23 11:45 Pulse 79 01/13/23 11:45 Respiratory Rate 18 01/13/23 11:59 Respiratory Effort Normal 01/13/23 11:59 Respiratory Depth Normal 01/13/23 11:59 Respiratory Pattern Normal 01/13/23 11:59 Blood Pressure 146/77 H 01/13/23 11:45 Blood Pressure Position Supine 01/13/23 11:45 Pulse Oximetry 95 01/13/23 11:45 Lab/Test Results Lab/Test Results: Laboratory Tests Range/Units 10/23/23 11:57 WBC (4.4-10.8) 10^3/uL 9.33 RBC (3.93-5.22) 10^6/uL 5.15 Hgb (11.2-15.7) g/dL 15.4 Hct (36.0-46.0) % 47.0 H MCV (80-95) fL 91 MCH (27.0-33.0) pg 29.9 MCHC (32.0-36.0) % 32.8 RDW (11.7-14.6) % 13.5 Plt Count (130-400) 10^3/uL 257 MPV (8.0-11.0) fL 10.0 Immature Gran % 0.9 Neutrophils % 77.1 Lymphocytes % 14.0 Monocytes % 7.2 Eosinophils % 0.2 Basophils % 0.6 Nucleated RBC % (0.0-0.3) % 0.0 Absolute Neutrophils (1.2-6.7) 10^3/uL 7.19 H Absolute Lymphocytes (1.2-3.4) 10^3/uL 1.31 Absolute Monocytes (0.1-0.8) 10^3/uL 0.67 Absolute Eosinophils (0.0-0.7) 10^3/uL 0.02 Absolute Basophils (0.0-0.2) 10^3/uL 0.06 Sodium (136-145) mmol/L 137 Potassium (3.5-5.1) mmol/L 4.0 Chloride (98-107) mmol/L 101 Carbon Dioxide (21.0-32.0) mmol/L 30.1 Anion Gap (3-11) mmol/L 5.9 BUN (7-18) mg/dL 19 H Creatinine (0.55-1.02) mg/dL 0.9 Est GFR (CKD-EPI 2020) (mL/min/1.73m2) 66.67 Glucose (74-106) mg/dL 202 H Calcium (8.5-10.1) mg/dL 9.9 Magnesium (1.8-2.4) mg/dL 1.9 Total Bilirubin (0.2-1.0) mg/dL 0.3 AST (15-37) U/L 13 L ALT (14-59) U/L 29 Alkaline Phosphatase (46-116) U/L 106 Troponin I (<or=60) ng/L < 50 NT-Pro-B Natriuret Pep (<300) pg/mL 67 Total Protein (6.4-8.2) g/dL 7.3 Albumin (3.4-5.0) g/dL 3.4
[2023-01-13] MEDS: Sucralfate 1 GM TAB PO (14:20)
[2023-01-13] MEDS: Acetaminophen 500 MG TAB 1000 MG PO (14:20)
[2023-01-13 15:11] LABS: Troponin I < 50 ng/L (<or=60)
== END 2023-01-13 15:47 | disposition home or self-care (01) ==
PROVIDERS: Emergency Provider Student in an Organized Health Care Education/Training Program; PCP Nurse Practitioner Family
DX: R07.9 Chest pain, unspecified (principal); I42.9 Cardiomyopathy, unspecified; R06.02 Shortness of breath; I48.91 Unspecified atrial fibrillation; I10 Essential (primary) hypertension; E11.9 Type 2 diabetes mellitus without complications; K21.9 Gastro-esophageal reflux disease without esophagitis; E03.9 Hypothyroidism, unspecified; E78.5 Hyperlipidemia, unspecified; Z79.4 Long term (current) use of insulin; Z79.01 Long term (current) use of anticoagulants
CPT/HCPCS: 80053; 93005; 99214; 99284; 71046; 83735; 83880; 84484; 85025; 93010

== ENCOUNTER 2023-01-15 15:56 | Outpatient (REF) | payer MEDICARE, MEDICAID, SELFPAY ==
[2023-01-15 17:24] LABS: Source Nasal/Nares
[2023-01-15 18:04] LABS: COVID-19 PCR Negative (Negative)
== END 2023-01-15 15:57 | disposition home or self-care (01) ==
LOC: NCHCN 15:56
PROVIDERS: PCP Nurse Practitioner Family; Visit Provider Nurse Practitioner Family
DX: R51.9 Headache, unspecified (principal)
CPT/HCPCS: 87635

== ENCOUNTER 2023-01-20 07:53 | Outpatient (CLI) | payer MEDICARE, MEDICAID, SELFPAY ==
--- NOTE | 2023-01-20 12:30 | W.CARDEVENT ---
Date of service: 01/20/23 Time of Service: 12:30 Cardiac Event Recorder Referring Provider:: supa Paige Indications:: Paroxysmal atrial fibrillation Cardiac Event Note: This is a cardiac event monitor ordered for paroxysmal atrial fibrillation Patient was monitored for 10 days and 5 hours Rhythm throughout was sinus with an average heart rate of 54. Minimum was 39, maximum 111 there were rare isolated atrial and ventricular ectopic beat A total of 7 self-limited atrial runs occurred There was no atrial fibrillation no high-grade AV block no pauses greater than 3 seconds There were no apparent patient symptoms
== END 2023-01-20 07:54 | disposition home or self-care (01) ==
LOC: CARDOPNVT 07:53
PROVIDERS: PCP Nurse Practitioner Family; Visit Provider Internal Medicine Cardiovascular Disease
DX: I48.0 Paroxysmal atrial fibrillation (principal)
CPT/HCPCS: 93248

== ENCOUNTER 2023-02-11 20:24 | Outpatient (REF) | payer MEDICARE, MEDICAID, SELFPAY ==
[2023-02-11 20:13] LABS: Bilirubin Negative (Negative); Blood Negative (Negative); Clarity Turbid (Clear); Glucose Negative (Negative); Ketones Trace mg/dL (Negative); Leukocyte Esterase Small (Negative); Nitrite Negative (Negative); Specific Gravity >= 1.030 (1.005-1.025); Urobilinogen 0.2 mg/dL (Up to 0.2); pH 5.5 (5-8)
[2023-02-11 20:37] LABS: Bacteria Negative HPF (Negative); Epithelial Cells Rare HPF (Negative); Other Cells Rare Transitional (Negative); RBC 0-2 HPF (0-2)
[2023-02-11 20:38] LABS: C & S Indicated? Yes; Crystals Moderate Amorphous HPF (Negative); Mucus Moderate (Negative)
== END 2023-02-11 20:25 | disposition home or self-care (01) ==
LOC: NCHCN 20:24
PROVIDERS: PCP Nurse Practitioner Family; Visit Provider Nurse Practitioner Family
DX: N39.46 Mixed incontinence (principal)
CPT/HCPCS: 87077; 81003; 81015; 87086; 87186

== ENCOUNTER 2023-03-01 15:21 | Outpatient (REF) | payer MEDICARE, MEDICAID, SELFPAY ==
[2023-03-01 16:38] LABS: ALT 26 U/L (14-59); AST 17 U/L (15-37); Albumin 3.4 g/dL (3.4-5.0); Alkaline Phosphatase 75 U/L (46-116); Anion Gap 11.7 mmol/L (3-11); BUN 15 mg/dL (7-18); Bilirubin, Total 0.3 mg/dL (0.2-1.0); CO2 27.3 mmol/L (21.0-32.0); CREATININE 0.8 mg/dL (0.55-1.02); Calcium 9.2 mg/dL (8.5-10.1); Chloride 105 mmol/L (98-107); Estimated GFR 76.79 (mL/min/1.73m2); Glucose 137 mg/dL (74-106); Magnesium 1.8 mg/dL (1.8-2.4); Sodium 144 mmol/L (136-145); TSH 4.13 uIU/mL (0.36-3.74); Total Protein 6.5 g/dL (6.4-8.2); Vitamin B12 944 pg/mL (193-986)
== END 2023-03-01 15:22 | disposition home or self-care (01) ==
LOC: NCHCN 15:21
PROVIDERS: PCP Nurse Practitioner Family; Visit Provider Nurse Practitioner Family
DX: I10 Essential (primary) hypertension (principal); E11.9 Type 2 diabetes mellitus without complications; E03.9 Hypothyroidism, unspecified; K21.9 Gastro-esophageal reflux disease without esophagitis; E61.2 Magnesium deficiency
CPT/HCPCS: 80053; 82607; 83735; 84443

== ENCOUNTER 2023-03-30 15:55 | Outpatient (REF) | payer MEDICARE, MEDICAID, SELFPAY ==
[2023-03-30 16:30] LABS: Hemoglobin A1C 6.8 % (<5.7)
[2023-03-30 16:41] LABS: COMMENT (LAB VIEW ONLY) 17.53 mg/dL
[2023-03-30 16:43] LABS: Bilirubin Negative (Negative); Blood Negative (Negative); Clarity Clear (Clear); Glucose Negative (Negative); Ketones Negative (Negative); Leukocyte Esterase Small (Negative); Nitrite Negative (Negative); Specific Gravity <= 1.005 (1.005-1.025); Urobilinogen 0.2 mg/dL (Up to 0.2); pH 6.5 (5-8)
[2023-03-30 16:46] LABS: TSH (W/Ref FT4) 3.24 uIU/mL (0.36-3.74)
[2023-03-30 17:02] LABS: Bacteria Moderate HPF (Negative); C & S Indicated? Yes; Casts Negative LPF (Negative); Crystals Negative HPF (Negative); Epithelial Cells Few HPF (Negative); Mucus Negative (Negative); RBC 0-2 HPF (0-2)
== END 2023-03-30 15:56 | disposition home or self-care (01) ==
LOC: NCHCN 15:55
PROVIDERS: PCP Nurse Practitioner Family; Visit Provider Nurse Practitioner Family
DX: E11.9 Type 2 diabetes mellitus without complications (principal); E03.9 Hypothyroidism, unspecified
CPT/HCPCS: 87077; 81003; 81015; 82043; 82570; 83036; 84443; 87086; 87186

== ENCOUNTER 2023-05-30 16:44 | Outpatient (REF) | payer MEDICARE, MEDICAID, SELFPAY ==
[2023-05-30 17:26] LABS: Bilirubin Negative (Negative); Blood Negative (Negative); Clarity Sl Cloudy (Clear); Glucose Negative (Negative); Ketones Trace mg/dL (Negative); Leukocyte Esterase Small (Negative); Nitrite Negative (Negative); Urobilinogen 0.2 mg/dL (Up to 0.2); pH 5.5 (5-8)
[2023-05-30 17:41] LABS: Bacteria Moderate HPF (Negative); Epithelial Cells Few HPF (Negative); Other Cells Rare Renal (Negative); RBC Negative HPF (0-2); WBC 20-50 HPF (0-5)
[2023-05-30 17:42] LABS: C & S Indicated? Yes; Casts Negative LPF (Negative); Crystals Negative HPF (Negative); Mucus Negative (Negative)
== END 2023-05-30 16:45 | disposition home or self-care (01) ==
LOC: NCHCN 16:44
PROVIDERS: PCP Nurse Practitioner Family; Visit Provider Nurse Practitioner Family
DX: N39.0 Urinary tract infection, site not specified (principal)
CPT/HCPCS: 87077; 81003; 81015; 87086; 87186

== ENCOUNTER → 2023-06-23 02:33 | Outpatient (CLI) | payer MEDICARE, MEDICAID, SELFPAY ==
--- NOTE | 2023-06-23 | DI.RAD_ITS ---
Exam(s) XR CHEST 2V PA LATERAL EXAM: XR CHEST 2V PA LATERAL CLINICAL HISTORY: AFIB I48.91 TECHNIQUE: 2D digital imaging was performed of the chest. Two images were obtained. PA and lateral views were obtained. COMPARISON: CR XR CHEST 2V PA LATERAL from 01/13/2023 FINDINGS: MEDIASTINUM: Normal. HEART: Heart is at the upper limits of normal in size. PULMONARY VASCULATURE: Normal. LUNGS: Clear. PLEURAL SPACE: No pleural effusion or pneumothorax. BONE:Within normal limits for the patient's age. OTHER FINDINGS:Normal. IMPRESSION: No acute pulmonary findings. DATA REPOSITORY: RADIATION DOSE DELIVERED:
== END ==
PROVIDERS: PCP Nurse Practitioner Family; Visit Provider Nurse Practitioner Family
DX: I48.91 Unspecified atrial fibrillation (principal)
CPT/HCPCS: 71046

== ENCOUNTER 2023-07-04 10:46 | Outpatient (REF) | payer MEDICARE, MEDICAID, SELFPAY ==
[2023-07-04 14:57] LABS: Hemoglobin A1C 6.7 % (<5.7)
== END 2023-07-04 10:47 | disposition home or self-care (01) ==
LOC: NCHCN 10:46
PROVIDERS: PCP Nurse Practitioner Family; Visit Provider Nurse Practitioner Family
DX: E11.9 Type 2 diabetes mellitus without complications (principal)
CPT/HCPCS: 83036

== ENCOUNTER → 2023-07-14 10:27 | Outpatient (BNVA) | payer MEDICARE, MEDICAID, SELFPAY | PROVIDERS: PCP Nurse Practitioner Family; Visit Provider Internal Medicine Cardiovascular Disease | DX: I48.0 Paroxysmal atrial fibrillation (principal) | CPT/HCPCS: 99213 ==

== ENCOUNTER 2023-07-29 15:54 | Outpatient (REF) | payer MEDICARE, MEDICAID, SELFPAY ==
[2023-07-29 16:43] LABS: Magnesium 1.8 mg/dL (1.8-2.4); Vitamin B12 964 pg/mL (193-986)
== END 2023-07-29 15:55 | disposition home or self-care (01) ==
LOC: NCHCN 15:54
PROVIDERS: PCP Nurse Practitioner Family; Visit Provider Nurse Practitioner Family
DX: K21.9 Gastro-esophageal reflux disease without esophagitis (principal)
CPT/HCPCS: 82607; 83735

== ENCOUNTER 2023-10-25 15:59 | Outpatient (REF) | payer MEDICARE, MEDICAID, SELFPAY | END 2023-10-25 16:00 | disposition home or self-care (01) | LOC: NCHCN 15:59 | PROVIDERS: PCP Nurse Practitioner Family; Visit Provider Nurse Practitioner Family | DX: E11.9 Type 2 diabetes mellitus without complications (principal); E03.9 Hypothyroidism, unspecified | CPT/HCPCS: 83036; 84443 ==

== ENCOUNTER 2023-11-26 18:02 | Outpatient (REF) | payer MEDICARE, MEDICAID, SELFPAY ==
[2023-11-26 16:46] LABS: Magnesium 2.1 mg/dL (1.8-2.4); TSH (W/Ref FT4) 2.81 uIU/mL (0.36-3.74); Vitamin B12 1278 pg/mL (193-986)
== END 2023-11-26 18:03 | disposition home or self-care (01) ==
LOC: NCHCN 18:02
PROVIDERS: PCP Nurse Practitioner Family; Visit Provider Nurse Practitioner Family
DX: E03.9 Hypothyroidism, unspecified (principal)
CPT/HCPCS: 82607; 83735; 84443

== ENCOUNTER 2023-12-14 09:00 | Outpatient (REF) | payer MEDICARE, MEDICAID, SELFPAY ==
[2023-12-15 10:36] LABS: Bilirubin Negative (Negative); Blood Negative (Negative); Clarity Clear (Clear); Glucose Negative (Negative); Ketones Negative (Negative); Leukocyte Esterase Moderate (Negative); Nitrite Negative (Negative); Urobilinogen 0.2 mg/dL (Up to 0.2); pH 6.5 (5-8)
[2023-12-15 10:44] LABS: Bacteria Moderate HPF (Negative); C & S Indicated? Yes; Casts Negative LPF (Negative); Crystals Negative HPF (Negative); Epithelial Cells Few HPF (Negative); Mucus Negative (Negative); Other Cells Few Renal (Negative); RBC Negative HPF (0-2); WBC 20-50 HPF (0-5)
== END 2023-12-14 09:01 | disposition home or self-care (01) ==
LOC: NCHCN 09:00
PROVIDERS: PCP Nurse Practitioner Family; Visit Provider Nurse Practitioner Family
DX: N39.46 Mixed incontinence (principal); R30.0 Dysuria; B96.29 Other Escherichia coli [E. coli] as the cause of diseases classified elsewhere; R82.89 Other abnormal findings on cytological and histological examination of urine
CPT/HCPCS: 87077; 81003; 81015; 87086; 87186

== ENCOUNTER → 2024-01-15 10:17 | Outpatient (BNVA) | payer MEDICARE, MEDICAID, SELFPAY | PROVIDERS: PCP Nurse Practitioner Family; Referring Provider Nurse Practitioner Family; Visit Provider Internal Medicine Cardiovascular Disease | DX: I48.0 Paroxysmal atrial fibrillation (principal) | CPT/HCPCS: 99213 ==

== ENCOUNTER 2024-02-18 15:28 | Outpatient (REF) | payer MEDICARE, MEDICAID, SELFPAY | END 2024-02-18 15:29 | disposition home or self-care (01) | LOC: NCHCN 15:28 | PROVIDERS: PCP Nurse Practitioner Family; Visit Provider Nurse Practitioner Family | DX: E11.9 Type 2 diabetes mellitus without complications (principal) | CPT/HCPCS: 83036 ==

== ENCOUNTER 2024-02-24 13:35 | Outpatient (REF) | payer MEDICARE, MEDICAID, SELFPAY ==
[2024-02-24 16:17] LABS: Bilirubin Negative (Negative); Blood Negative (Negative); Clarity Cloudy (Clear); Glucose Negative (Negative); Ketones Negative (Negative); Leukocyte Esterase Moderate (Negative); Nitrite Negative (Negative); Urobilinogen 0.2 mg/dL (Up to 0.2)
[2024-02-24 16:46] LABS: Bacteria Many HPF (Negative); Crystals Negative HPF (Negative); Epithelial Cells Few HPF (Negative); Other Cells Few Renal (Negative); RBC Negative HPF (0-2); WBC >50 HPF (0-5)
[2024-02-24 16:47] LABS: C & S Indicated? Yes; Casts Negative LPF (Negative); Mucus Moderate (Negative)
== END 2024-02-24 13:36 | disposition home or self-care (01) ==
LOC: NCHCN 13:35
PROVIDERS: PCP Nurse Practitioner Family; Visit Provider Nurse Practitioner Family
DX: N39.46 Mixed incontinence (principal)
CPT/HCPCS: 87077; 81003; 81015; 87086; 87186

== ENCOUNTER 2024-03-22 15:26 | Outpatient (REF) | payer MEDICARE, MEDICAID, SELFPAY ==
[2024-03-23 12:20] LABS: ALT 49 U/L (14-59); AST 33 U/L (15-37); Albumin 3.1 g/dL (3.4-5.0); Alkaline Phosphatase 90 U/L (46-116); Anion Gap 8.1 mmol/L (3-11); BUN 15 mg/dL (7-18); Bilirubin, Total 0.21 mg/dL (0.2-1.0); CO2 28.9 mmol/L (21.0-32.0); CREATININE 0.9 mg/dL (0.55-1.02); Calcium 8.9 mg/dL (8.5-10.1); Chloride 106 mmol/L (98-107); Estimated GFR 66.26 (mL/min/1.73m2); Glucose 94 mg/dL (74-106); Potassium 4.3 mmol/L (3.5-5.1); Sodium 143 mmol/L (136-145); Total Protein 5.9 g/dL (6.4-8.2)
== END 2024-03-22 15:27 | disposition home or self-care (01) ==
LOC: NCHCN 15:26
PROVIDERS: PCP Nurse Practitioner Family; Visit Provider Nurse Practitioner Family
DX: E11.9 Type 2 diabetes mellitus without complications (principal)
CPT/HCPCS: 80053

== ENCOUNTER 2024-03-31 16:28 | Outpatient (REF) | payer MEDICARE, MEDICAID, SELFPAY ==
[2024-03-31 17:03] LABS: Bilirubin Negative (Negative); Blood Small (Negative); Clarity Sl Cloudy (Clear); Glucose 100 mg/dL (Negative); Ketones Negative (Negative); Leukocyte Esterase Moderate (Negative); Nitrite Negative (Negative); Specific Gravity 1.015 (1.005-1.025); Urobilinogen 0.2 mg/dL (Up to 0.2)
[2024-03-31 17:11] LABS: Bacteria Many HPF (Negative); C & S Indicated? Yes; Casts Negative LPF (Negative); Crystals Negative HPF (Negative); Epithelial Cells Few HPF (Negative); Mucus Negative (Negative); WBC 20-50 HPF (0-5)
[2024-03-31 17:22] LABS: COMMENT (LAB VIEW ONLY) 37.85 mg/dL; Microalb ug/mg Crea 27.5 ug/mg Cr
== END 2024-03-31 16:29 | disposition home or self-care (01) ==
LOC: NCHCN 16:28
PROVIDERS: PCP Nurse Practitioner Family; Visit Provider Nurse Practitioner Family
DX: I10 Essential (primary) hypertension (principal)
CPT/HCPCS: 87077; 81003; 81015; 82043; 82570; 87086; 87186

== ENCOUNTER 2024-04-14 13:43 | Outpatient (REF) | payer MEDICARE, MEDICAID, SELFPAY ==
[2024-04-14 11:58] LABS: Abs Immature Grans 0.03 10^3/uL (0.0-0.06); Absolute Basophil Count 0.04 10^3/uL (0.0-0.2); Absolute Eosinophil Count 0.04 10^3/uL (0.0-0.7); Absolute Lymphocyte Count 1.36 10^3/uL (1.2-3.4); Absolute Monocyte Count 0.56 10^3/uL (0.1-0.8); Basophils % 0.5 %; Eosinophils % 0.5 %; HCT 45.4 % (36.0-46.0); HGB 15.1 g/dL (11.2-15.7); Immature Grans % 0.4 %; Lymphocytes % 16.5 %; MCH 31.3 pg (27.0-33.0); MCHC 33.3 % (32.0-36.0); MCV 94 fL (80-95); MPV 10.2 fL (8.0-11.0); Monocytes % 6.8 %; Neutrophils % 75.3 %; Platelet Count 255 10^3/uL (130-400); RBC 4.83 10^6/uL (3.93-5.22); RDW 13.6 % (11.7-14.6); RDW-SD 46.9 fL; WBC 8.23 10^3/uL (4.4-10.8)
[2024-04-14 12:26] LABS: TSH (W/Ref FT4) 2.32 uIU/mL (0.36-3.74)
--- OUTSIDE RECORDS SUMMARY | 2024-04-14 13:49 | XMS_ITS | Encounter Summary ---
Author Organization [facility] Address [address] [place] [address] Care Team Providers Care Commercial Interior Designer Name Role Phone Unavailable Primary Care Provider Unavailabl e Encounter Details Date Type Department Care Team (Late st Contact Info) Description 09/03/2002 Results Only [facility] - Maple conversion [address] [place] [address] Grecia Erazo MD [address] [place] [address] [place] [address] Social History Tobacco Use Types Packs/Day Years Used Date Smoking Tobacco: Never Assessed Comments Unknown Sex and Gender Information Value Date Recorded Sex Assigned at Not on file Legal Sex Female 18:19 EST Gender Identity Not on file Sexual Orientation Not on file documented as of this encounter Plan of Treatment Not on file documented as of this encounter Procedures Procedure Name Priority Date/Time Associated Diagnosis Comments CYTOPATHOLOGY Routine 09/03/2002 0:00 EDT documented in this encounter Results * CYTOPATHOLOGY (09/03/2002 0:00 EDT) Pathology Report: CYTOPATHOLOGY REPORT Reports generated via electronic interface contain original data; however they are lacking the format of the original report. Caution should be taken when reading/interpreti ng unformatted reports. Name: ? BRANDY VALDEZ ? Accession #: ? [id number] : ? 1945 (Age: 57) ??F ?Collect Date: ? 09/03/2002 Location: ? [facility] ? Receive Date: ? 09/06/2002 Provider: ?GRECIA ERAZO MD Copy to: ? Specimen/Source: ?ThinPrep Pap Test, Vagina Last Menstrual Period: ? Previous Gynecologic Pathology: ? 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 FIGO Gr I as arising in polyps Treatment History: ? Hysterectomy: 01/31/02 ? SPECIMEN ADEQUACY ? Satisfactory for Evaluation - assessment of transformation zone component not applicable ( e.g. atrophy, vaginal sample, hysterectomy) GENERAL CATEGORIZATION ? Negative for Intraepithelial Lesion or Malignancy ? Document reviewed and electronically signed by: ? Alissa Betancourt, SREEDHAR(ASCP) ? Report Date: ??09/09/2002 08:06 End of Report [facility] 09/03/2002 09/06/2002 us Grecia Erazo MD PATHOLOGY ORDERABLES Final Resu lt [facility] [address] [place] [address] documented in this encounter Visit Diagnoses Not on filedocumented in this encounter
--- OUTSIDE RECORDS SUMMARY | 2024-04-14 13:49 | XMS_ITS | Encounter Summary ---
Author Organization [facility] Address [address] [place] [address] Care Team Providers Care Medical Accounting Clerk Name Role Phone Unavailable Primary Care Provider Unavailabl e Encounter Details Date Type Department Care Team (Late st Contact Info) Description 12/11/2001 Results Only [facility] - Maple conversion [address] [place] [address] Grecia Erazo MD [address] [place] [address] [place] [address] Social History Tobacco Use Types Packs/Day Years [...] Procedure Name Priority Date/Time Associated Diagnosis Comments SURGICAL PATHOLOGY Routine 12/11/2001 0:00 EDT documented in this encounter Results * SURGICAL PATHOLOGY (12/11/2001 0:00 EDT) Pathology Report: SURGICAL PATHOLOGY REPORT Reports generated via electronic interface contain original data; however they are lacking the format of the original report. Caution should be taken when reading/interpreti ng unformatted reports. Name: ? BRANDY VALDEZ ? Accession #: ? [id number] ? : ? 1945 (Age: 56) ??F ? Collect Date: ? 12/11/2001 ? Location: ? [facility] ? Receive Date: ? 12/11/2001 ? Provider: GRECIA ERAZO MD Copy to: LUCHO HUBBARD MD ? Final Pathologic Diagnosis: ? Endometrium, curettage: 1. ?Atypical complex endometrial hyperplasia. ??See comment. 2. ?Fragments of benign endocervical and squamous epithelium. Comment: ? The previous biopsy ([id number]) was reviewed. ??This case was reviewed at intradepartmental consultation conference. ??Deeper levels were examined. ??(Dr. Montes)/[facility] Document reviewed and electronically signed by: Slava Caceres, [facility] Report ??Date: 12/17/2001 14:10 By the signature above, the attending physician certifies that he/she has personally conducted a gross and/or microscopic examination of the described specimens and rendered or confirmed the above diagnosis. Specimen(s) Received: ? Endometrial curettings Clinical History: ? Atypical endometrial hyperplasia Gross Description: ? Received in formalin labelled Auxier and endometrial curettings is a collection of red-brown hemorrhagic material which measures less than 1.0 cc in aggregate. ??The specimen is submitted entirely in one cassette. ??(Dr. Montes)/abby End of Report [facility] 12/11/2001 12/11/2001 15: 27 EDT us Grecia Erazo MD PATHOLOGY ORDERABLES Final Resu lt [facility] [address] [place] [address] documented in this encounter Visit Diagnoses Not on filedocumented in this encounter
--- OUTSIDE RECORDS SUMMARY | 2024-04-14 13:49 | XMS_ITS | Encounter Summary ---
Author Organization [facility] Address [address] [place] [address] Care Team Providers Care Card Checker Name Role Phone Unknown, Provider Primary Care Provider Amanda massey Encounter Details Date Type Department Care Team (Late st Contact Info) Description 03/30/2021 Lab Requisition [facility] Pathology & Laboratory Medicine - [address] [id number] Outr Resulting Lab, Provider Social History Tobacco Use Types Packs/Day Years [...] Procedure Name Priority Date/Time Associated Diagnosis Comments ZZCOVID-19 TEST [facility] PCR Today 03/30/2021 12:34 EST COVID-19 TESTING Routine 03/30/2021 12:3 4 EST documented in this encounter Results * COVID-19 TEST [facility] PCR (03/30/2021 12:34 EST) Swab 03/30/2021 12:3 4 EST 03/30/2021 22:17 EST us Provider Outr Resulting Lab MICROBIOLOGY - GENER AL ORDERABLES Final Result [facility] [address] [place] [address] * COVID-19 TESTING (03/30/2021 12:34 EST) COVID-19 rt-PCR Result Negative Negative 04/01/2021 15:26 EST [facility] Comment: This test has not been FDA cleared or approved. This test has been authorized by FDA under an EUA for use by authorized laboratories. This test has been authorized only for detection of nucleic acid from 2019-nCoV, not for any other viruses or pathogens. This test is only authorized for the duration of the declaration that circumstances exist justifying the authorization of emergency use of in vitro diagnostic tests for detection and/or diagnosis of 2019-nCoV under section 564(b)(1) of Act, 21 U.S.C ?? 360bbb-3(b) (1), unless the authorization is terminated or revoked sooner. Negative results do not preclude 2019-nCoV infection and should not be used as the sole basis for treatment or other patient management decisions. Negative results must be combined with clinical observations, patient history, and epidemiological information. This test was developed and its performance characteristics determined by [facility]. It has not been cleared or approved by the US Food and Drug Administration. FDA does not require this test to go through premarket FDA review. This test is used for clinical purposes. It should not be regarded as investigational or for research. This laboratory is certified under the Clinical Laboratory Improvement Amendments (CLIA) as qualified to perform high complexity clinical laboratory testing. This test is based on the [facility] COVID-19 Emergency Use Authorization (EUA) assay, with minor modification as defined by the FDA Performed on the Guanrio 7 Flex RT-PCR System. Performing Lab [facility] 04/01/2021 15:26 EST [facility] Swab 03/30/2021 12:3 4 EST 03/30/2021 22:17 EST us Provider Outr Resulting Lab MICROBIOLOGY - GENER AL ORDERABLES Final Result [facility] [address] [place] [address] documented in this encounter Visit Diagnoses Not on filedocumented in this encounter Additional Health Concerns Infection Onset Date Last Indicated Resolved Time COVID-19 08/01/2021 08/01/2021 08/21/2021 22:1 5 EDT documented as of this encounter Care Teams Card Checker Relationship Specialty Start Date End Date Unknown, Provider, PCP - General 10/06/14 documented as of this encounter
--- OUTSIDE RECORDS SUMMARY | 2024-04-14 13:49 | XMS_ITS | Encounter Summary ---
Author Organization [facility] Address [address] [place] [address] Care Team Providers Care Guard Driver Name Role Phone Unavailable Primary Care Provider Unavailabl e Encounter Details Date Type Department Care Team (Late st Contact Info) Description 01/28/2002 Results Only [facility] - Maple conversion [address] [place] [address] Grecia Erazo MD [address] [place] [address] [place] [address] Social History Tobacco Use Types Packs/Day Years [...] Date/Time Associated Diagnosis Comments SURGICAL PATHOLOGY Routine 01/28/2002 0:00 EST documented in this encounter Results * SURGICAL PATHOLOGY (01/28/2002 0:00 EST) Pathology Report: SURGICAL PATHOLOGY REPORT Reports generated via electronic interface contain original data; however they are lacking the format of the original report. Caution should be taken when reading/interpreting unformatted reports. Name: ? BRANDY VALDEZ ? Accession #: ? [id number] ? : ? 1945 (Age: 56) ??F ? Collect Date: ? 01/28/2002 ? Location: ? [facility] ? Receive Date: ? 01/28/2002 ? Provider: GRECIA ERAZO MD Copy to: KHANH GIBSON MD ? Final Pathologic Diagnosis: ? Uterus, left and right ovaries and fallopian tubes, hysterectomy and bilateral salpingo-oophorectomy: 1. 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 ? - ??No definitive invasion (AJCC: pT1a). ??See comment. - ??Lymphatic/vascular invasion: not identified. - ??Adjacent endometrium: complex atypical hyperplasia in polyps. ? - ??Myometrium: leiomyomata (4.0 cm maximum dimension). - ??Cervix: negative for carcinoma. - ??Serosa: negative for carcinoma; focal acute serositis. 2. ?Right ovary: ? - ??Negative for carcinoma. - ??No specific pathologic features. ? 3. ?? Left ovary: ?- Negative for carcinoma. ?- ??Serous cyst (1.4 cm). 4. ?? Right and left fallopian tubes: ? - Negative for carcinoma. ?- ??Mild acute serositis. ? Comment: ? Dr. Kate Espitia has reviewed this case. ??The submucosal myometrium demonstrates a single well-circumscribed focus of adenocarcinoma (A6). ?? This finding may represent carcinoma involving either the base of a polyp, an adenomyoma, or focal adenomyosis. Document reviewed and electronically signed by: RITO ALMEIDA MD Report ??Date: 02/03/2002 16:44 By the signature above, the attending physician certifies that he/she has personally conducted a gross and/or microscopic examination of the described specimens and rendered or confirmed the above diagnosis. Specimen(s) Received: ? Uterus, ovaries, cervix Clinical History: ? Atypical adenomatous hyperplasia; fibroids Gross Description: ? Received in formalin labeled José Miguel and uterus, left ovary, right ovary, cervix is the product of a hysterectomy and bilateral salpingo-oophorectomy. ??In addition, there is a separate fragment of cervix. The tubes and ovaries have been detached from the uterus and the uterus has been opened. ??The specimen is not able to be oriented. ??The uterus and cervix weigh 510 grams. ??The uterus is diffusely nodular and has been sectioned. ??The endometrial cavity is filled by several endometrial polyps, from 0.5 cm to 2.5 cm in diameter with a maximal length of 7.0 cm. The polyps are covered with granular to nodular white-mesa focally hemorrhagic mucosa. ??The endometrial-myometrial interface is distinct, with a maximal endometrial thickness of 0.2 cm. ??Sectioning shows one intraparenchymal mesa, focally cystic 0.8 cm nodule and several leiomyomata with a maximum diameter of 4.0 cm. ??The endomyometrium has a maximum thickness of 7.0 cm. ??The endocervix is white-pink, without lesions. ??The ectocervix is white and smooth. ??The serosal is smooth and pink-mesa. ??The right ovary has a somewhat nodular white-pink surface and measures 2.0 x 1.5 x 1.2 cm. ??On sectioning, the ovary shows no abnormalities. The unremarkable right fallopian tube is 5.0 cm in length and has a diameter of 0.5 cm. ??The left ovary exhibits a 2.5 x 2.0 x 2.0 cm clear fluid-filled translucent cyst. ??The ovary measures 3.0 x 2.0 x 1.6 cm. ??The attached unremarkable segment of fallopian tube measures 2.5 cm in length and 0.5 cm in width. ??Central Supply Supervisor sections are submitted as follows. BLOCK SALTER A1-A4 ?Central Supply Supervisor sections of the largest leiomyoma A5 ?Central Supply Supervisor section of the cystic nodule A7-A9 ?Central Supply Supervisor sections of leiomyomata ? A10-A14 ? Central Supply Supervisor sections of endometrial polyp stalks with underlying myometrium (A13 ??bisected full thickness section of endomyometrium) ? A15 ?Central Supply Supervisor full thickness section of endomyometrium A16-A17 ? Central Supply Supervisor sections of cervix A18 ?Central Supply Supervisor section of right ovary and two surgical device sales representative sections of right fallopian tube A19-A20 ? Central Supply Supervisor sections of left ovary (A20 includes cyst) A21 ?Two surgical device sales representative section of left fallopian tube (Dr. Varghese)/alfonso ESTROGEN AND PROGESTERONE RECEPTOR IMMUNOPEROXIDASE STAINS ? Date Ordered: ? 02/04/2002 ? Status: ?? Signed Out ?Date Complete: ? 02/04/2002 ? By: ??Olga Reyes ? Date Reported: ? 02/04/2002 ? Interpretation ? 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 1. ?Positive for estrogen receptors (in 75% of tumor cells). 2. ?Positive for progesterone receptors (in 75% of tumor cells). Description ? An immunohistochemical assay for estrogen receptors (ER1D5, Immunotech) and progesterone receptors (PR88, Biogenex) has been performed on this specimen. Standard heat activated antigen retrieval protocol (citrate buffer at pH 7.6 and 98 C x 15 minutes) was employed followed by automated immunostaining. Intranuclear receptor complexes were visualized on tissue sections using a streptavidin biotin immunohistochemical technique. ? Results are reported as negative (no nuclear staining) or positive with the proportion of positive cells noted. ??Estrogen receptor expression in <5% of tumor cells may not have a strong interaction with estrogen receptor modulators such as Tamoxifen. ??(Dr. Espitia)/alfonso Document reviewed and electronically signed by: ? KATE ESPITIA MD ? Report date: 02/04/2002 By the signature above, the attending physician certifies that he/she has personally conducted a gross and/or microscopic examination of the described specimens and rendered or confirmed the above diagnosis. End of Report [facility] 01/28/2002 01/28/2002 15: 14 EST Grecia Erazo MD PATHOLOGY ORDERABLES Final Resu lt [facility] [address] [place] [address] documented in this encounter Visit Diagnoses Not on filedocumented in this encounter
--- OUTSIDE RECORDS SUMMARY | 2024-04-14 13:49 | XMS_ITS | Encounter Summary ---
Author Organization [facility] Address [address] [place] [address] Care Team Providers Care Dobie Man Name Role Phone Unavailable Primary Care Provider Unavailabl e Encounter Details Date Type Department Care Team (Late st Contact Info) Description 03/11/2003 Results Only [facility] - Maple conversion [address] [place] [address] Grecia Erazo MD [address] [place] [address] [place] [address] Social History Tobacco Use Types Packs/Day Years [...] Priority Date/Time Associated Diagnosis Comments CYTOPATHOLOGY Routine 03/11/2003 0:00 EST documented in this encounter Results * CYTOPATHOLOGY (03/11/2003 0:00 EST) Pathology Report: CYTOPATHOLOGY REPORT Reports generated via electronic interface contain original data; however they are lacking the format of the original report. Caution should be taken when reading/interpreti ng unformatted reports. Name: ? BRANDY VALDEZ ? Accession #: ? [id number] : ? 1945 (Age: 57) ??F ?Collect Date: ? 03/11/2003 Location: ? [facility] ? Receive Date: ? 03/15/2003 Provider: ?GRECIA ERAZO MD Copy to: ? Specimen/Source: ?ThinPrep Pap Test, Vagina Last Menstrual Period: ? Previous Gynecologic Pathology: ? Adenocarcinoma: endometroid type 01/23 Treatment History: ? Hysterectomy: 01/23 Other: ? Additional clinical information: FIGO Gr 1 arising in polyps ? SPECIMEN ADEQUACY ? Satisfactory for Evaluation - assessment of transformation zone component not applicable ( e.g. atrophy, vaginal sample, hysterectomy) GENERAL CATEGORIZATION ? Negative for Intraepithelial Lesion or Malignancy ? Document reviewed and electronically signed by: ? Alissa Betancourt, SREEDHAR(ASCP) ? Report Date: ??03/22/2003 08:30 End of Report [facility] 03/11/2003 03/15/2003 us Grecia Erazo MD PATHOLOGY ORDERABLES Final Resu lt [facility] [address] [place] [address] documented in this encounter Visit Diagnoses Not on filedocumented in this encounter
--- OUTSIDE RECORDS SUMMARY | 2024-04-14 13:49 | XMS_ITS | Encounter Summary ---
Author Organization [facility] Address [address] [place] [address] Care Team Providers Care Awning Assembler Name Role Phone Unavailable Primary Care Provider Unavailabl e Encounter Details Date Type Department Care Team (Late st Contact Info) Description 10/03/2014 Results Only [facility] [phone] Ashleigh Alicia MD [facility] [place], [place] [id number] Social History Tobacco Use Types Packs/Day Years [...] Date/Time Associated Diagnosis Comments SURGICAL PATHOLOGY Routine 10/03/2014 17 :50 EDT documented in this encounter Results * SURGICAL PATHOLOGY (10/03/2014 17:50 EDT) Pathology Report: SURGICAL PATHOLOGY REPORT Reports generated via electronic interface contain original data; however they are lacking the format of the original report. Caution should be taken when reading/interpret ing unformatted reports. Name: ? BRANDY VALDEZ ? Accession #: ? [id number] ? : ? 1945 (Age: 69) ??F ? Collect Date: ? 10/03/2014 ? Location: ? [facility] ? Receive Date: ? 10/03/2014 ? Provider: ASHLEIGH ALICIA MD Copy to: ARCELIA DE LOS SANTOS MD ? Final Pathologic Diagnosis: A. COLON, CECUM, POLYPS, BIOPSY: - ??Fragments of tubular and tubovillous adenomas. B. COLON, TRANSVERSE, POLYP, BIOPSY: - ??Fragments of tubular adenoma. Document reviewed and electronically signed by: STELLA ACEVES MD Report ??Date: 10/06/2014 19:53 By the signature above, the attending physician certifies that he/she has personally conducted a gross and/or microscopic examination of the described specimens and rendered or confirmed the above diagnosis. Specimen(s) Received: A. ??Cecal polyps x2 B. ??Transverse polyp Clinical History: Colorectal screen Gross Description: A. ?Received in formalin labelled with proper patient identification (initials G, M) and 1. cecal polyps x2 are fourteen mesa tissues (0.5 x 0.4 x 0.2 cm to 0.1 x 0.1 x 0.1 cm). Entirely submitted in A1 through A5. B. ?Received in formalin labelled with proper patient identification (initials G, M) and 2. transverse colon polyp are two mesa tissues (0.5 x 0.2 x 0.1 cm and 0.3 x 0.2 x 0.2 cm). Entirely submitted in B1. Jason Chase 10/04/2014 8:10 AM End of Report [facility] 10/03/2014 17:5 0 EDT 10/03/2014 17:50 EDT us Ashleigh Alicia MD PATHOLOGY ORDERABLES Fin al Result [facility] [address] [place] [address] documented in this encounter Visit Diagnoses Not on filedocumented in this encounter
--- OUTSIDE RECORDS SUMMARY | 2024-04-14 13:49 | XMS_ITS | Encounter Summary ---
Author Organization [facility] Address [address] [place] [address] Care Team Providers Care Certified Phlebotomist Name Role Phone Unavailable Primary Care Provider Unavailabl e Encounter Details Date Type Department Care Team (Late st Contact Info) Description 08/31/2004 Results Only [facility] - Maple conversion [address] [place] [address] Grecia Erazo MD [address] [place] [address] [place] [address] Social History Tobacco Use Types Packs/Day Years [...] Priority Date/Time Associated Diagnosis Comments CYTOPATHOLOGY Routine 08/31/2004 0:00 EDT documented in this encounter Results * CYTOPATHOLOGY (08/31/2004 0:00 EDT) Pathology Report: CYTOPATHOLOGY REPORT Reports generated via electronic interface contain original data; however they are lacking the format of the original report. Caution should be taken when reading/interpreti ng unformatted reports. Name: ? BRANDY VALDEZ ? Accession #: ? [id number] : ? 1945 (Age: 59) ??F ?Collect Date: ? 08/31/2004 Location: ? [facility] ? Receive Date: ? 08/31/2004 Provider: ?GRECIA ERAZO MD Copy to: ? Specimen/Source: ?ThinPrep Pap Test, Vagina Last Menstrual Period: ? Treatment History: ? Hysterectomy: 01/23 ? SPECIMEN ADEQUACY ? Satisfactory for Evaluation - assessment of transformation zone component not applicable ( e.g. atrophy, vaginal sample, hysterectomy) GENERAL CATEGORIZATION ? Negative for Intraepithelial Lesion or Malignancy ? Document reviewed and electronically signed by: ? Charity Stevenson, SCT(ASCP) ? Report Date: ??09/08/2004 12:49 End of Report [facility] 08/31/2004 08/31/2004 us Grecia Erazo MD PATHOLOGY ORDERABLES Final Resu lt [facility] [address] [place] [address] documented in this encounter Visit Diagnoses Not on filedocumented in this encounter
--- OUTSIDE RECORDS SUMMARY | 2024-04-14 13:49 | XMS_ITS | Encounter Summary ---
Author Organization [facility] Address [address] [place] [address] Care Team Providers Care Manager Molecular Name Role Phone Unavailable Primary Care Provider Unavailabl e Encounter Details Date Type Department Care Team (Late st Contact Info) Description 09/07/2003 Results Only [facility] - Maple conversion [address] [place] [address] Grecia Erazo MD [address] [place] [address] [place] [address] Social History Tobacco Use Types Packs/Day Years [...] Priority Date/Time Associated Diagnosis Comments CYTOPATHOLOGY Routine 09/07/2003 0:00 EDT documented in this encounter Results * CYTOPATHOLOGY (09/07/2003 0:00 EDT) Pathology Report: CYTOPATHOLOGY REPORT Reports generated via electronic interface contain original data; however they are lacking the format of the original report. Caution should be taken when reading/interpreti ng unformatted reports. Name: ? BRANDY VALDEZ ? Accession #: ? [id number] : ? 1945 (Age: 58) ??F ?Collect Date: ? 09/07/2003 Location: ? [facility] ? Receive Date: ? 09/08/2003 Provider: ?GRECIA ERAZO MD Copy to: ? Specimen/Source: ?ThinPrep Pap Test, Vagina Last Menstrual Period: ? Previous Gynecologic Pathology: ? Endometrial adenocarcinoma: 01/23 Treatment History: ? Hysterectomy: 01/23 ? SPECIMEN ADEQUACY ? Satisfactory for Evaluation - assessment of transformation zone component not applicable ( e.g. atrophy, vaginal sample, hysterectomy) GENERAL CATEGORIZATION ? Negative for Intraepithelial Lesion or Malignancy ? Document reviewed and electronically signed by: ? Soren Jarvis MD ? Report Date: ??09/13/2003 14:11 End of Report [facility] 09/07/2003 09/08/2003 us Grecia Erazo MD PATHOLOGY ORDERABLES Final Resu lt [facility] [address] [place] [address] documented in this encounter Visit Diagnoses Not on filedocumented in this encounter
--- OUTSIDE RECORDS SUMMARY | 2024-04-14 13:49 | XMS_ITS | Encounter Summary ---
Author Organization [facility] Address [address] [place] [address] Care Team Providers Care Children'S Court Magistrate Name Role Phone Unavailable Primary Care Provider Unavailabl e Encounter Details Date Type Department Care Team (Late st Contact Info) Description 01/31/[address] [facility] - Maple conversion [address] [place] [address] Grecia Erazo MD [address] [place] [address] [place] [address] Social History Tobacco Use Types Packs/Day Years [...] Priority Date/Time Associated Diagnosis Comments CYTOPATHOLOGY Routine 01/31/2006 0:00 EST documented in this encounter Results * CYTOPATHOLOGY (01/31/2006 0:00 EST) Pathology Report: CYTOPATHOLOGY REPORT Reports generated via electronic interface contain original data; however they are lacking the format of the original report. Caution should be taken when reading/interpreti ng unformatted reports. Name: ? BRANDY VALDEZ ? Accession #: ? [id number] : ? 1945 (Age: 60) ??F ?Collect Date: ? 01/31/2006 Location: ? [facility] ? Receive Date: ? 02/03/2006 Provider: ?GRECIA ERAZO MD Copy to: ? Specimen/Source: ?ThinPrep Pap Test, Vagina, processed on [employer]Prep Imaging System, with manual evaluation Last Menstrual Period: ? Previous Gynecologic Pathology: ? Endometrial adenocarcinoma Treatment History: ? Hysterectomy: 2001 ? SPECIMEN ADEQUACY ? Satisfactory for Evaluation - assessment of transformation zone component not applicable ( e.g. atrophy, vaginal sample, hysterectomy) - scant squamous epithelial component secondary to excessive inflammation GENERAL CATEGORIZATION ? Negative for Intraepithelial Lesion or Malignancy ? Document reviewed and electronically signed by: ? SREEDHAR Merritt(ASCP) ? Report Date: ??02/10/2006 15:12 End of Report [facility] 01/31/2006 02/03/2006 us Grecia Erazo MD PATHOLOGY ORDERABLES Final Resu lt [facility] [address] [place] [address] documented in this encounter Visit Diagnoses Not on filedocumented in this encounter
--- OUTSIDE RECORDS SUMMARY | 2024-04-14 13:49 | XMS_ITS | Clinical Summary ---
Author Organization [facility] Address [address] [place] [address] Care Team Providers Care Search Director Name Role Phone Unknown, Provider Primary Care Provider Unava ilable Social History Tobacco Use Types Packs/Day Years Used Date Smoking Tobacco: Never Assessed Comments Unknown Sex and Gender Information Value Date Recorded Sex Assigned at Not on file Legal Sex Female 18:19 EST Gender Identity Not on file Sexual Orientation Not on file Plan of Treatment Health Maintenance Due Date Last Done Comments Hepatitis C Screen 1945 Fall Risk Screening 08/11/2012 RSV Immunization ( o r 60+ Years) (1 - 1-dose 75+ series) 08/11/2022 COVID-19 Vaccine (2023- season) 2023 Care Teams Search Director Relationship Specialty Start Date End Date Unknown, Provider, PCP - General 10/06/14
--- OUTSIDE RECORDS SUMMARY | 2024-04-14 13:49 | XMS_ITS | Encounter Summary ---
Author Organization [facility] Address [address] [place] [address] Care Team Providers Care Product Marketer Name Role Phone Unavailable Primary Care Provider Unavailabl e Encounter Details Date Type Department Care Team (Late st Contact Info) Description 08/02/2005 Results Only [facility] - Maple conversion [address] [place] [address] Grecia Erazo MD [address] [place] [address] [place] [address] Social History Tobacco Use Types Packs/Day Years [...] Priority Date/Time Associated Diagnosis Comments CYTOPATHOLOGY Routine 08/02/2005 0:00 EDT documented in this encounter Results * CYTOPATHOLOGY (08/02/2005 0:00 EDT) Pathology Report: CYTOPATHOLOGY REPORT Reports generated via electronic interface contain original data; however they are lacking the format of the original report. Caution should be taken when reading/interpreti ng unformatted reports. Name: ? BRANDY VALDEZ ? Accession #: ? [id number] : ? 1945 (Age: 59) ??F ?Collect Date: ? 08/02/2005 Location: ? [facility] ? Receive Date: ? 08/05/2005 Provider: ?GRECIA ERAZO MD Copy to: ? Specimen/Source: ?ThinPrep Pap Test, Vagina, processed on [employer] ThinPrep Imaging System, with manual evaluation Last Menstrual Period: ? Previous Gynecologic Pathology: ? Endometrial adenocarcinoma Treatment History: ? Hysterectomy: 2002 Other: ? HPVA - HPV testing requested if ASC-US on the current ThinPrep Pap test. ? SPECIMEN ADEQUACY ? Satisfactory for Evaluation - assessment of transformation zone component not applicable ( e.g. atrophy, vaginal sample, hysterectomy) - scant squamous epithelial component secondary to excessive inflammation GENERAL CATEGORIZATION ? Negative for Intraepithelial Lesion or Malignancy ? Document reviewed and electronically signed by: ? SREEDHAR Merritt(ASCP) ? Report Date: ??08/06/2005 14:47 End of Report [facility] 08/02/2005 08/05/2005 us Grecia Erazo MD PATHOLOGY ORDERABLES Final Resu lt [facility] [address] [place] [address] documented in this encounter Visit Diagnoses Not on filedocumented in this encounter
--- OUTSIDE RECORDS SUMMARY | 2024-04-14 13:49 | XMS_ITS | Encounter Summary ---
Author Organization [facility] Address [address] [place] [address] Care Team Providers Care Computational Mathematician Name Role Phone Unknown, Provider Primary Care Provider Amanda massey Encounter Details Date Type Department Care Team (Late st Contact Info) Description 07/27/2021 Lab Requisition [facility] Pathology & Laboratory Medicine - [facility] [address] [place], [place] [address] Outr Resulting Lab, Provider Social History Tobacco [...] Comments ZZCOVID-19 TEST [facility] PCR Today 07/27/2021 11:50 EDT COVID-19 TESTING Routine 07/27/2021 11:5 0 EDT documented in this encounter Results * COVID-19 TEST [facility] PCR (07/27/2021 11:50 EDT) Swab 07/27/2021 11:5 0 EDT 07/27/2021 21:58 EDT us Provider Outr Resulting Lab MICROBIOLOGY - GENER AL ORDERABLES Final Result [facility] [address] [place] [address] * COVID-19 TESTING (07/27/2021 11:50 EDT) COVID-19 rt-PCR Result Negative Negative 07/28/2021 13:10 EDT [facility] Comment: This test has [...] clinical observations, patient history, and epidemiological information. Testing was performed using the abdirizak SARS-CoV-2 assay ([employer] on the Abdirizak 6800 System Performing Lab [facility] [address] [facility] 07/28/2021 13:10 EDT [facility] Swab 07/27/2021 11:5 0 EDT 07/27/2021 21:58 EDT us Provider Outr Resulting Lab MICROBIOLOGY - GENER AL ORDERABLES Final Result [facility] [address] [place] [address] documented in this encounter Visit Diagnoses Not on filedocumented in this encounter Additional Health Concerns Infection Onset Date Last Indicated Resolved Time COVID-19 08/01/2021 08/01/2021 08/21/2021 22:1 5 EDT documented as of this encounter Care Teams Computational Mathematician Relationship Specialty Start Date End Date Unknown, Provider, PCP - General 10/06/14 documented as of this encounter
--- OUTSIDE RECORDS SUMMARY | 2024-04-14 13:49 | XMS_ITS | Encounter Summary ---
Author Organization [facility] Address [address] [place] [address] Care Team Providers Care Teacher Associate Name Role Phone Unavailable Primary Care Provider Unavailabl e Encounter Details Date Type Department Care Team (Late st Contact Info) Description 08/01/2006 Results Only [facility] - Maple conversion [address] [place] [address] Grecia Erazo MD [address] [place] [address] [place] [address] Social History Tobacco Use Types Packs/Day Years [...] Priority Date/Time Associated Diagnosis Comments CYTOPATHOLOGY Routine 08/01/2006 0:00 EDT documented in this encounter Results * CYTOPATHOLOGY (08/01/2006 0:00 EDT) Pathology Report: CYTOPATHOLOGY REPORT Reports generated via electronic interface contain original data; however they are lacking the format of the original report. Caution should be taken when reading/interpreti ng unformatted reports. Name: ? BRANDY VALDEZ ? Accession #: ? [id number] : ? 1945 (Age: 60) ??F ?Collect Date: ? 08/01/2006 Location: ? [facility] ? Receive Date: ? 08/04/2006 Provider: ?GRECIA EARZO MD Copy to: ? Specimen/Source: ?ThinPrep Pap Test, Vagina, processed on [employer] SciencesPrep Imaging System, with manual evaluation Last Menstrual Period: ? Previous Gynecologic Pathology: ? Endometrial adenocarcinoma Treatment History: ? Hysterectomy: 2001 ? SPECIMEN ADEQUACY ? Satisfactory for Evaluation - assessment of transformation zone component not applicable ( e.g. atrophy, vaginal sample, hysterectomy) GENERAL CATEGORIZATION ? Negative for Intraepithelial Lesion or Malignancy ? Document reviewed and electronically signed by: ? SREEDHAR Merritt(ASCP) ? Report Date: ??08/06/2006 09:41 End of Report [facility] 08/01/2006 08/04/2006 us Grecia Erazo MD PATHOLOGY ORDERABLES Final Resu lt [facility] [address] [place] [address] documented in this encounter Visit Diagnoses Not on filedocumented in this encounter
--- OUTSIDE RECORDS SUMMARY | 2024-04-14 13:49 | XMS_ITS | Encounter Summary ---
Author Organization [facility] Address [address] [place] [address] Care Team Providers Care Latex Spooler Name Role Phone Unavailable Primary Care Provider Unavailabl e Encounter Details Date Type Department Care Team (Late st Contact Info) Description 11/05/2001 Results Only [facility] - Maple conversion [address] [place] [address] Grecia Erazo MD [address] [place] [address] [place] [address] Social History Tobacco Use Types Packs/Day Years [...] Date/Time Associated Diagnosis Comments SURGICAL PATHOLOGY Routine 11/05/2001 0:00 EDT documented in this encounter Results * SURGICAL PATHOLOGY (11/05/2001 0:00 EDT) Pathology Report: SURGICAL PATHOLOGY REPORT Reports generated via electronic interface contain original data; however they are lacking the format of the original report. Caution should be taken when reading/interpreting unformatted reports. Name: ? BRANDY VALDEZ ? Accession #: ? [id number] ? : ? 1945 (Age: 56) ??F ? Collect Date: ? 11/05/2001 ? Location: ? [facility] ? Receive Date: ? 11/05/2001 ? Provider: GRECIA ERAZO MD Copy to: KHANH GIBSON MD ? Final Pathologic Diagnosis: ? 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 See comment. - ??Fragments of inactive endometrium and endocervical glands. Comment: ? Case was reviewed at intradepartmental consultation conference. Two small fragments display the dysplasia. The current specimen is limited, and more extensive tissue sampling is required to exclude presence of an underlying malignancy. (Dr. Raphael) Document reviewed and electronically signed by: VIRGINIA RAPHAEL MD Report ??Date: 11/06/2001 16:15 By the signature above, the attending physician certifies that he/she has personally conducted a gross and/or microscopic examination of the described specimens and rendered or confirmed the above diagnosis. Specimen(s) Received: ? Endo bx Clinical History: ? Postmenop bleeding; 1993 Gross Description: ? Received in formalin labeled [place] and endometrium is 2.0 x 1.5 x 0.3 cm of multiple mesa-red hemorrhagic soft tissue fragments. ??The specimen is entirely submitted in one cassette. ??(Therese Claros/alfonso End of Report [facility] 11/05/2001 11/05/2001 15: 45 EDT us Grecia Erazo MD PATHOLOGY ORDERABLES Final Resu lt [facility] [address] [place] [address] documented in this encounter Visit Diagnoses Not on filedocumented in this encounter
--- OUTSIDE RECORDS SUMMARY | 2024-04-14 13:49 | XMS_ITS | Encounter Summary ---
Author Organization [facility] Address [address] [place] [address] Care Team Providers Care Environmental Studies Program Director Name Role Phone Unknown, Provider Primary Care Provider Amanda massey Encounter Details Date Type Department Care Team (Late st Contact Info) Description 07/31/2021 Lab Requisition [facility] Pathology & Laboratory Medicine - [address] [id number] Outr Resulting Lab, Provider Social History Tobacco [...] Comments ZZCOVID-19 TEST [facility] PCR Today 07/31/2021 9:00 EDT COVID-19 TESTING Routine 07/31/2021 9:00 EDT documented in this encounter Results * COVID-19 TEST [facility] PCR (07/31/2021 9:00 EDT) Swab 07/31/2021 9:00 EDT 07/31/2021 22:31 EDT us Provider Outr Resulting Lab MICROBIOLOGY - GENER AL ORDERABLES Final Result [facility] [address] [place] [address] * COVID-19 TESTING (07/31/2021 9:00 EDT) COVID-19 rt-PCR Result Negative Negative 08/01/2021 1:46 EDT [facility] Comment: This test has [...] clinical observations, patient history, and epidemiological information. Performed on the [employer] Fusion instrument Performing Lab [place] [facility] 08/01/2021 1:46 EDT [facility] Swab 07/31/2021 9:00 EDT 07/31/2021 22:31 EDT us Provider Outr Resulting Lab MICROBIOLOGY - GENER AL ORDERABLES Final Result [facility] [address] [place] [address] documented in this encounter Visit Diagnoses Not on filedocumented in this encounter Additional Health Concerns Infection Onset Date Last Indicated Resolved Time COVID-19 08/01/2021 08/01/2021 08/21/2021 22:1 5 EDT documented as of this encounter Care Teams Environmental Studies Program Director Relationship Specialty Start Date End Date Unknown, Provider, PCP - General 10/06/14 documented as of this encounter
--- OUTSIDE RECORDS SUMMARY | 2024-04-14 13:49 | XMS_ITS | Referral Summary ---
Author Organization [facility] Address [address] [place] [address] Care Team Providers Care Optical Laboratory Manager Name Role Phone Unknown, Provider Primary Care Provider Unava ilable Social History Tobacco Use Types Packs/Day Years Used Date Smoking Tobacco: Never Assessed Comments Unknown Sex and Gender Information Value Date Recorded Sex Assigned at Not on file Legal Sex Female 18:19 EST Gender Identity Not on file Sexual Orientation Not on file Plan of Treatment Not on file Care Teams Optical Laboratory Manager Relationship Specialty Start Date End Date Unknown, Provider, PCP - General 10/06/14
--- OUTSIDE RECORDS SUMMARY | 2024-04-14 13:49 | XMS_ITS | Encounter Summary ---
Author Organization [facility] Address [address] [place] [address] Care Team Providers Care Sander And Buffer Name Role Phone Unknown, Provider Primary Care Provider Amanda massey Encounter Details Date Type Department Care Team (Late st Contact Info) Description 08/01/2021 Lab Requisition [facility] Pathology & Laboratory Medicine - [facility] [address] [place], [place] [address] Outr Resulting Lab, Provider Social History Tobacco [...] Comments ZZCOVID-19 TEST [facility] PCR Today 08/01/2021 14:00 EDT COVID-19 TESTING Routine 08/01/2021 14:0 0 EDT documented in this encounter Results * COVID-19 TEST [facility] PCR (08/01/2021 14:00 EDT) Swab 08/01/2021 14:0 0 EDT 08/01/2021 21:52 EDT us Provider Outr Resulting Lab MICROBIOLOGY - GENER AL ORDERABLES Final Result [facility] [address] [place] [address] * (ABNORMAL) COVID-19 TESTING (08/01/2021 14:00 EDT) COVID-19 rt-PCR Result Positive( AA) Negative 08/02/2021 14:58 EDT [facility] Comment: This test has [...] the authorization is terminated or revoked sooner. Testing was performed using the abdirizak SARS-CoV-2 assay ([employer] on the Abdirizak 6800 System Performing Lab [facility] [address] [facility] 08/02/2021 14:58 EDT [facility] Swab 08/01/2021 14:0 0 EDT 08/01/2021 21:52 EDT us Provider Outr Resulting Lab MICROBIOLOGY - GENER AL ORDERABLES Final Result [facility] [address] [place] [address] documented in this encounter Visit Diagnoses Not on filedocumented in this encounter Additional Health Concerns Infection Onset Date Last Indicated Resolved Time COVID-19 08/01/2021 08/01/2021 08/21/2021 22:1 5 EDT documented as of this encounter Care Teams Sander And Buffer Relationship Specialty Start Date End Date Unknown, Provider, PCP - General 10/06/14 documented as of this encounter
--- OUTSIDE RECORDS SUMMARY | 2024-04-14 13:49 | XMS_ITS | Continuity of Care Document ---
Author Organization [facility] Address [address] [place] [address] Care Team Providers Care Waiter/Waitress Captain Name Role Phone ROMINA JAIME APRN Primary Care Physician Encounter [facility] NBR [id number] Date(s): 04/14/24 - 04/14/24 [facility] [address] [place] [address]- [place] Encounter Type: History Patient Care team information Care Team Personnel Name: ROMINA JAIME APRN Position: No Access Member Role: Primary Care Physician Address: [address] [place] [phone] [employer]: Insurance Providers Guarantor name: PRASHANTH Health Plan Information #: 1 Payer: MEDICARE [facility] Member Number: NA Policy Number: NA Group Number: NA Health Plan Information #: 2 Payer: MEDICAID [place] Member Number: NA Policy Number: NA Group Number: NA
--- OUTSIDE RECORDS SUMMARY | 2024-04-14 13:49 | XMS_ITS | Encounter Summary ---
Author Organization [facility] Address [address] [place] [address] Care Team Providers Care Tack Driller Name Role Phone Unavailable Primary Care Provider Unavailabl e Encounter Details Date Type Department Care Team (Late st Contact Info) Description 03/06/2005 Results Only [facility] - Maple conversion [address] [place] [address] Grecia Erazo MD [address] [place] [address] [place] [address] Social History Tobacco Use Types Packs/Day Years [...] Priority Date/Time Associated Diagnosis Comments CYTOPATHOLOGY Routine 03/06/2005 0:00 EST documented in this encounter Results * CYTOPATHOLOGY (03/06/2005 0:00 EST) Pathology Report: CYTOPATHOLOGY REPORT Reports generated via electronic interface contain original data; however they are lacking the format of the original report. Caution should be taken when reading/interpreti ng unformatted reports. Name: ? BRANDY VALDEZ ? Accession #: ? [id number] : ? 1945 (Age: 59) ??F ?Collect Date: ? 03/06/2005 Location: ? [facility] ? Receive Date: ? 03/07/2005 Provider: ?GRECIA ERAZO MD Copy to: ? Specimen/Source: ?ThinPrep Pap Test, Vagina, processed on [employer] ThinPrep Imaging System, with manual evaluation Last Menstrual Period: ? 01/23 Previous Gynecologic Pathology: ? Adenocarcinoma: 01/23 Endometrial Treatment History: ? Hysterectomy: 01/23 Other: ? HPVA - HPV testing requested [...] by: ? SREEDHAR Merritt(ASCP) ? Report Date: ??03/11/2005 12:52 End of Report [facility] 03/06/2005 03/07/2005 us Grecia Erazo MD PATHOLOGY ORDERABLES Final Resu lt [facility] [address] [place] [address] documented in this encounter Visit Diagnoses Not on filedocumented in this encounter
--- OUTSIDE RECORDS SUMMARY | 2024-04-14 13:49 | XMS_ITS | Encounter Summary ---
Author Organization [facility] Address [address] [place] [address] Care Team Providers Care Division Plant Engineer Name Role Phone Unavailable Primary Care Provider Unavailabl e Encounter Details Date Type Department Care Team (Latest Contact Info) Description 10/03/2014 14:09 EDT - 10/03/2014 23:59 EDT Hospital Encounter [address] [address] Unknown, Provider, MD Discharge Disposition: Home or Self Care Social History Tobacco Use Types Packs/Day Years Used Date Smoking Tobacco: Never Assessed Comments Unknown Sex and Gender Information Value Date Recorded Sex Assigned at Not on file Legal Sex Female 18:19 EST Gender Identity Not on file Sexual Orientation Not on file documented as of this encounter Discharge Disposition Disposition Code Departure Means Destination Home or Self Usp documented in this encounter Plan of Treatment Not on file documented as of this encounter Visit Diagnoses Not on filedocumented in this encounter
--- OUTSIDE RECORDS SUMMARY | 2024-04-14 13:49 | XMS_ITS | Encounter Summary ---
Author Organization [facility] Address [address] [place] [address] Care Team Providers Care Census Enumerator Name Role Phone Unavailable Primary Care Provider Unavailabl e Encounter Details Date Type Department Care Team (Late st Contact Info) Description 03/02/2004 Results Only [facility] [address] [place] [address] Grecia Erazo MD [address] [place] [address] [place] [address] Social History Tobacco Use Types Packs/Day Years [...] Priority Date/Time Associated Diagnosis Comments CYTOPATHOLOGY Routine 03/02/2004 0:00 EST documented in this encounter Results * CYTOPATHOLOGY (03/02/2004 0:00 EST) Pathology Report: CYTOPATHOLOGY REPORT Reports generated via electronic interface contain original data; however they are lacking the format of the original report. Caution should be taken when reading/interpreti ng unformatted reports. Name: ? BRANDY VALDEZ ? Accession #: ? [id number] : ? 1945 (Age: 58) ??F ?Collect Date: ? 03/02/2004 Location: ? [facility] ? Receive Date: ? 03/05/2004 Provider: ?GRECIA ERAZO MD Copy to: ? Specimen/Source: ?ThinPrep Pap Test, Vagina Last Menstrual Period: ? 01/23 Previous Gynecologic Pathology: ? Endometrial adenocarcinoma: 01/23 Treatment History: ? Hysterectomy ? SPECIMEN ADEQUACY ? Satisfactory for Evaluation - assessment of transformation zone component not applicable ( e.g. atrophy, vaginal sample, hysterectomy) GENERAL CATEGORIZATION ? Negative for Intraepithelial Lesion or Malignancy INTERPRETATION ? Reactive cellular changes associated with inflammation present (includes repair). ? Document reviewed and electronically signed by: ? JOANNA WILCOX MD ? Report Date: ??03/12/2004 10:09 End of Report [facility] 03/02/2004 03/05/2004 us Grecia Erazo MD PATHOLOGY ORDERABLES Final Resu lt [facility] [address] [place] [address] documented in this encounter Visit Diagnoses Not on filedocumented in this encounter
== END 2024-04-14 13:44 | disposition home or self-care (01) ==
LOC: NCHCN 13:43
PROVIDERS: PCP Nurse Practitioner Family; Visit Provider Nurse Practitioner Family
DX: G62.9 Polyneuropathy, unspecified (principal)
CPT/HCPCS: 84443; 85025

== ENCOUNTER 2024-04-30 14:30 | Outpatient (REF) | payer MEDICARE, MEDICAID, SELFPAY ==
[2024-05-03 14:06] LABS: Albumin 59.8 % (55.8-66.1); Albumin g/dL 3.9 g/dL (3.6-5.2); Total Protein 6.5 g/dL (6.3-8.2)
== END 2024-04-30 14:31 | disposition home or self-care (01) ==
LOC: NCHCN 14:30
PROVIDERS: PCP Nurse Practitioner Family; Visit Provider Nurse Practitioner Family
DX: E11.9 Type 2 diabetes mellitus without complications (principal)
CPT/HCPCS: 83036; 84165

== ENCOUNTER 2024-06-29 18:58 | Observation (INO) | payer MEDICARE, MEDICAID, SELFPAY ==
[2024-06-29] VITALS (52 sets, daily range): BP systolic 156–167; BP diastolic 64–78; PULSE 53–67; RESP 20–21; TEMP 36.9; O2SAT 95–99
[2024-06-29 19:17] LABS: Bilirubin Negative (Negative); Blood Moderate (Negative); Clarity Cloudy (Clear); Glucose Negative (Negative); Ketones Negative (Negative); Leukocyte Esterase Moderate (Negative); Nitrite Positive (Negative); Urobilinogen 0.2 mg/dL (Up to 0.2); pH 5.5 (5-8)
[2024-06-29 19:21] LABS: Abs Immature Grans 0.05 10^3/uL (0.0-0.06); Absolute Basophil Count 0.03 10^3/uL (0.0-0.2); Absolute Eosinophil Count 0.02 10^3/uL (0.0-0.7); Absolute Lymphocyte Count 0.98 10^3/uL (1.2-3.4); Absolute Monocyte Count 1.05 10^3/uL (0.1-0.8); Absolute Neutrophil Count 8.39 10^3/uL (1.2-6.7); Basophils % 0.3 %; Eosinophils % 0.2 %; HCT 44.9 % (36.0-46.0); HGB 14.6 g/dL (11.2-15.7); Immature Grans % 0.5 %; Lymphocytes % 9.3 %; MCH 31.1 pg (27.0-33.0); MCHC 32.5 % (32.0-36.0); MCV 96 fL (80-95); MPV 10.4 fL (8.0-11.0); Neutrophils % 79.7 %; Platelet Count 219 10^3/uL (130-400); RDW 13.4 % (11.7-14.6); RDW-SD 47.7 fL; WBC 10.52 10^3/uL (4.4-10.8)
[2024-06-29 19:28] LABS: C & S Indicated? Yes; WBC >50 HPF (0-5)
[2024-06-29] MEDS: Normal Saline 500 ML IV (19:35)
[2024-06-29] MEDS: ACETAMINOPHEN 500 MG/50 ML BAG 200 MG IVPB (19:35)
[2024-06-29 19:37] LABS: ALT 49 U/L (14-59); AST 30 U/L (15-37); Albumin 3.2 g/dL (3.4-5.0); Alkaline Phosphatase 91 U/L (46-116); BUN 22 mg/dL (7-18); Bilirubin, Total 0.5 mg/dL (0.2-1.0); CREATININE 0.8 mg/dL (0.55-1.02); Calcium 9.4 mg/dL (8.5-10.1); Chloride 102 mmol/L (98-107); Estimated GFR 76.31 (mL/min/1.73m2); Glucose 203 mg/dL (74-106); Potassium 4.2 mmol/L (3.5-5.1); Sodium 139 mmol/L (136-145); Total Protein 6.7 g/dL (6.4-8.2)
--- NOTE | 2024-06-29 20:31 | DI.CT_ITS ---
Exam(s) CT CHEST/ABD/PEL WO EXAM: CT CHEST/ABD/PEL WO CLINICAL HISTORY: fever, uti, weakness, confusion TECHNIQUE: Imaging Protocol: Axial computed tomography images with coronal and sagittal reformatted images were created and reviewed. Computer aided detection (CAD) was utilized. COMPARISON: CT RENAL COLIC WO CONTRAST from 07/27/2010 FINDINGS: Lack of IV contrast does limit evaluation of abdominal and pelvic organs. The examination is limited due to patient motion artifact. CHEST: Tracheobronchial tree: Patent where visualized. No bronchiectasis. Pulmonary parenchyma: Atelectatic changes are seen in the lung bases. No focal consolidating infiltr ates are present. There is a calcified granuloma in the right lower lobe. There is a 3 mm noncalcif ied pulmonary nodule in the lateral aspect of the lingula (series 2, image 80). Mediastinum and Nella: No dominant adenopathy or fluid collection. The esophagus is unremarkable. Pleura: No effusion or pneumothorax. Heart: Cardiomegaly. Three vessel coronary artery calcification is present. There is calcification of the mitral annulus. No pericardial effusion. Aorta: Thoracic aorta non-dilated. Atherosclerotic calcification is present. Lymph nodes: Within normal limits. Bones:Within normal limits for the patient's age. Age-appropriate degenerative changes are present. Soft tissues: Unremarkable. ABDOMEN: Liver: Normal density. No measurable mass. Gallbladder and Biliary Tract: There is again seen calcification which appears to be of the wall of t he gallbladder. This was present on the prior CT examination. No significant biliary ductal dilatatio n is present. Pancreas: Normal density, no abnormal calcifications or inflammatory process. Spleen: Normal. Adrenals: No masses seen. Kidneys: Normal size, contour and axis. No radiodense stones or obstructive uropathy. No suspicious m asses are present. There is a tiny 2 mm hyperdensity in the cortex of the right kidney which likely r eflects a small cyst but is too small for further characterization. No follow-up is recommended at th is time. Abdominal Aorta: Abdominal portion non-dilated. Atherosclerotic calcification is present. Bowel: There is a large amount of stool in the recto sigmoid colon. There is distension of the rectum secondary to the stool present. There is also mild wall thickening of the rectum. Stercoral colitis should be considered. There is diverticulosis seen in the colon but no evidence of acute diverticulit is. There is no evidence of bowel obstruction or bowel wall thickening. No evidence of appendicitis. Peritoneal Cavity: No ascites, collection or mesenteric inflammatory response. No free air. Lymph Nodes: Within normal limits. Bones: Within normal limits for the patient's age. Soft Tissues: Unremarkable. PELVIS: Bladder: Symmetric distention, no gross wall thickening. Reproductive Organs: The patient is status post hysterectomy. Lymph Nodes: Within normal limits. Bones: Within normal limits for the patient's age. IMPRESSION: 1. No acute pulmonary process. 2. 3 mm left lingular pulmonary nodule. Single solid noncalcified nodules. ???Solid nodules smaller than 6 mm (those 5 mm or smaller) do not require routine follow-up in patients at low risk (grade 1C; strong recommendation, low- or very-low- quality evidence). (Collin et al., 2017) Solid nodules smaller than 6 mm do not require routine follow-up in all patients with high clinical r isk; however, some nodules smaller than 6 mm with suspicious morphology, upper lobe location, or both may warrant follow-up at 12 months (grade 2A; weak recommendation, high-quality evidence). (Collin et al., 2017) 3. No acute osseous abnormality. 4. Large amount of stool in the rectosigmoid colon with distension and bowel wall thickening of the r ectum. The findings may represent stercoral colitis. 5. Colonic diverticulosis without evidence of acute diverticulitis. RADIATION DOSE DELIVERED: 534.24mGy.cm Total DLP 534.24mGy.cm Total DLP DATA REPOSITORY: All CT scans at this facility are submitted to the National Radiology Data Registry (NRDR) Dose Index Registry (DIR) with the [employer] ([employer]). RADIATION OPTIMIZATION: All CT scans at this facility use at least one of these dose optimization te chniques: automated exposure control; mA and/or kV adjustment per patient size (includes targeted exa ms where dose is matched to clinical indication); or iterative reconstruction.
--- NOTE | 2024-06-29 20:32 | DI.RAD_ITS ---
Exam(s) XR KNEE LT 3V AP,LAT,GEORGINA EXAM: XR KNEE LT 3V AP,LAT,GEORGINA CLINICAL HISTORY: fall pain. TECHNIQUE: 2D digital imaging was performed of the left knee. Three images were obtained. AP, late ral and PA tunnel views were obtained. COMPARISON: There are no priors for comparison. FINDINGS: BONES: No acute fracture is present. No bony destructive lesion is seen. There is an enthesophyte at the superior patella. JOINTS: There are mild degenerative changes seen in the knee characterized by joint space narrowing a nd osteophytes. There is a small suprapatellar joint effusion. No loose body. SOFT TISSUE: Atherosclerotic calcification is present. IMPRESSION: No acute fracture or dislocation. DATA REPOSITORY: RADIATION DOSE DELIVERED:
[2024-06-29] MEDS: cefTRIAXone 2 GM/50 ML BAG IVPB (20:51)
[2024-06-29 20:56] LABS: Lactate 1.6 mmol/L (<or=2.0)
--- NOTE | 2024-06-29 21:04 | DI.VRAD_ITS ---
PROCEDURE INFORMATION: Exam: XR Left Knee Exam date and time: 06/29/2024 8:18 PM Age: 78 years old Clinical indication: Injury or trauma; Blunt trauma; Knee; Left; Injury date: 06/29/24; Fall pain TECHNIQUE: Imaging protocol: Radiologic exam of the left knee. Views: 3 views. COMPARISON: No relevant prior studies available. FINDINGS: Bones/joints: No acute fracture. Osteoarthritic changes identified preferentially involving the medial compartment. Small suprapatellar effusion. Soft tissues: Normal. IMPRESSION: 1. No acute fracture. 2. Osteoarthritis. 3. Small suprapatellar effusion. Dictated and Authenticated by: Tristan Metz MD. Orderin Phong Mendez MD
--- NOTE | 2024-06-29 21:09 | DI.VRAD_ITS ---
PROCEDURE INFORMATION: Exam: CT Chest Without Contrast; Diagnostic Exam date and time: 06/29/2024 8:23 PM Age: 78 years old Clinical indication: Fever, UTI, weakness, confusion TECHNIQUE: Imaging protocol: Diagnostic computed tomography of the chest without contrast. 3D rendering (Not supervised by radiologist): MIP and/or 3D reconstructed images were created by the technologist. Radiation optimization: All CT scans at this facility use at least one of these dose optimization techniques: automated exposure control; mA and/or kV adjustment per patient size (includes targeted exams where dose is matched to clinical indication); or iterative reconstruction. COMPARISON: CR XR CHEST 2V PA LATERAL 06/23/2023 10:31 AM FINDINGS: Lungs: Bilateral lower lobe subsegmental atelectatic changes. Tiny 3 mm pulmonary nodule of the lingula which is a nonspecific finding. As per Fleischner criteria follow-up CT scan in 6 months to 1 year is recommended to document stability. Ill-defined calcifications in the left upper lobe likely of no clinical significance. Pleural spaces: Unremarkable. No pneumothorax. No pleural effusion. Heart: Cardiomegaly. Coronary arteries: Coronary calcifications. Lymph nodes: Unremarkable. No enlarged lymph nodes. Vasculature: Unremarkable. No aortic aneurysm. Bones/joints: Unremarkable. No acute fracture. Soft tissues: Unremarkable. IMPRESSION: 1. Cardiomegaly. 2. 3 mm pulmonary nodule in the lingula for which follow-up CT scan in 6 months to 1 year is recommended to document stability. PROCEDURE INFORMATION: Exam: CT Abdomen And Pelvis Without Contrast Exam date and time: 06/29/2024 8:23 PM Age: 78 years old Clinical indication: Fever, UTI, weakness, confusion TECHNIQUE: Imaging protocol: Computed tomography of the abdomen and pelvis without contrast. 3D rendering (Not supervised by radiologist): MIP and/or 3D reconstructed images were created by the technologist. Radiation optimization: All CT scans at this facility use at least one of these dose optimization techniques: automated exposure control; mA and/or kV adjustment per patient size (includes targeted exams where dose is matched to clinical indication); or iterative reconstruction. COMPARISON: CR XR CHEST 2V PA LATERAL 06/23/2023 10:31 AM FINDINGS: Liver: Normal. No mass. Gallbladder and biliary ducts: Large gallstone. Pancreas: Normal. No ductal dilation. Spleen: Normal. No splenomegaly. Adrenal glands: Normal. No mass. Kidneys and ureters: Normal. No hydronephrosis. Stomach and bowel: Constipation. Colonic diverticulosis. No CT evidence for diverticulitis. Appendix: No evidence of appendicitis. Intraperitoneal space: Unremarkable. No free air. No significant fluid collection. Vasculature: Unremarkable. No abdominal aortic aneurysm. Lymph nodes: Unremarkable. No enlarged lymph nodes. Urinary bladder: Unremarkable as visualized. Reproductive: Unremarkable as visualized. Bones/joints: Unremarkable. No acute fracture. Soft tissues: Unremarkable. IMPRESSION: 1. Cholelithiasis. 2. Fecal impaction/constipation. 3. Colonic diverticulosis. Dictated and Authenticated by: Tristan Metz MD. Orderin Phong Mendez MD
--- NOTE | 2024-06-29 22:41 | W.PM.HP.N ---
Date of service: 06/29/24 Time of Service: 22:41 Assessment and Plan Assessment and plan (1) UTI (urinary tract infection): Status: Resolved Assessment and plan: Mild waxing/waning acute mental status changes c/w toxic metabiolic neuropathy associated with UTI She does have h/o recurrent UTI, consider vaginal estrogen or abx on discharge. Remote h/o ESBL but last 5 cultures senstitive, will continue ceftriaxone (2) Atrial fibrillation: Status: Chronic Assessment and plan: paroxysmal, h/o afib with RVR. Continue amiodarone and apixaban (3) Diabetes: Assessment and plan: Will controlled on semaglutide as outpatient with A1c 6.0% in 05/18. This can contribute to constipation, but her medication isn't new. No change (4) Constipation, unspecified: Status: Acute Assessment and plan: Disimpacted in ED. Give PEG and senna tonight and then prn. (5) Hypothyroidism: Assessment and plan: Recent TSH wnl, not contributing to his symptoms. (6) Lung nodules: Status: Acute Assessment and plan: tiny at 3mm. Question f/u at discression of PCP, patient, and guardian (7) Prepatellar bursitis, left knee: Status: Acute Assessment and plan: XR reassuring. Ice, acetaminophen prn, PT in AM (8) DVT prophylaxis: Status: Resolved Assessment and plan: on apixaban (9) Discharge planning issues: Status: Resolved Assessment and plan: Back to [facility] when MS and her urinary sympotoms are improving clear with PT as well before given recent fall with right knee pain. History of Present Illness History of Present Illness Chief Complaint: confusion, dysuria Narrative: Ms Valdez is a 78 yo F who resides at [facility] assisted living with a PMH of paroxysmal atrial fibrillation with RVR, depresion, DM2, HLD, hypothyroidism, cognitive disability, and h/o ESBL UTI who was sent to the emergency room with some increased confusion and general weakness associated with urinary symptoms. She states she started to have some symptoms Friday, two days ago. She hasn't had a bowel movement, and has been having some burning dysuria and more frequent urination of small amounts of urine. She has been eating and drinking, no nausea or vomiting. She appears to get 3-4 UTIs per year. In 2021 she had an ESBL E. Coli, but the last 5 cultures have been sensitive to ceftriaxone, which she was given in the emergency room. Per guardian who is with her today she has noticed increased confusion in the past 2 days, somewhat waxing/waining. She had bumped her right knee on her walker and has some pain. Still able to put weight on it. She hasn't had a BM in [address] days. [address]ool impaction on CT, digital impaction done in ED. Review of Systems All systems reviewed & are unremarkable except as noted in HPI and below PFSH All Active Problems Acute urinary retention (Acute) Fecal impaction (Acute) Acute metabolic encephalopathy (Acute) Acute UTI (Acute) Lung nodules (Acute) Prepatellar bursitis, left knee (Acute) Cough (Acute) Atrial fibrillation (Chronic) History of colon polyps (Acute) Polyneuropathy (Acute) Urinary incontinence, mixed (Acute) Lower back pain (Acute) Postural kyphosis (Acute) Chest pain (Acute) Infection due to ESBL-producing Escherichia coli (Acute) Hypomagnesemia (Acute) Hypomagnesemia (Acute) Hypokalemia (Acute) Back pain of thoracolumbar region (Acute) Hypokalemia (Acute) Kyphosis (acquired) (postural) (Acute) Perirectal inflammation (Acute) 03/30/2019-from fecal incontinence Cerumen debris on tympanic membrane of both ears (Acute) Constipation, unspecified (Acute) History of umbilical hernia repair (Acute) Status post dilation and curettage (Acute) Status post laparoscopic hysterectomy (Acute) Excessive cerumen in both ear canals (Chronic) Diabetes mellitus (Chronic 07/21/12) Atrial fibrillation with RVR (Acute 09/09/17) Dx by EKG on 08/21/17, [id number] = 2, anti-coagulated on Eliquis Tubular adenoma (Acute 10/17/14) 10/03/14; DR. ALICIA;1 tubulovillous adenoma and 2 tubular adenoma Primary osteoarthritis of both knees (Acute) Morbid obesity with BMI of 40.0-44.9, adult (Acute) Hyperlipidemia associated with type 2 diabetes mellitus (Acute) REFUSES RX Hearing loss (Acute) A.D. Gastroesophageal reflux (Chronic 10/01/13) Essential hypertension (Acute 02/01/13) Depressive disorder (Acute) anxiety Cognitive deficits (Acute 08/05/17) Anxiety associated with depression (Acute 07/21/17) History of psychiatric disorder (Acute) Medical History POLST (Physician Orders for Life-Sustaining Treatment) DNI (do not intubate) DNR (do not resuscitate) Hypertension GERD (gastroesophageal reflux disease) Hypothyroidism Hyperlipidemia Depression Diabetes Morbid obesity with BMI of 40.0-44.9, adult Surgical History Hysterectomy, Laproscopic Repair of umbilical hernia Dilation and curettage (~1995) Family History Mother Essential hypertension Heart disease Father , 86 Essential hypertension Heart disease Stroke Asthma Brother No problems noted. Maternal Grandfather Heart disease Paternal Grandfather No problems noted. Maternal Grandmother Heart disease Cancer Paternal Grandmother Heart disease Stroke Brother No problems noted. Social History (Updated 06/30/24 @ 06:54 by Dhaval Urrutia) Smoking/Tobacco Use Status: Never Smoking risk assessment performed?: Yes Alcohol Intake: never Drug use: Never Substance use type: does not use Caregiver/Support person: No Housing: assisted living facility Communication Needs: None Do you need help understanding health information?: Always Pets and animals: No Sexually active: No Do you think of yourself as: straight/heterosexual What is your relationship status?: never How often do you talk on the phone with friends or family?: three or more times per week How often do you get together with friends or relatives?: three or more times per week How often do you attend rastafarian or synagogue services?: decline to answer Do you belong to any clubs or organized social groups?: no Panel score (0-1 are the most socially isolated patients): 1 What type of physical activity do you participate in: walking Duration: < 15 minutes/day Frequency: daily Carito/Episcopal: None Special carito needs: No Seatbelt use: always Drive intox or ride w/intox jinrikisha driver: No Do you feel safe at home: Yes Do you feel safe in your relationship?: Yes Additional Social history: Lives at [facility], has guardian Meds Allergies and Home Medications Allergies Allergy/AdvReac Type Severity Reaction Status Date / Time Iodinated Contrast Media Allergy Unknown Other (See Verified 06/29/24 19:18 (Iodinated Contrast- Oral Comment) and IV Dye) Oral contrast Allergy rash, Uncoded 06/29/24 19:18 lower leg swelling Home Medications ?Medication ?Instructions ?Recorded ?Confirmed ?Type polyethylene glycol 3350 17 17 gm PO DAILY PRN constipation 01/11/19 06/29/24 Rx gram/dose oral powder (Miralax) #510 grams blood-glucose meter (OneTouch #1 ea 03/02/19 06/29/24 Rx Verio IQ Meter kit) sennosides 8.6 mg-docusate sodium 1 tab PO HS PRN constipation #90 03/30/19 06/29/24 Rx 50 mg tablet tab-caps dimethicone 5 % topical cream 1 applic topical TID-QID PRN skin 03/31/19 06/29/24 Rx (Soothe and Cool Inzo Barrier) irritation #118.29 mL pen needle, diabetic 31 gauge x ##100 04/20/19 06/29/24 Rx 5/16 (Pen Needle) cyanocobalamin (vitamin B-12) 500 mcg (1/2 x 1,000 mcg) PO DAILY 04/28/19 06/29/24 Rx 1,000 mcg tablet (Vitamin B-12) #90 tabs nystatin 100,000 unit/gram topical 1 applic topical BID PRN dermatitis 08/05/19 06/29/24 History powder camphor 4.7 %-eucalyptus oil 1.2 1 applic topical BID PRN 08/06/19 06/29/24 Rx %-menthol 2.6 % topical ointment congestion #50 grams (Vicks Vaporub) apixaban 5 mg tablet (Eliquis) 5 mg PO BID #180 tabs 09/11/19 06/29/24 Rx levothyroxine 150 mcg tablet 150 mcg PO DAILY #90 tabs 10/14/19 06/29/24 Rx blood sugar diagnostic (Blood #200 strips 01/05/20 06/29/24 Rx Glucose Test strips) calcium carbonate (Tums) 400 mg (2 x 200 mg calcium (500 01/06/20 06/29/24 Rx mg)) PO BID #120 tabs vit C,E,zinc,copper-celyf6f 250 1 cap PO DAILY #90 caps 01/27/20 06/29/24 Rx mg-lutein 5 mg-zeaxanthin 1 mg capsule (Ocuvite Adult 50 Plus) acetaminophen 500 mg tablet 1,000 mg (2 x 500 mg) PO BID #120 03/01/20 06/29/24 Rx tabs lancets 33 gauge (OneTouch Delica #200 ea 04/06/20 06/29/24 Rx Lancets) famotidine 40 mg tablet (Pepcid) 40 mg PO DAILY 03/01/22 06/29/24 History omeprazole 20 mg capsule,delayed 20 mg PO DAILY 03/01/22 06/29/24 History release pravastatin 20 mg tablet 20 mg PO DAILY 03/01/22 06/29/24 History semaglutide 2 mg/dose (8 mg/3 mL) 2 mg subcut QWEEK 01/13/23 06/29/24 History subcutaneous pen injector (Ozempic) amiodarone 200 mg tablet 200 mg PO DAILY #90 tabs 07/14/23 06/29/24 Rx risperidone 1 mg tablet 0.5 mg PO HS 01/15/24 06/29/24 History carboxymethylcellulose sodium 0.5 1 drp ophthalmic (eye) BID 04/12/24 06/29/24 History % eye drops (Refresh Tears) diazepam 5 mg tablet 5 mg PO QHS PRN 04/12/24 06/29/24 History escitalopram oxalate 10 mg tablet 10 mg PO DAILY 04/12/24 06/29/24 History vit C 250 mg-E 90 mg-zinc 40 1 tab PO QAM AND QPM 04/12/24 06/29/24 History mg-copper 1 ed-oavfdc-gydeln chew tablet (PreserVision AREDS-2) benztropine 1 mg tablet 1 mg PO DAILY 06/29/24 06/29/24 History risperidone 0.5 mg tablet 0.5 mg PO DAILY 06/29/24 06/29/24 History Exam Narrative Exam Narrative: GEN: Alert and oriented x 3 for me, pleasant and cooperative, gives general history though vague on some details. No acute distress at rest. HEENT: Head atraumatic. Conjunctiva clear, no icterus. PEERL, EOMI. no rhinorrhea. MM slightly dry, tardive dyskinesia noted, OP benign. Neck is wide, supple with no masses or lymphadenopathy, trachea midline LUNGS: CTAB with normal effort CV: RRR with no murmurs, gallops, or rubs. ABD: active bowel sounds, soft, nontender and nondistended. No masses. EXT: no cyanosis, clubbing. Trace genevieve ankle edema MSK: No joint redness or swelling, tender over right knee NEURO: CN 2-12 grossly intact. Normal movement of 4 extremities. Normal speech and coordination. No tremor SKIN: No rashes or open wounds including sacral/buttocks area PSYCH: normal mood and affect, normal thought process Results Imaging CT scan - chest: report reviewed (Ms Valdez has a PMH of paroxysmal atrial fibrillation with RVR, anxiety and depresion, DM2, HLD, hypothyroidism, cognitive deficits.) Imaging Studies: XR left knee: 1. No acute fracture. 2. Osteoarthritis. 3. Small suprapatellar effusion. Labs 06/29/24 18:45 06/29/24 18:45 Labs: Laboratory Results - last 24 hr 06/29/24 06/29/24 06/29/24 16:45 18:45 19:21 WBC 10.52 RBC 4.70 Hgb 14.6 Hct 44.9 MCV 96 H MCH 31.1 MCHC 32.5 RDW 13.4 Plt Count 219 MPV 10.4 Immature Gran % 0.5 Neutrophils % 79.7 Lymphocytes % 9.3 Monocytes % 10.0 Eosinophils % 0.2 Basophils % 0.3 Nucleated RBC % 0.0 Absolute Neutrophils 8.39 H Absolute Lymphocytes 0.98 L Absolute Monocytes 1.05 H Absolute Eosinophils 0.02 Absolute Basophils 0.03 VBG Lactate Sodium 139 Potassium 4.2 Chloride 102 Carbon Dioxide 31.0 Anion Gap 6.0 BUN 22 H Creatinine 0.8 Est GFR (CKD-EPI 2020) 76.31 Glucose 203 H Calcium 9.4 Total Bilirubin 0.5 AST 30 ALT 49 Alkaline Phosphatase 91 Total Protein 6.7 Albumin 3.2 L Urine Color Yellow Cancelled Urine Clarity Cloudy Cancelled Urine pH 5.5 Cancelled Ur Specific [place] 1.020 Cancelled Urine Protein Negative Cancelled Urine Ketones Negative Cancelled Urine Blood Moderate H Cancelled Urine Nitrite Positive H Cancelled Urine Bilirubin Negative Cancelled Urine Urobilinogen 0.2 Cancelled Ur Leukocyte Esterase Moderate H Cancelled Urine RBC Not Applicable Urine WBC >50 H Ur Epithelial Cells Not Applicable Urine Crystals Not Applicable Urine Bacteria Not Applicable Urine Mucus Not Applicable Ur Culture Indicated? Yes Urine Glucose Negative Cancelled 06/29/24 20:47 WBC RBC Hgb Hct MCV MCH MCHC RDW Plt Count MPV Immature Gran % Neutrophils % Lymphocytes % Monocytes % Eosinophils % Basophils % Nucleated RBC % Absolute Neutrophils Absolute Lymphocytes Absolute Monocytes Absolute Eosinophils Absolute Basophils VBG Lactate 1.6 Sodium Potassium Chloride Carbon Dioxide Anion Gap BUN Creatinine Est GFR (CKD-EPI 2020) Glucose Calcium Total Bilirubin AST ALT Alkaline Phosphatase Total Protein Albumin Urine Color Urine Clarity Urine pH Ur Specific [place] Urine Protein Urine Ketones Urine Blood Urine Nitrite Urine Bilirubin Urine Urobilinogen Ur Leukocyte Esterase Urine RBC Urine WBC Ur Epithelial Cells Urine Crystals Urine Bacteria Urine Mucus Ur Culture Indicated? Urine Glucose Last Vital Signs Temp 36.9 C 06/29/24 19:06 Pulse 62 06/29/24 19:06 Resp 21 06/29/24 19:06 BP 156/78 H 06/29/24 19:06 Pulse Ox 96 06/29/24 19:06 Time Spent Time spent with Patient: 55-74 minutes Time was spent: preparing to see the patient(eg.review tests), obtaining and/or reviewing separately otained hiistory, ordering medications,tests, procedures, referring, communicating with other health career counselor, indepentently interpreting results, counseling the patient and care coordination
--- NOTE | 2024-06-29 23:23 | ED.GENADUL_ITS ---
Discharge Plan Disposition Patient Disposition: Admit to [facility] Condition: Serious Discharge Details Clinical Impression: Acute UTI, Acute metabolic encephalopathy, Fecal impaction, Acute urinary retention Primary Care Provider: Charlene Paige ED Provider: Vanessa Darling Home Meds and New Rx's Prescriptions: No Action sennosides-docusate sodium 8.6-50 mg tablet 1 tab PO HS PRN (Reason: constipation) Qty: 90 3RF polyethylene glycol 3350 [Miralax] 17 gram/dose powder 17 gm PO DAILY PRN (Reason: constipation) Qty: 510 2RF Ozempic 2 mg/dose (8 mg/3 mL) pen injector 2 mg subcut QWEEK amiodarone 200 mg tablet 200 mg PO DAILY Qty: 90 3RF risperidone 1 mg tablet 0.5 mg PO HS (DME) blood-glucose meter [OneTouch Verio IQ Meter] Kit See Rx Instructions .ROUTE .MEDSUPPLY Qty: 1 0RF Rx Instructions: As directed- BID testing- Insulin dependent Soothe and Cool Inzo Barrier 5 % cream 1 applic TP TID-QID PRN (Reason: skin irritation) Qty: 118.29 3RF (DME) pen needle, diabetic [Pen Needle] 31 gauge x 5/16 needle 1 ndl SQ DAILY Qty: 100 4RF Rx Instructions: USE WITH LANTUS PEN cyanocobalamin (vitamin B-12) [Vitamin B-12] 1,000 mcg tablet 500 mcg PO DAILY Qty: 90 4RF nystatin 100,000 unit/gram powder 1 applic Topical BID PRN (Reason: dermatitis) Vicks Vaporub 4.7-1.2-2.6 % ointment 1 applic TP BID PRN (Reason: congestion) Qty: 50 0RF Rx Instructions: Patient may keep in her room and self apply as directed Eliquis 5 mg tablet 5 mg PO BID Qty: 180 2RF levothyroxine 150 mcg tablet 150 mcg PO DAILY Qty: 90 3RF Rx Instructions: note dose change to 150 mcg daily (stop the 175 mcg) (DME) Blood Glucose Test Strip 1 strip Miscellaneous QID Qty: 200 3RF Rx Instructions: FOR ONE TOUCH Verio IQ METER. Dx: E11.65 on insulin -BID calcium carbonate [Tums] 200 mg calcium (500 mg) tablet,chewable 400 mg PO BID Qty: 120 11RF Ocuvite Adult 50 Plus 250-5-1 mg capsule 1 cap PO DAILY Qty: 90 3RF acetaminophen 500 mg tablet 1,000 mg PO BID Qty: 120 11RF (DME) lancets [OneTouch Delica Lancets] 33 gauge misc See Dose Instructions .ROUTE .MEDSUPPLY Qty: 200 4RF Dose Instruction: As directed Rx Instructions: BID glucose finger testing - E11.65 (on insulin) diazepam 5 mg tablet 5 mg PO QHS PRN escitalopram oxalate 10 mg tablet 10 mg PO DAILY PreserVision AREDS-2 250-90-40-1 mg tablet,chewable 1 tab PO QAM AND QPM carboxymethylcellulose sodium [Refresh Tears] 0.5 % drops 1 drp ophthalmic (eye) BID famotidine [Pepcid] 40 mg Tablet 40 mg PO DAILY omeprazole 20 mg Capsule,Delayed Release(Dr/Ec) 20 mg PO DAILY pravastatin 20 mg Tablet 20 mg PO DAILY benztropine 1 mg tablet 1 mg PO DAILY risperidone 0.5 mg tablet 0.5 mg PO DAILY HPI General Date/Time Provider Initiated Documentation: 06/29/24 19:14 . HPI Narrative: The patient is a 78-year-old female with a past medical history of recurrent UTI, atrial fibrillation, anticoagulation, hypomagnesemia, hypokalemia, hypertension, and dementia. She presents with reports of weakness and some confusion over the past week. She has a history of similar symptoms associated with UTIs. Her guardian and [id number] are concerned that her current symptoms may be due to a combination of factors, including the recent reinitiation of Risperdal. Today, they were particularly worried as she was having trouble walking independently, which is unusual for her. A straight catheterization revealed 600 cm? of postvoid residual, and she appeared very weak, prompting them to send her to the emergency department for assessment. She reportedly fell while holding her walker and hit her knee on it but did not sustain any head injury or fall to the floor. Related Data Home Medications ?Medication ?Instructions ?Recorded ?Confirmed polyethylene glycol 3350 17 17 gm PO DAILY PRN constipation 01/11/19 06/29/24 gram/dose oral powder (Miralax) #510 grams blood-glucose meter (OneTouch #1 ea 03/02/19 06/29/24 Verio IQ Meter kit) sennosides 8.6 mg-docusate sodium 1 tab PO HS PRN constipation #90 03/30/19 06/29/24 50 mg tablet tab-caps dimethicone 5 % topical cream 1 applic topical TID-QID PRN skin 03/31/19 06/29/24 (Soothe and Cool Inzo Barrier) irritation #118.29 mL pen needle, diabetic 31 gauge x ##100 04/20/19 06/29/24 5/16 (Pen Needle) cyanocobalamin (vitamin B-12) 500 mcg (1/2 x 1,000 mcg) PO DAILY 04/28/19 06/29/24 1,000 mcg tablet (Vitamin B-12) #90 tabs nystatin 100,000 unit/gram topical 1 applic topical BID PRN dermatitis 08/05/19 06/29/24 powder camphor 4.7 %-eucalyptus oil 1.2 1 applic topical BID PRN 08/06/19 06/29/24 %-menthol 2.6 % topical ointment congestion #50 grams (Vicks Vaporub) apixaban 5 mg tablet (Eliquis) 5 mg PO BID #180 tabs 09/11/19 06/29/24 levothyroxine 150 mcg tablet 150 mcg PO DAILY #90 tabs 10/14/19 06/29/24 blood sugar diagnostic (Blood #200 strips 01/05/20 06/29/24 Glucose Test strips) calcium carbonate (Tums) 400 mg (2 x 200 mg calcium (500 01/06/20 06/29/24 mg)) PO BID #120 tabs vit C,E,zinc,copper-axhmj3x 250 1 cap PO DAILY #90 caps 01/27/20 06/29/24 mg-lutein 5 mg-zeaxanthin 1 mg capsule (Ocuvite Adult 50 Plus) acetaminophen 500 mg tablet 1,000 mg (2 x 500 mg) PO BID #120 03/01/20 06/29/24 tabs lancets 33 gauge (OneTouch Delica #200 ea 04/06/20 06/29/24 Lancets) famotidine 40 mg tablet (Pepcid) 40 mg PO DAILY 03/01/22 06/29/24 omeprazole 20 mg capsule,delayed 20 mg PO DAILY 03/01/22 06/29/24 release pravastatin 20 mg tablet 20 mg PO DAILY 03/01/22 06/29/24 semaglutide 2 mg/dose (8 mg/3 mL) 2 mg subcut QWEEK 01/13/23 06/29/24 subcutaneous pen injector (Ozempic) amiodarone 200 mg tablet 200 mg PO DAILY #90 tabs 07/14/23 06/29/24 risperidone 1 mg tablet 0.5 mg PO HS 01/15/24 06/29/24 carboxymethylcellulose sodium 0.5 1 drp ophthalmic (eye) BID 04/12/24 06/29/24 % eye drops (Refresh Tears) diazepam 5 mg tablet 5 mg PO QHS PRN 04/12/24 06/29/24 escitalopram oxalate 10 mg tablet 10 mg PO DAILY 04/12/24 06/29/24 vit C 250 mg-E 90 mg-zinc 40 1 tab PO QAM AND QPM 04/12/24 06/29/24 mg-copper 1 [id number] chew tablet (PreserVision AREDS-2) benztropine 1 mg tablet 1 mg PO DAILY 06/29/24 06/29/24 risperidone 0.5 mg tablet 0.5 mg PO DAILY 06/29/24 06/29/24 Previous Rx's ?Medication ?Instructions ?Recorded polyethylene glycol 3350 17 17 gm PO DAILY PRN constipation 01/11/19 gram/dose oral powder (Miralax) #510 grams blood-glucose meter (OneTouch #1 ea 03/02/19 Verio IQ Meter kit) sennosides 8.6 mg-docusate sodium 1 tab PO HS PRN constipation #90 03/30/19 50 mg tablet tab-caps dimethicone 5 % topical cream 1 applic topical TID-QID PRN skin 03/31/19 (Soothe and Cool Inzo Barrier) irritation #118.29 mL pen needle, diabetic 31 gauge x ##100 04/20/19/16 (Pen Needle) cyanocobalamin (vitamin B-12) 500 mcg (1/2 x 1,000 mcg) PO DAILY 04/28/19 1,000 mcg tablet (Vitamin B-12) #90 tabs camphor 4.7 %-eucalyptus oil 1.2 1 applic topical BID PRN 08/06/19 %-menthol 2.6 % topical ointment congestion #50 grams (Vicks Vaporub) apixaban 5 mg tablet (Eliquis) 5 mg PO BID #180 tabs 09/11/19 levothyroxine 150 mcg tablet 150 mcg PO DAILY #90 tabs 10/14/19 blood sugar diagnostic (Blood #200 strips 01/05/20 Glucose Test strips) calcium carbonate (Tums) 400 mg (2 x 200 mg calcium (500 01/06/20 mg)) PO BID #120 tabs vit C,E,zinc,copper-kcexn5d 250 1 cap PO DAILY #90 caps 01/27/20 mg-lutein 5 mg-zeaxanthin 1 mg capsule (Ocuvite Adult 50 Plus) acetaminophen 500 mg tablet 1,000 mg (2 x 500 mg) PO BID #120 03/01/20 tabs lancets 33 gauge (OneTouch Delica #200 ea 04/06/20 Lancets) amiodarone 200 mg tablet 200 mg PO DAILY #90 tabs 07/14/23 Allergies Allergy/AdvReac Type Severity Reaction Status Date / Time Iodinated Contrast Media Allergy Unknown Other (See Verified 06/29/24 19:18 (Iodinated Contrast- Oral Comment) and IV Dye) Oral contrast Allergy rash, Uncoded 06/29/24 19:18 lower leg swelling General Stated Complaint: Urinary ORAL: 3 Exam Narrative Exam Narrative: The patient is alert, tired, and oriented. She is in no acute distress. There is no evidence of head injury. The mouth has mildly dry mucosa. The lungs are clear to auscultation. The cardiac rate and rhythm are regular. There is no tenderness to the abdomen. There is no visible sign of trauma aside from some mild swelling on the knee. No CVA tenderness. The patient is answering questions appropriately. Course Vital Signs Vital signs: Vital Signs Temperature 36.9 C 06/29/24 18:59 Pulse 65 06/29/24 18:59 Respiratory Rate 20 06/29/24 18:59 Blood Pressure 156/71 H 06/29/24 18:59 Pulse Oximetry 96 06/29/24 18:59 Temperature 36.9 C 06/29/24 19:06 Pulse 62 06/29/24 19:06 Respiratory Rate 21 06/29/24 19:06 Blood Pressure 156/78 H 04/08/25 19:06 Blood Pressure Position Supine 06/29/24 19:06 Pulse Oximetry 96 06/29/24 19:06 Oxygen Delivery Method Room Air 06/29/24 19:06 Oxygen Flow Rate 0 06/29/24 19:06 Pain Level 0 06/29/24 19:06 Lab/Test Results Lab/Test Results: 06/29/24 20:05 Blood Blood Culture - Pending 06/29/24 20:47 Blood Blood Culture - Pending 06/29/24 16:45 Urine - Reflex from Ua Urine Culture - Pending Laboratory Tests Range/Units 06/29/24 06/29/24 06/29/24 16:45 18:45 19:21 WBC (4.4-10.8) 10^3/uL 10.52 RBC (3.93-5.22) 10^6/uL 4.70 Hgb (11.2-15.7) g/dL 14.6 Hct (36.0-46.0) % 44.9 MCV (80-95) fL 96 H MCH (27.0-33.0) pg 31.1 MCHC (32.0-36.0) % 32.5 RDW (11.7-14.6) % 13.4 Plt Count (130-400) 10^3/uL 219 MPV (8.0-11.0) fL 10.4 Immature Gran % % 0.5 Neutrophils % % 79.7 Lymphocytes % % 9.3 Monocytes % % 10.0 Eosinophils % % 0.2 Basophils % % 0.3 Nucleated RBC % (0.0-0.3) % 0.0 Absolute Neutrophils (1.2-6.7) 10^3/uL 8.39 H Absolute Lymphocytes (1.2-3.4) 10^3/uL 0.98 L Absolute Monocytes (0.1-0.8) 10^3/uL 1.05 H Absolute Eosinophils (0.0-0.7) 10^3/uL 0.02 Absolute Basophils (0.0-0.2) 10^3/uL 0.03 VBG Lactate (<or=2.0) mmol/L Sodium (136-145) mmol/L 139 Potassium (3.5-5.1) mmol/L 4.2 Chloride (98-107) mmol/L 102 Carbon Dioxide (21.0-32.0) mmol/L 31.0 Anion Gap (3-11) mmol/L 6.0 BUN (7-18) mg/dL 22 H Creatinine (0.55-1.02) mg/dL 0.8 Est GFR (CKD-EPI 2020) (mL/min/1.73m2) 76.31 Glucose (74-106) mg/dL 203 H Calcium (8.5-10.1) mg/dL 9.4 Total Bilirubin (0.2-1.0) mg/dL 0.5 AST (15-37) U/L 30 ALT (14-59) U/L 49 Alkaline Phosphatase (46-116) U/L 91 Total Protein (6.4-8.2) g/dL 6.7 Albumin (3.4-5.0) g/dL 3.2 L Urine Color (Yellow) Yellow Cancelled Urine Clarity (Clear) Cloudy Cancelled Urine pH (5-8) 5.5 Cancelled Ur Specific [place] (1.005-1.025) 1.020 Cancelled Urine Protein (Neg-Trace) mg/dL Negative Cancelled Urine Ketones (Negative) mg/dL Negative Cancelled Urine Blood (Negative) Moderate H Cancelled Urine Nitrite (Negative) Positive H Cancelled Urine Bilirubin (Negative) Negative Cancelled Urine Urobilinogen (Up to 0.2) mg/dL 0.2 Cancelled Ur Leukocyte Esterase (Negative) Moderate H Cancelled Urine RBC Not Applicable Urine WBC (0-5) HPF >50 H Ur Epithelial Cells Not Applicable Urine Crystals Not Applicable Urine Bacteria Not Applicable Urine Mucus Not Applicable Ur Culture Indicated? Yes Urine Glucose (Negative) mg/dL Negative Cancelled Range/Units 06/29/24 20:47 WBC (4.4-10.8) 10^3/uL RBC (3.93-5.22) 10^6/uL Hgb (11.2-15.7) g/dL Hct (36.0-46.0) % MCV (80-95) fL MCH (27.0-33.0) pg MCHC (32.0-36.0) % RDW (11.7-14.6) % Plt Count (130-400) 10^3/uL MPV (8.0-11.0) fL Immature Gran % % Neutrophils % % Lymphocytes % % Monocytes % % Eosinophils % % Basophils % % Nucleated RBC % (0.0-0.3) % Absolute Neutrophils (1.2-6.7) 10^3/uL Absolute Lymphocytes (1.2-3.4) 10^3/uL Absolute Monocytes (0.1-0.8) 10^3/uL Absolute Eosinophils (0.0-0.7) 10^3/uL Absolute Basophils (0.0-0.2) 10^3/uL VBG Lactate (<or=2.0) mmol/L 1.6 Sodium (136-145) mmol/L Potassium (3.5-5.1) mmol/L Chloride (98-107) mmol/L Carbon Dioxide (21.0-32.0) mmol/L Anion Gap (3-11) mmol/L BUN (7-18) mg/dL Creatinine (0.55-1.02) mg/dL Est GFR (CKD-EPI 2020) (mL/min/1.73m2) Glucose (74-106) mg/dL Calcium (8.5-10.1) mg/dL Total Bilirubin (0.2-1.0) mg/dL AST (15-37) U/L ALT (14-59) U/L Alkaline Phosphatase (46-116) U/L Total Protein (6.4-8.2) g/dL Albumin (3.4-5.0) g/dL Urine Color (Yellow) Urine Clarity (Clear) Urine pH (5-8) Ur Specific [place] (1.005-1.025) Urine Protein (Neg-Trace) mg/dL Urine Ketones (Negative) mg/dL Urine Blood (Negative) Urine Nitrite (Negative) Urine Bilirubin (Negative) Urine Urobilinogen (Up to 0.2) mg/dL Ur Leukocyte Esterase (Negative) Urine RBC Urine WBC (0-5) HPF Ur Epithelial Cells Urine Crystals Urine Bacteria Urine Mucus Ur Culture Indicated? Urine Glucose (Negative) mg/dL Medical Decision Making Laboratory Studies Urinalysis is concerning for infection. Imaging CT abdomen and pelvis with chest does not show evidence of significant acute abnormality. CT scan showed evidence of fecal impaction. X-ray shows evidence of prepatellar bursa swelling no fracture per radiology interpretation my review Procedure: The patient underwent disimpaction in the emergency department due to fecal impaction, which took approximately 15 minutes. A Duran catheter was also placed secondary to acute urinary retention with 550 cm? of output. 1. Urinary Tract Infection. She presented with weakness and confusion, which are consistent with her past UTI symptoms. Urinalysis is concerning for infection. She was given Tylenol for discomfort and 500 cm? of fluid. Ceftriaxone was started after reviewing her most recent urine specimen that was sensitive to ceftriaxone. Urine culture is pending. 2. Acute Urinary Retention. She had 600 cm? of postvoid residual and was very weak, leading to a straight cath urine. A Duran catheter was placed secondary to acute urinary retention with 550 cm? of output. 3. Fecal Impaction. CT scan showed evidence of fecal impaction. She was disimpacted in the emergency department, which took approximately 15 minutes. 4. Fall. She reportedly fell while holding her walker and hit her knee, but there was no head injury or fall to the floor. There is no evidence of head injury, and no indication for CT head as there was no significant trauma to her head. Mild swelling on her knee was noted. 5. Medication Management. She was recently reinitiated on Risperdal, which may have contributed to her confusion and weakness. This will be monitored during her hospital stay. 6. Health Maintenance. She is DNR/DNI status as confirmed by her guardian. Quality:[facility] Health Related Social Needs: Health related social needs food insecurity (Z59.41) [facility] All Active Problems (Updated 06/29/24 @ 23:26 by SHAMIKA Rock) Acute urinary retention (Acute) Fecal impaction (Acute) Acute metabolic encephalopathy (Acute) Acute UTI (Acute) Lung nodules (Acute) Prepatellar bursitis, left knee (Acute) Cough (Acute) Atrial fibrillation (Chronic) History of colon polyps (Acute) Polyneuropathy (Acute) Urinary incontinence, mixed (Acute) Lower back pain (Acute) Postural kyphosis (Acute) Chest pain (Acute) Infection due to ESBL-producing Escherichia coli (Acute) Hypomagnesemia (Acute) Hypokalemia (Acute) Hypomagnesemia (Acute) Back pain of thoracolumbar region (Acute) Hypokalemia (Acute) Kyphosis (acquired) (postural) (Acute) Perirectal inflammation (Acute) 03/30/2019-from fecal incontinence Cerumen debris on tympanic membrane of both ears (Acute) Constipation, unspecified (Acute) History of umbilical hernia repair (Acute) Status post dilation and curettage (Acute) Status post laparoscopic hysterectomy (Acute) Excessive cerumen in both ear canals (Chronic) Diabetes mellitus (Chronic 07/21/12) Atrial fibrillation with RVR (Acute 09/09/17) Dx by EKG on 08/21/17, [id number] = 2, anti-coagulated on Eliquis Tubular adenoma (Acute 10/17/14) 10/03/14; DR. ALICIA;1 tubulovillous adenoma and 2 tubular adenoma Primary osteoarthritis of both knees (Acute) Morbid obesity with BMI of 40.0-44.9, adult (Acute) Hyperlipidemia associated with type 2 diabetes mellitus (Acute) REFUSES RX Hearing loss (Acute) A.D. Gastroesophageal reflux (Chronic 10/01/13) Essential hypertension (Acute 02/01/13) Depressive disorder (Acute) anxiety Cognitive deficits (Acute 08/05/17) Anxiety associated with depression (Acute 07/21/17) History of psychiatric disorder (Acute) Medical History (Updated 06/29/24 @ 23:26 by SHAMIKA Rock) POLST (Physician Orders for Life-Sustaining Treatment) DNI (do not intubate) DNR (do not resuscitate) Hypertension GERD (gastroesophageal reflux disease) Hypothyroidism Hyperlipidemia Depression Diabetes Morbid obesity with BMI of 40.0-44.9, adult Surgical History Hysterectomy, Laproscopic Repair of umbilical hernia Dilation and curettage (~1995) Family History Mother Essential hypertension Heart disease Father , 86 Essential hypertension Heart disease Stroke Asthma Brother No problems noted. Maternal Grandfather Heart disease Paternal Grandfather No problems noted. Maternal Grandmother Heart disease Cancer Paternal Grandmother Heart disease Stroke Brother No problems noted. Social History Smoking/Tobacco Use Status: Never Smoking risk assessment performed?: Yes Alcohol Intake: never Drug use: Never Substance use type: does not use Caregiver/Support person: No Housing: assisted living facility Communication Needs: None Do you need help understanding health information?: Always Pets and animals: No Sexually active: No Do you think of yourself as: straight/heterosexual What is your relationship status?: never How often do you talk on the phone with friends or family?: three or more times per week How often do you get together with friends or relatives?: three or more times per week How often do you attend episcopalian or alevism services?: decline to answer Do you belong to any clubs or organized social groups?: no Panel score (0-1 are the most socially isolated patients): 1 What type of physical activity do you participate in: walking Duration: < 15 minutes/day Frequency: daily Carito/Presybeterian: None Special carito needs: No Seatbelt use: always Drive intox or ride w/intox cpr ambulance driver: No Do you feel safe at home: Yes Do you feel safe in your relationship?: Yes
[2024-06-30 00:01] VITALS: BP 161/74; PULSE 58; RESP 19; TEMP 37; O2SAT 94
--- NOTE | 2024-06-30 00:04 | W.PC.ACHO ---
Registration Status: Primary Language: Preferred Language: ED Information & Data Chief Complaint Urinary 06/29/24 23:25 Triage Note EMS reports caretakers 06/29/24 18:59 concerned about PT's reduction in activity and increased confusion is consistent with PT's presentation when suffering from UTIs. Vital signs normal. PT has been getting more confused over the past several days. Caretakers report dark, cloudy urine Medical / Surgical History (Last Updated 06/29/24 @ 23:02 by Dhaval Urrutia) POLST (Physician Orders for Life-Sustaining Treatment) DNI (do not intubate) DNR (do not resuscitate) Hypertension GERD (gastroesophageal reflux disease) Hypothyroidism Hyperlipidemia Depression Diabetes Morbid obesity with BMI of 40.0-44.9, adult (Last Reviewed 01/15/24 @ 10:41 by Michelle Mcmanus MD) Hysterectomy, Laproscopic Repair of umbilical hernia Dilation and curettage (~1995) Most Recent Vital Signs Temperature 36.9 C 06/29/24 19:06 Pulse 59 L 06/29/24 23:28 Respiratory Rate 21 06/29/24 19:06 Blood Pressure 163/73 H 06/29/24 23:01 Blood Pressure Position Supine 06/29/24 19:06 Pulse Oximetry 96 06/29/24 23:28 Oxygen Delivery Method Room Air 06/29/24 19:06 Oxygen Flow Rate 0 06/29/24 19:06 Pain Level 0 06/29/24 19:06 Allergies Iodinated Contrast Media (Iodinated Contrast- Oral and IV Dye) Allergy (Unknown, Verified 06/29/24 19:18) Other (See Comment) Oral contrast Allergy (Uncoded 06/29/24 19:18) rash, lower leg swelling Precautions Isolation Standard precaution 06/29/24 19:06 IV IV Catheter Type [Left Peripheral IV Antecubital] IV Catheter Gauge [Left 18 Antecubital] Diet Orders Category Date Time Status Diabetes Consistent CHO [DIET] Nutrition 06/30/24 Breakfast Active Diagnostics 06/30/24 06/29/24 06/29/24 Range/Units 05:35 20:47 19:21 WBC Pending (4.4-10.8) 10^3/uL RBC Pending (3.93-5.22) 10^6/uL Hgb Pending (11.2-15.7) g/dL Hct Pending (36.0-46.0) % MCV Pending (80-95) fL MCH Pending (27.0-33.0) pg MCHC Pending (32.0-36.0) % RDW Pending (11.7-14.6) % Plt Count Pending (130-400) 10^3/uL MPV Pending (8.0-11.0) fL Immature Gran % Pending % Neutrophils % Pending % Lymphocytes % Pending % Monocytes % Pending % Eosinophils % Pending % Basophils % Pending % Nucleated RBC % (0.0-0.3) % Absolute Neutrophils Pending (1.2-6.7) 10^3/uL Absolute Lymphocytes Pending (1.2-3.4) 10^3/uL Absolute Monocytes Pending (0.1-0.8) 10^3/uL Absolute Eosinophils Pending (0.0-0.7) 10^3/uL Absolute Basophils Pending (0.0-0.2) 10^3/uL VBG Lactate 1.6 (<or=2.0) mmol/L Sodium Pending (136-145) mmol/L Potassium Pending (3.5-5.1) mmol/L Chloride Pending (98-107) mmol/L Carbon Dioxide Pending (21.0-32.0) mmol/L Anion Gap Pending (3-11) mmol/L BUN Pending (7-18) mg/dL Creatinine Pending (0.55-1.02) mg/dL Est GFR (CKD-EPI 2020) Pending (mL/min/1.73m2) Glucose Pending (74-106) mg/dL Calcium Pending (8.5-10.1) mg/dL Total Bilirubin (0.2-1.0) mg/dL AST (15-37) U/L ALT (14-59) U/L Alkaline Phosphatase (46-116) U/L Total Protein (6.4-8.2) g/dL Albumin (3.4-5.0) g/dL Urine Color Cancelled (Yellow) Urine Clarity Cancelled (Clear) Urine pH Cancelled (5-8) Ur Specific [place] Cancelled (1.005-1.025) Urine Protein Cancelled (Neg-Trace) mg/dL Urine Ketones Cancelled (Negative) mg/dL Urine Blood Cancelled (Negative) Urine Nitrite Cancelled (Negative) Urine Bilirubin Cancelled (Negative) Urine Urobilinogen Cancelled (Up to 0.2) mg/dL Ur Leukocyte Esterase Cancelled (Negative) Urine RBC Urine WBC (0-5) HPF Ur Epithelial Cells Urine Crystals Urine Bacteria Urine Mucus Ur Culture Indicated? Urine Glucose Cancelled (Negative) mg/dL 06/29/24 06/29/24 Range/Units 18:45 16:45 WBC 10.52 (4.4-10.8) 10^3/uL RBC 4.70 (3.93-5.22) 10^6/uL Hgb 14.6 (11.2-15.7) g/dL Hct 44.9 (36.0-46.0) % MCV 96 H (80-95) fL MCH 31.1 (27.0-33.0) pg MCHC 32.5 (32.0-36.0) % RDW 13.4 (11.7-14.6) % Plt Count 219 (130-400) 10^3/uL MPV 10.4 (8.0-11.0) fL Immature Gran % 0.5 % Neutrophils % 79.7 % Lymphocytes % 9.3 % Monocytes % 10.0 % Eosinophils % 0.2 % Basophils % 0.3 % Nucleated RBC % 0.0 (0.0-0.3) % Absolute Neutrophils 8.39 H (1.2-6.7) 10^3/uL Absolute Lymphocytes 0.98 L (1.2-3.4) 10^3/uL Absolute Monocytes 1.05 H (0.1-0.8) 10^3/uL Absolute Eosinophils 0.02 (0.0-0.7) 10^3/uL Absolute Basophils 0.03 (0.0-0.2) 10^3/uL VBG Lactate (<or=2.0) mmol/L Sodium 139 (136-145) mmol/L Potassium 4.2 (3.5-5.1) mmol/L Chloride 102 (98-107) mmol/L Carbon Dioxide 31.0 (21.0-32.0) mmol/L Anion Gap 6.0 (3-11) mmol/L BUN 22 H (7-18) mg/dL Creatinine 0.8 (0.55-1.02) mg/dL Est GFR (CKD-EPI 2020) 76.31 (mL/min/1.73m2) Glucose 203 H (74-106) mg/dL Calcium 9.4 (8.5-10.1) mg/dL Total Bilirubin 0.5 (0.2-1.0) mg/dL AST 30 (15-37) U/L ALT 49 (14-59) U/L Alkaline Phosphatase 91 (46-116) U/L Total Protein 6.7 (6.4-8.2) g/dL Albumin 3.2 L (3.4-5.0) g/dL Urine Color Yellow (Yellow) Urine Clarity Cloudy (Clear) Urine pH 5.5 (5-8) Ur Specific [place] 1.020 (1.005-1.025) Urine Protein Negative (Neg-Trace) mg/dL Urine Ketones Negative (Negative) mg/dL Urine Blood Moderate H (Negative) Urine Nitrite Positive H (Negative) Urine Bilirubin Negative (Negative) Urine Urobilinogen 0.2 (Up to 0.2) mg/dL Ur Leukocyte Esterase Moderate H (Negative) Urine RBC Not Applicable Urine WBC >50 H (0-5) HPF Ur Epithelial Cells Not Applicable Urine Crystals Not Applicable Urine Bacteria Not Applicable Urine Mucus Not Applicable Ur Culture Indicated? Yes Urine Glucose Negative (Negative) mg/dL 06/29/24 20:05 Blood Culture - Pending Blood 06/29/24 20:47 Blood Culture - Pending Blood 06/29/24 16:45 Urine Culture - Pending Urine - Reflex from Ua Intake and Output - 24 Hour Total 06/29/24 18:46 thru 06/29/24 22:15 Intake Total 600 Balance 600 Weight 69.4 kg Intake: IV 600 Other: Urine Color [place] Urine Appearance Cloudy Comment BLADDER CSAN PRE INSERTION >550CC Urinary Catheter Urinary Catheter Date of 06/29/24 Insertion [Urethral (Yang)] Time of insertion [Urethral ( 22:15 Yang)] Falls Risk Assessment History of Falls No History 06/29/24 19:06 Contributing Factors Confusion 06/29/24 19:06 Ambulatory Aids Uses ambulatory device 06/29/24 19:06 Tubes/Lines None 06/29/24 19:06 Gait Evaluation No gait disturbance 06/29/24 19:06 Cognition Cognitive impairment 06/29/24 19:06 Fall Total Score 33 06/29/24 19:06 Level of Risk Moderate Risk 06/29/24 19:06 Problems (Last Updated 06/29/24 @ 23:02 by Dhaval Urrutia) Lung nodules (Acute) Prepatellar bursitis, left knee (Acute) Atrial fibrillation (Chronic) Constipation, unspecified (Acute) v v v v v v v v v Sending and/or Receiving Nurses: Please use comment section below to note any information pertinent to the patient hand-off not included above. Information / Comments: Report given by SPORTS INFORMATION DIRECTOR Michell, patient with a little bit of confusion, came in due to chronic UTI from assisted living [facility], fell prior to admission obtained some brusing on left knee. Has yang and jesse area is escoriated. Patient was disempacted in ER. Able to answer questions, more alert by now. All questions asked answered appropriately. Report received from:
[2024-06-30 00:18] VITALS: BP 169/76; PULSE 59; RESP 18; TEMP 36; O2SAT 98
[2024-06-30] MEDS: Senna TAB 1 TAB PO (00:43)
[2024-06-30] MEDS: Polyethylene Glycol 3350 17 GM PACKET PO (00:43)
[2024-06-30] MEDS: Levothyroxine 150 MCG TAB PO (05:45)
[2024-06-30 07:30] LABS: Abs Immature Grans 0.04 10^3/uL (0.0-0.06); Absolute Basophil Count 0.03 10^3/uL (0.0-0.2); Absolute Eosinophil Count 0.04 10^3/uL (0.0-0.7); Absolute Lymphocyte Count 1.17 10^3/uL (1.2-3.4); Absolute Monocyte Count 0.98 10^3/uL (0.1-0.8); Absolute Neutrophil Count 6.68 10^3/uL (1.2-6.7); Basophils % 0.3 %; Eosinophils % 0.4 %; HCT 41.5 % (36.0-46.0); HGB 13.4 g/dL (11.2-15.7); Immature Grans % 0.4 %; Lymphocytes % 13.1 %; MCH 30.8 pg (27.0-33.0); MCHC 32.3 % (32.0-36.0); MCV 95 fL (80-95); MPV 10.6 fL (8.0-11.0); Neutrophils % 74.8 %; Platelet Count 198 10^3/uL (130-400); RBC 4.35 10^6/uL (3.93-5.22); RDW 13.4 % (11.7-14.6); RDW-SD 47.4 fL; WBC 8.94 10^3/uL (4.4-10.8)
[2024-06-30 07:43] LABS: Anion Gap 6.8 mmol/L (3-11); BUN 13 mg/dL (7-18); CO2 30.2 mmol/L (21.0-32.0); CREATININE 0.7 mg/dL (0.55-1.02); Calcium 8.8 mg/dL (8.5-10.1); Chloride 106 mmol/L (98-107); Estimated GFR 89.58 (mL/min/1.73m2); Glucose 127 mg/dL (74-106); Potassium 3.7 mmol/L (3.5-5.1); Sodium 143 mmol/L (136-145)
[2024-06-30 07:45] VITALS: BP 176/68; PULSE 60; RESP 18; TEMP 36.9; O2SAT 96
[2024-06-30] MEDS: Refresh PLUS Eye Drops 0.4ml 1 EACH OP (09:15)
[2024-06-30] MEDS: Escitalopram 10 MG TAB PO (09:15)
[2024-06-30] MEDS: Calcium Carbonate *TUMS* 500 MG CHEW 1000 MG PO (09:15)
[2024-06-30] MEDS: Benztropine 1 MG TAB PO (09:15)
[2024-06-30] MEDS: Cyanocobalamin 500 MCG TAB PO (09:15)
[2024-06-30] MEDS: Omeprazole 20 MG CAPCR PO (09:15)
[2024-06-30] MEDS: Amiodarone 200 MG TAB PO (09:15)
[2024-06-30] MEDS: Normal Saline Flush 10 ML SYR IVP (09:15)
[2024-06-30] MEDS: Preservision CAPSULE 1 CAP PO (09:15)
[2024-06-30] MEDS: Apixaban 5 MG TAB PO (09:15)
[2024-06-30] MEDS: Acetaminophen 500 MG TAB 1000 MG PO (09:15)
--- NOTE | 2024-06-30 11:35 | W.NUTRFU ---
Date of service: 06/30/24 Time of Service: 11:11 Nutrition Note NOTE: Mary Jo was admitted from [facility] and is being treated for acute UTI, Afib, metabolic encephalopathy, fecal impaction. Pt slow to verbalize and some questions went unanswered. A1C was 6.0% this last febrau. She did confirm that she periodically experiences hypoglycemia but could not give details on frequency. Semaglutide is only diabetes med on home med list. Pt confirms glucose is checked at [facility] regularly. 127 fasting glucose this morning. Anticipate discharge back to [facility] today where Mary Jo's glucose is monitored and treated routinely. Fair appetite while here - looking forward to turkey at lunch today. No aggressive nutrition intervention planned at this time. Will continue to monitor labs, po intake and signs of deteriorating nutritioinal status until discharge. Time Spent in Nutritional Counseling and Treatment: 5 minutes
--- NOTE | 2024-06-30 11:45 | PHACLINREV_ITS ---
Pharmacy Admission Review Admission Clinical Review Admission Pharmacy Review: Lung nodules (Acute) Prepatellar bursitis, left knee (Acute) Constipation, unspecified (Acute) Iodinated Contrast Media (Iodinated Contrast- Oral and IV Dye) Allergy (Unknown, Verified 06/29/24 19:18) Other (See Comment) Oral contrast Allergy (Uncoded 06/29/24 19:18) rash, lower leg swelling Resuscitation Status DNR/DNI Height 4 ft 9 in Weight 71.214 kg Pharmacy Admission Review Renal Dosing Renal Dosing: BUN 13 mg/dL (7-18) 06/30/24 06:22 Creatinine 0.7 mg/dL (0.55-1.02) 06/30/24 06:22 Medications needing adjustments: Intervened (CrCl 37.2 mL/min, ~ 57.3 using GlobalRPH (doesn't round SCr to 1), BUN decreased from 22) List of meds needing interventions: Changed famotidine dose from 40mg daily to 20mg daily Anticoagulation Anticoagulation: Hgb 13.4 g/dL (11.2-15.7) 06/30/24 06:22 Hct 41.5 % (36.0-46.0) 06/30/24 06:22 Plt Count 198 10^3/uL (130-400) 06/30/24 06:22 Creatinine 0.7 mg/dL (0.55-1.02) 06/30/24 06:22 DVT Prophylaxis: Reviewed Medications: Apixaban (5mg PO BID) Relevant Labs Relevant Labs: Sodium 143 mmol/L (136-145) 06/30/24 06:22 Potassium 3.7 mmol/L (3.5-5.1) 06/30/24 06:22 Chloride 106 mmol/L (98-107) 06/30/24 06:22 Electrolytes, C-Reactive P, ESR: Reviewed DM Control DM Control: Glucose 127 mg/dL (74-106) H 06/30/24 06:22 Finger Stick Blood Glucose 143 1027 Finger Stick Blood Glucose 143 0748 Finger Stick Blood Glucose 143 0748 DM Control: Reviewed Insulin Dosing, Diabetic Medication: Has order for SS insulin Cardiac Review Cardiac Review: Blood Pressure 176/68 0745 Blood Pressure 169/76 0018 Blood Pressure 161/74 0001 List meds needing interventions: Has order for amiodarone 200mg daily QTc Review QTc: Reviewed (370 from 01/13/23 - most recent EKG on file) IV to PO Switch IV Medications: Reviewed Home Meds Home Med List reviewed: Intervened Relevent Home Meds Not ordered & why?: dimethicone cream and Vicks Vaporub - orders put in for both, I canceled them as they are non-form and patient will most likely not need while here Patient has risperidone listed twice on home med list - a 0.5mg tablet and a 1mg tablet. Orders were put in for both. I removed the 0.5mg tablet from home med list as this was last filled 03/22/24 where as the 1mg tablet was filled 06/15/24 . I verified the order for the 1mg tablet and canceled the other one. Order pending for Ozempic, called nurse to see what day of the week patient uses. Waiting to hear back. Current Meds Current Medication Order Review: Intervened Comments: Added IV admission order set Pharmacy Antibiotic Review Relevant Labs: WBC 8.94 10^3/uL (4.4-10.8) 06/30/24 06:22 Temperature 36.9 C Temperature 36 C Temperature 37 C Microbiology 06/29/24 16:45 Urine Culture - Preliminary Urine - Reflex from Ua Escherichia coli Pharmacy Antibiotic Activity: C/S review and Reviewed, no change Comments: Patient received 1 dose of ceftriaxone last night and was switched over today to PO cefpodoxime (day 1) for UTI. Blood cultures still pending.
[2024-06-30] MEDS: Insulin Aspart 300 UNITS/3 ML PEN SC (12:08)
--- NOTE | 2024-06-30 12:58 | PDOC.CMDIS ---
Date of service: 06/30/24 Time of Service: 12:59 LACE Index Scoring Tool Questions: Length of Stay (in days): 1 Was the patient admitted via the E.D.?: Yes Comorbidities: Diabetes w/o Complication E.D. Visits: 1 Answers: Total Score: 6 Risk of Readmission: Low Risk Care Management Discharge Plan Reason for Hospitalization: UTI, Confusion, constipation Discharge Plan: Karuna is discharged back to the [facility]Assisted living [facility] where she resides, with new PT. Karuna will follow up with community providers and her discharge plan of care as instructed. She will be driven via private vehicle with Malorie ([id number]). CM notified nurse, Angela and RN at [facility], that her return back to the [facility] is planned for this afternoon. Patient/Family Education Needs: Review discharge instructions, limitations, medications and plan to follow up with community providers. Discuss ask me three and goals of self care. Services Needed at Discharge: Physical Therapy SDOH Health Related Social Needs: Health related social needs housing instability, housed, with risk of homelessness (Z59.811), food insecurity (Z59.41)
--- NOTE | 2024-06-30 12:58 | CHAPLAIN ---
Karuna was sitting up in the chair when I visited. She explained that she's from [facility] and hoping to return there soon. She was pleasant and engaged in a conversation, sharing some personal history with me. I explained my role and offered support.
--- NOTE | 2024-06-30 14:08 | IN_ITS ---
PT Notes Visit Reasons: UTI, confusion, constipation Physical Therapy Day Surgery Initial Evaluation Date: 06/30/2024 Referring Doctor: Dr. Glaser PT Orders: PT CONSULT: PT evaluation and treatment Precautions: Duran catheter, fall risk, standard precautions Patient Profile/Admitting Diagnosis: Patient is 78-year-old female presented to the ED status post fall at her residence/ [facility]. Pt with report of left knee pain X ray negative fracture. Pt (+) UTI and fecal impaction. PMHX: Acute urinary retention (Acute) Fecal impaction (Acute) Acute metabolic encephalopathy (Acute) Acute UTI (Acute) Lung nodules (Acute) Prepatellar bursitis, left knee (Acute) Cough (Acute) Atrial fibrillation (Chronic) History of colon polyps (Acute) Polyneuropathy (Acute) Urinary incontinence, mixed (Acute) Lower back pain (Acute) Postural kyphosis (Acute) Chest pain (Acute) Infection due to ESBL-producing Escherichia coli (Acute) Hypomagnesemia (Acute) Hypomagnesemia (Acute) Hypokalemia (Acute) Back pain of thoracolumbar region (Acute) Hypokalemia (Acute) Kyphosis (acquired) (postural) (Acute) Perirectal inflammation (Acute) 03/30/2019-from fecal incontinenceCerumen debris on tympanic membrane of both ears (Acute) Constipation, unspecified (Acute) History of umbilical hernia repair (Acute) Status post dilation and curettage (Acute) Status post laparoscopic hysterectomy (Acute) Excessive cerumen in both ear canals (Chronic) Diabetes mellitus (Chronic 07/21/12) Atrial fibrillation with RVR (Acute 09/09/17) Dx by EKG on 08/21/17, [id number] = 2, anti-coagulated on Eliquis Tubular adenoma (Acute 10/17/14) 10/03/14; DR. ALICIA;1 tubulovillous adenoma and 2 tubular adenoma Primary osteoarthritis of both knees (Acute) Morbid obesity with BMI of 40.0-44.9, adult (Acute) Hyperlipidemia associated with type 2 diabetes mellitus (Acute) REFUSES RX Hearing loss (Acute) A.D. Gastroesophageal reflux (Chronic 10/01/13) Essential hypertension (Acute 02/01/13) Depressive disorder (Acute) anxiety Cognitive deficits (Acute 08/05/17) Anxiety associated with depression (Acute 07/21/17) History of psychiatric disorder (Acute) Medical History POLST (Physician Orders for Life-Sustaining Treatment) DNI (do not intubate) DNR (do not resuscitate) Hypertension GERD (gastroesophageal reflux disease) Hypothyroidism Hyperlipidemia Depression Diabetes Morbid obesity with BMI of 40.0-44.9, adult Surgical History Hysterectomy, Laproscopic Repair of umbilical hernia Dilation and curettage (~1995) Social History/Home Situation:Pt resides at [facility]. She has to walk approx 60 feet then take elevator down then walk again approx 60 feet to the dining room for her meals.She has assistance for getting in out of bed and escort to dining room. She needs assistance for ADLs, and prompting for toileting. Staff wake her 2 times a night for toileting and her fluid intake is limited after 5pm to help manage incontinence per her sister in law Espana. Equipment Owned/DME: [facility] Subjective: Mary Jo reports she has pain along the inside of her left knee since her fall. She also states she wants to go back to [facility]. Objective: [] General Observation:awake female sitting reclined in chair visiting with her sister in law E[place]a. Roger present Mental Status: Alert oriented to person and place. Slow to respond to some questions requiring encouragement to use her voice to respond. Pain: left knee it hurts Pt unable to use scale stated Ouch when palpated medial area of femoral condyle and to anterior medial tibial plateau area. ROM: [] Right Upper Extremity: WFL Left Upper Extremity: WFL Right Lower Extremity: WFL except DF to neutral Left Lower Extremity: WFL except DF to neutral Strength: [] Right Upper Extremity: grossly 4/5 Left Upper Extremity: grossly 3+/5 Right Lower Extremity: hip 3-/5 knee extension 3/5 , knee flexion 3/5 ankle 3/5 Left Lower Extremity: hip 3-/5, knee extension 3/5, knee flexion 2+/5 ankle 3/5 Sensation: intact Bed Mobility/Transfers: [] Supine to sit CGA with increased time Sit to stand CGA cues for hand placement Stand to sit CGA cues for hand placement Bed to chair with FWW CGA and cues for safe approach to surfaces Gait: ambulated 60 feet with FWW CGA noted drifts to the left but able to correct without assistance if she bumps into obstacle. Pt noted to scan right side of environment only hen not cued/instructed during ambulation which results in her striking objects on the left. Pt deviations as follows: reduced step height reduced step length, slow geovani. Balance: [] Static Sitting: Good Dynamic Sitting: fair Static Standing: fair + with FWW Dynamic Standing:fair with FWW Special Tests: [] Mobility Limitations Standardized Measure [] [facility] AM-PAC 6 clicks Basic Mobility Inpatient Short Form: [] Raw Score: 16 CMS Score: 54.16% Informed Consent/Education: Patient instructed in purpose of PT consult. Assessment: Patient is a 78-year-old female who presents with clinical signs and symptoms consistent with current/admitting diagnoses and concern for left knee soft tissue injury status post fall x 2 that have resulted to mobility limitations, gait instability, generalized weakness, and impairment of motor control as demonstrated by the following impairment level findings: 1. Decreased strength to left knee major muscle groups 2. Impaired standing balance 3. pain left knee 4. Impaired functional activity tolerance 5. Left knee swelling Impairments are contributing to the following functional limitations: 1. Inability to safely ambulate without assistive device 2. Increase completion time for mobility ADL performance 3. Increased fall risk Despite deficits pt will return to [facility] with assistance. She remains at risk for falls d/t cognitive impairment and poor safety/ judgement/ impaired insight into unsafe situations. Her sister in law is involved but agrees return there is a better option than going to a SNF. This will allow her to be in familar enviornment and maintain a consistent routine. Patient is assessed as a moderate complexity based on the following: History: 78-year-old female with impairment level findings, functional limitations, and past medical history as indicated above Examination: Demonstrable impairment in strength, balance, and mobility level with underlying impairments and functional limitations as documented above Presentation: Evolving/stable Decision Making: Moderate Goals: N/A. Plan of Care/Treatment Plan: N/A. DISCHARGE RECOMMENDATIONS: Return to [place] in with PT. TREATMENT CODE/TIME: 43794, [id number] Thank you for the opportunity to participate in the care of this patient. Rhonda Hays PT [facility]
--- NOTE | 2024-06-30 14:25 | DSE_ITS ---
Date of service: 06/30/24 Time of Service: 14:25 DS: Diagnosis Discharge Diagnosis (1) UTI (urinary tract infection): Status: Resolved (2) Atrial fibrillation: Status: Chronic (3) Diabetes: (4) Constipation, unspecified: Status: Acute (5) Hypothyroidism: (6) Lung nodules: Status: Acute (7) Prepatellar bursitis, left knee: Status: Acute (8) DVT prophylaxis: Status: Resolved (9) Discharge planning issues: Status: Resolved Discharge Plan Disposition Patient Disposition: Home Condition: Good Discharge Details Reason For Visit: UTI, confusion, constipation Admit Date/Time: 06/29/24 23:02 Admit Provider: Dhaval Urrutia Attending Provider: Dhaval Urrutia Primary Care Provider: Charlene Paige [facility] Hospital Course: Patient presented with signs and symptoms of a UTI with increased confusion from baseline. She was treated with IV CTX and experienced rapid improvement of her symptoms shortly after admission. She was also seen by PT and was determined to not require any additional services. Therefore, it was determined that the patient was stable for discharge back to [facility] with an additonal 5 days of PO cefpodoxime. Home Meds and New Rx's Prescriptions: New cefpodoxime 200 mg Tablet 200 mg PO BID Qty: 10 0RF Continued sennosides-docusate sodium 8.6-50 mg tablet 1 tab PO HS PRN (Reason: constipation) Qty: 90 3RF polyethylene glycol 3350 [Miralax] 17 gram/dose powder 17 gm PO DAILY PRN (Reason: constipation) Qty: 510 2RF Ozempic 2 mg/dose (8 mg/3 mL) pen injector 2 mg subcut QWEEK amiodarone 200 mg tablet 200 mg PO DAILY Qty: 90 3RF risperidone 1 mg tablet 0.5 mg PO HS (DME) blood-glucose meter [QuoterollerTouch Verio IQ Meter] Kit See Rx Instructions .ROUTE .MEDSUPPLY Qty: 1 0RF Rx Instructions: As directed- BID testing- Insulin dependent Soothe and Cool Inzo Barrier 5 % cream 1 applic TP TID-QID PRN (Reason: skin irritation) Qty: 118.29 3RF (DME) pen needle, diabetic [Pen Needle] 31 gauge x 5/16 needle 1 ndl SQ DAILY Qty: 100 4RF Rx Instructions: USE WITH LANTUS PEN cyanocobalamin (vitamin B-12) [Vitamin B-12] 1,000 mcg tablet 500 mcg PO DAILY Qty: 90 4RF nystatin 100,000 unit/gram powder 1 applic Topical BID PRN (Reason: dermatitis) Ervin Vaporub 4.7-1.2-2.6 % ointment 1 applic TP BID PRN (Reason: congestion) Qty: 50 0RF Rx Instructions: Patient may keep in her room and self apply as directed Eliquis 5 mg tablet 5 mg PO BID Qty: 180 2RF levothyroxine 150 mcg tablet 150 mcg PO DAILY Qty: 90 3RF Rx Instructions: note dose change to 150 mcg daily (stop the 175 mcg) (DME) Blood Glucose Test Strip 1 strip Miscellaneous QID Qty: 200 3RF Rx Instructions: FOR ONE TOUCH Verio IQ METER. Dx: E11.65 on insulin -BID calcium carbonate [Tums] 200 mg calcium (500 mg) tablet,chewable 400 mg PO BID Qty: 120 11RF Ocuvite Adult 50 Plus 250-5-1 mg capsule 1 cap PO DAILY Qty: 90 3RF acetaminophen 500 mg tablet 1,000 mg PO BID Qty: 120 11RF (DME) lancets [OneTouch Delica Lancets] 33 gauge misc See Dose Instructions .ROUTE .MEDSUPPLY Qty: 200 4RF Dose Instruction: As directed Rx Instructions: BID glucose finger testing - E11.65 (on insulin) diazepam 5 mg tablet 5 mg PO QHS PRN escitalopram oxalate 10 mg tablet 10 mg PO DAILY PreserVision AREDS-2 250-90-40-1 mg tablet,chewable 1 tab PO QAM AND QPM carboxymethylcellulose sodium [Refresh Tears] 0.5 % drops 1 drp ophthalmic (eye) BID famotidine [Pepcid] 40 mg Tablet 40 mg PO DAILY omeprazole 20 mg Capsule,Delayed Release(Dr/Ec) 20 mg PO DAILY pravastatin 20 mg Tablet 20 mg PO DAILY benztropine 1 mg tablet 1 mg PO DAILY Discharge Instructions Activity:: Activity as Tolerated Equipment/Supplies:: No Equipment Needed Diet:: As Tolerated Discharge Orders Discharge Orders: Discharge Order (Routine); Ordered 06/30/24 Ordered By: Jay Glaser DS: Summary Time Spent with Patient providing and/or coordinating discharge services: Greater than 30 minutes Status at Discharge Functional status at discharge: independent ambulation Overall status at discharge: patient is back to baseline Mental Status: mental status grossly normal Speech and Movement: speech and movement normal Mood: congruent mood Affect: normal affect Quality:SDOH Health Related Social Needs: Health related social needs housing instability, house d, with risk of homelessness (Z59.811), food insecurity (Z59.41) Exam Narrative Exam Narrative: well appearing older female sitting up in the bed in no acute distress, AOx4, heart RRR, lungs CTAB, abdomen soft, non-tender, non-distended Psych Mental Status: mental status grossly normal Speech and Movement: speech and movement normal Mood: congruent mood Affect: normal affect DS: Data Vitals/I&O Vitals and I&O: Vital Signs Temperature 98.4 F 06/30/24 07:45 Temperature Source Temporal Artery Scan 06/30/24 07:45 Pulse 60 06/30/24 07:45 Pulse Rhythm Irregular 06/30/24 00:18 Respiratory Rate 18 06/30/24 07:45 Respiratory Effort Normal 06/30/24 00:18 Respiratory Depth Normal 06/30/24 00:18 Respiratory Pattern Normal 06/30/24 00:18 Blood Pressure 176/68 H 06/30/24 07:45 Blood Pressure Position Supine 06/29/24 19:06 Pulse Oximetry 96 06/30/24 07:45 Oxygen Delivery Method Room Air 06/30/24 07:45 Oxygen Flow Rate 0 06/30/24 07:45 Pain Level 0 06/30/24 00:18 Comment RN notified 06/30/24 07:45 Intake & Output 06/29/24 06/30/24 06/30/24 17:59 05:59 17:59 Intake Total 1100 / 1100 150 / 150 Output Total 800 / 800 1500 / 1500 Balance 300 / 300 -1350 / -1350 Weight 157 lb Intake: IV 700 / 700 Oral 400 / 400 150 / 150 Output: Urine 800 / 800 1500 / 1500 Other: Urine Color [place] Pale Urine Appearance Clear Clear Urine Odor None Comment BLADDER CSAN PRE INSERTION >550CC Stool Size Large Stool Characteristics Soft Data Completed and Pending Labs on day of discharge: Labs from last 24 hours 06/30/24 06/29/24 06/29/24 06:22 20:47 19:21 WBC 8.94 RBC 4.35 Hgb 13.4 Hct 41.5 MCV 95 MCH 30.8 MCHC 32.3 RDW 13.4 Plt Count 198 MPV 10.6 Immature Gran % 0.4 Neutrophils % 74.8 Lymphocytes % 13.1 Monocytes % 11.0 Eosinophils % 0.4 Basophils % 0.3 Nucleated RBC % 0.0 Absolute Neutrophils 6.68 Absolute Lymphocytes 1.17 L Absolute Monocytes 0.98 H Absolute Eosinophils 0.04 Absolute Basophils 0.03 VBG Lactate 1.6 Sodium 143 Potassium 3.7 Chloride 106 Carbon Dioxide 30.2 Anion Gap 6.8 BUN 13 Creatinine 0.7 Est GFR (CKD-EPI 2020) 89.58 Glucose 127 H Calcium 8.8 Total Bilirubin AST ALT Alkaline Phosphatase Total Protein Albumin Urine Color Cancelled Urine Clarity Cancelled Urine pH Cancelled Ur Specific [place] Cancelled Urine Protein Cancelled Urine Ketones Cancelled Urine Blood Cancelled Urine Nitrite Cancelled Urine Bilirubin Cancelled Urine Urobilinogen Cancelled Ur Leukocyte Esterase Cancelled Urine RBC Urine WBC Ur Epithelial Cells Urine Crystals Urine Bacteria Urine Mucus Ur Culture Indicated? Urine Glucose Cancelled 06/29/24 06/29/24 18:45 16:45 WBC 10.52 RBC 4.70 Hgb 14.6 Hct 44.9 MCV 96 H MCH 31.1 MCHC 32.5 RDW 13.4 Plt Count 219 MPV 10.4 Immature Gran % 0.5 Neutrophils % 79.7 Lymphocytes % 9.3 Monocytes % 10.0 Eosinophils % 0.2 Basophils % 0.3 Nucleated RBC % 0.0 Absolute Neutrophils 8.39 H Absolute Lymphocytes 0.98 L Absolute Monocytes 1.05 H Absolute Eosinophils 0.02 Absolute Basophils 0.03 VBG Lactate Sodium 139 Potassium 4.2 Chloride 102 Carbon Dioxide 31.0 Anion Gap 6.0 BUN 22 H Creatinine 0.8 Est GFR (CKD-EPI 2020) 76.31 Glucose 203 H Calcium 9.4 Total Bilirubin 0.5 AST 30 ALT 49 Alkaline Phosphatase 91 Total Protein 6.7 Albumin 3.2 L Urine Color Yellow Urine Clarity Cloudy Urine pH 5.5 Ur Specific [place] 1.020 Urine Protein Negative Urine Ketones Negative Urine Blood Moderate H Urine Nitrite Positive H Urine Bilirubin Negative Urine Urobilinogen 0.2 Ur Leukocyte Esterase Moderate H Urine RBC Not Applicable Urine WBC >50 H Ur Epithelial Cells Not Applicable Urine Crystals Not Applicable Urine Bacteria Not Applicable Urine Mucus Not Applicable Ur Culture Indicated? Yes Urine Glucose Negative 06/29/24 20:05 Blood Blood Culture - Pending 06/29/24 20:47 Blood Blood Culture - Pending Preliminary micro results at discharge 06/29/24 16:45 Urine Culture - Preliminary Urine - Reflex from Ua Escherichia coli 06/29/24 20:05 Blood Culture - Pending Blood 06/29/24 20:47 Blood Culture - Pending Blood PFSH All Active Problems Acute urinary retention (Acute) Fecal impaction (Acute) Acute metabolic encephalopathy (Acute) Acute UTI (Acute) Lung nodules (Acute) Prepatellar bursitis, left knee (Acute) Cough (Acute) Atrial fibrillation (Chronic) History of colon polyps (Acute) Polyneuropathy (Acute) Urinary incontinence, mixed (Acute) Lower back pain (Acute) Postural kyphosis (Acute) Chest pain (Acute) Infection due to ESBL-producing Escherichia coli (Acute) Hypomagnesemia (Acute) Hypokalemia (Acute) Hypomagnesemia (Acute) Back pain of thoracolumbar region (Acute) Hypokalemia (Acute) Kyphosis (acquired) (postural) (Acute) Perirectal inflammation (Acute) 03/30/2019-from fecal incontinence Cerumen debris on tympanic membrane of both ears (Acute) Constipation, unspecified (Acute) History of umbilical hernia repair (Acute) Status post dilation and curettage (Acute) Status post laparoscopic hysterectomy (Acute) Excessive cerumen in both ear canals (Chronic) Diabetes mellitus (Chronic 07/21/12) Atrial fibrillation with RVR (Acute 09/09/17) Dx by EKG on 08/21/17, [id number] = 2, anti-coagulated on Eliquis Tubular adenoma (Acute 10/17/14) 10/03/14; DR. ALICIA;1 tubulovillous adenoma and 2 tubular adenoma Primary osteoarthritis of both knees (Acute) Morbid obesity with BMI of 40.0-44.9, adult (Acute) Hyperlipidemia associated with type 2 diabetes mellitus (Acute) REFUSES RX Hearing loss (Acute) A.D. Gastroesophageal reflux (Chronic 10/01/13) Essential hypertension (Acute 02/01/13) Depressive disorder (Acute) anxiety Cognitive deficits (Acute 08/05/17) Anxiety associated with depression (Acute 07/21/17) History of psychiatric disorder (Acute) Medical History POLST (Physician Orders for Life-Sustaining Treatment) DNI (do not intubate) DNR (do not resuscitate) Hypertension GERD (gastroesophageal reflux disease) Hypothyroidism Hyperlipidemia Depression Diabetes Morbid obesity with BMI of 40.0-44.9, adult Surgical History Hysterectomy, Laproscopic Repair of umbilical hernia Dilation and curettage (~1995) Family History Mother Essential hypertension Heart disease Father , 86 Essential hypertension Heart disease Stroke Asthma Brother No problems noted. Maternal Grandfather Heart disease Paternal Grandfather No problems noted. Maternal Grandmother Heart disease Cancer Paternal Grandmother Heart disease Stroke Brother No problems noted. Social History (Updated 06/30/24 @ 06:54 by Dhaval Urrutia) Smoking/Tobacco Use Status: Never Smoking risk assessment performed?: Yes Alcohol Intake: never Drug use: Never Substance use type: does not use Caregiver/Support person: No Housing: assisted living facility Communication Needs: None Do you need help understanding health information?: Always Pets and animals: No Sexually active: No Do you think of yourself as: straight/heterosexual What is your relationship status?: never How often do you talk on the phone with friends or family?: three or more times per week How often do you get together with friends or relatives?: three or more times per week How often do you attend moravian or hinduism services?: decline to answer Do you belong to any clubs or organized social groups?: no Panel score (0-1 are the most socially isolated patients): 1 What type of physical activity do you participate in: walking Duration: < 15 minutes/day Frequency: daily Carito/Rastafari: None Special carito needs: No Seatbelt use: always Drive intox or ride w/intox racecar driver: No Do you feel safe at home: Yes Do you feel safe in your relationship?: Yes Additional Social history: Lives at [facility], has guardian Time Spent with Patient Time Spent with Patient: <45 minutes Time was spent: preparing to see the patient(eg.review tests), obtaining and/or reviewing separately otained hiistory, ordering medications,tests, procedures, referring, communicating with other health care management coordinator, indepentently interpreting results, counseling the patient and care coordination
== END 2024-06-30 15:39 | disposition home or self-care (01) ==
LOC: ER 06-30 00:08 → MS 06-30 00:10
PROVIDERS: Admitting Provider Family Medicine; Emergency Provider Physician Assistant; PCP Nurse Practitioner Family; Responsible Provider Family Medicine; Visit Provider Family Medicine
DX: N39.0 Urinary tract infection, site not specified (principal); I48.0 Paroxysmal atrial fibrillation; G93.41 Metabolic encephalopathy; K56.41 Fecal impaction; E03.9 Hypothyroidism, unspecified; M70.42 Prepatellar bursitis, left knee; R91.8 Other nonspecific abnormal finding of lung field; Z79.85 Long-term (current) use of injectable non-insulin antidiabetic drugs; E78.5 Hyperlipidemia, unspecified; R41.89 Other symptoms and signs involving cognitive functions and awareness; R53.1 Weakness; E11.42 Type 2 diabetes mellitus with diabetic polyneuropathy; N39.46 Mixed incontinence; E83.42 Hypomagnesemia; E87.6 Hypokalemia; K21.9 Gastro-esophageal reflux disease without esophagitis; I10 Essential (primary) hypertension; F41.8 Other specified anxiety disorders
CPT/HCPCS: 00123; 36415; 71250; 73562; 80048; 80053; 87040; 87077; 96361; 96365; 96367; 97162; 97530; 99285; 74176; 81003; 81015; 83605; 85025; 87086; 87186; 99222; 99239; G0378; J0131; J0696; J1815

== ENCOUNTER 2024-07-09 04:26 | Emergency (ER) | payer MEDICARE, MEDICAID, SELFPAY ==
[2024-07-09] VITALS (49 sets, daily range): BP systolic 124–198; BP diastolic 56–94; PULSE 51–73; RESP 11–24; TEMP 36.9; O2SAT 96–99
--- NOTE | 2024-07-09 03:45 | RT.EKG_ITS ---
APPROVED REPORT Exam: Resting ECG Reason for Exam: fall Patient Location: E HR:51 bpm ECG Measurements Heart Rate 51 AXIS ND 73 P 87 QRSd 83 QRS 77 QT 479 T 18 QTc 443 Conclusion Sinus bradycardia...rate< 60 Physician: no stemi
--- NOTE | 2024-07-09 03:45 | DI.CT_ITS ---
Exam(s) CT THORACIC LUMBAR SPINE REC EXAM: CT THORACIC LUMBAR SPINE REC CLINICAL HISTORY: fall, eliquis, pain in chest and back TECHNIQUE: COMPARISON: CT CT CHEST/ABD/PEL WO from 07/09/2024 FINDINGS: THORACIC SPINAL COLUMN: No evidence acute fracture or listhesis nor significant disc space narrowing. No facet joint malalig nment. No acute compromise of the canal. LUMBOSACRAL SPINAL COLUMN: No evidence of fracture or listhesis nor pars defects. No significant disc space narrowing the excep tion of mild disc space narrowing on the right side of L3-4 level.. Minimal facet joint degenerative changes. No obvious disc herniations. No significant spinal canal stenosis. IMPRESSION: No acute osseous findings in the thoracic and lumbosacral spinal columns.
--- NOTE | 2024-07-09 04:01 | W.ED.GENAD ---
Discharge Plan Discharge Details Chief Complaint: Fall/Non TraumaCriteria Clinical Impression: Abrasion of scalp, Fall Primary Care Provider: Charlene Paige ED Provider: Jose Rangel Home Meds and New Rx's Prescriptions: No Action sennosides-docusate sodium 8.6-50 mg tablet 1 tab PO HS PRN (Reason: constipation) Qty: 90 3RF polyethylene glycol 3350 [Miralax] 17 gram/dose powder 17 gm PO DAILY PRN (Reason: constipation) Qty: 510 2RF Ozempic 2 mg/dose (8 mg/3 mL) pen injector 2 mg subcut QWEEK amiodarone 200 mg tablet 200 mg PO DAILY Qty: 90 3RF risperidone 1 mg tablet 1 mg PO HS (DME) blood-glucose meter [OneTouch Verio IQ Meter] Kit See Rx Instructions .ROUTE .MEDSUPPLY Qty: 1 0RF Rx Instructions: As directed- BID testing- Insulin dependent Soothe and Cool Inzo Barrier 5 % cream 1 applic TP TID-QID PRN (Reason: skin irritation) Qty: 118.29 3RF (DME) pen needle, diabetic [Pen Needle] 31 gauge x 5/16 needle 1 ndl SQ DAILY Qty: 100 4RF Rx Instructions: USE WITH LANTUS PEN cyanocobalamin (vitamin B-12) [Vitamin B-12] 1,000 mcg tablet 500 mcg PO DAILY Qty: 90 4RF nystatin 100,000 unit/gram powder 1 applic Topical BID PRN (Reason: dermatitis) Vicks Vaporub 4.7-1.2-2.6 % ointment 1 applic TP BID PRN (Reason: congestion) Qty: 50 0RF Rx Instructions: Patient may keep in her room and self apply as directed Eliquis 5 mg tablet 5 mg PO BID Qty: 180 2RF levothyroxine 150 mcg tablet 150 mcg PO DAILY Qty: 90 3RF Rx Instructions: note dose change to 150 mcg daily (stop the 175 mcg) (DME) Blood Glucose Test Strip 1 strip Miscellaneous QID Qty: 200 3RF Rx Instructions: FOR ONE TOUCH Verio IQ METER. Dx: E11.65 on insulin -BID calcium carbonate [Tums] 200 mg calcium (500 mg) tablet,chewable 400 mg PO BID Qty: 120 11RF Ocuvite Adult 50 Plus 250-5-1 mg capsule 1 cap PO DAILY Qty: 90 3RF acetaminophen 500 mg tablet 1,000 mg PO BID Qty: 120 11RF (DME) lancets [OneTouch Delica Lancets] 33 gauge misc See Dose Instructions .ROUTE .MEDSUPPLY Qty: 200 4RF Dose Instruction: As directed Rx Instructions: BID glucose finger testing - E11.65 (on insulin) diazepam 5 mg tablet 5 mg PO QHS PRN escitalopram oxalate 10 mg tablet 10 mg PO DAILY PreserVision AREDS-2 250-90-40-1 mg tablet,chewable 1 tab PO QAM AND QPM carboxymethylcellulose sodium [Refresh Tears] 0.5 % drops 1 drp ophthalmic (eye) BID famotidine [Pepcid] 40 mg Tablet 40 mg PO DAILY omeprazole 20 mg Capsule,Delayed Release(Dr/Ec) 20 mg PO DAILY pravastatin 20 mg Tablet 20 mg PO DAILY benztropine 1 mg tablet 1 mg PO BID cefpodoxime 200 mg Tablet 200 mg PO BID Qty: 10 0RF mecobalamin (vitamin B12) [B12 Active] PO magnesium PO PreserVision AREDS-2 250-90-40-1 mg capsule 1 tab PO BID HPI General Date/Time Provider Initiated Documentation: 07/09/24 07:04. HPI Narrative: This is a 78-year-old female with a past medical history of atrial fibrillation on Eliquis, GERD, hypertension, high cholesterol, diabetes, who is a DNR/DNI, presents today for evaluation after fall. Patient resides at [facility]. She states that she got up from bed when she then fell and hit the right side of her head on the guard rail. She has had some falls in the past. She denies any loss of consciousness. EMS was called and she was brought to the ER for further assessment. She admits to pain in her head, neck, chest and back. No pain in her hips or arms. No other complaints at this time. Related Data Home Medications ?Medication ?Instructions ?Recorded ?Confirmed polyethylene glycol 3350 17 17 gm PO DAILY PRN constipation 01/11/19 07/09/24 gram/dose oral powder (Miralax) #510 grams blood-glucose meter (OneTouch #1 ea 12/10/19 04/08/25 Verio IQ Meter kit) sennosides 8.6 mg-docusate sodium 1 tab PO HS PRN constipation #90 03/30/19 06/29/24 50 mg tablet tab-caps dimethicone 5 % topical cream 1 applic topical TID-QID PRN skin 03/31/19 06/29/24 (Soothe and Cool Inzo Barrier) irritation #118.29 mL pen needle, diabetic 31 gauge x ##100 04/20/19 06/29/24 5/16 (Pen Needle) cyanocobalamin (vitamin B-12) 500 mcg (1/2 x 1,000 mcg) PO DAILY 04/28/19 06/29/24 1,000 mcg tablet (Vitamin B-12) #90 tabs nystatin 100,000 unit/gram topical 1 applic topical BID PRN dermatitis 08/05/19 06/29/24 powder camphor 4.7 %-eucalyptus oil 1.2 1 applic topical BID PRN 08/06/19 06/29/24 %-menthol 2.6 % topical ointment congestion #50 grams (Vicks Vaporub) apixaban 5 mg tablet (Eliquis) 5 mg PO BID #180 tabs 09/11/19 07/09/24 levothyroxine 150 mcg tablet 150 mcg PO DAILY #90 tabs 10/14/19 07/09/24 blood sugar diagnostic (Blood #200 strips 01/05/20 06/29/24 Glucose Test strips) calcium carbonate (Tums) 400 mg (2 x 200 mg calcium (500 01/06/20 07/09/24 mg)) PO BID #120 tabs vit C,E,zinc,copper-gxguo6d 250 1 cap PO DAILY #90 caps 01/27/20 06/29/24 mg-lutein 5 mg-zeaxanthin 1 mg capsule (Ocuvite Adult 50 Plus) acetaminophen 500 mg tablet 1,000 mg (2 x 500 mg) PO BID #120 03/01/20 07/09/24 tabs lancets 33 gauge (OneTouch Delica #200 ea 04/06/20 06/29/24 Lancets) famotidine 40 mg tablet (Pepcid) 40 mg PO DAILY 03/01/22 07/09/24 omeprazole 20 mg capsule,delayed 20 mg PO DAILY 03/01/22 07/09/24 release pravastatin 20 mg tablet 20 mg PO DAILY 03/01/22 07/09/24 semaglutide 2 mg/dose (8 mg/3 mL) 2 mg subcut QWEEK 01/13/23 06/29/24 subcutaneous pen injector (Ozempic) amiodarone 200 mg tablet 200 mg PO DAILY #90 tabs 07/14/23 07/09/24 risperidone 1 mg tablet 1 mg PO HS 01/15/24 07/09/24 carboxymethylcellulose sodium 0.5 1 drp ophthalmic (eye) BID 04/12/24 07/09/24 % eye drops (Refresh Tears) diazepam 5 mg tablet 5 mg PO QHS PRN 04/12/24 07/09/24 escitalopram oxalate 10 mg tablet 10 mg PO DAILY 04/12/24 07/09/24 vit C 250 mg-E 90 mg-zinc 40 1 tab PO QAM AND QPM 04/12/24 06/29/24 mg-copper 1 [id number] chew tablet (PreserVision AREDS-2) benztropine 1 mg tablet 1 mg PO BID 06/29/24 07/09/24 cefpodoxime 200 mg tablet 200 mg PO BID #10 tabs 06/30/24 07/09/24 magnesium PO 07/09/24 mecobalamin (vitamin B12) PO 07/09/24 vit C 250 mg-vit E 90 mg-zinc 40 1 tab PO BID 07/09/24 07/09/24 mg-copper 1 [id number] capsule (PreserVision AREDS-2) Previous Rx's ?Medication ?Instructions ?Recorded polyethylene glycol 3350 17 17 gm PO DAILY PRN constipation 01/11/19 gram/dose oral powder (Miralax) #510 grams blood-glucose meter (OneTouch #1 ea 03/02/19 Verio IQ Meter kit) sennosides 8.6 mg-docusate sodium 1 tab PO HS PRN constipation #90 03/30/19 50 mg tablet tab-caps dimethicone 5 % topical cream 1 applic topical TID-QID PRN skin 03/31/19 (Soothe and Cool Inzo Barrier) irritation #118.29 mL pen needle, diabetic 31 gauge x ##100 04/20/19/16 (Pen Needle) cyanocobalamin (vitamin B-12) 500 mcg (1/2 x 1,000 mcg) PO DAILY 04/28/19 1,000 mcg tablet (Vitamin B-12) #90 tabs camphor 4.7 %-eucalyptus oil 1.2 1 applic topical BID PRN 08/06/19 %-menthol 2.6 % topical ointment congestion #50 grams (Vicks Vaporub) apixaban 5 mg tablet (Eliquis) 5 mg PO BID #180 tabs 09/11/19 levothyroxine 150 mcg tablet 150 mcg PO DAILY #90 tabs 10/14/19 blood sugar diagnostic (Blood #200 strips 01/05/20 Glucose Test strips) calcium carbonate (Tums) 400 mg (2 x 200 mg calcium (500 01/06/20 mg)) PO BID #120 tabs vit C,E,zinc,copper-zfmwc0h 250 1 cap PO DAILY #90 caps 01/27/20 mg-lutein 5 mg-zeaxanthin 1 mg capsule (Ocuvite Adult 50 Plus) acetaminophen 500 mg tablet 1,000 mg (2 x 500 mg) PO BID #120 03/01/20 tabs lancets 33 gauge (OneTouch Delica #200 ea 04/06/20 Lancets) amiodarone 200 mg tablet 200 mg PO DAILY #90 tabs 07/14/23 cefpodoxime 200 mg tablet 200 mg PO BID #10 tabs 06/30/24 Allergies Allergy/AdvReac Type Severity Reaction Status Date / Time Iodinated Contrast Media Allergy Unknown Other (See Verified 07/09/24 03:49 (Iodinated Contrast- Oral Comment) and IV Dye) Oral contrast Allergy rash, Uncoded 07/09/24 03:49 lower leg swelling General Stated Complaint: Fall/Non TraumaCriteria ORAL: 3 Exam Narrative Exam Narrative: 1.Const: Well-nourished, Well-developed, appearing stated age 2.Eyes: PERRL, no conjunctival injection, and symmetrical lids. 3.ENT: Atraumatic external nose and ears. Moist MM. Neck: Symmetric, trachea midline, No thyromegaly. There is no evidence of raccoon eyes, harrington sign, CSF rhinorrhea, mastoid tenderness, cranial crepitus, exophthalmos, or hyphema. Patient demonstrates intact dentition with no signs of tooth avulsion or fracture, no signs of jaw deformity, no evidence of a LeFort's fracture, with an intact palate, nose and orbital region. There is no evidence of a nasal septal hematoma. No proptosis. Jaw closes symmetrically. Airway is clear. There is evidence of a small hematoma and small superficial scalp laceration over the right mu-ism. No active bleeding or hemorrhage. 4.CVS: Regular rate and rhythm, Normal s1 and s2. No murmurs, carotid bruits, rubs, or gallops. Radial pulses 2+ bilaterally and symmetric. Dorsalis pedis pulses 2+ bilaterally and symmetric. 2+ capillary refill. No evidence of distant heart sounds. No extremity edema. No evidence of gross hemorrhage. 5.RESP: Airway clear, no obstructions. No abrasions or ecchymosis. Chest movement symmetric with respirations. No chest wall tenderness. Trachea midline. No crepitus. No step offs. No paradoxical movements. Lungs are clear to auscultation bilaterally. No rales, rhonchi, wheezing or stridor. Breath sound symmetric. No Sucking chest wounds. No clinical evidence of significant chest trauma. 6.GI: Soft, nondistended, nontender. Bowel tones normoactive. No masses or organomegaly. No ecchymosis or abrasions. No periumbilical ecchymosis or seatbelt sign. No flank or CVA tenderness. No clinical signs of significant trauma. No clinical evidence of significant abdominal trauma. 7.MSK: No gross deformities or discolorations or lesions. Tolerates full range of motion of extremities without tenderness. All compartments of upper and lower extremities are soft with no tenderness. Vascular exam demonstrates brisk capillary refill and intact pulses in all extremities. Pelvic exam demonstrates a stable pelvis, nontender to lateral compression and palpation of symphysis pubis. Patient does demonstrate evidence of mild midline tenderness over the upper thoracic around the 5 or 6, as well as upper lumbar around L1. She also has mild midline tenderness over C4 6 and 7. No step-off sign for any of these locations. No other clinical evidence of significant musculoskeletal trauma. 8.Skin: Warm, Dry. No rashes or lesions. 9.Neuro: courtroom deputy or calendar clerk II-XII grossly intact. Sensation grossly intact, no focal neurologic deficits. 10.Psych: (AAO) x1. Appropriate mood and affect Course Vital Signs Vital signs: Vital Signs Temperature 36.9 C 07/09/24 03:41 Pulse 55 L 07/09/24 03:41 Respiratory Rate 18 07/09/24 03:41 Blood Pressure 183/91 H 07/09/24 03:41 Pulse Oximetry 98 07/09/24 03:41 Temperature 36.9 C 07/09/24 03:41 Temperature Source Temporal Artery Scan 07/09/24 03:41 Pulse 55 L 07/09/24 03:41 Respiratory Rate 18 07/09/24 03:41 Blood Pressure 183/91 H 07/09/24 03:41 Pulse Oximetry 98 07/09/24 03:41 Pain Level 10 07/09/24 03:41 Medical Decision Making This is a 78-year-old female with a past medical history of atrial fibrillation on Eliquis, GERD, hypertension, high cholesterol, diabetes, who is a DNR/DNI, presents today for evaluation after fall. Patient resides at [facility]. She states that she got up from bed when she then fell and hit the right side of her head on the guard rail. She has had some falls in the past. She denies any loss of consciousness. EMS was called and she was brought to the ER for further assessment. She admits to pain in her head, neck, chest and back. No pain in her hips or arms. No other complaints at this time. Exam demonstrates a mild hematoma and superficial laceration over the right mu-ism. No active bleeding or hemorrhage. Mild midline tenderness around C7, T6, and L1. Minimal generalized chest wall tenderness. No evidence of tension pneumothorax, no hypoxemia. No subcutaneous crepitus. Due to the patient's age, blood thinner use, tenderness locations, and the mechanism of the fall we will get CT scan of head neck chest abdomen pelvis for further evaluation of traumatic component. She does have a contrast allergy, and so we will perform testing with no contrast. Will monitor closely and reassess. 7:30 AM Patient's caregiver did come by, she is also the DPOA. She states that the patient is slightly more confused than at baseline. Currently the patient thinks it is 2004, in the month of December. The abrasion on the side of her head was washed, and there is no laceration whatsoever. CT scan of the head and neck demonstrates no acute fracture but there is evidence of partial destruction of the sella turcica and clivus. Neoplasm versus infection is of concern. Discussed this with the caregiver, and she feels that the patient would want to pursue it further with MRI. We will order MRI for further diagnostic evaluation. Additionally multiple lung nodules are noted in the lungs, but no other significant acute process otherwise. Patient was cleared for C-spine. FINDINGS: Brain: No intracranial hemorrhage appreciated. No significant focal mass effect or significant midline shift. Generalized parenchymal volume loss. Chronic ischemic changes are noted. Cerebral ventricles: No disproportionate ventriculomegaly. Pituitary gland and sella: Expansion and partial destruction of the sella turcica and clivus. Paranasal sinuses: Mild mucosal thickening in the ethmoid air cells. Mastoid air cells: No mastoid effusion. Bones: See Pituitary gland and sella finding. Soft tissues: Right parietal scalp hematoma/laceration. Vasculature: Arterial calcifications. IMPRESSION: 1. No intracranial sequelae of trauma appreciated. 2. Expansion and partial destruction of the sella turcica and clivus. Neoplasm or infection not excluded. Follow-up advised. 3. Additional findings as above. FINDINGS: Limitations: Motion artifact degrades image quality. Artifact from metallic dental hardware obscures surrounding tissues. Diagnostic value of the examination is limited. Brain: Additional findings as described report for CT scan of the brain, dictated separately. Paranasal sinuses: Mucosal retention cyst versus polyp in the right maxillary sinus. Orbital cavities: Globes intact. Bones: No acute fracture. Soft tissues: No acute pertinent abnormality demonstrated. IMPRESSION: 1. No acute facial bone fracture seen, within the limitations noted above. 2. Additional findings as described report for CT scan of the brain, dictated separately. FINDINGS: Limitations: Artifact from metallic dental hardware obscures surrounding tissues. Motion artifact degrades image quality. Bones: No acute cervical spine fracture seen. Extensive degenerative changes. Straightening of the normal cervical lordosis may reflect positioning or muscle spasm; correlate clinically. Lungs: No acute findings. Lymph nodes: Bilateral cervical lymph nodes. Vasculature: Arterial calcifications. Soft tissues: See Bones finding. IMPRESSION: 1. No acute cervical spine fracture seen, within the limitations noted above. 2. Additional studies dictated separately. Thank you for allowing us to participate in the care of your patient. Dictated and Authenticated by: Octavia Orozco MD 07/09/2024 6:35 AM Eastern Time ([place] & [place]) FINDINGS: Bones/joints: Degenerative change of the visualized osseous structures. Demineralized bones. Findings compatible with DISH. Soft tissues: Please see dedicated CT. IMPRESSION: 1. No acute osseous abnormality. 2. Please see dedicated CT of the chest, abdomen, and pelvis for additional findings and impression. FINDINGS: Bones/joints: Degenerative change of the visualized osseous structures. Demineralized bones. Findings compatible with DISH. Soft tissues: Please see dedicated CT. IMPRESSION: 1. No acute osseous abnormality. 2. Please see dedicated CT of the chest, abdomen, and pelvis for additional findings and impression. Thank you for allowing us to participate in the care of your patient. Dictated and Authenticated by: Rogelio Breaux DO 07/09/2024 7:11 AM Eastern Time ([place] & [place]) FINDINGS: Lungs: Numerous sub 4 mm nodules throughout the lungs. Basilar scarring/atelectasis. Pleural spaces: Unremarkable. No pneumothorax. No pleural effusion. Heart: Unremarkable. No cardiomegaly. No pericardial effusion. Coronary arteries: Heavy coronary calcified atherosclerotic disease. Lymph nodes: Unremarkable. No enlarged lymph nodes. Vasculature: Dilated pulmonary trunk measuring 3.6 cm in cross-sectional diameter. Mild atherosclerotic disease of the aorta. Bones/joints: Findings compatible with DISH. Diffuse degenerative change of the visualized osseous structures. Multiple consecutive upper thoracic spine mild wedge deformities. Soft tissues: Punctate density in the left breast. IMPRESSION: 1. No acute traumatic findings. 2. Findings which can be seen in pulmonary arterial hypertension. 3. Numerous sub 4 mm lung nodules throughout the lungs. For patients at low risk (minimal or absent history of smoking and of other known risk factors), no routine follow-up is indicated. For patients at high risk (history of smoking or of other known risk factors), consider optional CT Chest at 12 months. (Reference: Collin) REFERENCES: Kenahoabby H, et al. Guidelines for Management of Incidental Pulmonary Nodules Detected on CT Images: From the Fleischner Society 2017. Radiology. 2017;284(1):228-24 FINDINGS: Liver: Normal. No mass. Gallbladder and biliary ducts: Cholelithiasis. Decompressed gallbladder. Pancreas: Moderate atrophy of the pancreas. Spleen: Miniscule splenic hypodensity, too small to characterize by modality, stable from recent prior comparison. Adrenal glands: Normal. No mass. Kidneys and ureters: Symmetric perinephric stranding. Stable symmetric prominence of the bilateral upper renal collecting systems. No evidence for urinary obstruction. Stomach and bowel: Mild rectal wall thickening similar to prior comparison recently performed. Diverticulosis without evidence of diverticulitis. Moderate colonic stool burden. Appendix: No evidence of appendicitis. Intraperitoneal space: Unremarkable. No free air. No significant fluid collection. Vasculature: Peripheral arterial vascular disease. Atherosclerotic disease of the visualized aorta. Pelvic phleboliths. Lymph nodes: Unremarkable. No enlarged lymph nodes. Urinary bladder: Urinary bladder is distended, no focal abnormality. Reproductive: Status post hysterectomy. Bones/joints: Degenerative change of the visualized osseous structures. Findings compatible DISH. Soft tissues: Unremarkable. IMPRESSION: 1. No acute traumatic finding. 2. Findings suggestive of mild proctitis. Correlate clinically Thank you for allowing us to participate in the care of your patient. Dictated and Authenticated by: Rogelio Breaux DO 07/09/2024 7:08 AM Eastern Time ([place] & [place]) Quality:SDOH Health Related Social Needs: Health related social needs housing instability, housed, with risk of homelessness (Z59.811), food insecurity (Z59.41) PFSH All Active Problems (Updated 07/09/24 @ 07:33 by Jose Rangel DO) Fall (Acute) Abrasion of scalp (Acute) Acute urinary retention (Acute) Fecal impaction (Acute) Acute metabolic encephalopathy (Acute) Acute UTI (Acute) Lung nodules (Acute) Prepatellar bursitis, left knee (Acute) Cough (Acute) Atrial fibrillation (Chronic) History of colon polyps (Acute) Polyneuropathy (Acute) Urinary incontinence, mixed (Acute) Lower back pain (Acute) Postural kyphosis (Acute) Chest pain (Acute) Infection due to ESBL-producing Escherichia coli (Acute) Hypomagnesemia (Acute) Hypokalemia (Acute) Hypomagnesemia (Acute) Back pain of thoracolumbar region (Acute) Hypokalemia (Acute) Kyphosis (acquired) (postural) (Acute) Perirectal inflammation (Acute) 03/30/2019-from fecal incontinence Cerumen debris on tympanic membrane of both ears (Acute) Constipation, unspecified (Acute) History of umbilical hernia repair (Acute) Status post dilation and curettage (Acute) Status post laparoscopic hysterectomy (Acute) Excessive cerumen in both ear canals (Chronic) Diabetes mellitus (Chronic 07/21/12) Atrial fibrillation with RVR (Acute 09/09/17) Dx by EKG on 08/21/17, [id number] = 2, anti-coagulated on Eliquis Tubular adenoma (Acute 10/17/14) 10/03/14; DR. ALICIA;1 tubulovillous adenoma and 2 tubular adenoma Primary osteoarthritis of both knees (Acute) Morbid obesity with BMI of 40.0-44.9, adult (Acute) Hyperlipidemia associated with type 2 diabetes mellitus (Acute) REFUSES RX Hearing loss (Acute) A.D. Gastroesophageal reflux (Chronic 10/01/13) Essential hypertension (Acute 02/01/13) Depressive disorder (Acute) anxiety Cognitive deficits (Acute 08/05/17) Anxiety associated with depression (Acute 07/21/17) History of psychiatric disorder (Acute) Medical History POLST (Physician Orders for Life-Sustaining Treatment) DNI (do not intubate) DNR (do not resuscitate) Hypertension GERD (gastroesophageal reflux disease) Hypothyroidism Hyperlipidemia Depression Diabetes Morbid obesity with BMI of 40.0-44.9, adult Surgical History Hysterectomy, Laproscopic Repair of umbilical hernia Dilation and curettage (~1995) Family History Mother Essential hypertension Heart disease Father , 86 Essential hypertension Heart disease Stroke Asthma Brother No problems noted. Maternal Grandfather Heart disease Paternal Grandfather No problems noted. Maternal Grandmother Heart disease Cancer Paternal Grandmother Heart disease Stroke Brother No problems noted. Social History (Updated 06/30/24 @ 06:54 by Dhaval Urrutia) Smoking/Tobacco Use Status: Never Smoking risk assessment performed?: Yes Alcohol Intake: never Drug use: Never Substance use type: does not use Caregiver/Support person: No Housing: assisted living facility Communication Needs: None Do you need help understanding health information?: Always Pets and animals: No Sexually active: No Do you think of yourself as: straight/heterosexual What is your relationship status?: never How often do you talk on the phone with friends or family?: three or more times per week How often do you get together with friends or relatives?: three or more times per week How often do you attend anabaptism or nondenominational services?: decline to answer Do you belong to any clubs or organized social groups?: no Panel score (0-1 are the most socially isolated patients): 1 What type of physical activity do you participate in: walking Duration: < 15 minutes/day Frequency: daily Carito/Congregational: None Special carito needs: No Seatbelt use: always Drive intox or ride w/intox local flatbed driver: No Do you feel safe at home: Yes Do you feel safe in your relationship?: Yes Additional Social history: Lives at [facility], has guardian
[2024-07-09] MEDS: Normal Saline 500 ML IV (04:14)
[2024-07-09 04:33] LABS: Abs Immature Grans 0.04 10^3/uL (0.0-0.06); Absolute Basophil Count 0.03 10^3/uL (0.0-0.2); Absolute Eosinophil Count 0.11 10^3/uL (0.0-0.7); Absolute Lymphocyte Count 1.37 10^3/uL (1.2-3.4); Absolute Monocyte Count 0.59 10^3/uL (0.1-0.8); Absolute Neutrophil Count 4.47 10^3/uL (1.2-6.7); Basophils % 0.5 %; Eosinophils % 1.7 %; HCT 45.1 % (36.0-46.0); HGB 14.4 g/dL (11.2-15.7); Immature Grans % 0.6 %; Lymphocytes % 20.7 %; MCH 30.8 pg (27.0-33.0); MCHC 31.9 % (32.0-36.0); MCV 96 fL (80-95); MPV 9.9 fL (8.0-11.0); Monocytes % 8.9 %; Neutrophils % 67.6 %; Platelet Count 248 10^3/uL (130-400); RBC 4.68 10^6/uL (3.93-5.22); RDW 13.2 % (11.7-14.6); WBC 6.61 10^3/uL (4.4-10.8)
[2024-07-09 04:42] LABS: INR 1.1 (0.9-1.1); PTT Activated 27.5 sec (20.6-30.2)
[2024-07-09 04:43] LABS: ALT 44 U/L (14-59); AST 21 U/L (15-37); Alkaline Phosphatase 106 U/L (46-116); Anion Gap 6.4 mmol/L (3-11); BUN 17 mg/dL (7-18); Bilirubin, Total 0.3 mg/dL (0.2-1.0); CO2 32.6 mmol/L (21.0-32.0); CREATININE 0.8 mg/dL (0.55-1.02); Calcium 9.2 mg/dL (8.5-10.1); Chloride 105 mmol/L (98-107); Estimated GFR 76.31 (mL/min/1.73m2); Glucose 165 mg/dL (74-106); Potassium 4.2 mmol/L (3.5-5.1); Sodium 144 mmol/L (136-145); Total Protein 6.4 g/dL (6.4-8.2)
--- NOTE | 2024-07-09 04:57 | DI.CT_ITS ---
Exam(s) CT CHEST/ABD/PEL WO EXAM: CT CHEST/ABD/PEL WO CLINICAL HISTORY: fall, eliquis, pain in chest and back. TECHNIQUE: Imaging Protocol: Axial computed tomography images with coronal and sagittal reformatted images were created and reviewed CONTRAST MATERIAL: Intravenous: none Oral: None COMPARISON: CT CT CHEST/ABD/PEL WO from 06/29/2024 FINDINGS: CHEST: LUNGS: . There are tiny benign-appearing nodules noted in both lung barboza largest measures 3-4 mm. No evidence of infiltrate or lung contusion or pleural effusion or pneumothorax. No findings in trac hea and mainstem bronchi. No obvious rib fractures evident.. MEDIASTINUM: No evidence of sternal fracture nor mediastinal hematoma. No hilar nor mediastinal osei opathy. CARDIAC: Cardiomegaly. No pericardial effusion. The diameter of the ascending thoracic aorta is upp er normal.Diameter of the main pulmonary arteries is slightly prominent. OSSEOUS: No vertebral fractures evident. No sternal fracture. For no rib fractures. No significant osseous lesions identified.. ABDOMEN: There is no ascites. No evidence of bowel wall nor mesenteric hematoma. LIVER: No obvious laceration. No obvious significant lesions evident on this non few study. GALLBLADDER/BILIARY: Cholelithiasis and possible gallbladder wall calcification. CBD is not dilated. PANCREAS: No evidence of obvious pancreatic mass nor dilatation of the pancreatic duct. SPLEEN: Intact. No laceration. Normal size. No significant lesions on this non few study. ADRENALS: Slight thickening of genu of the right adrenal gland may be small adenoma. Left adrenal gl and unremarkable. KIDNEYS: No evidence of renal lacerations nor subcapsular hematomas. No solid renal masses nor calcu li nor hydronephrosis. No hydroureter.. ABDOMINAL AORTA: Abdominal aorta is not enlarged. No obvious trauma sequelae in the aortoiliac segme nts. LYMPH NODES: There is no retroperitoneal nor para-aortic adenopathy. ABDOMINAL WALL/GI: No evidence of significant anterior abdominal wall nor inguinal hernia. No prominent subcutaneous bruising/hematomas. PELVIS: LYMPH NODES: There is no intrapelvic nor inguinal adenopathy. GI: No evidence of appendicitis.Sigmoid diverticuli. No evidence of acute diverticulitis. There is circumferential thickening of the rectum noted. URINARY BLADDER: Bladder is moderately distended. Does not contain clots nor radiopaque calculi nor obvious mass. REPRODUCTIVE: Uterus surgically absent. There are no abnormal adnexal masses nor free fluid in the p kaylynn. OSSEOUS: No fractures nor significant osseous lesions. No disc space narrowing. No listhesis. IMPRESSION: 1. No obvious significant trauma sequelae in the chest, abdomen and pelvis. 2. Cholelithiasis. There may also be an element of gallbladder wall calcification. 3. Sigmoid diverticuli but no evidence of acute diverticulitis. 4. There has been previous hysterectomy. 5. Multiple tiny bilateral lung nodules noted. Four patient is at low risk (minimal or absent histo ry of smoking and of other known risk factors) no routine follow-up is indicated. For patients at hi gh risk (history of smoking or of other known risk factors), consider optional CT scan at 12 months. (Reference: David: Guidelines for management of incidental pulmonary nodules detected on CT images from the Fleischner society 2017) Urinary bladder is moderately distended. RADIATION DOSE DELIVERED: 789.92mGy.cm Total DLP DATA REPOSITORY: All CT scans at this facility are submitted to the National Radiology Data Registry (NRDR) Dose Index Registry (DIR) with the [employer] (A[employer]). RADIATION OPTIMIZATION: All CT scans at this facility use at least one of these dose optimization te chniques: automated exposure control; mA and/or kV adjustment per patient size (includes targeted exa ms where dose is matched to clinical indication); or iterative reconstruction.
--- NOTE | 2024-07-09 04:58 | DI.CT_ITS ---
Exam(s) CT HEAD CERV SPINE FACIAL WO EXAM: CT HEAD CERV SPINE FACIAL WO CLINICAL HISTORY: fall, hit right yazidism, elequis use. TECHNIQUE: Imaging Protocol: Axial computed tomography images with coronal and sagittal reformatted images were created and reviewed COMPARISON: No exams were available for comparison FINDINGS: CT BRAIN: There is a right parietal scalp hematoma. No acute skull fracture evident nor significant fluid in t he paranasal sinuses. There is no evidence of intracranial hemorrhage, intra axial mass effect, or shift of midline structu res. There are no extra-axial fluid collections. The ventricles are not enlarged or shifted and the re is no blood within the ventricular system nor within the basal cisterns. However, there appears to be lytic involvement of the sella turcica and part of the clivus/basioccipu t incidentally noted. This is not related to the present trauma. CT MAXILLOFACIAL BONES: There is no evidence of facial fractures nor fluid in the visualized paranasal sinuses. there is no evidence of orbital blowout fracture. CT CERVICAL SPINE: There is no evidence of fracture nor listhesis. No significant prevertebral soft tissue swelling. T here is multilevel anterior osteophytes. There is mild disc space narrowing at C5-6. Other disc spa nani exhibit normal height. There are mild degenerative changes in the facet joints. No facet malali gnment. No significant osseous lesions evident. No osseous lesions. IMPRESSION: No acute intracranial trauma findings on this noninfused CT scan of the brain.However, incidentally n oted is what appears to be lytic involvement of the sella turcica and upper clivus/basiocciput. Susp icious for neoplasm. Further specific imaging of this region recommended with MRI. No evidence of facial nor orbital blowout fractures. No evidence of cervical spine fracture, malalignment, nor acute compromise of the cervical spinal can al. Degenerative changes. RADIATION DOSE DELIVERED: 1,697.87mGy.cm Total DLP DATA REPOSITORY: All CT scans at this facility are submitted to the National Radiology Data Registry (NRDR) Dose Index Registry (DIR) with the [employer] (ACR). RADIATION OPTIMIZATION: All CT scans at this facility use at least one of these dose optimization te chniques: automated exposure control; mA and/or kV adjustment per patient size (includes targeted exa ms where dose is matched to clinical indication); or iterative reconstruction.
--- NOTE | 2024-07-09 06:36 | DI.VRAD_ITS ---
PROCEDURE INFORMATION: Exam: CT Head Without Contrast Exam date and time: 07/09/2024 4:31 AM Age: 78 years old Clinical indication: Injury or trauma; Blunt trauma (contusions or hematomas); Consciousness not specified; Injury date: 07/09/24; Fall, hit right hindu, elequis use TECHNIQUE: Imaging protocol: Computed tomography of the head without contrast. Radiation optimization: All CT scans at this facility use at least one of these dose optimization techniques: automated exposure control; mA and/or kV adjustment per patient size (includes targeted exams where dose is matched to clinical indication); or iterative reconstruction. COMPARISON: No relevant prior studies available. FINDINGS: Brain: No intracranial hemorrhage appreciated. No significant focal mass effect or significant midline shift. Generalized parenchymal volume loss. Chronic ischemic changes are noted. Cerebral ventricles: No disproportionate ventriculomegaly. Pituitary gland and sella: Expansion and partial destruction of the sella turcica and clivus. Paranasal sinuses: Mild mucosal thickening in the ethmoid air cells. Mastoid air cells: No mastoid effusion. Bones: See Pituitary gland and sella finding. Soft tissues: Right parietal scalp hematoma/laceration. Vasculature: Arterial calcifications. IMPRESSION: 1. No intracranial sequelae of trauma appreciated. 2. Expansion and partial destruction of the sella turcica and clivus. Neoplasm or infection not excluded. Follow-up advised. 3. Additional findings as above. PROCEDURE INFORMATION: Exam: CT Maxillofacial Without Contrast Exam date and time: 07/09/2024 4:31 AM Age: 78 years old Clinical indication: Injury or trauma; Blunt trauma (contusions or hematomas); Consciousness not specified; Injury date: 07/09/24; Fall, hit right hindu, elequis use TECHNIQUE: Imaging protocol: Computed tomography of the face without contrast. Radiation optimization: All CT scans at this facility use at least one of these dose optimization techniques: automated exposure control; mA and/or kV adjustment per patient size (includes targeted exams where dose is matched to clinical indication); or iterative reconstruction. COMPARISON: No relevant prior studies available. FINDINGS: Limitations: Motion artifact degrades image quality. Artifact from metallic dental hardware obscures surrounding tissues. Diagnostic value of the examination is limited. Brain: Additional findings as described report for CT scan of the brain, dictated separately. Paranasal sinuses: Mucosal retention cyst versus polyp in the right maxillary sinus. Orbital cavities: Globes intact. Bones: No acute fracture. Soft tissues: No acute pertinent abnormality demonstrated. IMPRESSION: 1. No acute facial bone fracture seen, within the limitations noted above. 2. Additional findings as described report for CT scan of the brain, dictated separately. PROCEDURE INFORMATION: Exam: CT Cervical Spine Without Contrast Exam date and time: 07/09/2024 4:31 AM Age: 78 years old Clinical indication: Injury or trauma; Blunt trauma (contusions or hematomas); Consciousness not specified; Injury date: 07/09/24; Fall, hit right hindu, elequis use TECHNIQUE: Imaging protocol: Computed tomography of the cervical spine without contrast. Radiation optimization: All CT scans at this facility use at least one of these dose optimization techniques: automated exposure control; mA and/or kV adjustment per patient size (includes targeted exams where dose is matched to clinical indication); or iterative reconstruction. COMPARISON: No relevant prior studies are available for comparison. FINDINGS: Limitations: Artifact from metallic dental hardware obscures surrounding tissues. Motion artifact degrades image quality. Bones: No acute cervical spine fracture seen. Extensive degenerative changes. Straightening of the normal cervical lordosis may reflect positioning or muscle spasm; correlate clinically. Lungs: No acute findings. Lymph nodes: Bilateral cervical lymph nodes. Vasculature: Arterial calcifications. Soft tissues: See Bones finding. IMPRESSION: 1. No acute cervical spine fracture seen, within the limitations noted above. 2. Additional studies dictated separately. Dictated and Authenticated by: Octavia Orozco MD. Orderin Claire Garcia MD
--- NOTE | 2024-07-09 07:00 | DI.MRI_ITS ---
Exam(s) MR BRAIN WO EXAM: MR BRAIN WO CLINICAL HISTORY: atypical lesion in the sella tursica TECHNIQUE: Multiplanar multisequence MRI of the brain was performed. COMPARISON: No exams were available for comparison FINDINGS: CEREBRAL PARENCHYMA: There is no evidence of intracranial hemorrhage, intra or extra-axial. No shift of midline structure s. Ventricles are not enlarged or shifted., There is no significant focal signal abnormality in the cerebellar hemispheres nor within the jessy, m idbrain, and thalami. There is mild periventricular signal abnormality consistent chronic small vessel disease. No restric delmy diffusion. There is no significant focal signal abnormality evident on diffusion imaging to suggest acute ischem ic event. PITUITARY GLAND: There appears to be partial destruction of the sella turcica and subjacent clivus/ba siocciput. Pituitary gland size appears normal. FLOW VOIDS: The expected flow void are noted. No evidence of obvious aneurysm nor obvious vascular ma lformation. PARANASAL SINUSES: The visualized paranasal sinuses appear unremarkable. No obvious finding ORBITS: No obvious findings. IMPRESSION: No acute intracranial findings related to trauma but there is partial destruction of the sella turcic a and clivus/basiocciput. Recommend MRI scan of the pituitary fossa/sella turcica without and with IV contrast Findings are recommendations called by myself to ER physician [id number] at 9:05 a.m. DATA REPOSITORY:
--- NOTE | 2024-07-09 07:09 | DI.VRAD_ITS ---
PROCEDURE INFORMATION: Exam: CT Chest Without Contrast; Diagnostic Exam date and time: 07/09/2024 4:33 AM Age: 78 years old Clinical indication: Injury or trauma; Generalized; Blunt trauma (contusions or hematomas); Injury date: 07/09/24; Fall, eliquis, pain in chest and back TECHNIQUE: Imaging protocol: Diagnostic computed tomography of the chest without contrast. Radiation optimization: All CT scans at this facility use at least one of these dose optimization techniques: automated exposure control; mA and/or kV adjustment per patient size (includes targeted exams where dose is matched to clinical indication); or iterative reconstruction. COMPARISON: CT CHEST/ABD/PEL WO 06/29/2024 8:23 PM FINDINGS: Lungs: Numerous sub 4 mm nodules throughout the lungs. Basilar scarring/atelectasis. Pleural spaces: Unremarkable. No pneumothorax. No pleural effusion. Heart: Unremarkable. No cardiomegaly. No pericardial effusion. Coronary arteries: Heavy coronary calcified atherosclerotic disease. Lymph nodes: Unremarkable. No enlarged lymph nodes. Vasculature: Dilated pulmonary trunk measuring 3.6 cm in cross-sectional diameter. Mild atherosclerotic disease of the aorta. Bones/joints: Findings compatible with DISH. Diffuse degenerative change of the visualized osseous structures. Multiple consecutive upper thoracic spine mild wedge deformities. Soft tissues: Punctate density in the left breast. IMPRESSION: 1. No acute traumatic findings. 2. Findings which can be seen in pulmonary arterial hypertension. 3. Numerous sub 4 mm lung nodules throughout the lungs. For patients at low risk (minimal or absent history of smoking and of other known risk factors), no routine follow-up is indicated. For patients at high risk (history of smoking or of other known risk factors), consider optional CT Chest at 12 months. (Reference: Collin) REFERENCES: Collin Manning et al. Guidelines for Management of Incidental Pulmonary Nodules Detected on CT Images: From the Fleischner Society 2017. Radiology. 2017;284(1):228-243. PROCEDURE INFORMATION: Exam: CT Abdomen And Pelvis Without Contrast Exam date and time: 07/09/2024 4:33 AM Age: 78 years old Clinical indication: Injury or trauma; Generalized; Blunt trauma (contusions or hematomas); Injury date: 07/09/24; Fall, eliquis, pain in chest and back TECHNIQUE: Imaging protocol: Computed tomography of the abdomen and pelvis without contrast. Radiation optimization: All CT scans at this facility use at least one of these dose optimization techniques: automated exposure control; mA and/or kV adjustment per patient size (includes targeted exams where dose is matched to clinical indication); or iterative reconstruction. COMPARISON: CT CHEST/ABD/PEL WO 06/29/2024 8:23 PM FINDINGS: Liver: Normal. No mass. Gallbladder and biliary ducts: Cholelithiasis. Decompressed gallbladder. Pancreas: Moderate atrophy of the pancreas. Spleen: Miniscule splenic hypodensity, too small to characterize by modality, stable from recent prior comparison. Adrenal glands: Normal. No mass. Kidneys and ureters: Symmetric perinephric stranding. Stable symmetric prominence of the bilateral upper renal collecting systems. No evidence for urinary obstruction. Stomach and bowel: Mild rectal wall thickening similar to prior comparison recently performed. Diverticulosis without evidence of diverticulitis. Moderate colonic stool burden. Appendix: No evidence of appendicitis. Intraperitoneal space: Unremarkable. No free air. No significant fluid collection. Vasculature: Peripheral arterial vascular disease. Atherosclerotic disease of the visualized aorta. Pelvic phleboliths. Lymph nodes: Unremarkable. No enlarged lymph nodes. Urinary bladder: Urinary bladder is distended, no focal abnormality. Reproductive: Status post hysterectomy. Bones/joints: Degenerative change of the visualized osseous structures. Findings compatible DISH. Soft tissues: Unremarkable. IMPRESSION: 1. No acute traumatic finding. 2. Findings suggestive of mild proctitis. Correlate clinically Dictated and Authenticated by: Rogelio Breaux MD. Orderin Claire Garcia MD
--- NOTE | 2024-07-09 07:11 | DI.VRAD_ITS ---
PROCEDURE INFORMATION: Exam: CT Thoracic Spine Without Contrast Exam date and time: 07/09/2024 4:33 AM Age: 78 years old Clinical indication: Injury or trauma; Blunt trauma (contusions or hematomas); Injury date: 07/09/24; Fall, eliquis, pain in chest and back TECHNIQUE: Imaging protocol: Computed tomography of the thoracic spine without contrast. Radiation optimization: All CT scans at this facility use at least one of these dose optimization techniques: automated exposure control; mA and/or kV adjustment per patient size (includes targeted exams where dose is matched to clinical indication); or iterative reconstruction. COMPARISON: CT HEAD CERV SPINE FACIAL WO 07/09/2024 4:31 AM FINDINGS: Bones/joints: Degenerative change of the visualized osseous structures. Demineralized bones. Findings compatible with DISH. Soft tissues: Please see dedicated CT. IMPRESSION: 1. No acute osseous abnormality. 2. Please see dedicated CT of the chest, abdomen, and pelvis for additional findings and impression. PROCEDURE INFORMATION: Exam: CT Lumbar Spine Without Contrast Exam date and time: 07/09/2024 4:33 AM Age: 78 years old Clinical indication: Injury or trauma; Blunt trauma (contusions or hematomas); Injury date: 07/09/24; Fall, eliquis, pain in chest and back TECHNIQUE: Imaging protocol: Computed tomography of the lumbar spine without contrast. Radiation optimization: All CT scans at this facility use at least one of these dose optimization techniques: automated exposure control; mA and/or kV adjustment per patient size (includes targeted exams where dose is matched to clinical indication); or iterative reconstruction. COMPARISON: CT CHEST/ABD/PEL WO 06/29/2024 8:23 PM FINDINGS: Bones/joints: Degenerative change of the visualized osseous structures. Demineralized bones. Findings compatible with DISH. Soft tissues: Please see dedicated CT. IMPRESSION: 1. No acute osseous abnormality. 2. Please see dedicated CT of the chest, abdomen, and pelvis for additional findings and impression. Dictated and Authenticated by: Rogelio Breaux MD. Orderin Claire Garcia MD
[2024-07-09 08:54] LABS: Bilirubin Negative (Negative); Blood Negative (Negative); Clarity Clear (Clear); Glucose Negative (Negative); Ketones Negative (Negative); Leukocyte Esterase Negative (Negative); Nitrite Negative (Negative); Specific Gravity 1.015 (1.005-1.025); Urobilinogen 0.2 mg/dL (Up to 0.2)
--- NOTE | 2024-07-09 09:00 | DI.MRI_ITS ---
Exam(s) MR BRAIN PITUITARY WO/W EXAM: MR BRAIN PITUITARY WO/W CLINICAL HISTORY: sella tursica lesion on ct, fall TECHNIQUE: Multiplanar multisequence MRI of the brain and pituitary gland was performed. CONTRAST MATERIAL: IV Contrast: 15 mL of Dotarem contrast administered. COMPARISON: MR MR BRAIN WO from 07/09/[address] HEAD CERV SPINE FACIAL WO from 07/09/2024 Findings: The postcontrast sequences are limited by motion. VENTRICLES AND EXTRA AXIAL SPACES: Normal in size and morphology for the degree of atrophy. HEMORRHAGE: None. CEREBRAL PARENCHYMA: No space-occupying lesion identified.No suspicious enhancement identified in the brain. Atrophy. MIDLINE SHIFT: None. BRAINSTEM/CEREBELLUM: Normal. CALVARIUM: Grossly normal. VISUALIZED PARANASAL SINUSES/MASTOIDS: Clear. The facial CT showed the posterior aspect of the sphen oid sinuses are eroded. This is not well demonstrated on the current exam. OTHER FINDINGS: See pituitary section. PITUITARY: The pituitary is enlarged and there is enlargement of the sella. The gland measures approximately 15 millimeters AP by 10 millimeters cephalo caudad by 18 millimeters transverse. There appears some th e some inferior extension into the clivus, with erosion of the floor of the sella. There is abnormal marrow replacement of the superior portion of the clivus. There is irregular post contrast enhancem ent. The postcontrast images are limited by motion. A destructive lesion of the clivus is noted on the CT with bony erosion at the inferior portion, at t he roof of the nasopharynx. The optic chiasm is unremarkable. The cavernous portions of both carotid arteries show normal flow vo ids. Impression: Enlargement of the pituitary gland with inferior extension through the sella into the clivus. Destru ction of the floor of the sella, adjacent portion of clivus to the roof of the nasopharynx as well as posterior aspects of the sphenoid sinuses. Findings could represent an aggressive pituitary macro a denoma, metastatic disease, or plasmacytoma. DATA REPOSITORY:
[2024-07-09] MEDS: Acetaminophen 500 MG TAB (13:12)
[2024-07-09] MEDS: Hydrogen Peroxide 3% 480 ML BTL (13:12)
[2024-07-09] MEDS: Gadoterate meglumine 20 ML SYRINGE 15 ML IVP (16:10)
--- NOTE | 2024-07-09 16:35 | W.EDPROG ---
Date of service: 07/09/24 Time of Service: 16:35 Medical Decision Making Care signed out by Dr. Rangel with plan to follow-up on MRI of the brain given concern noted on CT head of abnormal sella turcica. Initial MRI without contrast was obtained. This was reviewed by radiology who noted MRI with contrast needed. Patient awaiting MRI with contrast. Quality:SDOH Health Related Social Needs: Health related social needs housing instability, housed, with risk of homelessness (Z59.811), food insecurity (Z59.41) Discharge Plan Discharge Details Chief Complaint: Fall/Non TraumaCriteria Clinical Impression: Abrasion of scalp, Fall Primary Care Provider: Charlene Paige ED Provider: Edgar Stevenson [facility] Meds and New Rx's Prescriptions: No Action sennosides-docusate sodium 8.6-50 mg tablet 1 tab PO HS PRN (Reason: constipation) Qty: 90 3RF polyethylene glycol 3350 [Miralax] 17 gram/dose powder 17 gm PO DAILY PRN (Reason: constipation) Qty: 510 2RF Ozempic 2 mg/dose (8 mg/3 mL) pen injector 2 mg subcut QWEEK amiodarone 200 mg tablet 200 mg PO DAILY Qty: 90 3RF risperidone 1 mg tablet 1 mg PO HS (DME) blood-glucose meter [[employer] System[employer] Verio IQ Meter] Kit See Rx Instructions .ROUTE .MEDSUPPLY Qty: 1 0RF Rx Instructions: As directed- BID testing- Insulin dependent Soothe and Cool Inzo Barrier 5 % cream 1 applic TP TID-QID PRN (Reason: skin irritation) Qty: 118.29 3RF (DME) pen needle, diabetic [Pen Needle] 31 gauge x 5/16 needle 1 ndl SQ DAILY Qty: 100 4RF Rx Instructions: USE WITH LANTUS PEN cyanocobalamin (vitamin B-12) [Vitamin B-12] 1,000 mcg tablet 500 mcg PO DAILY Qty: 90 4RF nystatin 100,000 unit/gram powder 1 applic Topical BID PRN (Reason: dermatitis) Vicks Vaporub 4.7-1.2-2.6 % ointment 1 applic TP BID PRN (Reason: congestion) Qty: 50 0RF Rx Instructions: Patient may keep in her room and self apply as directed Eliquis 5 mg tablet 5 mg PO BID Qty: 180 2RF levothyroxine 150 mcg tablet 150 mcg PO DAILY Qty: 90 3RF Rx Instructions: note dose change to 150 mcg daily (stop the 175 mcg) (DME) Blood Glucose Test Strip 1 strip Miscellaneous QID Qty: 200 3RF Rx Instructions: FOR ONE TOUCH Verio IQ METER. Dx: E11.65 on insulin -BID calcium carbonate [Tums] 200 mg calcium (500 mg) tablet,chewable 400 mg PO BID Qty: 120 11RF Ocuvite Adult 50 Plus 250-5-1 mg capsule 1 cap PO DAILY Qty: 90 3RF acetaminophen 500 mg tablet 1,000 mg PO BID Qty: 120 11RF (DME) lancets [OneTouch Delica Lancets] 33 gauge misc See Dose Instructions .ROUTE .MEDSUPPLY Qty: 200 4RF Dose Instruction: As directed Rx Instructions: BID glucose finger testing - E11.65 (on insulin) diazepam 5 mg tablet 5 mg PO QHS PRN escitalopram oxalate 10 mg tablet 10 mg PO DAILY PreserVision AREDS-2 250-90-40-1 mg tablet,chewable 1 tab PO QAM AND QPM carboxymethylcellulose sodium [Refresh Tears] 0.5 % drops 1 drp ophthalmic (eye) BID famotidine [Pepcid] 40 mg Tablet 40 mg PO DAILY omeprazole 20 mg Capsule,Delayed Release(Dr/Ec) 20 mg PO DAILY pravastatin 20 mg Tablet 20 mg PO DAILY benztropine 1 mg tablet 1 mg PO BID cefpodoxime 200 mg Tablet 200 mg PO BID Qty: 10 0RF mecobalamin (vitamin B12) [B12 Active] PO magnesium PO PreserVision AREDS-2 250-90-40-1 mg capsule 1 tab PO BID
--- NOTE | 2024-07-09 17:27 | W.EDPROG ---
Date of service: 07/09/24 Time of Service: 17:28 Medical Decision Making patient signed out to me pending pituitary MRI results which shows Enlargement of the pituitary gland with inferior extension through the sella into the clivus. Destruction of the floor of the sella, adjacent portion of clivus to the roof of the nasopharynx as well as posterior aspects of the sphenoid sinuses. Findings could represent an aggressive pituitary macro adenoma, metastatic disease, or plasmacytoma. Patient stable, discussed with her and her sister in law who states she's her guardian. Patient is dnr/dni and when asked if she would want surgery to possibly operate on the patient answers no. She likely has had this for quite some time. I am going to have nursing do an ambulation trial with her to see if she is stable to go back to her assisted living. If she is I will provide a referral to see neurosurgery in case she decides she wants to have intervention. Will also provide referral for palliative care to discuss goals of care with her. Patient ambulated with her walker at baseline without issues. Palliative consult placed and also placed on follow-up list for care management from neurosurgery referral if patient decides he wants to proceed with any treatments. Return precautions given Quality:SDOH Health Related Social Needs: Health related social needs housing instability, housed, with risk of homelessness (Z59.811), food insecurity (Z59.41) Discharge Plan Disposition Patient Disposition: Home Condition: Stable Discharge Details Clinical Impression: Abrasion of scalp, Fall Primary Care Provider: Charlene Paige ED Provider: Robbi Rodriguez Meds and New Rx's Prescriptions: Continued sennosides-docusate sodium 8.6-50 mg tablet 1 tab PO HS PRN (Reason: constipation) Qty: 90 3RF polyethylene glycol 3350 [Miralax] 17 gram/dose powder 17 gm PO DAILY PRN (Reason: constipation) Qty: 510 2RF Ozempic 2 mg/dose (8 mg/3 mL) pen injector 2 mg subcut QWEEK amiodarone 200 mg tablet 200 mg PO DAILY Qty: 90 3RF risperidone 1 mg tablet 1 mg PO HS (DME) blood-glucose meter [KalturaTouch Verio IQ Meter] Kit See Rx Instructions .ROUTE .MEDSUPPLY Qty: 1 0RF Rx Instructions: As directed- BID testing- Insulin dependent Soothe and Cool Inzo Barrier 5 % cream 1 applic TP TID-QID PRN (Reason: skin irritation) Qty: 118.29 3RF (DME) pen needle, diabetic [Pen Needle] 31 gauge x 5/16 needle 1 ndl SQ DAILY Qty: 100 4RF Rx Instructions: USE WITH LANTUS PEN cyanocobalamin (vitamin B-12) [Vitamin B-12] 1,000 mcg tablet 500 mcg PO DAILY Qty: 90 4RF nystatin 100,000 unit/gram powder 1 applic Topical BID PRN (Reason: dermatitis) Vicks Vaporub 4.7-1.2-2.6 % ointment 1 applic TP BID PRN (Reason: congestion) Qty: 50 0RF Rx Instructions: Patient may keep in her room and self apply as directed Eliquis 5 mg tablet 5 mg PO BID Qty: 180 2RF levothyroxine 150 mcg tablet 150 mcg PO DAILY Qty: 90 3RF Rx Instructions: note dose change to 150 mcg daily (stop the 175 mcg) (DME) Blood Glucose Test Strip 1 strip Miscellaneous QID Qty: 200 3RF Rx Instructions: FOR ONE TOUCH Verio IQ METER. Dx: E11.65 on insulin -BID calcium carbonate [Tums] 200 mg calcium (500 mg) tablet,chewable 400 mg PO BID Qty: 120 11RF Ocuvite Adult 50 Plus 250-5-1 mg capsule 1 cap PO DAILY Qty: 90 3RF acetaminophen 500 mg tablet 1,000 mg PO BID Qty: 120 11RF (DME) lancets [OneTouch Delica Lancets] 33 gauge misc See Dose Instructions .ROUTE .MEDSUPPLY Qty: 200 4RF Dose Instruction: As directed Rx Instructions: BID glucose finger testing - E11.65 (on insulin) diazepam 5 mg tablet 5 mg PO QHS PRN escitalopram oxalate 10 mg tablet 10 mg PO DAILY PreserVision AREDS-2 250-90-40-1 mg tablet,chewable 1 tab PO QAM AND QPM carboxymethylcellulose sodium [Refresh Tears] 0.5 % drops 1 drp ophthalmic (eye) BID famotidine [Pepcid] 40 mg Tablet 40 mg PO DAILY omeprazole 20 mg Capsule,Delayed Release(Dr/Ec) 20 mg PO DAILY pravastatin 20 mg Tablet 20 mg PO DAILY benztropine 1 mg tablet 1 mg PO BID cefpodoxime 200 mg Tablet 200 mg PO BID Qty: 10 0RF mecobalamin (vitamin B12) [B12 Active] PO magnesium PO PreserVision AREDS-2 250-90-40-1 mg capsule 1 tab PO BID Discharge Instructions Additional Instructions: You are found to have a pituitary mass. You have likely had this for a while and this was just incidentally picked up on imaging today done for your fall. Follow-up with your primary care provider and I also placed a referral for neurosurgery in case you decide you want to go through with further workup and interventions for this. I also placed on a follow-up list to consult with palliative care for discussion of goals of care. If you feel more ill or have new symptoms such as difficulty breathing return to the emergency department for reevaluation
--- NOTE | 2024-07-09 18:49 | NUR.NOTE ---
Nursing Note: PT able to walk with walker sister said she appeared to be walking at her baseline
== END 2024-07-09 18:41 | disposition home or self-care (01) ==
PROVIDERS: Student in an Organized Health Care Education/Training Program; Emergency Provider Emergency Medicine; PCP Nurse Practitioner Family
DX: S00.01XA Abrasion of scalp, initial encounter (principal); R93.0 Abnormal findings on diagnostic imaging of skull and head, not elsewhere classified; I48.91 Unspecified atrial fibrillation; I10 Essential (primary) hypertension; E78.5 Hyperlipidemia, unspecified; E03.9 Hypothyroidism, unspecified; E11.9 Type 2 diabetes mellitus without complications; Z79.82 Long term (current) use of aspirin; Z79.01 Long term (current) use of anticoagulants; Z79.85 Long-term (current) use of injectable non-insulin antidiabetic drugs; W01.190A Fall on same level from slipping, tripping and stumbling with subsequent striking against furniture, initial encounter; Y93.89 Activity, other specified; Y92.092 Bedroom in other non-institutional residence as the place of occurrence of the external cause
CPT/HCPCS: 00123; 70553; 71250; 80053; 93005; 96360; 99285; 70450; 70486; 70551; 72125; 74176; 81003; 85025; 85610; 85730; 93010